=== PATIENT | female | born 1985 | race Caucasian/White ===

== ENCOUNTER 2020-05-19 10:01 | Emergency (ER) | payer MEDICAID ==
[2020-05-19 10:39] LABS: BILIRUBIN,URINE NEGATIVE (NEGATIVE); GLUCOSE, URINE (UA) NEGATIVE (NEGATIVE); KETONES,URINE (UA) NEGATIVE (NEGATIVE); LEUKOCYTE ESTERASE, URINE NEGATIVE (NEGATIVE); NITRITE,URINE NEGATIVE (NEGATIVE); OCCULT BLOOD,URINE NEGATIVE (NEGATIVE); PROTEIN,URINE NEGATIVE (NEGATIVE); UROBILINOGEN,URINE 0.2 (NORMAL) E.U./dL (NORMAL)
[2020-05-19 10:45] LABS: CLARITY,URINE CLEAR (CLEAR); HCG UR QUAL NEGATIVE
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
[2020-05-19] MEDS ORDERED: SODIUM CHLORIDE 0.9% 1,000 ML IV STA (11:08)
[2020-05-19] MEDS ORDERED: KETOROLAC 30 MG/ML VIAL IVP STA (11:08)
[2020-05-19] MEDS ORDERED: ONDANSETRON 4 MG/2 ML VIAL IVP STA (11:08)
[2020-05-19 11:27] LABS: BASOPHILS # (AUTO) 0.1 10^3/uL (0.0-0.1); BASOPHILS % (AUTO) 0.6 %; EOSINOPHILS # (AUTO) 0.3 10^3/uL (0.0-0.7); EOSINOPHILS % (AUTO) 3.5 %; HGB - HEMOGLOBIN 14.4 g/dL (12.0-16.0); LYMPHOCYTES # (AUTO) 2.1 10^3/uL (1.5-3.5); LYMPHOCYTES % (AUTO) 24.6 %; MEAN CORPUSCULAR HGB CONC 34.2 g/dL (32.0-36.0); MEAN CORPUSCULAR VOLUME 93.6 fL (81.0-99.0); MEAN PLATELET VOLUME 9.4 fL (7.9-10.8); MONOCYTES # (AUTO) 0.5 10^3/uL (0.0-1.0); MONOCYTES % (AUTO) 5.8 %; NEUTROPHILS # (AUTO) 5.7 10^3/uL (1.5-6.6); NEUTROPHILS % (AUTO) 65.2 %; PLT - PLATELET COUNT 277 10^3/uL (130-450); RED CELL DISTRIBUTION WIDTH 12.6 % (12.0-15.0); WHITE BLOOD COUNT 8.7 x10^3/uL (4.8-10.8)
--- NOTE | 2020-05-19 11:51 | CT Report ---
PROCEDURE: Abdomen/Pelvis WO INDICATIONS: R flank pain TECHNIQUE: Noncontrast 5 mm thick sections acquired from the diaphragms to the symphysis. 5 mm coronal and sagi ttal reformats were then performed. For radiation dose reduction, the following was used: automated exposure control, adjustment of mA and/or kV according to patient size. COMPARISON: None. FINDINGS: Image quality: Excellent. ABDOMEN: Lung bases: Lung bases are clear. Heart size is normal. Urinary tract: There is no renal, ureteral, or bladder calculus. No hydroureteronephrosis or perineph juliette fat stranding. Normal size and unenhanced CT appearance of both kidneys. Remaining solid abdominal viscera: Diffuse moderate to severe hepatic steatosis. Borderline hepatomeg elsa. No focal hepatic mass. The spleen is normal in size and appearance. Surgically absent gallbladde r. The pancreas and adrenal glands are unremarkable. Peritoneum and bowel: Unenhanced bowel loops demonstrate normal wall thickness and caliber. No free fluid or air. Nodes and vessels: No retroperitoneal or mesenteric adenopathy by size criteria. Aorta and inferior vena cava are normal in caliber. Miscellaneous: No ventral hernias. PELVIS: Genitourinary: Bladder wall thickness is normal. Miscellaneous: No inguinal hernias or adenopathy. Bones: No suspicious bony lesions. No vertebral body compression fractures. IMPRESSION: No renal calculus or hydroureteronephrosis to explain flank pain. Moderate to severe hepatic steatosis with borderline hepatomegaly. In the appropriate clinical contex t this could explain right-sided abdominal pain. Correlate clinically for steatohepatitis. Reviewed by: Turner Herzog MD on 05/19/2020 11:49 AM PST Approved by: Turner Herzog MD on 05/19/2020 11:49 AM PST Station ID: [id number]
[2020-05-19 12:34] LABS: ALBUMIN 4.1 g/dL (3.2-5.5); ALBUMIN/GLOBULIN RATIO 1.6 (1.0-2.2); BILIRUBIN,TOTAL 0.5 mg/dL (0.2-1.0); CALCIUM 8.9 mg/dL (8.5-10.3); CREATININE 0.6 mg/dL (0.4-1.0); TOTAL PROTEIN 6.6 g/dL (6.7-8.2)
[2020-05-19 13:29] VITALS: BP 105/70
== END 2020-05-19 13:30 | disposition home or self-care (01) ==
LOC: ED 10:01
DX: R10.31 Right lower quadrant pain (principal); R11.2 Nausea with vomiting, unspecified; K76.0 Fatty (change of) liver, not elsewhere classified; F17.200 Nicotine dependence, unspecified, uncomplicated
CPT/HCPCS: 36415; 80053; 81001; 81003; 81025; 83690; 85025; 87086; 96374; 96375; 99284

== ENCOUNTER 2020-09-04 10:49 | Emergency (ER) | payer MEDICAID ==
--- OUTSIDE RECORDS SUMMARY | 2020-09-04 10:53 | EXTERNAL MEDICAL SUMMARY RPT | Continuity of Care Document ---
:1985 Demographics Phone Unavailable Preferred Language Israeli Marital Status Unknown Latter-Day Affiliation Unknown Race Unknown Ethnic Group Unknown Author Organization [place] Address [address] [phone] Phone Care Team Providers Name Role Phone Miscellaneous Unavailable Unavailable PA-C Unavailable Unavailable Allergies Encounters Medications date description facility 20200823 BENZONATATE All 20200823 BENZONATATE All 20200610 Cyclobenzaprine hydrochloride 10 MG Ora l Tablet [facility] 20200610 meloxicam 7.5 MG Oral Tablet [facility] spital Problems date description facility 20200823 Total score? All 20200823 Tobacco smoking status NHIS All 20200823 Details of drug misuse behavior All 20200823 Current every day smoker All 20200823 Cough All 20200823 Alcohol use All 20200610 Strain of muscle, fascia and tendon of lower back, [facility] initial e Procedures date description facility 20200823 Med Administration (PO-SL-IN-SD) All 20200823 Dexamethasone Sodium Phosphate Inj 10mg /1mL All 20200610 General Physician [facility] 20200610 [facility] 20200610 Diagnosis [facility] Results Vital Signs date measurement value source 20200610 weight_standard 220.99 lb 20200610 weight_metric 100.24 kg 20200610 temperature_standard 98.4 F 20200610 temperature_metric 36.89 C 20200610 respiration_rate 18 /min 20200610 height_standard 61 in 20200610 height_metric 154.94 cm 20200610 heart_rate 100 /min 20200610 BP_systolic 104 mm[Hg] 20200610 BP_diastolic 82 mm[Hg] 20200610 BMI 41.7 kg/m2 20200823 weight_standard 225 lb 20200823 weight_metric 102.06 kg 20200823 temperature_standard 98.3 F 20200823 temperature_metric 36.83 C 20200823 respiration_rate 141 /min 20200823 height_standard 61 in 20200823 height_metric 154.94 cm 20200823 heart_rate 96 /min 20200823 BP_systolic 111 mm[Hg] 20200823 BP_diastolic 80 mm[Hg] 20200823 BMI 42.67 kg/m2
[2020-09-04] MEDS ORDERED: KETOROLAC 30 MG/ML VIAL IVP STA (11:22)
[2020-09-04] MEDS ORDERED: IOVERSOL 320 100 ML VIAL IVP ONE ×2 (11:37→12:26)
[2020-09-04 11:43] LABS: BILIRUBIN,URINE NEGATIVE (NEGATIVE); GLUCOSE, URINE (UA) NEGATIVE (NEGATIVE); KETONES,URINE (UA) NEGATIVE (NEGATIVE); LEUKOCYTE ESTERASE, URINE NEGATIVE (NEGATIVE); NITRITE,URINE NEGATIVE (NEGATIVE); OCCULT BLOOD,URINE MODERATE (NEGATIVE); PROTEIN,URINE NEGATIVE (NEGATIVE); UROBILINOGEN,URINE 0.2 (NORMAL) E.U./dL (NORMAL)
[2020-09-04 11:45] LABS: CLARITY,URINE CLEAR (CLEAR); HCG UR QUAL NEGATIVE
[2020-09-04 11:50] LABS: BASOPHILS % (AUTO) 0.3 %; EOSINOPHILS # (AUTO) 0.3 10^3/uL (0.0-0.7); EOSINOPHILS % (AUTO) 3.6 %; HCT - HEMATOCRIT 42.1 % (37.0-47.0); HGB - HEMOGLOBIN 14.7 g/dL (12.0-16.0); LYMPHOCYTES # (AUTO) 2.5 10^3/uL (1.5-3.5); LYMPHOCYTES % (AUTO) 27.5 %; MEAN CORPUSCULAR HEMOGLOBIN 32.4 pg (27.0-31.0); MEAN CORPUSCULAR HGB CONC 34.9 g/dL (32.0-36.0); MEAN CORPUSCULAR VOLUME 92.7 fL (81.0-99.0); MEAN PLATELET VOLUME 9.2 fL (7.9-10.8); MONOCYTES # (AUTO) 0.4 10^3/uL (0.0-1.0); MONOCYTES % (AUTO) 4.9 %; NEUTROPHILS # (AUTO) 5.7 10^3/uL (1.5-6.6); NEUTROPHILS % (AUTO) 63.1 %; PLT - PLATELET COUNT 276 10^3/uL (130-450); RED BLOOD COUNT 4.54 10^6/uL (4.20-5.40); RED CELL DISTRIBUTION WIDTH 12.7 % (12.0-15.0)
--- NOTE | 2020-09-04 11:50 | ED Physician Documentation ---
History of Present Illness - Stated complaint Stated Complaint: FEMALE - Chief complaint Chief Complaint: Abd Pain - History obtained from History obtained from: Patient - History of Present Illness Timing: Today Pain level max: 7 Pain level now: 5 - Additonal information Additional information: Patient is a 35-year-old female who presents to the emergency department the right-sided pelvic pain/right lower quadrant abdominal pain. She has had vaginal spotting for the past 8 days. LMP was 1 month ago. She states negative test this morning. Nothing makes this better or worse. Rates the pain as a 7 out of 10 max, currently 5 out of 10. Has not taken anything for the pain. No vaginal discharge. No STD exposure. 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 - Present Medications Home Medications: Ambulatory Orders Medication Instructions Recorded Confirmed HYDROcod/ACETAM 5/325 [Heartwell 5/325] 1 - 2 ea PO Q6H PRN #14 tablet 09/04/20 - Allergies Allergies/Adverse Reactions: Allergies Allergy/AdvReac Type Severity Reaction Status Date / Time No Known Drug Allergies Allergy Verified 09/04/20 11:00 - Social History Does the pt smoke?: Yes Smoking Status: Current every day smoker Does the pt drink ETOH?: No Does the pt have substance abuse?: No - Immunizations Immunizations are current?: Yes - POLST Patient has POLST: No PD ED PE NORMAL - Vitals Vital signs reviewed: Yes - General General: Alert and oriented X 3, No acute distress - HEENT HEENT: PERRL, Moist mucous membranes - Neck Neck: Supple, no meningeal sign - Cardiac Cardiac: RRR, Strong equal pulses - Respiratory Respiratory: No respiratory distress, Clear bilaterally - Abdomen Abdomen: Soft, Non distended, Other (Tender to palpation right pelvic/right lower quadrant. No peritoneal signs.) - Back Back: No CVA TTP, No spinal TTP - Derm Derm: Warm and dry - Extremities Extremities: No edema, No calf tenderness / cord - Neuro Neuro: Alert and oriented X 3 - Psych Psych: Normal mood, Normal affect Results - Vitals Vitals: Vital Signs - 24 hr 09/04/20 09/04/20 09/04/20 11:02 13:07 14:12 Temperature 36.9 C Heart Rate 102 H 92 78 Respiratory 18 19 18 Rate Blood Pressure 127/88 H 118/77 130/69 O2 Saturation 97 98 100 Oxygen O2 Source Room air - Labs Labs: Laboratory Tests 09/04/20 09/04/20 09/04/20 11:20 11:27 11:38 WBC 9.0 RBC 4.54 Hgb 14.7 Hct 42.1 MCV 92.7 MCH 32.4 H MCHC 34.9 RDW 12.7 Plt Count 276 MPV 9.2 Neut # (Auto) 5.7 Lymph # (Auto) 2.5 [place] # (Auto) 0.4 Eos # (Auto) 0.3 Baso # (Auto) 0.0 Absolute Nucleated RBC 0.00 Nucleated RBC % 0.0 Sodium 137 Potassium 3.6 Chloride 101 Carbon Dioxide 23 Anion Gap 13.0 BUN 9 Creatinine 0.7 Estimated GFR (MDRD) 96 Glucose 226 H Calcium 9.1 Total Bilirubin 0.6 AST 29 ALT 39 Alkaline Phosphatase 56 Total Protein 7.0 Albumin 4.2 Globulin 2.8 Albumin/Globulin Ratio 1.5 Lipase 48 Urine Color YELLOW Urine Clarity CLEAR Urine pH 6.0 Ur Specific [place] 1.020 Urine Protein NEGATIVE Urine Glucose (UA) NEGATIVE Urine Ketones NEGATIVE Urine Occult Blood MODERATE H Urine Nitrite NEGATIVE Urine Bilirubin NEGATIVE Urine Urobilinogen 0.2 (NORMAL) Ur Leukocyte Esterase NEGATIVE Urine RBC 0-5 Urine WBC 0-3 Ur Squamous Epith Cells MANY Squamous H Urine Bacteria Few Ur Microscopic Review INDICATED Urine Culture Comments NOT INDICATED Urine HCG, Qual NEGATIVE - Rads (name of study) CT abdomen pelvis Radiology: Prelim report reviewed, EMP read contemporaneously, See rad report Pelvic ultrasound Radiology: Prelim report reviewed, EMP read contemporaneously, See rad report (unremarkable) PD MEDICAL DECISION MAKING - ED course Complexity details: reviewed results, re-evaluated patient, considered differential, d/w patient ED course: No acute findings on CT of the abdomen pelvis or pelvic ultrasound. Pain well controlled in the emergency department. Patient denies any vaginal bleeding, itching, discharge. She refuses a pelvic examination here. We will trial her on pain medication for home. Recommend that she follow-up with gynecology if her symptoms do not improve. She should also follow-up with her PCP if her symptoms fail to improve. Patient is well-appearing, nontoxic. Afebrile. Tolerating p.o. without difficulty. Patient counseled regarding signs and symptoms for which I believe and urgent re-evaluation would be necessary. Patient with good understanding of and agreement to plan and is comfortable going home at this time This document was made in part using voice recognition software. While efforts are made to proofread this document, sound alike and grammatical errors may occur. IMPRESSION: 1. Mild hepatomegaly, diffuse hepatic steatosis. 2. Remote cholecystectomy. 3. No evidence of acute abdominal process. No findings which correlate with right lower quadrant pain complaints. Departure - Departure Disposition: Home, Self Care Clinical Impression: Abdominal pain Qualifiers: Abdominal location: unspecified location Qualified Code(s): R10.9 - Unspecified abdominal pain Condition: Good Instructions: ED Abdominal Pain Unkn Cause Follow-Up: your,doctor in 2- 3days [Other] [facility] [Provider Group] Prescriptions: HYDROcod/ACETAM 5/325 [Heartwell 5/325] 1 - 2 ea PO Q6H PRN #14 tablet PRN Reason: Pain Comments: The cause of your symptoms is unclear today. It is recommended that you follow- up closely with your doctor for further evaluation. We did discuss a pelvic examination, but you have declined this today. I would recommend that if your symptoms continue you follow-up with the women's clinic to have this performed. Your CT scan and ultrasound did not show any acute abnormalities today nor does your blood work. Do not drink alcohol or drive while on narcotic pain medicine. Note that many narcotic pain relievers also contain tylenol/acetaminophen. Please ensure that your total dose of acetaminophen from all sources does not exceed 3 grams (3000mg) per day. You may constipated on this medication, take a stool softener such as "Colace" twice a day while you are on it. Also recommend a edgo-rbf-zqhrhzv laxative such as senna or MiraLAX any day that you do not have a bowel movement. If you received narcotic pain medication in the emergency department, do not drive or operate machinery for the next 24 hours. Forms: Activity restrictions Discharge Date/Time: 09/04/20 14:11
--- OUTSIDE RECORDS SUMMARY | 2020-09-04 11:53 | EXTERNAL MEDICAL SUMMARY RPT | Continuity of Care Document ---
:1985 Demographics Phone Unavailable Preferred Language Bulgarian Marital Status Unknown Moravian Affiliation Unknown Race Unknown Ethnic Group Unknown Author Organization [place] Address [address] [phone] Phone Care Team Providers Name Role Phone Miscellaneous Unavailable Unavailable PA-C Unavailable Unavailable Allergies Encounters Medications date description facility 20200823 BENZONATATE All 20200823 BENZONATATE All 20200610 Cyclobenzaprine hydrochloride 10 MG Ora l Tablet [facility] 20200610 meloxicam 7.5 MG Oral Tablet [facility] spital Problems date description facility 20200823 Total score? All 20200823 Tobacco smoking status NHIS All 20200823 Details of drug misuse behavior All 20200823 Current every day smoker All 20200823 Cough All 20200823 Alcohol use All 20200610 Strain of muscle, fascia and tendon of lower back, [facility] initial e Procedures date description facility 20200823 Med Administration (PO-SL-IN-MA) All 20200823 Dexamethasone Sodium Phosphate Inj 10mg /1mL All 20200610 General Physician [facility] 20200610 [facility] 20200610 Diagnosis [facility] Results Vital Signs date measurement [...]
[2020-09-04 12:03] LABS: ALBUMIN 4.2 g/dL (3.2-5.5); ALBUMIN/GLOBULIN RATIO 1.5 (1.0-2.2); BILIRUBIN,TOTAL 0.6 mg/dL (0.2-1.0); CALCIUM 9.1 mg/dL (8.5-10.3); CREATININE 0.7 mg/dL (0.4-1.0); POTASSIUM 3.6 mmol/L (3.5-5.0)
[2020-09-04 12:10] LABS: BACTERIA,URINE Few /HPF (None Seen); RBC,URINE 0-5 /HPF (0-5); SQUAMOUS EPITHELIAL CELL,UR MANY Squamous (<= Few); WBC,URINE 0-3 /HPF (0-5)
[2020-09-04] MEDS ORDERED: MORPHINE 2 MG/ML CARPUJECT IVP STA (12:38)
--- NOTE | 2020-09-04 12:53 | CT Report ---
PROCEDURE: Abdomen/Pelvis W INDICATIONS: RLQ abd pain. CONTRAST: IV CONTRAST: Optiray 320 ml: 100 PO CONTRAST: *NO PO CONTRAST TECHNIQUE: After the administration of intravenous contrast, 5 mm thick sections acquired from the diaphragms to the symphysis. 5 mm thick coronal and sagittal reformats were acquired. For radiation dose reducti on, the following was used: automated exposure control, adjustment of mA and/or kV according to elijah ent size. COMPARISON: CT abdomen and pelvis without contrast dated 05/19/2020 FINDINGS: Image quality: Excellent. ABDOMEN: Lung bases: Lung bases are clear. Heart size is normal. Solid organs: Diffuse hepatic steatosis. Mild hepatomegaly. Spleen is normal in size and enhancement. Gallbladder is unremarkable. Biliary system is non dilated. Pancreas enhances normally. No adrena l nodules. Kidneys demonstrate normal size and enhancement, without hydronephrosis. Peritoneum and bowel: Bowel loops demonstrate normal wall thickness and caliber. No free fluid or a ir. Nodes and vessels: No retroperitoneal or mesenteric adenopathy by size criteria. Aorta and inferior vena cava are normal in size. Miscellaneous: No ventral hernias. PELVIS: Genitourinary: Bladder wall thickness is normal. Miscellaneous: No inguinal hernias or adenopathy. Bones: No suspicious bony lesions. No vertebral body compression fractures. IMPRESSION: 1. Mild hepatomegaly, diffuse hepatic steatosis. 2. Remote cholecystectomy. 3. No evidence of acute abdominal process. No findings which correlate with right lower quadrant pain complaints. Reviewed by: Ricardo Bryant MD on 09/04/2020 12:52 PM PDT Approved by: Ricardo Bryant MD on 09/04/2020 12:52 PM PDT Station ID: [id number]
--- NOTE | 2020-09-04 13:36 | Ultrasound Report ---
PROCEDURE: Pelvic w/Transvag+Doppler Comp INDICATIONS: pelvic pain, R TECHNIQUE: Real-time scanning was performed of the pelvic organs, with image documentation. Additional endovagi nal scanning was necessary due to incomplete visualization of the adnexal and endometrial structures by transabdominal scanning. COMPARISON: Concurrent CT abdomen and pelvis FINDINGS: No pathologic free abdominal or pelvic fluid. Uterus: Uterus is normal in size at 7.6 x 3.3 x 5.0 cm. The endometrium measures 4.5 mm in combined thickness. Ovaries: Both ovaries appropriate in size, echotexture and vascularity without evidence of torsion. IMPRESSION: Unremarkable ultrasound of the pelvis without evidence of ovarian torsion or free fluid Reviewed by: Hiram Hawkins MD on 09/04/2020 12:34 PM CARITO Approved by: Hiram Hawkins MD on 09/04/2020 12:34 PM CARITO Station ID: [id number]
[2020-09-04 14:14] VITALS: BP 130/69
== END 2020-09-04 14:11 | disposition home or self-care (01) ==
LOC: ED 10:49
DX: R10.2 Pelvic and perineal pain (principal); R10.31 Right lower quadrant pain; F17.200 Nicotine dependence, unspecified, uncomplicated
CPT/HCPCS: 36415; 74177; 76830; 76856; 80053; 81001; 81025; 83690; 85025; 93975; 96374; 96375; 99284; Q9967; 81003; 87086

== ENCOUNTER 2020-10-15 09:51 | Emergency (ER) | payer MEDICAID ==
[2020-10-15 10:20] VITALS: BP 149/110
[2020-10-15 10:46] LABS: BASOPHILS # (AUTO) 0.1 10^3/uL (0.0-0.1); BASOPHILS % (AUTO) 0.7 %; EOSINOPHILS # (AUTO) 0.3 10^3/uL (0.0-0.7); EOSINOPHILS % (AUTO) 3.3 %; HCT - HEMATOCRIT 43.8 % (37.0-47.0); HGB - HEMOGLOBIN 15.2 g/dL (12.0-16.0); LYMPHOCYTES # (AUTO) 2.4 10^3/uL (1.5-3.5); LYMPHOCYTES % (AUTO) 27.6 %; MEAN CORPUSCULAR HEMOGLOBIN 32.1 pg (27.0-31.0); MEAN CORPUSCULAR HGB CONC 34.7 g/dL (32.0-36.0); MEAN CORPUSCULAR VOLUME 92.4 fL (81.0-99.0); MEAN PLATELET VOLUME 9.2 fL (7.9-10.8); MONOCYTES # (AUTO) 0.6 10^3/uL (0.0-1.0); MONOCYTES % (AUTO) 6.4 %; NEUTROPHILS # (AUTO) 5.4 10^3/uL (1.5-6.6); NEUTROPHILS % (AUTO) 61.7 %; PLT - PLATELET COUNT 280 10^3/uL (130-450); RED BLOOD COUNT 4.74 10^6/uL (4.20-5.40); RED CELL DISTRIBUTION WIDTH 12.2 % (12.0-15.0); WHITE BLOOD COUNT 8.8 x10^3/uL (4.8-10.8)
[2020-10-15 11:00] LABS: ALBUMIN 4.6 g/dL (3.2-5.5); ALBUMIN/GLOBULIN RATIO 1.5 (1.0-2.2); BILIRUBIN,TOTAL 0.2 mg/dL (0.2-1.0); CALCIUM 9.6 mg/dL (8.5-10.3); CREATININE 0.7 mg/dL (0.4-1.0); POTASSIUM 4.3 mmol/L (3.5-5.0); TOTAL PROTEIN 7.6 g/dL (6.7-8.2)
== END 2020-10-15 11:58 | disposition left against medical advice (07) ==
LOC: ED 09:51
DX: Z53.21 Procedure and treatment not carried out due to patient leaving prior to being seen by health care provider (principal)
CPT/HCPCS: 36415; 80053; 83690; 85025

== ENCOUNTER 2020-10-25 10:09 | Emergency (ER) | payer MEDICAID ==
[2020-10-25] MEDS ORDERED: HYDROmorphone 1 MG/ML CARPUJECT IM STA (12:13)
[2020-10-25] MEDS ORDERED: KETOROLAC 15 MG/ML VIAL IM STA (12:13)
--- NOTE | 2020-10-25 13:21 | ED Physician Documentation ---
PD HPI ABD PAIN - Stated complaint Stated Complaint: ABD PX/NAUSEA - Chief complaint Chief Complaint: Abd Pain - History obtained from History obtained from: Patient, Family - Additional information Additional information: Patient comes emergency department for chief complaint of Left pelvic pain for the last several days. She has been seen at [facility] twice and has had ultrasound imaging both times which has showed an increasing late sized ovarian cyst. Patient states that the pain has steadily worsened but has not suddenly worsened. She states she is only had ibuprofen and Tylenol at home and she feels like she needs something stronger. No fevers or chills. No dysuria. No vaginal symptoms other than some bleeding initially. states they are going to make an appointment in primary care after this the patient gets seen in follow-up. 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 No other complaints at this time. Review of Systems Ten Systems: 10 systems reviewed and negative Constitutional: reports: Reviewed and negative Eyes: reports: Reviewed and negative Ears: reports: Reviewed and negative Nose: reports: Reviewed and negative Throat: reports: Reviewed and negative Cardiac: reports: Reviewed and negative Respiratory: reports: Reviewed and negative GI: reports: Abdominal Pain : reports: Reviewed and negative Skin: reports: Reviewed and negative Musculoskeletal: reports: Reviewed and negative Neurologic: reports: Reviewed and negative Psychiatric: reports: Reviewed and negative Endocrine: reports: Reviewed and negative Immunocompromised: reports: Reviewed and negative PD PAST MEDICAL HISTORY - Past Medical History Psych: Depression, Anxiety - Past Surgical History Past Surgical History: Yes 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: Yes - POLST Patient has POLST: No PD ED PE NORMAL - Vitals Vital signs reviewed: Yes - General General: Alert and oriented X 3, Well developed/nourished, Other (Patient appears uncomfortable and is crying, but is not in distress otherwise) - HEENT HEENT: Atraumatic, PERRL, EOMI, Moist mucous membranes - Neck Neck: Supple, no meningeal sign - Cardiac Cardiac: RRR, No murmur - Respiratory Respiratory: No respiratory distress, Clear bilaterally - Abdomen Abdomen: Soft, Non distended, Other (Suprapubic and left pelvic tenderness, no rebound or guarding.) - Derm Derm: Warm and dry - Extremities Extremities: No deformity - Neuro Neuro: Alert and oriented X 3 - Psych Psych: Normal mood, Normal affect Results - Vitals Vitals: Vital Signs - 24 hr 10/25/20 10/25/20 10:20 13:38 Temperature 36.0 C L Heart Rate 89 74 Respiratory 16 17 Rate Blood Pressure 125/88 H 138/64 H O2 Saturation 99 99 Oxygen O2 Source Room air PD MEDICAL DECISION MAKING - ED course Complexity details: considered differential, d/w patient, d/w family ED course: Patient had already been imaged for this problem twice with demonstration of ovarian cyst and had not experienced any sudden worsening of the pain since. As such, I did not feel she needed to be imaged yet again. Patient was treated symptomatically here in the emergency department, After which she was found to be feeling much better. We have discussed home management and symptoms and the need for gynecology follow-up, should patient fail to experience significant improvement over the next couple of weeks. We discussed the usual indications for return. Departure - Departure Disposition: 01 Home, Self Care Clinical Impression: Pelvic pain Ovarian cyst Qualifiers: Laterality: left Qualified Code(s): N83.202 - Unspecified ovarian cyst, left side Condition: Stable Instructions: ED Cyst Ovarian, ED Pelvic Pain [facility] Follow-Up: Ze Moody MD [Provider Admit Priv/Credential] - Ashley Lew MD [Provider Admit Priv/Credential] - Prescriptions: HYDROcod/ACETAM 5/325 [[place] 5/325] 1 - 2 tablet PO Q6H PRN #14 tablet PRN Reason: Pain Ondansetron Odt [Zofran] 4 mg TL Q6H PRN #10 tablet PRN Reason: Nausea / Vomiting Discharge Date/Time: 10/25/20 13:38
[2020-10-25 13:39] VITALS: BP 138/64
== END 2020-10-25 13:38 | disposition home or self-care (01) ==
LOC: ED 10:09
DX: R10.2 Pelvic and perineal pain (principal); N83.202 Unspecified ovarian cyst, left side; F17.200 Nicotine dependence, unspecified, uncomplicated
CPT/HCPCS: 96372; 99283; 99284; J1170; 80053; 83690; 85025

== ENCOUNTER 2020-11-08 08:00 | Outpatient (CLI) | payer MEDICAID ==
[2020-11-08 12:30] LABS: BASOPHILS # (AUTO) 0.1 10^3/uL (0.0-0.1); BASOPHILS % (AUTO) 0.7 %; EOSINOPHILS # (AUTO) 0.3 10^3/uL (0.0-0.7); EOSINOPHILS % (AUTO) 3.3 %; HCT - HEMATOCRIT 43.1 % (37.0-47.0); HGB - HEMOGLOBIN 14.4 g/dL (12.0-16.0); LYMPHOCYTES # (AUTO) 2.2 10^3/uL (1.5-3.5); LYMPHOCYTES % (AUTO) 28.7 %; MEAN CORPUSCULAR HEMOGLOBIN 31.4 pg (27.0-31.0); MEAN CORPUSCULAR HGB CONC 33.4 g/dL (32.0-36.0); MEAN CORPUSCULAR VOLUME 93.9 fL (81.0-99.0); MEAN PLATELET VOLUME 10.2 fL (7.9-10.8); MONOCYTES # (AUTO) 0.5 10^3/uL (0.0-1.0); MONOCYTES % (AUTO) 6.5 %; NEUTROPHILS # (AUTO) 4.6 10^3/uL (1.5-6.6); NEUTROPHILS % (AUTO) 60.4 %; PLT - PLATELET COUNT 303 10^3/uL (130-450); RED BLOOD COUNT 4.59 10^6/uL (4.20-5.40); RED CELL DISTRIBUTION WIDTH 12.7 % (12.0-15.0); WHITE BLOOD COUNT 7.6 x10^3/uL (4.8-10.8)
[2020-11-08 12:50] LABS: ALBUMIN 4.4 g/dL (3.2-5.5); ALBUMIN/GLOBULIN RATIO 1.5 (1.0-2.2); BILIRUBIN,TOTAL 0.5 mg/dL (0.2-1.0); CALCIUM 9.2 mg/dL (8.5-10.3); CREATININE 0.6 mg/dL (0.4-1.0); TOTAL PROTEIN 7.4 g/dL (6.7-8.2)
== END 2020-11-08 23:59 | disposition home or self-care (01) ==
LOC: LAB.N 08:00
PROVIDERS: ATTEND Nurse Practitioner
DX: R25.2 Cramp and spasm (principal)
CPT/HCPCS: 36415; 80053; 85025; 85379

== ENCOUNTER 2021-01-23 17:00 | Outpatient (CLI) | payer MEDICAID ==
[2021-01-24 00:27] LABS: BACTERIAL VAGINOSIS DNA POSITIVE (NEGATIVE); CANDIDA GLABRATA DNA NEGATIVE (NEGATIVE); CANDIDA GROUP DNA NEGATIVE (NEGATIVE); CANDIDA KRUSEI DNA NEGATIVE (NEGATIVE); TRICHOMONAS VAGINALIS DNA NEGATIVE (NEGATIVE)
[2021-01-24 02:13] LABS: CHLAMYDIA TRACHOMATIS DNA NEGATIVE (NEGATIVE); NEISSERIA GONORRHOEAE DNA NEGATIVE (NEGATIVE); TRICHOMONAS VAGINALIS DNA NEGATIVE (NEGATIVE)
== END 2021-01-23 23:59 | disposition home or self-care (01) ==
LOC: LAB.N 17:00
PROVIDERS: ATTEND Family Medicine
DX: N89.9 Noninflammatory disorder of vagina, unspecified (principal)
CPT/HCPCS: 87086; 87491; 87591; 87661; 87801

== ENCOUNTER 2021-02-02 13:01 | Outpatient (CLI) | payer MEDICAID ==
[2021-02-02 18:00] LABS: BASOPHILS # (AUTO) 0.1 10^3/uL (0.0-0.1); BASOPHILS % (AUTO) 0.6 %; EOSINOPHILS # (AUTO) 0.4 10^3/uL (0.0-0.7); EOSINOPHILS % (AUTO) 4.4 %; HCT - HEMATOCRIT 45.8 % (37.0-47.0); HGB - HEMOGLOBIN 15.4 g/dL (12.0-16.0); LYMPHOCYTES # (AUTO) 2.2 10^3/uL (1.5-3.5); MEAN CORPUSCULAR HEMOGLOBIN 32.2 pg (27.0-31.0); MEAN CORPUSCULAR HGB CONC 33.6 g/dL (32.0-36.0); MEAN CORPUSCULAR VOLUME 95.8 fL (81.0-99.0); MEAN PLATELET VOLUME 10.6 fL (7.9-10.8); MONOCYTES # (AUTO) 0.5 10^3/uL (0.0-1.0); MONOCYTES % (AUTO) 5.5 %; NEUTROPHILS # (AUTO) 5.3 10^3/uL (1.5-6.6); NEUTROPHILS % (AUTO) 63.1 %; PLT - PLATELET COUNT 330 10^3/uL (130-450); RED BLOOD COUNT 4.78 10^6/uL (4.20-5.40); RED CELL DISTRIBUTION WIDTH 12.8 % (12.0-15.0); WHITE BLOOD COUNT 8.4 x10^3/uL (4.8-10.8)
[2021-02-02 18:17] LABS: ALBUMIN 4.5 g/dL (3.2-5.5); ALBUMIN/GLOBULIN RATIO 1.4 (1.0-2.2); BILIRUBIN,TOTAL 0.3 mg/dL (0.2-1.0); CALCIUM 9.2 mg/dL (8.5-10.3); CREATININE 0.7 mg/dL (0.4-1.0); POTASSIUM 4.1 mmol/L (3.5-5.0); TOTAL PROTEIN 7.7 g/dL (6.7-8.2)
== END 2021-02-02 23:59 | disposition home or self-care (01) ==
LOC: LAB.N 13:01
PROVIDERS: ATTEND Nurse Practitioner
DX: Z76.0 Encounter for issue of repeat prescription (principal)
CPT/HCPCS: 36415; 80053; 85025

== ENCOUNTER 2021-04-02 10:33 | Emergency (ER) | payer MEDICAID ==
[2021-04-02 10:43] VITALS: BP 149/89
[2021-04-02 18:59] LABS: CLARITY,URINE CLEAR (CLEAR); LEUKOCYTE ESTERASE, URINE NEGATIVE (NEGATIVE); NITRITE,URINE NEGATIVE (NEGATIVE)
[2021-04-02 19:00] LABS: BILIRUBIN,URINE NEGATIVE (NEGATIVE); GLUCOSE, URINE (UA) 500 mg/dL (NEGATIVE); HCG UR QUAL NEGATIVE; KETONES,URINE (UA) NEGATIVE (NEGATIVE); OCCULT BLOOD,URINE NEGATIVE (NEGATIVE); PH,URINE 5.5 PH (5.0-7.5); PROTEIN,URINE NEGATIVE (NEGATIVE); UROBILINOGEN,URINE 0.2 (NORMAL) E.U./dL (NORMAL)
== END 2021-04-02 10:55 | disposition home or self-care (01) ==
LOC: ED 10:33
DX: Z53.21 Procedure and treatment not carried out due to patient leaving prior to being seen by health care provider (principal)
CPT/HCPCS: 80053; 81001; 81003; 81025; 83690; 85025; 87086

== ENCOUNTER 2021-08-03 16:27 | Emergency (ER) | payer MEDICAID ==
[2021-08-03 16:44] VITALS: BP 130/75
--- OUTSIDE RECORDS SUMMARY | 2021-08-03 16:53 | EXTERNAL MEDICAL SUMMARY RPT | Continuity of Care Document ---
:1985 Author Organization [place] Address [address] [place] [address] Phone Care Team Providers Name Role Phone AMUSEMENT PARK RIDE MECHANIC-C Unavailable Unavailable Allergies No information. Encounters No information. Medications date description facility [id number] buspirone All Problems Results No information.
[2021-08-03 17:16] LABS: BASOPHILS % (AUTO) 0.6 %; EOSINOPHILS # (AUTO) 0.7 10^3/uL (0.0-0.7); EOSINOPHILS % (AUTO) 10.4 %; HCT - HEMATOCRIT 43.8 % (37.0-47.0); HGB - HEMOGLOBIN 15.3 g/dL (12.0-16.0); LYMPHOCYTES # (AUTO) 1.9 10^3/uL (1.5-3.5); LYMPHOCYTES % (AUTO) 29.9 %; MEAN CORPUSCULAR HEMOGLOBIN 32.2 pg (27.0-31.0); MEAN CORPUSCULAR HGB CONC 34.9 g/dL (32.0-36.0); MEAN CORPUSCULAR VOLUME 92.2 fL (81.0-99.0); MEAN PLATELET VOLUME 9.7 fL (7.9-10.8); MONOCYTES # (AUTO) 0.6 10^3/uL (0.0-1.0); MONOCYTES % (AUTO) 10.1 %; NEUTROPHILS % (AUTO) 48.7 %; PLT - PLATELET COUNT 251 10^3/uL (130-450); RED BLOOD COUNT 4.75 10^6/uL (4.20-5.40); RED CELL DISTRIBUTION WIDTH 12.5 % (12.0-15.0); WHITE BLOOD COUNT 6.2 x10^3/uL (4.8-10.8)
[2021-08-03 17:32] LABS: ALBUMIN 4.4 g/dL (3.2-5.5); ALBUMIN/GLOBULIN RATIO 1.4 (1.0-2.2); BILIRUBIN,TOTAL 0.4 mg/dL (0.2-1.0); CALCIUM 9.4 mg/dL (8.5-10.3); CREATININE 0.6 mg/dL (0.4-1.0); TOTAL PROTEIN 7.6 g/dL (6.7-8.2)
[2021-08-03] MEDS ORDERED: HYDROmorphone 1 MG/ML CARPUJECT IVP STA (18:01)
[2021-08-03] MEDS ORDERED: SODIUM CHLORIDE 0.9% 1,000 ML IV STA (18:01)
[2021-08-03] MEDS ORDERED: ONDANSETRON 4 MG/2 ML VIAL IVP STA (18:01)
--- NOTE | 2021-08-03 18:01 | ED Physician Documentation ---
PD HPI ABD PAIN - Stated complaint Stated Complaint: R SIDE PX - Chief complaint Chief Complaint: Abd Pain - History obtained from History obtained from: Patient - Additional information Additional information: 36-year-old woman with history of cholecystectomy and remote presents with right-sided abdominal pain of 2 days duration. Not worse with eating. She is nauseous but has not vomited. She is had profuse diarrhea. No fevers. No sick contacts. 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 - Present Medications Home Medications: Ambulatory Orders Medication Instructions Recorded Confirmed HYDROcod/ACETAM 5/325 [[place] 5/325] 1 - 2 tablet PO Q6H PRN #14 tablet 10/25/20 Ondansetron Odt [Zofran] 4 mg TL Q6H PRN #10 tablet 10/25/20 - Allergies Allergies/Adverse Reactions: Allergies Allergy/AdvReac Type Severity Reaction Status Date / Time No Known Drug Allergies Allergy Verified 08/03/21 16:44 - Social History Does the pt smoke?: Yes Smoking Status: Current every day smoker Does the pt drink ETOH?: No Does the pt have substance abuse?: No - Immunizations Immunizations are current?: Yes - POLST Patient has POLST: No PD ED PE NORMAL - Vitals Vital signs reviewed: Yes - General General: Alert and oriented X 3, Other (She appears uncomfortable) - HEENT HEENT: PERRL, EOMI, Pharynx benign - Neck Neck: Supple, no meningeal sign, No bony TTP - Cardiac Cardiac: RRR, No murmur - Respiratory Respiratory: No respiratory distress, Clear bilaterally - Abdomen Abdomen: Normal bowel sounds, Soft, Other (Tender in the Right lower more than right upper quadrant, No surgical signs) - Back Back: No CVA TTP, No spinal TTP - Derm Derm: Normal color, Warm and dry - Extremities Extremities: No edema, No calf tenderness / cord - Neuro Neuro: Alert and oriented X 3, Normal speech Results - Vitals Vitals: Vital Signs - 24 hr 08/03/21 08/03/21 08/03/21 16:42 17:51 19:31 Temperature 36.5 C Heart Rate 104 H 84 Respiratory 16 20 18 Rate Blood Pressure 130/75 O2 Saturation 97 98 Oxygen O2 Source Room air - Labs Labs: Laboratory Tests 08/03/21 08/03/21 08/03/21 17:09 17:09 17:09 WBC 6.2 RBC 4.75 Hgb 15.3 Hct 43.8 MCV 92.2 MCH 32.2 H MCHC 34.9 RDW 12.5 Plt Count 251 MPV 9.7 Neut # (Auto) 3.0 Lymph # (Auto) 1.9 [place] # (Auto) 0.6 Eos # (Auto) 0.7 Baso # (Auto) 0.0 Absolute Nucleated RBC 0.00 Nucleated RBC % 0.0 Sodium 137 Potassium 4.0 Chloride 104 Carbon Dioxide 23 Anion Gap 10.0 BUN 8 Creatinine 0.6 Estimated GFR (MDRD) 114 Glucose 157 H Calcium 9.4 Total Bilirubin 0.4 AST 48 H ALT 66 H Alkaline Phosphatase 54 Total Protein 7.6 Albumin 4.4 Globulin 3.2 Albumin/Globulin Ratio 1.4 Lipase 46 HCG, Quant < 0.60 Urine Color Urine Clarity Urine pH Ur Specific [place] Urine Protein Urine Glucose (UA) Urine Ketones Urine Occult Blood Urine Nitrite Urine Bilirubin Urine Urobilinogen Ur Leukocyte Esterase Ur Microscopic Review Urine Culture Comments Urine HCG, Qual Blood Type 08/03/21 08/03/21 17:09 20:00 WBC RBC Hgb Hct MCV MCH MCHC RDW Plt Count MPV Neut # (Auto) Lymph # (Auto) [place] # (Auto) Eos # (Auto) Baso # (Auto) Absolute Nucleated RBC Nucleated RBC % Sodium Potassium Chloride Carbon Dioxide Anion Gap BUN Creatinine Estimated GFR (MDRD) Glucose Calcium Total Bilirubin AST ALT Alkaline Phosphatase Total Protein Albumin Globulin Albumin/Globulin Ratio Lipase HCG, Quant Urine Color YELLOW Urine Clarity CLEAR Urine pH 6.0 Ur Specific [place] 1.015 Urine Protein NEGATIVE Urine Glucose (UA) NEGATIVE Urine Ketones NEGATIVE Urine Occult Blood NEGATIVE Urine Nitrite NEGATIVE Urine Bilirubin NEGATIVE Urine Urobilinogen 0.2 (NORMAL) Ur Leukocyte Esterase NEGATIVE Ur Microscopic Review NOT INDICATED Urine Culture Comments NOT INDICATED Urine HCG, Qual NEGATIVE Blood Type O POSITIVE PD MEDICAL DECISION MAKING - ED course ED course: 36-year-old woman presents for the evaluation of right-sided abdominal pain. Labs show modest elevation in liver enzymes. No evidence of . Urine normal. CT shows a fatty liver, no other findings. She was unable to produce a stool sample while here, given the lack of leukocytosis I think that is inconsequential. She was given close return precautions and for Vicodin to go. She was pain-free on reevaluation prior to discharge. Departure - Departure Disposition: Home, Self Care Clinical Impression: Abdominal pain Qualifiers: Abdominal location: right lower quadrant Qualified Code(s): R10.31 - Right lower quadrant pain Diarrhea Qualifiers: Diarrhea type: unspecified type Qualified Code(s): R19.7 - Diarrhea, unspecified Condition: Good Record reviewed to determine appropriate education?: Yes Instructions: ED Abdominal Pain Female Non-Specific Abdominal Pain Comments: Return in 24 hours if not better, anytime if worse or new symptoms develop. Follow-up with your doctor next week for recheck.
[2021-08-03] MEDS ORDERED: IOPAMIDOL-300 100 ML VIAL ONE (18:24)
[2021-08-03] MEDS ORDERED: IOPAMIDOL-300 100 ML VIAL IVP ONE (19:50)
[2021-08-03 20:07] LABS: BILIRUBIN,URINE NEGATIVE (NEGATIVE); GLUCOSE, URINE (UA) NEGATIVE (NEGATIVE); KETONES,URINE (UA) NEGATIVE (NEGATIVE); LEUKOCYTE ESTERASE, URINE NEGATIVE (NEGATIVE); NITRITE,URINE NEGATIVE (NEGATIVE); OCCULT BLOOD,URINE NEGATIVE (NEGATIVE); PROTEIN,URINE NEGATIVE (NEGATIVE); UROBILINOGEN,URINE 0.2 (NORMAL) E.U./dL (NORMAL)
[2021-08-03 20:21] LABS: CLARITY,URINE CLEAR (CLEAR); HCG UR QUAL NEGATIVE
--- NOTE | 2021-08-03 20:32 | CT Report ---
PROCEDURE: Abdomen/Pelvis W INDICATIONS: RLQ pain CONTRAST: IV CONTRAST: Isovue 300 ml: 100 PO CONTRAST: *NO PO CONTRAST TECHNIQUE: After the administration of intravenous contrast, 5 mm thick sections acquired from the diaphragms to the symphysis. 5 mm thick coronal and sagittal reformats were acquired. For radiation dose reducti on, the following was used: automated exposure control, adjustment of mA and/or kV according to elijah ent size. COMPARISON: CT abdomen pelvis 09/04/2020. FINDINGS: Image quality: Excellent. ABDOMEN: Lung bases: Lung bases are clear. Heart size is normal. Solid organs: There is heterogeneous diffuse hypoattenuation of the liver consistent with fatty infil tration. The gallbladder is surgically absent. Biliary system is non dilated. The spleen is normal i n size. Pancreas enhances normally without peripancreatic fat stranding or fluid collections. No adr enal nodules. Kidneys demonstrate no hydronephrosis. Peritoneum and bowel: Bowel loops demonstrate normal wall thickness and caliber. The appendix is nor mal in appearance. No free fluid or air. Nodes and vessels: No retroperitoneal or mesenteric adenopathy by size criteria. Aorta and inferior vena cava are normal in size. Miscellaneous: No ventral hernias. PELVIS: Genitourinary: Bladder wall thickness is normal. The uterus and ovaries appear within normal size li mits. Miscellaneous: No inguinal hernias or adenopathy. Bones: No suspicious bony lesions. No vertebral body compression fractures. IMPRESSION: 1. No acute intra-abdominal abnormality. Specifically, no evidence of acute appendicitis. 2. Hepatic steatosis Reviewed by: Altaf Nolan MD on 08/03/2021 8:31 PM PDT Approved by: Altaf Nolan MD on 08/03/2021 8:31 PM PDT Station ID: [id number]
[2021-08-03] MEDS ORDERED: HYDROcod/ACET 5/325 Prepack 4 PO STA (20:38)
== END 2021-08-03 21:05 | disposition home or self-care (01) ==
LOC: ED 16:27
DX: R10.31 Right lower quadrant pain (principal); R19.7 Diarrhea, unspecified; F17.200 Nicotine dependence, unspecified, uncomplicated
CPT/HCPCS: 36415; 74177; 80053; 81003; 81025; 83690; 84702; 85025; 86900; 86901; 96374; 99282; 99284; J1170; Q9967; 81001; 87086

== ENCOUNTER 2021-08-13 05:48 | Emergency (ER) | payer MEDICAID ==
--- OUTSIDE RECORDS SUMMARY | 2021-08-13 05:54 | EXTERNAL MEDICAL SUMMARY RPT | Continuity of Care Document ---
:1985 Author Organization [place] Address [address] [place] [address] Phone Care Team Providers Name Role Phone RAIL CAR REPAIR CARMAN-C Unavailable Unavailable Allergies No information. Encounters No information. Medications date description facility [id number] buspirone All Problems Results No information.
[2021-08-13 06:20] LABS: BASOPHILS # (AUTO) 0.1 10^3/uL (0.0-0.1); BASOPHILS % (AUTO) 0.7 %; EOSINOPHILS # (AUTO) 0.6 10^3/uL (0.0-0.7); EOSINOPHILS % (AUTO) 7.3 %; HCT - HEMATOCRIT 43.9 % (37.0-47.0); HGB - HEMOGLOBIN 15.2 g/dL (12.0-16.0); LYMPHOCYTES # (AUTO) 2.4 10^3/uL (1.5-3.5); LYMPHOCYTES % (AUTO) 26.7 %; MEAN CORPUSCULAR HEMOGLOBIN 31.9 pg (27.0-31.0); MEAN CORPUSCULAR HGB CONC 34.6 g/dL (32.0-36.0); MEAN PLATELET VOLUME 9.7 fL (7.9-10.8); MONOCYTES # (AUTO) 0.5 10^3/uL (0.0-1.0); MONOCYTES % (AUTO) 6.1 %; NEUTROPHILS # (AUTO) 5.2 10^3/uL (1.5-6.6); NEUTROPHILS % (AUTO) 58.7 %; PLT - PLATELET COUNT 272 10^3/uL (130-450); RED BLOOD COUNT 4.77 10^6/uL (4.20-5.40); RED CELL DISTRIBUTION WIDTH 12.6 % (12.0-15.0); WHITE BLOOD COUNT 8.8 x10^3/uL (4.8-10.8)
[2021-08-13 06:20] LABS: BILIRUBIN,URINE NEGATIVE (NEGATIVE); CLARITY,URINE CLEAR (CLEAR); GLUCOSE, URINE (UA) NEGATIVE (NEGATIVE); HCG UR QUAL NEGATIVE; KETONES,URINE (UA) NEGATIVE (NEGATIVE); LEUKOCYTE ESTERASE, URINE NEGATIVE (NEGATIVE); NITRITE,URINE NEGATIVE (NEGATIVE); OCCULT BLOOD,URINE NEGATIVE (NEGATIVE); PH,URINE 5.5 PH (5.0-7.5); PROTEIN,URINE NEGATIVE (NEGATIVE); UROBILINOGEN,URINE 0.2 (NORMAL) E.U./dL (NORMAL)
[2021-08-13] MEDS ORDERED: ONDANSETRON 4 MG/2 ML VIAL IVP STA ×2 (06:22→07:35)
[2021-08-13] MEDS ORDERED: SODIUM CHLORIDE 0.9% 1,000 ML IV STA (06:22)
[2021-08-13] MEDS ORDERED: MORPHINE 2 MG/ML CARPUJECT IVP STA (06:22)
--- NOTE | 2021-08-13 06:27 | ED Physician Documentation ---
PD HPI ABD PAIN - Stated complaint Stated Complaint: ABD PX - Chief complaint Chief Complaint: Abd Pain - History obtained from History obtained from: Patient - Additional information Additional information: She is a 36-year-old female with a history of previous cholecystectomy and C- section presenting for evaluation of right-sided abdominal pain that started at 330 this morning and woke her up from her sleep. The pain is sharp. It is primarily to the right side of her abdomen. She has associated nausea. No emesis. Her last bowel movement was yesterday and normal for her. No blood In stools.Nothing makes the pain better or worse. No fever, chest pain, difficulty breathing, dysuria, concern for . Patient had similar pain 10 days ago and was seen in the emergency department. She had labs and imaging which were unrevealing And reports the pain went away on its own.Patient states the pain today feels similar to previous episode. Review of Systems Constitutional: denies: Fever Nose: denies: Congestion Cardiac: denies: Chest pain / pressure, Palpitations Respiratory: denies: Dyspnea, Cough GI: reports: Abdominal Pain, Nausea. 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 - Present Medications Home Medications: Ambulatory Orders Medication Instructions Recorded Confirmed Buspirone HCl 10 mg PO DAILY 08/13/21 08/13/21 Escitalopram Oxalate 20 mg PO DAILY 08/13/21 08/13/21 Ondansetron Odt [Zofran] 4 mg TL Q6H PRN #10 tablet 08/13/21 Oxycodone HCl/Acetaminophen 1 each PO Q6H PRN #14 tablet 08/13/21 [Percocet 5-325 mg Tablet] - Allergies Allergies/Adverse Reactions: Allergies Allergy/AdvReac Type Severity Reaction Status Date / Time No Known Drug Allergies Allergy Verified 08/13/21 06:15 - Social History Does the pt smoke?: Yes Smoking Status: Current every day smoker Does the pt drink ETOH?: No Does the pt have substance abuse?: No - Immunizations Immunizations are current?: Yes - POLST Patient has POLST: No PD ED PE NORMAL - General General: Alert and oriented X 3, No acute distress, Well developed/nourished - HEENT HEENT: Atraumatic, Moist mucous membranes - Neck Neck: Supple, no meningeal sign - Cardiac Cardiac: RRR, No murmur, Strong equal pulses - Respiratory Respiratory: No respiratory distress, Clear bilaterally - Abdomen Abdomen: Normal bowel sounds, Soft, Non distended, Other (Right upper and lower quadrant tenderness to palpation, no rebound, no guarding, no mass or hernia palpated) - Back Back: No CVA TTP - Derm Derm: Warm and dry - Extremities Extremities: No edema - Neuro Neuro: Normal speech - Psych Psych: Normal mood Results - Vitals Vitals: Vital Signs - 24 hr 08/13/21 08/13/21 08/13/21 06:00 06:20 06:47 Temperature 36.7 C Heart Rate 84 85 81 Respiratory 18 18 16 Rate Blood Pressure 139/65 H 132/93 H 129/99 H O2 Saturation 98 98 99 08/13/21 08:07 Temperature 36.8 C Heart Rate 80 Respiratory 18 Rate Blood Pressure 125/75 O2 Saturation 100 Oxygen O2 Source Room air - Labs Labs: Laboratory Tests 08/13/21 08/13/21 08/13/21 05:46 05:46 06:10 WBC 8.8 RBC 4.77 Hgb 15.2 Hct 43.9 MCV 92.0 MCH 31.9 H MCHC 34.6 RDW 12.6 Plt Count 272 MPV 9.7 Neut # (Auto) 5.2 Lymph # (Auto) 2.4 [place] # (Auto) 0.5 Eos # (Auto) 0.6 Baso # (Auto) 0.1 Absolute Nucleated RBC 0.00 Nucleated RBC % 0.0 Sodium Potassium Chloride Carbon Dioxide Anion Gap BUN Creatinine Estimated GFR (MDRD) Glucose Calcium Total Bilirubin AST ALT Alkaline Phosphatase Total Protein Albumin Globulin Albumin/Globulin Ratio Lipase Urine Color YELLOW Urine Clarity CLEAR Urine pH 5.5 Ur Specific [place] >=1.030 H Urine Protein NEGATIVE Urine Glucose (UA) NEGATIVE Urine Ketones NEGATIVE Urine Occult Blood NEGATIVE Urine Nitrite NEGATIVE Urine Bilirubin NEGATIVE Urine Urobilinogen 0.2 (NORMAL) Ur Leukocyte Esterase NEGATIVE Ur Microscopic Review NOT INDICATED Urine Culture Comments NOT INDICATED Urine HCG, Qual NEGATIVE 08/13/21 06:10 WBC RBC Hgb Hct MCV MCH MCHC RDW Plt Count MPV Neut # (Auto) Lymph # (Auto) [place] # (Auto) Eos # (Auto) Baso # (Auto) Absolute Nucleated RBC Nucleated RBC % Sodium 133 L Potassium 3.9 Chloride 104 Carbon Dioxide 19 L Anion Gap 10.0 BUN 11 Creatinine 0.6 Estimated GFR (MDRD) 114 Glucose 166 H Calcium 8.8 Total Bilirubin 0.5 AST 33 ALT 47 Alkaline Phosphatase 49 Total Protein 7.4 Albumin 4.2 Globulin 3.2 Albumin/Globulin Ratio 1.3 Lipase 44 Urine Color Urine Clarity Urine pH Ur Specific [place] Urine Protein Urine Glucose (UA) Urine Ketones Urine Occult Blood Urine Nitrite Urine Bilirubin Urine Urobilinogen Ur Leukocyte Esterase Ur Microscopic Review Urine Culture Comments Urine HCG, Qual PD MEDICAL DECISION MAKING - ED course Complexity details: reviewed results, re-evaluated patient, d/w patient ED course: Patient is a 36-year-old male presenting for evaluation of right-sided abdominal pain. Had similar episode 10 days ago with unremarkable work-up. Vitals and repeat labs are unremarkable. CT scan read by Overnight radiologist suggest possible area of inflammation suggesting inflammatory bowel disease. Discussed these findings with patient. Recommend close follow-up with her primary care doctor and need for GI follow-up. Patient is aware of return precautions.Pain is primarily to the mid and upper portion of the right side of her abdomen. Do not think her pain is related to a pelvic etiology. Departure - Departure Disposition: 01 Home, Self Care Clinical Impression: Right sided abdominal pain Condition: Stable Instructions: ED Abdominal Pain Female Non-Specific Abdominal Pain Prescriptions: Oxycodone HCl/Acetaminophen [Percocet 5-325 mg Tablet] 1 each PO Q6H PRN #14 tablet PRN Reason: pain Ondansetron Odt [Zofran] 4 mg TL Q6H PRN #10 tablet PRN Reason: Nausea / Vomiting Comments: Renate - You were evaluated for pain to the right side of your abdomen. Your labs today did not demonstrate any significant abnormalities. You had a CT scan of the abdomen and pelvis.This showed a small area of bowel that had signs of inflammation. This could be a sign of inflammatory bowel disease. You need to have follow-up with your primary care doctor who will likely need to refer you to a department chairperson. In the meanwhile, I have sent prescriptions for pain medication and nausea medications to [facility] in [place]. Please use this medication as needed. If you develop worsening symptoms such as increased pain, continued vomiting, fevers or have new symptoms please consider returning to the emergency department for another evaluation. I am prescribing a short course of narcotic pain medication for you. These are potentially dangerous and addictive medications that should be used carefully. These medications may constipate you. Take an [id number] stool softener (docusate) twice daily with plenty of water while taking these medications. If you go 24 hours without a bowel movement, take [id number] miralax, per package instructions. Do not drink or drive while taking these medications. If you received narcotic or sedating medications while in the emergency department, do not drive for 24 hours. Store this medication in a safe, secure place and out of reach of children. It is a violation of federal law to give or sell this medication to another person or to use in a manner other than prescribed. The ED will not refill narcotic prescriptions, including prescriptions lost or stolen. To dispose of unwanted medications: 1. [facility] at [address] in [place] has a medication drop box. They accept prescription medications (in pill form) Friday through Friday 9:00 a.m. to 5:00 p.m. 2. The [facility] accepts prescription medications (in pill form only) for disposal year round. Call for more information. 3. Contact the [facility] for the next [facility] sponsored prescription drug collection event. , [phone], or [phone]; Note that many narcotic pain relievers also contain Tylenol/acetaminophen. Please ensure that your total dose of acetaminophen from all sources does not exceed 3 g (3000 mg) per day. Forms: Activity restrictions Discharge Date/Time: 08/13/21 08:08
[2021-08-13 06:29] LABS: ALBUMIN 4.2 g/dL (3.2-5.5); ALBUMIN/GLOBULIN RATIO 1.3 (1.0-2.2); BILIRUBIN,TOTAL 0.5 mg/dL (0.2-1.0); CALCIUM 8.8 mg/dL (8.5-10.3); CREATININE 0.6 mg/dL (0.4-1.0); POTASSIUM 3.9 mmol/L (3.5-5.0); TOTAL PROTEIN 7.4 g/dL (6.7-8.2)
[2021-08-13] MEDS ORDERED: IOVERSOL 320 50 ML VIAL ONE (06:58)
[2021-08-13] MEDS ORDERED: IOVERSOL 320 50 ML VIAL IV ONE (07:25)
[2021-08-13] MEDS ORDERED: HYDROmorphone 1 MG/ML CARPUJECT IVP STA (07:35)
--- NOTE | 2021-08-13 08:00 | CT Report ---
PROCEDURE: Abdomen/Pelvis W INDICATIONS: R sided abd pain/history of csection and olga CONTRAST: IV CONTRAST: Isovue 300 ml: 100 PO CONTRAST: *NO PO CONTRAST TECHNIQUE: After the administration of intravenous contrast, 5 mm thick sections acquired from the diaphragms to the symphysis. 5 mm thick coronal and sagittal reformats were acquired. For radiation dose reducti on, the following was used: automated exposure control, adjustment of mA and/or kV according to elijah ent size. COMPARISON: CT abdomen/pelvis 09/17/2021 FINDINGS: Image quality: Excellent. ABDOMEN: Lung bases: Lung bases are clear. Heart size is normal. Solid organs: The liver is markedly decreased in attenuation, consistent with diffuse severe fatty in filtration. The liver measures approximately 20 cm in craniocaudal dimension. Gallbladder is surgical ly absent. Biliary system is non dilated. Pancreas enhances normally. Spleen is normal in size. No adrenal nodules. Kidneys demonstrate normal size and enhancement, without hydronephrosis. Peritoneum and bowel: There is fluid within the cecum with suspected trace pericolonic fat stranding. The visualized portion of the appendix appears normal. No free fluid or air. Nodes and vessels: No retroperitoneal or mesenteric adenopathy by size criteria. Aorta and inferior vena cava are normal in size. Miscellaneous: No ventral hernias. PELVIS: Genitourinary: Bladder wall thickness is normal. An enhancing right corpus luteal cyst is new when c ompared to the CT from 08/03/2021. The ovaries are symmetric in size. The uterus is unremarkable. Miscellaneous: No inguinal hernias or adenopathy. Bones: No suspicious bony lesions. No vertebral body compression fractures. IMPRESSION: 1.Small amount of fluid in the cecum and trace surrounding pericholecystic fluid are suspicious for a nonspecific colitis. Normal appendix. 2.Right ovarian corpus luteal cyst. 3.Diffuse severe hepatic steatosis. Reviewed by: Bari Veloz MD on 08/13/2021 7:58 AM PDT Approved by: Bari Veloz MD on 08/13/2021 7:58 AM PDT Station ID: [id number]
[2021-08-13 08:09] VITALS: BP 125/75
== END 2021-08-13 08:08 | disposition home or self-care (01) ==
LOC: ED 05:48
DX: R10.11 Right upper quadrant pain (principal); R10.31 Right lower quadrant pain; F17.200 Nicotine dependence, unspecified, uncomplicated
CPT/HCPCS: 36415; 74177; 80053; 81003; 81025; 83690; 85025; 96374; 96375; 96376; 99282; 99284; J1170; 81001; 87086

== ENCOUNTER 2022-01-31 15:00 | Outpatient (CLI) | payer MEDICAID ==
[2022-02-01 14:02] LABS: BILIRUBIN,URINE NEGATIVE (NEGATIVE); GLUCOSE, URINE (UA) 100 mg/dL (NEGATIVE); KETONES,URINE (UA) NEGATIVE (NEGATIVE); LEUKOCYTE ESTERASE, URINE NEGATIVE (NEGATIVE); NITRITE,URINE NEGATIVE (NEGATIVE); OCCULT BLOOD,URINE NEGATIVE (NEGATIVE); PROTEIN,URINE NEGATIVE (NEGATIVE); UROBILINOGEN,URINE 0.2 (NORMAL) E.U./dL (NORMAL)
[2022-02-01 14:05] LABS: CLARITY,URINE CLOUDY (CLEAR)
[2022-02-01 14:25] LABS: AMORPHOUS SEDIMENT,UR Marked /LPF; BACTERIA,URINE Few /HPF (None Seen); CRYSTALS,URINE 26-50 Ca Oxalate /LPF; MUCUS,URINE Few Strands; RBC,URINE 0-5 /HPF (0-5); SQUAMOUS EPITHELIAL CELL,UR MANY Squamous (<= Few); WBC,URINE 0-3 /HPF (0-5)
[2022-02-01 23:39] LABS: CHLAMYDIA TRACHOMATIS DNA NEGATIVE (NEGATIVE); NEISSERIA GONORRHOEAE DNA NEGATIVE (NEGATIVE); TRICHOMONAS VAGINALIS DNA NEGATIVE (NEGATIVE)
== END 2022-01-31 15:01 | disposition home or self-care (01) ==
LOC: LAB.WC 15:00
PROVIDERS: ATTEND Nurse Practitioner
DX: R10.31 Right lower quadrant pain (principal); Z11.3 Encounter for screening for infections with a predominantly sexual mode of transmission
CPT/HCPCS: 81001; 87086; 87491; 87591; 87661

== ENCOUNTER 2022-02-01 10:17 | Outpatient (CLI) | payer MEDICAID ==
[2022-02-01 13:00] LABS: BASOPHILS # (AUTO) 0.1 10^3/uL (0.0-0.1); BASOPHILS % (AUTO) 0.7 %; EOSINOPHILS # (AUTO) 0.3 10^3/uL (0.0-0.7); EOSINOPHILS % (AUTO) 3.4 %; HCT - HEMATOCRIT 42.2 % (37.0-47.0); HGB - HEMOGLOBIN 14.5 g/dL (12.0-16.0); LYMPHOCYTES # (AUTO) 2.2 10^3/uL (1.5-3.5); LYMPHOCYTES % (AUTO) 24.9 %; MEAN CORPUSCULAR HEMOGLOBIN 31.8 pg (27.0-31.0); MEAN CORPUSCULAR HGB CONC 34.4 g/dL (32.0-36.0); MEAN CORPUSCULAR VOLUME 92.5 fL (81.0-99.0); MEAN PLATELET VOLUME 10.5 fL (7.9-10.8); MONOCYTES # (AUTO) 0.6 10^3/uL (0.0-1.0); MONOCYTES % (AUTO) 6.6 %; NEUTROPHILS # (AUTO) 5.5 10^3/uL (1.5-6.6); NEUTROPHILS % (AUTO) 63.9 %; PLT - PLATELET COUNT 296 10^3/uL (130-450); RED BLOOD COUNT 4.56 10^6/uL (4.20-5.40); WHITE BLOOD COUNT 8.6 x10^3/uL (4.8-10.8)
[2022-02-02 05:09] LABS: HBsAG SCREEN Negative (Negative); HCV AB <0.1 s/co ratio (0.0-0.9); HIV SCREEN 4TH GENERATION Non Reactive (Non Reactive)
[2022-02-02 07:09] LABS: RPR Non Reactive (Non Reactive)
[2022-02-02 11:10] LABS: VARICELLA-ZOSTER AB IGG 3592 index (Immune >165)
[2022-02-02 15:17] LABS: ALBUMIN 4.2 g/dL (3.2-5.5); ALBUMIN/GLOBULIN RATIO 1.6 (1.0-2.2); BILIRUBIN,TOTAL 0.5 mg/dL (0.2-1.0); CALCIUM 9.2 mg/dL (8.5-10.3); CREATININE 0.6 mg/dL (0.4-1.0); POTASSIUM 3.9 mmol/L (3.5-5.0); TOTAL PROTEIN 6.8 g/dL (6.7-8.2)
== END 2022-02-01 10:18 | disposition home or self-care (01) ==
LOC: LAB.N 10:17 → LAB.WC 10:18
PROVIDERS: ATTEND Nurse Practitioner
DX: O99.891 Other specified diseases and conditions complicating pregnancy (principal); R10.31 Right lower quadrant pain
CPT/HCPCS: 36415; 80053; 85025; 86592; 86762; 86787; 86803; 86850; 86900; 86901; 87340; 87389

== ENCOUNTER 2022-03-04 13:30 | Outpatient (CLI) | payer MEDICAID ==
[2022-03-05 12:17] LABS: BILIRUBIN,URINE NEGATIVE (NEGATIVE); GLUCOSE, URINE (UA) 500 mg/dL (NEGATIVE); KETONES,URINE (UA) TRACE mg/dL (NEGATIVE); LEUKOCYTE ESTERASE, URINE NEGATIVE (NEGATIVE); NITRITE,URINE NEGATIVE (NEGATIVE); OCCULT BLOOD,URINE NEGATIVE (NEGATIVE); PROTEIN,URINE NEGATIVE (NEGATIVE); UROBILINOGEN,URINE 0.2 (NORMAL) E.U./dL (NORMAL)
[2022-03-05 12:21] LABS: CLARITY,URINE CLOUDY (CLEAR)
[2022-03-05 12:33] LABS: AMORPHOUS SEDIMENT,UR Marked /LPF; BACTERIA,URINE Few /HPF (None Seen); CRYSTALS,URINE 0-2 Calcium Oxalate /LPF; RBC,URINE None Seen /HPF (0-5); SQUAMOUS EPITHELIAL CELL,UR FEW Squamous (<= Few); WBC,URINE 0-3 /HPF (0-5)
[2022-03-05 22:57] LABS: BACTERIAL VAGINOSIS DNA POSITIVE (NEGATIVE); CANDIDA GLABRATA DNA NEGATIVE (NEGATIVE); CANDIDA GROUP DNA NEGATIVE (NEGATIVE); CANDIDA KRUSEI DNA NEGATIVE (NEGATIVE); TRICHOMONAS VAGINALIS DNA NEGATIVE (NEGATIVE)
[2022-03-05 23:48] LABS: CHLAMYDIA TRACHOMATIS DNA NEGATIVE (NEGATIVE); NEISSERIA GONORRHOEAE DNA NEGATIVE (NEGATIVE)
== END 2022-03-04 23:59 | disposition home or self-care (01) ==
LOC: LAB.WC 13:30
PROVIDERS: ATTEND Nurse Practitioner
DX: R30.0 Dysuria (principal); N89.8 Other specified noninflammatory disorders of vagina; Z11.3 Encounter for screening for infections with a predominantly sexual mode of transmission
CPT/HCPCS: 81001; 81514; 87086; 87491; 87591; 87661

== ENCOUNTER 2022-03-11 13:04 | Outpatient (CLI) | payer MEDICAID ==
[2022-03-11 18:39] LABS: THYROID STIMULATING HORMONE 1.62 uIU/mL (0.34-5.60)
[2022-03-11 18:41] LABS: FREE T4 (FREE THYROXINE) 0.53 ng/dL (0.58-1.64)
[2022-03-11 18:45] LABS: FERRITIN 124.7 ng/mL (11.0-306.8)
[2022-03-11 21:18] LABS: ESTIMATED AVERAGE GLUCOSE 131 mg/dL (70-100); HEMOGLOBIN A1c% 6.2 % (4.27-6.07)
== END 2022-03-11 13:05 | disposition home or self-care (01) ==
LOC: LAB.N 13:04
PROVIDERS: ATTEND Nurse Practitioner
DX: I10 Essential (primary) hypertension (principal); Z13.1 Encounter for screening for diabetes mellitus; Z87.19 Personal history of other diseases of the digestive system; R63.5 Abnormal weight gain; R94.5 Abnormal results of liver function studies
CPT/HCPCS: 36415; 82728; 82950; 83036; 84439; 84443; 84550

== ENCOUNTER 2022-03-21 16:31 | Outpatient (CLI) | payer MEDICAID ==
--- NOTE | 2022-03-22 09:25 | Ultrasound Report ---
PROCEDURE: OB First Trimester INDICATIONS: SUPERVISION OF OUTSIDE/PRIOR DATING DATA: Last menstrual period (LMP): 12/20/2021. LMP-based estimated date of delivery (JONE): 09/26/2022. First dating scan (date and location): 02/14/2022. Estimated date of delivery (JONE) from first dating scan: 10/03/2022. TECHNIQUE: Real-time scanning was performed of the fetus and maternal pelvic organs, with image documentation. COMPARISON: 02/14/2022 FINDINGS: Embryo: Single living intrauterine gestation with estimated sonographic gestational age of approxima tely 12 weeks and 2 days based off crown-rump length measurement of approximately 5.73 cm. This corre lates with estimated date of delivery of approximately 10/01/2022. By initial ultrasound, estimated ges tational age is approximately 12 weeks and 0 days. Expected interval growth has occurred. Heart rate: 160 Measurement variability in dating: +/- 4 weeks by LMP, +/- 7 days by mean sac diameter (use before 6 weeks gestation if crown-rump length not able to be measured), +/- 5 days by crown-rump length (6-12 weeks gestation). Maternal organs: Ovaries appear unremarkable. Maternal cervix appears long and closed. IMPRESSION: Single living intrauterine gestation with estimated sonographic gestational age of approximately 12 w eeks 2 days and estimated date of delivery of approximately 10/01/2022. Expected interval growth has oc curred. Recommend routine second trimester anatomy screening survey. Reviewed by: Fei Mckay MD on 03/22/2022 9:24 AM PST Approved by: Fei Mcaky MD on 03/22/2022 9:24 AM PST Station ID: [id number]
== END 2022-03-21 16:32 | disposition home or self-care (01) ==
LOC: DI 16:31
PROVIDERS: ATTEND Nurse Practitioner
DX: Z34.91 Encounter for supervision of normal pregnancy, unspecified, first trimester (principal)

== ENCOUNTER 2022-04-10 18:55 | Emergency (ER) | payer MEDICAID ==
[2022-04-10 19:17] LABS: BASOPHILS # (AUTO) 0.1 10^3/uL (0.0-0.1); BASOPHILS % (AUTO) 0.4 %; EOSINOPHILS # (AUTO) 0.3 10^3/uL (0.0-0.7); EOSINOPHILS % (AUTO) 2.6 %; HCT - HEMATOCRIT 40.1 % (37.0-47.0); HGB - HEMOGLOBIN 13.7 g/dL (12.0-16.0); LYMPHOCYTES # (AUTO) 2.9 10^3/uL (1.5-3.5); LYMPHOCYTES % (AUTO) 24.2 %; MEAN CORPUSCULAR HEMOGLOBIN 31.5 pg (27.0-31.0); MEAN CORPUSCULAR HGB CONC 34.2 g/dL (32.0-36.0); MEAN CORPUSCULAR VOLUME 92.2 fL (81.0-99.0); MEAN PLATELET VOLUME 9.1 fL (7.9-10.8); MONOCYTES # (AUTO) 0.7 10^3/uL (0.0-1.0); MONOCYTES % (AUTO) 5.7 %; NEUTROPHILS # (AUTO) 7.9 10^3/uL (1.5-6.6); NEUTROPHILS % (AUTO) 66.5 %; PLT - PLATELET COUNT 279 10^3/uL (130-450); RED BLOOD COUNT 4.35 10^6/uL (4.20-5.40); WHITE BLOOD COUNT 11.9 x10^3/uL (4.8-10.8)
[2022-04-10 19:30] LABS: ALBUMIN 3.4 g/dL (3.2-5.5); ALBUMIN/GLOBULIN RATIO 0.9 (1.0-2.2); BILIRUBIN,TOTAL 0.4 mg/dL (0.2-1.0); CALCIUM 9.9 mg/dL (8.5-10.3); CREATININE 0.6 mg/dL (0.4-1.0); POTASSIUM 3.3 mmol/L (3.5-5.0); TOTAL PROTEIN 7.1 g/dL (6.7-8.2)
[2022-04-10] MEDS ORDERED: METOCLOPRAMIDE 10 MG/2 ML VIAL IVP STA (19:30)
[2022-04-10] MEDS ORDERED: HYDROmorphone 1 MG/ML CARPUJECT IVP STA (19:30)
--- NOTE | 2022-04-10 19:34 | ED Physician Documentation ---
PD HPI ABD PAIN - Stated complaint Stated Complaint: R SIDE PX/SAMUELS/NAUSEA - Chief complaint Chief Complaint: Abd Pain - History obtained from History obtained from: Patient - Additional information Additional information: 37 YO with hx Gestational hypertension and gestational diabetes as well as chronic recurrent unexplained right upper quadrant pain. She developed her usual right upper quadrant pain starting yesterday which is quite severe but not different than her usual. Then she developed a severe progressive global headache earlier today that is the worst headache of her life. It is not associated with neck stiffness or fevers. 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: Yes - POLST Patient has POLST: No PD ED PE NORMAL - Vitals Vital signs reviewed: Yes - General General: Alert and oriented X 3, No acute distress - HEENT HEENT: PERRL, EOMI - Neck Neck: Supple, no meningeal sign, No bony TTP - Abdomen Abdomen: Normal bowel sounds, Soft, Non tender - Female Female : Other (Bedside sono single live IUP FHR 148) - Derm Derm: Normal color, Warm and dry - Extremities Extremities: No edema, No calf tenderness / cord - Neuro Neuro: Alert and oriented X 3, sports analyst 2-12 intact, No motor deficit, No sensory deficit, Normal speech Eye Opening: Spontaneous Motor: Obeys Commands Verbal: Oriented GCS Score: 15 - Psych Psych: Normal mood Results - Vitals Vitals: Vital Signs - 24 hr 04/10/22 19:00 Temperature 36.6 C Heart Rate 103 H Respiratory 18 Rate Blood Pressure 127/78 O2 Saturation 98 Oxygen O2 Source Room air - Labs Labs: Laboratory Tests 04/10/22 04/10/22 19:12 19:12 WBC 11.9 H RBC 4.35 Hgb 13.7 Hct 40.1 MCV 92.2 MCH 31.5 H MCHC 34.2 RDW 13.0 Plt Count 279 MPV 9.1 Neut # (Auto) 7.9 H Lymph # (Auto) 2.9 [place] # (Auto) 0.7 Eos # (Auto) 0.3 Baso # (Auto) 0.1 Absolute Nucleated RBC 0.00 Nucleated RBC % 0.0 Sodium 137 Potassium 3.3 L Chloride 102 Carbon Dioxide 25 Anion Gap 10.0 BUN 11 Creatinine 0.6 Estimated GFR (MDRD) 114 Glucose 201 H Calcium 9.9 Total Bilirubin 0.4 AST 32 ALT 36 Alkaline Phosphatase 44 Total Protein 7.1 Albumin 3.4 Globulin 3.7 Albumin/Globulin Ratio 0.9 L Lipase 44 PD Medical Decision Making - ED course ED course: 37-year-old woman with chronic recurrent abdominal pain now with headache. We discussed CT imaging on initial evaluation noting that she is but it is the worst headache of her life and she declined. She was administered Dilaudid and Reglan with resolution of all her symptoms, but she did develop an akathisia with the Reglan and requested discharge. Departure - Departure Disposition: 01 Home, Self Care Clinical Impression: Fatty liver, Hyperglycemia Qualifiers: Weeks of gestation: 15 weeks Qualified Code(s): Z3A.15 - 15 weeks gestation of Condition: Good Record reviewed to determine appropriate education?: Yes Instructions: ED Abdominal Pain Female Non-Specific Abdominal Pain Comments: It was the Reglan/metoclopramide that gave you the anxiety reaction. Reasonable to avoid that in the future. Return if any of your symptoms especially the headache were to recur. Follow-up with your OB, next available appointment.
[2022-04-10 20:49] VITALS: BP 114/79
== END 2022-04-10 20:50 | disposition home or self-care (01) ==
LOC: ED 18:55
DX: O24.419 Gestational diabetes mellitus in pregnancy, unspecified control (principal); O13.2 Gestational [pregnancy-induced] hypertension without significant proteinuria, second trimester; O99.891 Other specified diseases and conditions complicating pregnancy; K76.0 Fatty (change of) liver, not elsewhere classified; O99.332 Smoking (tobacco) complicating pregnancy, second trimester; F17.200 Nicotine dependence, unspecified, uncomplicated; O9A.212 Injury, poisoning and certain other consequences of external causes complicating pregnancy, second trimester; F41.9 Anxiety disorder, unspecified; T45.0X5A Adverse effect of antiallergic and antiemetic drugs, initial encounter; Z3A.15 15 weeks gestation of pregnancy
CPT/HCPCS: 36415; 80053; 83690; 85025; 96374; 96375; 99283; J1170; J2765

== ENCOUNTER 2022-05-21 12:40 | Outpatient (CLI) | payer MEDICAID ==
--- NOTE | 2022-05-21 14:45 | Ultrasound Report ---
PROCEDURE: OB Detailed Eval INDICATIONS: SUPERVISION OF PREGNACY OUTSIDE/PRIOR DATING DATA: Last menstrual period (LMP): 12/20/2021. LMP-based estimated date of delivery (JONE): 09/26/2022. First dating scan (date and location): 02/14/2022. Estimated date of delivery (JONE) from first dating scan: 10/03/2022. The below data below was generated using the ultrasound JONE of 10/03/2022 TECHNIQUE: Real-time scanning was performed of the fetus, with image documentation and biometric measurements. Endovaginal scanning: Not performed COMPARISON: 03/21/2022 FINDINGS: General: A single living intrauterine gestation is present. Presentation: Vertex Placenta: Placental position is anterior, without previa. Amniotic fluid index: 15.3 cm, within normal limits for gestational age. heart rate: 153 beats per minute. Maternal cervical canal: 4.25 cm long; normal length is 2.5 cm or more. biometrics: Biparietal diameter: 4.82 cm, 20 weeks 4 days Head circumference: 18.23 cm, 20 weeks 4 days Abdominal circumference: 16.39 cm, 21 weeks 3 days Femur length: 3.58 cm, 21 weeks 2 days Estimated gestational age from initial scan: 20 weeks 5 days Composite gestational age from present scan: 20 weeks 5 days Estimated weight and percentile: 412.9 g, 76.3 percentile Measurement variability in biometric dating: +/- 10 days from 12-20 weeks gestation, +/- 2 weeks from 20-30 weeks gestation, +/- 3 weeks at 30 weeks gestation or later. Anatomic survey: Neuro: Ventricles are normal at less than 10 mm. There are bilateral choroid plexus cysts noted. Ci sterna magna is normal at 3-11 mm. Cerebellum is normal in size and morphology. Nuchal skin fold: Normal at less than 6 mm between 14 and 20 weeks gestational age. Face: Nose and lips, facial profile are normal. Spine: No evidence for spina bifida. Heart: 4-chambered heart is present, with normal ventricular outflow tracts. Diaphragm: Diaphragm is intact. Stomach: Left-sided stomach is present. Kidneys: No hydronephrosis. Normal is less than 5 mm in 2nd trimester, less than 7 mm in 3rd trimester. Cord: 3 vessel cord has orthotopic insertion. Bladder: Normal in size. Extremities: All 4 extremities are visualized. IMPRESSION: 1. Living second trimester intrauterine . Current ultrasound age is the same as clinical age based on initial first trimester ultrasound. 2. Bilateral choroid plexus cysts are noted. 3. Otherwise unremarkable second trimester screening obstetrical ultrasound. All other structures see n, within normal limits. Reviewed by: Ricardo Bryant MD on 05/21/2022 2:44 PM PST Approved by: Ricardo Bryant MD on 05/21/2022 2:44 PM PST Station ID: [id number]
== END 2022-05-21 12:41 | disposition home or self-care (01) ==
LOC: DI 12:40
PROVIDERS: ATTEND Nurse Practitioner
DX: O09.92 Supervision of high risk pregnancy, unspecified, second trimester (principal); O35.03X0 Maternal care for (suspected) central nervous system malformation or damage in fetus, choroid plexus cysts, not applicable or unspecified; Z3A.20 20 weeks gestation of pregnancy

== ENCOUNTER 2022-05-31 08:00 | Outpatient (CLI) | payer MEDICAID | END 2022-05-31 23:59 | disposition home or self-care (01) | LOC: LAB 08:00 | PROVIDERS: ATTEND Obstetrics & Gynecology | DX: O09.522 Supervision of elderly multigravida, second trimester (principal); O09.892 Supervision of other high risk pregnancies, second trimester; O99.351 Diseases of the nervous system complicating pregnancy, first trimester; G93.0 Cerebral cysts | CPT/HCPCS: 81599; 82105 ==

== ENCOUNTER 2022-07-03 18:51 | Emergency (ER) | payer MEDICAID ==
[2022-07-03] MEDS ORDERED: ONDANSETRON 4 MG/2 ML VIAL IVP STA (19:23)
[2022-07-03] MEDS ORDERED: SODIUM CHLORIDE 0.9% 1,000 ML IV STA ×2 (19:23→21:00)
[2022-07-03 19:39] LABS: BASOPHILS % (AUTO) 0.2 %; EOSINOPHILS # (AUTO) 0.2 10^3/uL (0.0-0.7); EOSINOPHILS % (AUTO) 1.1 %; HCT - HEMATOCRIT 41.5 % (37.0-47.0); HGB - HEMOGLOBIN 13.8 g/dL (12.0-16.0); LYMPHOCYTES # (AUTO) 0.7 10^3/uL (1.5-3.5); LYMPHOCYTES % (AUTO) 5.4 %; MEAN CORPUSCULAR HEMOGLOBIN 31.1 pg (27.0-31.0); MEAN CORPUSCULAR HGB CONC 33.3 g/dL (32.0-36.0); MEAN CORPUSCULAR VOLUME 93.5 fL (81.0-99.0); MEAN PLATELET VOLUME 9.5 fL (7.9-10.8); MONOCYTES # (AUTO) 0.8 10^3/uL (0.0-1.0); MONOCYTES % (AUTO) 5.7 %; NEUTROPHILS # (AUTO) 11.7 10^3/uL (1.5-6.6); NEUTROPHILS % (AUTO) 86.9 %; PLT - PLATELET COUNT 236 10^3/uL (130-450); RED BLOOD COUNT 4.44 10^6/uL (4.20-5.40); RED CELL DISTRIBUTION WIDTH 13.6 % (12.0-15.0); WHITE BLOOD COUNT 13.5 x10^3/uL (4.8-10.8)
[2022-07-03] MEDS ORDERED: FAMOTIDINE 20 MG/2 ML VIAL IVP STA (19:41)
[2022-07-03] MEDS ORDERED: ACETAMINOPHEN 325 MG TABLET PO STA (19:54)
[2022-07-03 19:59] LABS: ALBUMIN 3.3 g/dL (3.2-5.5); ALBUMIN/GLOBULIN RATIO 0.9 (1.0-2.2); BILIRUBIN,TOTAL 0.5 mg/dL (0.2-1.0); CALCIUM 8.6 mg/dL (8.5-10.3); CREATININE 0.5 mg/dL (0.4-1.0); POTASSIUM 3.6 mmol/L (3.5-5.0); TOTAL PROTEIN 6.8 g/dL (6.7-8.2)
[2022-07-03 20:06] LABS: BILIRUBIN,URINE NEGATIVE (NEGATIVE); GLUCOSE, URINE (UA) NEGATIVE (NEGATIVE); KETONES,URINE (UA) >=80 mg/dL (NEGATIVE); LEUKOCYTE ESTERASE, URINE NEGATIVE (NEGATIVE); NITRITE,URINE NEGATIVE (NEGATIVE); OCCULT BLOOD,URINE NEGATIVE (NEGATIVE); PROTEIN,URINE NEGATIVE (NEGATIVE); UROBILINOGEN,URINE 0.2 (NORMAL) E.U./dL (NORMAL)
[2022-07-03 20:10] LABS: CLARITY,URINE HAZY (CLEAR)
[2022-07-03 20:16] LABS: BACTERIA,URINE Moderate /HPF (None Seen); RBC,URINE None Seen /HPF (0-5); SQUAMOUS EPITHELIAL CELL,UR MANY Squamous (<= Few); WBC,URINE 0-3 /HPF (0-5)
[2022-07-03] MEDS ORDERED: MORPHINE 2 MG/ML CARPUJECT IVP STA (20:23)
[2022-07-03] MEDS ORDERED: METOCLOPRAMIDE 10 MG/2 ML VIAL IVP STA (20:23)
[2022-07-03] MEDS ORDERED: PROMETHAZINE INJ 25 MG in SODIUM CHLORIDE 0.9% 50 ML IV STA (20:59)
[2022-07-03] MEDS ORDERED: PROMETHAZINE 25 MG/1 ML VIAL ONE (21:10)
--- NOTE | 2022-07-03 21:17 | ED Physician Documentation ---
PD HPI NVD - Stated complaint Stated Complaint: VOMITING - Chief complaint Chief Complaint: Abd Pain - History obtained from History obtained from: Patient - Additonal information Additional information: Patient is a 37-year-old female G2, P1 who is approximately 26 weeks presenting for evaluation of nausea and vomiting since this afternoon. Her significant other and another family member have also been recently ill with a stomach bug that they have recovered from.She reports a burning discomfort in her upper abdomen. She has had prior cholecystectomy. She is feeling her baby move. She denies lower abdominal pain, back pain, Diarrhea. She denies hematemesis.She denies radiation to her chest. She does report ongoing anxiety. She does have gestational diabetes and has been using Phenergan at home for nausea through this . 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 - Present Medications Home Medications: Ambulatory Orders Medication Instructions Recorded Confirmed Escitalopram Oxalate [Lexapro] 20 mg PO DAILY 02/14/22 02/14/22 Vit No.180/Iron/Folic 1 tab PO DAILY 02/14/22 02/14/22 [ Plus Vitamin-Mineral] Promethazine Supp [Phenergan Supp] 25 mg AR Q6HR PRN #12 supp 07/03/22 cephALEXin [Keflex] 500 mg PO BID #14 cap 07/03/22 - Allergies Allergies/Adverse Reactions: Allergies Allergy/AdvReac Type Severity Reaction Status Date / Time No Known Drug Allergies Allergy Verified 07/03/22 19:01 - Social History Does the pt smoke?: Yes Smoking Status: Current every day smoker Does the pt drink ETOH?: No Does the pt have substance abuse?: No - Immunizations Immunizations are current?: Yes - POLST Patient has POLST: No PD ED PE NORMAL - General General: Alert and oriented X 3, Well developed/nourished, Other (Somewhat anxious) - HEENT HEENT: Atraumatic - Neck Neck: Supple, no meningeal sign - Cardiac Cardiac: Other (Tachycardic, regular rhythm) - Respiratory Respiratory: No respiratory distress, Clear bilaterally - Abdomen Abdomen: Normal bowel sounds, Soft, Other (Gravid abdomen consistent with 27 week gestation, mild epigastric tenderness to palpation no right upper quadrant or left upper quadrant tenderness,) - Derm Derm: Warm and dry - Neuro Neuro: Normal speech Results - Vitals Vitals: Vital Signs - 24 hr 07/03/22 07/03/22 07/03/22 18:57 21:17 21:50 Temperature 37.1 C Heart Rate 133 H 112 H 106 H Respiratory 19 20 18 Rate Blood Pressure 126/74 129/72 O2 Saturation 98 96 100 Oxygen O2 Source Room air - Labs Labs: Laboratory Tests 07/03/22 07/03/22 07/03/22 18:50 19:33 19:33 WBC 13.5 H RBC 4.44 Hgb 13.8 Hct 41.5 MCV 93.5 MCH 31.1 H MCHC 33.3 RDW 13.6 Plt Count 236 MPV 9.5 Neut # (Auto) 11.7 H Lymph # (Auto) 0.7 L [place] # (Auto) 0.8 Eos # (Auto) 0.2 Baso # (Auto) 0.0 Absolute Nucleated RBC 0.00 Nucleated RBC % 0.0 Sodium 135 Potassium 3.6 Chloride 103 Carbon Dioxide 20 L Anion Gap 12.0 BUN 9 Creatinine 0.5 Estimated GFR (MDRD) 140 Glucose 147 H Calcium 8.6 Total Bilirubin 0.5 AST 30 ALT 23 Alkaline Phosphatase 68 Total Protein 6.8 Albumin 3.3 Globulin 3.5 Albumin/Globulin Ratio 0.9 L Lipase 37 Urine Color YELLOW Urine Clarity HAZY Urine pH 6.0 Ur Specific [place] >=1.030 H Urine Protein NEGATIVE Urine Glucose (UA) NEGATIVE Urine Ketones >=80 H Urine Occult Blood NEGATIVE Urine Nitrite NEGATIVE Urine Bilirubin NEGATIVE Urine Urobilinogen 0.2 (NORMAL) Ur Leukocyte Esterase NEGATIVE Urine RBC None Seen Urine WBC 0-3 Ur Squamous Epith Cells MANY Squamous H Urine Bacteria Moderate H Ur Microscopic Review INDICATED Urine Culture Comments NOT INDICATED PD Medical Decision Making - ED course Complexity details: reviewed results, re-evaluated patient ED course: Pt is a 37 yo approx 27 weeks presenting with epigastric pain and N/V. She has had N/V through the requiring phenergan twice a day. Her family members have been recently ill with a GI bug. She is feeling baby move, denies vaginal bleeding/discharge, lower abdominal pain. OB was contacted by autotransfusionist who stated pt was appropriate for ED. FHT normal. Pt is tachycardic, has gestational diabetes. Has mild epigastric tenderness on exam and very nauseous. Labs reviewed. WBC 13.5. Pt has had prior cholecystectomy. Electrolytes okay. Does not appear to be in DKA. Pt was very upset through her initial ED course, crying, yelling at staff, refusing medications to help with her symptoms. She did consent to IV pain medicine and was given 1 dose of IV morphine as she had refused pepcid and acetaminophen. She also did not want reglan and wanted IV phenergan. She is feeling better with meds, HR improved, repeat abdominal exam is benign. Her U/S shows many squamous epithelial cells and moderate bacteria. No UTI symptoms but will treat for asymptomatic bacteriuria as she is . She was able to tolerate PO antibiotic here. Pt understands need for close follow up with OB. She is advised on strict return precautions. Departure - Departure Disposition: 01 Home, Self Care Clinical Impression: Nausea/vomiting in , Epigastric pain, Asymptomatic bacteriuria during Condition: Stable Instructions: ED Nausea Vomiting Prescriptions: Promethazine Supp [Phenergan Supp] 25 mg AR Q6HR PRN #12 supp PRN Reason: Nausea / Vomiting cephALEXin [Keflex] 500 mg PO BID #14 cap Comments: Your symptoms are likely related to the stomach bug that is been going through your house. I am hoping that your symptoms resolve quickly in the next 24 hours.It is important to stay hydrated especially in . I have also sent a prescription for Phenergan suppositories to [facility] in [place] which you can use if you are not able to tolerate the Phenergan that you normally take. Please return to the emergency department if you develop any worsening symptoms such as increased pain, continued vomiting, feeling baby move last, vaginal bleeding or discharge, lower abdominal cramping Or have any concerns. Your urine also has bacteria in it. At this could be from the specimen not being a clean-catch sample. However in we do have a lower threshold to treat if there is bacteria in the urine. I have also sent a prescription for an antibiotic to [facility]. Discharge Date/Time: 07/03/22 22:07
[2022-07-03] MEDS ORDERED: cephALEXin 250 MG CAPSULE PO STA (21:48)
[2022-07-03 21:51] VITALS: BP 129/72
== END 2022-07-03 22:07 | disposition home or self-care (01) ==
LOC: ED 18:51
DX: O21.8 Other vomiting complicating pregnancy (principal); O99.332 Smoking (tobacco) complicating pregnancy, second trimester; F17.200 Nicotine dependence, unspecified, uncomplicated; Z3A.26 26 weeks gestation of pregnancy; O26.899 Other specified pregnancy related conditions, unspecified trimester; O21.9 Vomiting of pregnancy, unspecified; R10.13 Epigastric pain
CPT/HCPCS: 36415; 80053; 81001; 83690; 85025; 96361; 96374; 96375; 99284; A9270; J7040; 81003; 87086

== ENCOUNTER 2022-07-06 13:45 | Outpatient (CLI) | payer MEDICAID | END 2022-07-06 13:46 | disposition critical access hospital (66) | LOC: EMS 13:45 | DX: O26.92 Pregnancy related conditions, unspecified, second trimester (principal); R10.9 Unspecified abdominal pain | CPT/HCPCS: A0425; A0429; A0999 ==

== ENCOUNTER 2022-07-06 14:10 | Outpatient (CLI) | payer MEDICAID ==
[2022-07-06] MEDS ORDERED: LACTATED RINGERS 500 ML IV ONE (14:13)
[2022-07-06] MEDS ORDERED: LACTATED RINGERS 1,000 ML ONE (14:18)
[2022-07-06] MEDS ORDERED: LACTATED RINGERS 1,000 ML IV ONE (14:26)
[2022-07-06] MEDS ORDERED: fentaNYL 100 MCG/2 ML VIAL IVP PRN (14:31)
[2022-07-06] MEDS ORDERED: ACETAMINOPHEN 1,000 MG/100 ML 1,000 MG/100 ML BAG IV ONE (14:31)
[2022-07-06 14:50] LABS: BASOPHILS % (AUTO) 0.2 %; EOSINOPHILS # (AUTO) 0.2 10^3/uL (0.0-0.7); EOSINOPHILS % (AUTO) 2.6 %; HCT - HEMATOCRIT 36.4 % (37.0-47.0); HGB - HEMOGLOBIN 12.2 g/dL (12.0-16.0); LYMPHOCYTES # (AUTO) 2.2 10^3/uL (1.5-3.5); LYMPHOCYTES % (AUTO) 26.2 %; MEAN CORPUSCULAR HEMOGLOBIN 31.2 pg (27.0-31.0); MEAN CORPUSCULAR HGB CONC 33.5 g/dL (32.0-36.0); MEAN CORPUSCULAR VOLUME 93.1 fL (81.0-99.0); MEAN PLATELET VOLUME 9.6 fL (7.9-10.8); MONOCYTES # (AUTO) 0.6 10^3/uL (0.0-1.0); NEUTROPHILS # (AUTO) 5.2 10^3/uL (1.5-6.6); NEUTROPHILS % (AUTO) 63.4 %; PLT - PLATELET COUNT 237 10^3/uL (130-450); RED BLOOD COUNT 3.91 10^6/uL (4.20-5.40); RED CELL DISTRIBUTION WIDTH 13.9 % (12.0-15.0); WHITE BLOOD COUNT 8.2 x10^3/uL (4.8-10.8)
[2022-07-06 15:01] LABS: ALBUMIN 2.9 g/dL (3.2-5.5); ALBUMIN/GLOBULIN RATIO 0.9 (1.0-2.2); ALKALINE PHOSPHATASE 60 IU/L (42-121); ALT ALANINE AMINOTRANSFERASE 29 IU/L (10-60); AST ASPARTATE AMINOTRANSFERASE 26 IU/L (10-42); BILIRUBIN,TOTAL < 0.2 mg/dL (0.2-1.0); BUN - BLOOD UREA NITROGEN < 5 mg/dL (6-20); CALCIUM 8.3 mg/dL (8.5-10.3); CARBON DIOXIDE - CO2 20 mmol/L (21-32); CHLORIDE 109 mmol/L (101-111); CREATININE 0.4 mg/dL (0.4-1.0); GFR - MDRD 182 (>89); GLUCOSE 140 mg/dL (70-100); POTASSIUM 3.2 mmol/L (3.5-5.0); SODIUM 137 mmol/L (135-145); TOTAL PROTEIN 6.1 g/dL (6.7-8.2)
[2022-07-06] MEDS ORDERED: fentaNYL 100 MCG/2 ML VIAL IVP ONE (16:00)
--- NOTE | 2022-07-06 17:39 | PROVIDER PROGRESS NOTE ---
- HPI Chief Complaint: Pain, non-labor Current : Vital Signs Temperature 96.5 F L 07/06/22 14:17 Temperature 96.5 F L 07/06/22 14:17 Heart Rate Respiratory Rate Blood Pressure O2 Saturation If not protocol: Oxygen Flow, liters/minute - Procedures OB Procedure Performed: NST Diagnosis/Indication for NST: Gestational Diabetes NST Procedure: reactive NST Service Date of procedure: 07/06/22 - Plan Plan: This 37-year-old 2 para 1 at 28 weeks presented to the unit with a chief complaint of pain all over her body, nausea and vomiting. She states that she could not sleep during the night and she feels miserable and she was a cry and shouting. She brought by the ambulance. Her chart was reviewed and she was a seen on June 27 at the clinic and the same issue was discussed then and MFM referral was discussed and [place]. She was emotionally very upset and she was crying and she demanded to have strong pain medication. We did a CBC with differentials and CMP and results were not remarkable except elevated random blood sugar. IV hydration was given with lactated Ringer's solution and she wanted to stop after 800 cc infusion. Phenergan was given for nausea vomiting and fentanyl 25 mg twice were given for the pain relief and she did respond but she wanted to have a more strong pain medication. We had a long discussion and her father was involved in helping to communicate better and she and her father agreed to see MFM as a referral. She did have past history of migraine headache and fibromyalgia and she took the medication for that. Last visit she was given lidocaine 5% ointment with instruction to apply 3 times a day, but she said that it did not help her at all. She has multiple risk factors that needs to be dealt with. Risk factors as below 1, Insulin-dependent preexisting diabetes ( Not well controlled ) 2, Chronic hip/low back pain bilaterally 3. Obesity affecting 4, Advanced age multi gravity 5, Previous section 6,Chronic Hypertension managed by Procardia 7,Past history of fatty liver 8,Status postcholecystectomy 9,Past history of anxiety and depression Since she agreed to see MFM soon I read to give her her limited number of Percocet at and this was sent to her pharmacy. She and her familyfamily left in emotionally upset statues because of my comment on her poor diet that she was about to consumes. Her partner brought her hamburger with [place] fries from the fast restaurant and I explained to them that is not really good diet for an individual with insulin dependent diabetes and she did not appreciate the comment Following documents are from last clinic visit on 06-27 and she came back to ER on 07-03-22 "Patient very frustrated with care and that she is too high risk for care with Dyana, our LOG CHIPPER. We again discussed that she is in many ways too high risk for our usual care, but [place]. She has been doing very well with weight and blood pressure. Glucose Fasting 10/11 and postprandial 50 with dinners being the most abnormal. Will increase insulin to 42N/18R, 20R, 16N. Discussed dietary choices and limited portion size of carbohydrates. Patient is having ongoing hip/ low back pain bilaterally. No discreet areas of pain. Has upcoming PT appointment and is upset I will not refill her opioids. She received a short course for acute pain, but as this has persisted, will likely persists through . encouraged to stay active, try lidocaine, warm baths, heading pads on back, but avoiding belly. Patient is undestanding, but irritated." Problems: Chronic hypertension: BP controlled with nifedipine XR. Continue aspirin (Started 04/04/2022). A2GDM vs Early diagnosed preexisting DM: Currently managed with NPH and R, 06/13/22 insulin adjustments: AM: 42NPH/18 Regular PM: 20 Regular Night: 18 NPH "Should visit with M again, but needs to have open mind. Patient declined saying [place] Discussed that she is high risk and this would be in her interest to get subspecialty care. Currently declines. Fatty liver: Intermittent elevated transamminases. She can continue with doing stairs up and down extra times for exercise. Discussed starting walks 3 times a week after dinner. Can increase frequency, intensity, or duration as she gets used to this. We also recommended doing portion size diet and experimenting with new vegetables. Will also help with diabetes control. Anxiety, PTSD: Improved with increased dose of lexapro. Will continue to monitor symptoms".
[2022-07-06 18:00] VITALS: BP 133/71
== END 2022-07-06 17:27 | disposition home or self-care (01) ==
LOC: WFO 14:10 → FBP 14:11 → WFO 17:27
PROVIDERS: ATTEND Obstetrics & Gynecology
DX: O24.112 Pre-existing type 2 diabetes mellitus, in pregnancy, second trimester (principal); O99.891 Other specified diseases and conditions complicating pregnancy; R11.2 Nausea with vomiting, unspecified; O16.2 Unspecified maternal hypertension, second trimester; Z3A.27 27 weeks gestation of pregnancy; O99.212 Obesity complicating pregnancy, second trimester; M54.50 Low back pain, unspecified; O99.342 Other mental disorders complicating pregnancy, second trimester; F41.9 Anxiety disorder, unspecified; F43.10 Post-traumatic stress disorder, unspecified; Z79.4 Long term (current) use of insulin; O26.612 Liver and biliary tract disorders in pregnancy, second trimester; K76.0 Fatty (change of) liver, not elsewhere classified; M25.551 Pain in right hip; M25.552 Pain in left hip
CPT/HCPCS: 36415; 80053; 85025; 96365; 96375; 96376; 99215; J0131; J7120

== ENCOUNTER 2022-07-30 11:44 | Outpatient (CLI) | payer MEDICAID ==
--- NOTE | 2022-07-30 14:30 | Ultrasound Report ---
PROCEDURE: OB F/U or Repeat INDICATIONS: GESTATIONAL DIABETES OUTSIDE/PRIOR DATING DATA: Last menstrual period (LMP): 12/20/2021. LMP-based estimated date of delivery (JONE): 09/26/2022. First dating scan (date and location): 02/14/2022. Estimated date of delivery (JONE) from first dating scan: 10/03/2022. The below data below was generated using the ultrasound JONE of 10/03/2022 TECHNIQUE: Real-time scanning was performed of the fetus, with image documentation and biometric measurements. Endovaginal scanning: Not performed COMPARISON: None. FINDINGS: General: A single living intrauterine gestation is present. Presentation: Transverse Placenta: Placental position is anterior, without previa. Amniotic fluid index: 17.9 cm, normal for gestational age. heart rate: 144 beats per minute. Maternal cervical canal: 4.1 cm long; normal length is 2.5 cm or more. biometrics: Biparietal diameter: 7.85 cm, 31 weeks 4 days Head circumference: 29.6 cm, 32 weeks 5 days Abdominal circumference: 28.45 cm, 32 weeks 3 days Femur length: 6.04 cm, 31 weeks 3 days Estimated gestational age from initial scan: not applicable. Composite gestational age from present scan: 32 weeks 0 days Estimated weight and percentile: 1902 g, 83rd percentile Measurement variability in biometric dating: +/- 10 days from 12-20 weeks gestation, +/- 2 weeks from 20-30 weeks gestation, +/- 3 weeks at 30 weeks gestation or more. Anatomic survey: Neuro: Not well seen. Face: Nose and lips, facial profile are normal. Diaphragm: Diaphragm is intact. Stomach: Left-sided stomach is present. Kidneys: No hydronephrosis. Normal is less than 5 mm in 2nd trimester, less than 7 mm in 3rd trimester. Bladder: Normal in size. IMPRESSION: Single living intrauterine at 30 weeks 5 days, JONE of 10/03/2022. Bilateral choroid cysts not visualized. Estimated weight of 1902 g, 83rd percentile. Reviewed by: Bennie Jha on 07/30/2022 2:29 PM PDT Approved by: Bennie Jha on 07/30/2022 2:29 PM PDT Station ID: [id number]
== END 2022-07-30 11:45 | disposition home or self-care (01) ==
LOC: DI 11:44
PROVIDERS: ATTEND Obstetrics & Gynecology
DX: O24.414 Gestational diabetes mellitus in pregnancy, insulin controlled (principal); O99.891 Other specified diseases and conditions complicating pregnancy; G93.0 Cerebral cysts; Z3A.32 32 weeks gestation of pregnancy

== ENCOUNTER 2022-08-22 10:34 | Outpatient (CLI) | payer MEDICAID ==
[2022-08-22 11:20] VITALS: BP 111/76
--- NOTE | 2022-08-22 23:14 | PROCEDURE REPORT ---
- HPI Diagnosis/Indication for NST: Gestational Diabetes Current EDU 10/03/22 Gestation 34 Weeks and 0 Days 2 Para 1 Vital Signs Temperature 98.2 F 08/22/22 10:54 Heart Rate 114 H 08/22/22 10:54 Respiratory Rate 18 08/22/22 10:54 Blood Pressure 111/76 08/22/22 10:54 - NST Procedure NST Procedure Start Date 08/22/22 Start Time 10:44 Stop Time 11:27 Vibroacoustic Stimulation Used No Patient States Movement Yes - Results and Plan Plan: Patient is a 37-year-old -0-0-1 at 34 weeks 0 days gestation here for scheduled NST. NST Performed 08/22/2022 NST Read 08/22/2022 FHT: 145 bpm baseline, moderate variability, accelerations present, no decelerations. Reactive NST Gillespie: Quiescent Diagnosis 34 weeks gestation Gestational diabetes Continue with twice weekly NST.
== END 2022-08-22 11:45 | disposition home or self-care (01) ==
LOC: FBP 10:34 → WFO 10:34
PROVIDERS: ATTEND Obstetrics & Gynecology
DX: O24.419 Gestational diabetes mellitus in pregnancy, unspecified control (principal); Z3A.34 34 weeks gestation of pregnancy
CPT/HCPCS: 59025

== ENCOUNTER 2022-08-29 10:29 | Outpatient (CLI) | payer MEDICAID ==
[2022-08-29 10:52] LABS: BILIRUBIN,URINE NEGATIVE (NEGATIVE); GLUCOSE, URINE (UA) 250 mg/dL (NEGATIVE); KETONES,URINE (UA) 15 mg/dL (NEGATIVE); LEUKOCYTE ESTERASE, URINE NEGATIVE (NEGATIVE); NITRITE,URINE NEGATIVE (NEGATIVE); OCCULT BLOOD,URINE NEGATIVE (NEGATIVE); PH,URINE 5.5 PH (5.0-7.5); PROTEIN,URINE TRACE mg/dL (NEGATIVE); UROBILINOGEN,URINE 0.2 (NORMAL) E.U./dL (NORMAL)
[2022-08-29 10:53] VITALS: BP 114/76
[2022-08-29 10:53] LABS: CLARITY,URINE CLEAR (CLEAR)
[2022-08-29 10:58] LABS: BASOPHILS % (AUTO) 0.4 %; EOSINOPHILS # (AUTO) 0.3 10^3/uL (0.0-0.7); EOSINOPHILS % (AUTO) 2.8 %; HGB - HEMOGLOBIN 13.8 g/dL (12.0-16.0); LYMPHOCYTES # (AUTO) 1.9 10^3/uL (1.5-3.5); LYMPHOCYTES % (AUTO) 19.9 %; MEAN CORPUSCULAR HEMOGLOBIN 30.9 pg (27.0-31.0); MEAN CORPUSCULAR HGB CONC 33.7 g/dL (32.0-36.0); MEAN CORPUSCULAR VOLUME 91.7 fL (81.0-99.0); MEAN PLATELET VOLUME 10.1 fL (7.9-10.8); MONOCYTES # (AUTO) 0.7 10^3/uL (0.0-1.0); MONOCYTES % (AUTO) 6.7 %; NEUTROPHILS # (AUTO) 6.7 10^3/uL (1.5-6.6); NEUTROPHILS % (AUTO) 69.8 %; PLT - PLATELET COUNT 281 10^3/uL (130-450); RED BLOOD COUNT 4.47 10^6/uL (4.20-5.40); RED CELL DISTRIBUTION WIDTH 14.2 % (12.0-15.0); WHITE BLOOD COUNT 9.6 x10^3/uL (4.8-10.8)
[2022-08-29 11:03] LABS: RBC,URINE 0-5 /HPF (0-5); WBC,URINE 0-3 /HPF (0-5)
[2022-08-29 11:04] LABS: BACTERIA,URINE Many /HPF (None Seen); CRYSTALS,URINE 0-2 Calcium Oxalate /LPF; SQUAMOUS EPITHELIAL CELL,UR MANY Squamous (<= Few)
[2022-08-29 11:07] LABS: ALBUMIN 3.1 g/dL (3.2-5.5); ALBUMIN/GLOBULIN RATIO 0.8 (1.0-2.2); BILIRUBIN,TOTAL 0.3 mg/dL (0.2-1.0); CALCIUM 9.1 mg/dL (8.5-10.3); CREATININE 0.5 mg/dL (0.4-1.0); POTASSIUM 3.8 mmol/L (3.5-5.0); TOTAL PROTEIN 6.8 g/dL (6.7-8.2)
[2022-08-29 11:13] LABS: CREATININE,URINE 219.4 mg/dL; PROTEIN/CREATININE RATIO,URINE 0.2 (<=0.2)
--- NOTE | 2022-08-29 11:42 | PROVIDER PROGRESS NOTE ---
- HPI Chief Complaint: Headache Current : Vital Signs Temperature 97.7 F 08/29/22 10:42 Heart Rate 120 H 08/29/22 10:42 Respiratory Rate 20 08/29/22 10:42 Blood Pressure 114/76 08/29/22 10:42 Temperature 97.7 F 08/29/22 10:42 Heart Rate 120 H 08/29/22 10:42 Respiratory Rate 20 08/29/22 10:42 Blood Pressure 114/76 08/29/22 10:42 O2 Saturation If not protocol: Oxygen Flow, liters/minute - Procedures OB Procedure Performed: NST Diagnosis/Indication for NST: Gestational Diabetes NST Procedure: NST Procedure Start Time 10:44 Stop Time 11:27 - Plan Plan: Patient is a 37-year-old G2, P1 presenting to triage for scheduled NST, however she also complains of a headache and feeling generally unwell.. She has good movement, no leaking, no vaginal bleeding. is complicated by gestational diabetes, chronic hypertension, obesity. Physical Exam Constitutional: alert, well hydrated, well developed, well nourished, appropriate dress. Appears tired and uncomfortable Cardiovascular: Regular rate and rhythm. Respiratory: no respiratory distress. Abdomen: nondistended, nontender, no guarding. Psych: affect and mood appropriate, normal interaction, good eye contact. FHT: 135 bpm baseline, moderate variability, accelerations present, no decelerations. Reactive NST [place]: Quiescent Labs: Platelets, AST/ALT, urine protein creatinine ratio within normal limits. UA: Many bacteria, many squamous cells. Culture not indicated. Specific gravity greater than 1.030. Assessment and plan 37-year-old -0-0-1 at 35 weeks gestation Headache: Does not feel like taking anything. Patient is somewhat dehydrated based on urine specific gravity. Encouraged her to drink fluids, but patient refuses. She says she only wants to go home and go to bed. Gestational diabetes -Reactive NST. Plan for continuation of twice weekly NST and weekly BPP's. 35 weeks gestation
[2022-08-29 13:55] LABS: BILIRUBIN,URINE NEGATIVE (NEGATIVE); GLUCOSE, URINE (UA) NEGATIVE (NEGATIVE); KETONES,URINE (UA) 15 mg/dL (NEGATIVE); LEUKOCYTE ESTERASE, URINE NEGATIVE (NEGATIVE); NITRITE,URINE NEGATIVE (NEGATIVE); OCCULT BLOOD,URINE NEGATIVE (NEGATIVE); PH,URINE 6.5 PH (5.0-7.5); PROTEIN,URINE TRACE mg/dL (NEGATIVE); UROBILINOGEN,URINE 0.2 (NORMAL) E.U./dL (NORMAL)
[2022-08-29 13:56] LABS: CLARITY,URINE CLEAR (CLEAR)
[2022-08-29 14:06] LABS: BACTERIA,URINE Moderate /HPF (None Seen); CRYSTALS,URINE 3-5 Calcium Oxalate /LPF; RBC,URINE 0-5 /HPF (0-5); SQUAMOUS EPITHELIAL CELL,UR MOD Squamous (<= Few); WBC,URINE 0-3 /HPF (0-5)
== END 2022-08-29 11:40 | disposition home or self-care (01) ==
LOC: WFO 10:29 → FBP 10:31 → WFO 11:40
PROVIDERS: ATTEND Obstetrics & Gynecology
DX: O24.414 Gestational diabetes mellitus in pregnancy, insulin controlled (principal); O16.3 Unspecified maternal hypertension, third trimester; O99.213 Obesity complicating pregnancy, third trimester; Z3A.35 35 weeks gestation of pregnancy; O99.283 Endocrine, nutritional and metabolic diseases complicating pregnancy, third trimester; E86.0 Dehydration
CPT/HCPCS: 36415; 59025; 80053; 81001; 82570; 84156; 85025; 87086; 99213

== ENCOUNTER 2022-08-31 14:37 | Outpatient (CLI) | payer MEDICAID ==
[2022-08-31 15:16] LABS: BILIRUBIN,URINE NEGATIVE (NEGATIVE); GLUCOSE, URINE (UA) 500 mg/dL (NEGATIVE); KETONES,URINE (UA) 15 mg/dL (NEGATIVE); LEUKOCYTE ESTERASE, URINE NEGATIVE (NEGATIVE); NITRITE,URINE NEGATIVE (NEGATIVE); OCCULT BLOOD,URINE NEGATIVE (NEGATIVE); PROTEIN,URINE NEGATIVE (NEGATIVE); UROBILINOGEN,URINE 0.2 (NORMAL) E.U./dL (NORMAL)
[2022-08-31 15:19] LABS: CLARITY,URINE HAZY (CLEAR)
[2022-08-31 15:33] LABS: BACTERIA,URINE Moderate /HPF (None Seen); CRYSTALS,URINE 26-50 Ca Oxalate /LPF; RBC,URINE 0-5 /HPF (0-5); SQUAMOUS EPITHELIAL CELL,UR MANY Squamous (<= Few); WBC,URINE 0-3 /HPF (0-5)
[2022-08-31 15:52] LABS: MUDS CUTOFF CONCENTRATIONS CUTOFF CONC BELOW:
[2022-08-31] MEDS ORDERED: SODIUM CHLORIDE 0.9% 1,000 ML IV ONE (16:06)
[2022-08-31 16:08] LABS: AMPHETAMINE SCREEN,URINE NEGATIVE (NEGATIVE); BARBITURATE SCREEN,UR NEGATIVE (NEGATIVE); BENZODIAZEPINES SCREEN, URINE NEGATIVE (NEGATIVE); COCAINE SCREEN URINE NEGATIVE (NEGATIVE); METHADONE SCREEN, URINE NEGATIVE (NEGATIVE); METHAMPHETAMINES SCREEN, URINE NEGATIVE (NEGATIVE); OPIATE SCREEN, URINE NEGATIVE (NEGATIVE); OXYCODONE SCREEN, URINE NEGATIVE (NEGATIVE); PROPOXYPHENE SCREEN, URINE NEGATIVE (NEGATIVE); THC CANNABINOID SCREEN, URINE NEGATIVE (NEGATIVE); TRICYCLIC ANTIDEPRESSANT,URINE NEGATIVE (NEGATIVE)
[2022-08-31 16:12] LABS: ALBUMIN 2.8 g/dL (3.2-5.5); ALBUMIN/GLOBULIN RATIO 0.8 (1.0-2.2); BILIRUBIN,TOTAL 0.4 mg/dL (0.2-1.0); CALCIUM 8.7 mg/dL (8.5-10.3); CREATININE 0.4 mg/dL (0.4-1.0); POTASSIUM 3.5 mmol/L (3.5-5.0); TOTAL PROTEIN 6.3 g/dL (6.7-8.2); URIC ACID 4.3 mg/dL (2.6-7.2)
[2022-08-31 16:14] LABS: CREATININE,URINE 104.2 mg/dL; PROTEIN/CREATININE RATIO,URINE 0.1 (<=0.2)
[2022-08-31] MEDS ORDERED: SODIUM CHLORIDE 0.9% 500 ML IV ONE (16:15)
--- NOTE | 2022-08-31 16:15 | PROVIDER PROGRESS NOTE ---
- HPI Chief Complaint: Other (Significant abd pain and low abd pressure. called me on the phone, c/o significant pain and pressure. took over an hour to come in. upon presentation still very agitated and obviously in pain/discomfort. seems to come in spasms, but also is uncomfortable all the time. bm this am and normal.) Current : Vital Signs Temperature 98.1 F 08/31/22 15:19 Heart Rate 103 H 08/31/22 15:19 Respiratory Rate 20 08/31/22 15:19 Blood Pressure 131/77 H 08/31/22 15:19 Temperature 98.1 F 08/31/22 15:19 Heart Rate 103 H 08/31/22 15:19 Respiratory Rate 20 08/31/22 15:19 Blood Pressure 131/77 H 08/31/22 15:19 O2 Saturation If not protocol: Oxygen Flow, liters/minute - Exam unable to get comfortable in bed. agitated. able to drink water and a drink. abdomen is soft, not tender. mild right CVA tenderness. low pelvic discomfort bilaterlly. RN check of cervix, closed and long. not labored. extremities are puffy and she is quite obese. - Procedures OB Procedure Performed: NST Diagnosis/Indication for NST: Gestational Hypertension (NST baseline 130, acels more than 15x15, no decels. no contractions. moderate variability. = reactive nst.) NST Procedure: NST Procedure Start Time 10:44 Stop Time 11:27 Findings: very agitiated pateint at 35 weeks ga. sugar 111 but high in urine with some ketones. does say she is eating and drinking although not alot. exam with no signs of labor but is c/w kidney stones. does have crystals in her urine but no blood. - Plan Plan: IVF 500 cc bolus normal saline. morphine iv for pain management. labs. urine drug screen is negative.
[2022-08-31] MEDS ORDERED: MORPHINE 2 MG/ML CARPUJECT IVP PRN (16:20)
[2022-08-31] MEDS ORDERED: MORPHINE 2 MG/ML CARPUJECT IVP STA (16:49)
[2022-08-31 17:58] VITALS: BP 111/73
[2022-08-31 21:25] LABS: ESTIMATED AVERAGE GLUCOSE 114 mg/dL (70-100); HEMOGLOBIN A1c% 5.6 % (4.27-6.07)
== END 2022-08-31 17:27 | disposition home or self-care (01) ==
LOC: WFO 14:37 → FBP 14:39 → WFO 17:27
PROVIDERS: ATTEND Obstetrics & Gynecology
DX: O99.891 Other specified diseases and conditions complicating pregnancy (principal); R10.9 Unspecified abdominal pain; O13.3 Gestational [pregnancy-induced] hypertension without significant proteinuria, third trimester; Z3A.35 35 weeks gestation of pregnancy
CPT/HCPCS: 36415; 59025; 80053; 80306; 81001; 82570; 83036; 84156; 84550; 87086; 99214

== ENCOUNTER 2022-08-31 19:42 | Inpatient (IN) | payer MEDICAID ==
[2022-08-31] MEDS ORDERED: MORPHINE PCA 50 MG IV PRN (20:27)
[2022-08-31] MEDS ORDERED: PROMETHAZINE INJ 25 MG in SODIUM CHLORIDE 0.9% 50 ML IV PRN (20:45)
--- NOTE | 2022-08-31 20:51 | HISTORY & PHYSICAL EXAMINATION ---
Admit History - Visit Reason Visit Reason: Other (pain from kidney stone. 35 weeks . IDDM.) - : 2 Parity: 1 Care: positive: [facility] Risk/History: positive: High risk Complications This : positive: Other (diabetes from beginning of . on insulin now. obese. smoking. lots of stress - mom with terminal cancer.). negative: Rh sensitization Smoking Status: Current every day smoker - Mother's Labs Rubella Status: positive: Immune Meds/Allgy - Home Medications Home Medications: Ambulatory Orders Medication Instructions Recorded Confirmed Escitalopram Oxalate [Lexapro] 20 mg PO DAILY 02/14/22 02/14/22 Vit No.180/Iron/Folic 1 tab PO DAILY 02/14/22 02/14/22 [ Plus Vitamin-Mineral] Promethazine Supp [Phenergan Supp] 25 mg FL Q6HR PRN #12 supp 07/03/22 Insulin Aspart [NovoLOG] 12 units SQ TID 08/31/22 08/31/22 Insulin Glargine [Lantus Solostar] 48 units SQ QPM 08/31/22 08/31/22 - Allergies Allergies/Adverse Reactions: Allergies Allergy/AdvReac Type Severity Reaction Status Date / Time metoclopramide [From Reglan] AdvReac Anxiety Verified 07/06/22 14:24 Review of Systems - Gastrointestinal Gastrointestinal: denies: Constipation, Diarrhea, Vomiting, Poor appetite - Genitourinary Genitourinary: reports: Urgency. denies: Dysuria, Hematuria - Neurological Neurological: denies: Headache - Other Findings Other Findings: lots of pressure and discomfort beginning last evening. overall she is in pain all the time and always uncomfortable. baby moves so much she can't sleep. bm this am. no change in her pain. no vaginal bleeding. no fluid leaking. no unusual discharge. Physical - Abdominal Exam Contraction Frequency (min/apart): none Uterine Resting Tone: positive: Soft - Monitoring Strip Review: positive: Category I - Vaginal Exam Membranes: positive: Membranes intact Dilation (in cm): 0 - Speculum Exam Speculum Exam Performed: positive: No Plan for Labor - Plan For Labor I expect patient to be DC'd or transferred within 96 hours.: Yes Plan for Labor: Patient seems to have a kidney stone. very painful. better with some morphine when she was here this afternoon in triage but once that wore off she was miserable again and had to come back as the pharmacy was closed and there was not way to get any pain medication. I recommend that she come back to get iv fluids and so we could manage her sugars better. she really did not want to but felt there were no other options for her pain control. She asked when she could go home and I told her when she felt better. she is worried about her daughter as FOB will have to work tomorrow. 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 flomax. manage insulin, but will be eating better in the hospital. If she in hospital on Friday, will order an ultrasound as last was one month ago. will order in case tech will be there tomorrow.
[2022-08-31] MEDS ORDERED: MORPHINE 10 MG/ML VIAL ONE (21:56)
[2022-08-31] MEDS ORDERED: SODIUM CHLORIDE 0.9% 50 ML IV ONE (21:56)
[2022-08-31] MEDS: ACETAMINOPHEN 325 MG TABLET PO PRN (22:01)
[2022-08-31] MEDS: SODIUM CHLORIDE 0.9% 1,000 ML IV SCH (22:03)
[2022-08-31] MEDS: MORPHINE PCA 50 MG IV PRN (22:30)
[2022-08-31] MEDS: INSULIN LISPRO 300 UNIT/3 ML PEN SUBQ SCH (22:45)
[2022-08-31] MEDS: INSULIN GLARGINE-YFGN 300 UNIT/3 ML PEN SUBQ SCH (22:46)
[2022-08-31] MEDS: TAMSULOSIN 0.4 MG CAPSULE PO SCH (22:51)
[2022-09-01] MEDS: ACETAMINOPHEN 325 MG TABLET PO PRN ×4 (02:26→18:05)
[2022-09-01] MEDS: PROMETHAZINE 25 MG TABLET PO PRN ×2 (02:26→13:18)
[2022-09-01] MEDS: SODIUM CHLORIDE 0.9% 1,000 ML IV SCH ×2 (05:15→14:54)
[2022-09-01] MEDS ORDERED: MORPHINE 10 MG/ML VIAL ONE (05:33)
[2022-09-01] MEDS ORDERED: SODIUM CHLORIDE 0.9% 50 ML IV ONE (05:33)
[2022-09-01] MEDS: MORPHINE PCA 50 MG IV PRN ×2 (06:35→23:25)
[2022-09-01] MEDS: diphenhydrAMINE 25 MG CAPSULE PO PRN ×2 (07:06→20:06)
[2022-09-01] MEDS ORDERED: PRENATAL VITAMIN TABLET PO SCH (08:00)
[2022-09-01] MEDS ORDERED: FAMOTIDINE 20 MG/2 ML VIAL IVP PRN (08:10)
[2022-09-01] MEDS: INSULIN LISPRO 300 UNIT/3 ML PEN SUBQ SCH ×6 (08:26→22:51)
[2022-09-01] MEDS ORDERED: [UNRECOGNIZED DRUG - REMARK] PO SCH (09:00)
[2022-09-01] MEDS ORDERED: ESCITALOPRAM 10 MG TABLET PO SCH (09:00)
[2022-09-01] MEDS ORDERED: ESCITALOPRAM OXALATE 20 MG PO SCH (09:00)
--- NOTE | 2022-09-01 10:51 | PROVIDER PROGRESS NOTE ---
Subjective - Prog Note Date Prog Note Date: 09/01/22 Prog Note Time: 10:00 - Subjective Pt reports feeling: Improved (feeling better. but still not good. now with more irritative voiding sx like she is not emptying her bladd.) Objective - Vital Signs/Intake & Output Reviewed Vital Signs: Yes Vital Signs: Vital Signs x48h Temp Pulse Resp BP Pulse Ox 09/01/22 09:00 16 09/01/22 08:00 98.4 F 105 H 16 136/85 H 97 09/01/22 07:00 16 09/01/22 06:30 16 09/01/22 05:00 16 09/01/22 04:00 18 09/01/22 03:00 16 Intake & Output: Intake & Output 08/29/22 08/30/22 08/31/22 09/01/22 23:59 23:59 23:59 23:59 Intake Total 365 1385.000 Output Total 150 650 Balance 215 735.000 - Objective General Appearance: positive: No acute distress Extremities: positive: Non-tender, Pedal edema (1+) Neurologic/Psychiatric: positive: Oriented x3 - Other Results/Comments Other Results/Comments: bladder scan for 50 cc. ABX Reporting Has patient been on IV antibiotics over the past 48 hours?: No Assessment/Plan - Problem List (1) Kidney stone complicating Impression: talia is working for her pain. but now is itching. benadryl helped that but made her sleepy. did rest here last night. will give some detrol to help with irritative bladder symptoms. can discharge when she can get off morphine and feel better. Qualifiers: Trimester: third trimester Qualified Code(s): O26.833 - related renal disease, third trimester; N20.0 - Calculus of kidney (2) Diabetes mellitus affecting in third trimester Impression: sugar control is going pretty well. Lantus 48 units last night and now 14 units Novalog before meals. sliding scale as needed, only 1 unit last night. on carb controlled diet and has CGM. US ordered for growth and fluid tomorrow. (3) Hypertension affecting in third trimester Impression: nifedipine XL takes at 1800. bps stable today.
[2022-09-01] MEDS ORDERED: SOLIFENACIN SUCCINATE 5 MG TABLET PO SCH (11:00)
[2022-09-01 11:16] LABS: BILIRUBIN,URINE NEGATIVE (NEGATIVE); GLUCOSE, URINE (UA) NEGATIVE (NEGATIVE); KETONES,URINE (UA) NEGATIVE (NEGATIVE); LEUKOCYTE ESTERASE, URINE NEGATIVE (NEGATIVE); NITRITE,URINE NEGATIVE (NEGATIVE); OCCULT BLOOD,URINE NEGATIVE (NEGATIVE); PH,URINE 5.5 PH (5.0-7.5); PROTEIN,URINE NEGATIVE (NEGATIVE); UROBILINOGEN,URINE 0.2 (NORMAL) E.U./dL (NORMAL)
[2022-09-01 11:24] LABS: BACTERIA,URINE Rare /HPF (None Seen); CLARITY,URINE CLEAR (CLEAR); RBC,URINE 0-5 /HPF (0-5); SQUAMOUS EPITHELIAL CELL,UR FEW Squamous (<= Few); WBC,URINE 0-3 /HPF (0-5)
[2022-09-01 11:25] LABS: CRYSTALS,URINE 3-5 Calcium Oxalate /LPF
[2022-09-01] MEDS ORDERED: NIFEdipine ER 30 MG TABLET PO SCH (18:00)
[2022-09-01] MEDS ORDERED: NALOXONE HCL NASAL SPRAY KIT NAS STA (21:05)
[2022-09-01] MEDS ORDERED: ASPIRIN CHEW 81 MG TABLET PO SCH (21:06)
--- NOTE | 2022-09-01 21:10 | PROVIDER PROGRESS NOTE ---
Subjective - Subjective Subjective: Patient feeling a bit better. getting swollen from iv fluid but want to flush her kidney stones. maybe will need some lasix tomorrow am. CHANDNI hose put on for sleep. not sure how long she will be able to keep them on as the constriction bothers her with her PTSD. OK to take them off if needed. struggling some to void but squirt bottle helps. itchy stretch bass. hydrocortisone ordered. does not want to wear pulse ox overnight per protocol with morphine rn pool. will do the best she can. NST on now. baseline 135. reactive. acels and no decels. Objective - Vital Signs/Intake & Output Vital Signs: Vital Signs x48h Temp Pulse Resp BP Pulse Ox 09/01/22 20:27 18 09/01/22 18:07 112 H 18 143/81 H 98 09/01/22 18:00 18 09/01/22 17:00 16 09/01/22 16:10 98.8 F 113 H 16 142/91 H 97 09/01/22 16:00 18 09/01/22 14:54 16 09/01/22 14:00 16 Intake & Output: Intake & Output 08/29/22 08/30/22 08/31/22 09/01/22 23:59 23:59 23:59 23:59 Intake Total 365 3835.000 Output Total 150 1000 Balance 215 2835.000 - Lab Results Other Labs: Lab Results x24hrs 09/01/22 Range/Units 11:10 Urine Color YELLOW Urine Clarity CLEAR (CLEAR) Urine pH 5.5 (5.0-7.5) PH Ur Specific [place] 1.025 (1.002-1.030) Urine Protein NEGATIVE (NEGATIVE) mg/dL Urine Glucose (UA) NEGATIVE (NEGATIVE) mg/dL Urine Ketones NEGATIVE (NEGATIVE) mg/dL Urine Occult Blood NEGATIVE (NEGATIVE) Urine Nitrite NEGATIVE (NEGATIVE) Urine Bilirubin NEGATIVE (NEGATIVE) Urine Urobilinogen 0.2 (NORMAL) (NORMAL) E.U./dL Ur Leukocyte Esterase NEGATIVE (NEGATIVE) Urine RBC 0-5 (0-5) /HPF Urine WBC 0-3 (0-5) /HPF Ur Squamous Epith Cells FEW Squamous (<= Few) Urine Crystals 3-5 Calcium Oxalate /LPF Urine Bacteria Rare (None Seen) /HPF Urine Culture Comments NOT INDICATED Assessment/Plan - Problem List (1) Kidney stone complicating Qualifiers: Trimester: third trimester Qualified Code(s): O26.833 - related renal disease, third trimester; N20.0 - Calculus of kidney
[2022-09-01] MEDS: INSULIN GLARGINE-YFGN 300 UNIT/3 ML PEN SUBQ SCH (21:12)
[2022-09-01] MEDS: TAMSULOSIN 0.4 MG CAPSULE PO SCH (21:17)
[2022-09-01] MEDS ORDERED: HYDROCORTISONE 1% CREAM 28 GM TUBE TOP SCH (22:00)
[2022-09-02] MEDS: ACETAMINOPHEN 325 MG TABLET PO PRN ×2 (01:17→05:18)
[2022-09-02] MEDS: SODIUM CHLORIDE 0.9% 1,000 ML IV SCH ×2 (04:31→05:15)
[2022-09-02] MEDS: PROMETHAZINE 25 MG TABLET PO PRN (04:44)
[2022-09-02] MEDS: INSULIN LISPRO 300 UNIT/3 ML PEN SUBQ SCH ×2 (07:53→07:57)
--- NOTE | 2022-09-02 09:18 | Ultrasound Report ---
PROCEDURE: OB F/U or Repeat INDICATIONS: diabetic, due for growth scan. check growth.fluid OUTSIDE/PRIOR DATING DATA: Last menstrual period (LMP): 12/20/2021. LMP-based estimated date of delivery (JONE): 09/26/2022. First dating scan (date and location): 02/14/2022. Estimated date of delivery (JONE) from first dating scan: 10/03/2022 (working JONE). TECHNIQUE: Real-time scanning was performed of the fetus, with image documentation and biometric measurements. COMPARISON: July 30, 2022, multiple priors FINDINGS: General: A single living intrauterine gestation is present. Presentation: Cephalic Placenta: Placental position is anterior, without previa. Amniotic fluid index: 11.8 heart rate: 123 beats per minute. biometrics: Biparietal diameter: 8.9 cm, 36 weeks Head circumference: 33.2 cm, 37 weeks and 6 days Abdominal circumference: 34.8 cm, 38 weeks and 5 days Femur length: 7 cm, 35 weeks and 5 days Estimated gestational age from initial scan: 35 weeks and 4 days Composite gestational age from present scan: 37 weeks and 1 day Estimated weight and percentile: 94th percentile, 3248 g Other: No choroid plexus cysts are seen. IMPRESSION: Fetus is mildly large for gestational age, with EFW at the 94th percentile. Abdominal ci rcumference in particular measures ahead of clinical dates. Normal NORA. No choroid plexus cysts are seen on today's study. Reviewed by: Joni Villalobos MD on 09/02/2022 9:17 AM PDT Approved by: Joni Villalobos MD on 09/02/2022 9:17 AM PDT Station ID: [id number]
--- NOTE | 2022-09-02 10:08 | Discharge Plan ---
Discharge Plan Problem Reviewed?: Yes Disposition: Home, Self Care Condition: Good Diet: Regular Activity Restrictions: No Restrictions Shower Restrictions: No Driving Restrictions: Yes (No driving with narcotics) Instruction Topics: Kidney Stones No Smoking: If you smoke, Please STOP! Call for help. Follow-up with: Crispin Montesinos MD [Provider Admit Priv/Credential] -
[2022-09-02 10:13] VITALS: BP 105/43
--- NOTE | 2022-09-02 10:13 | Ultrasound Report ---
PROCEDURE: Retroperitoneal INDICATIONS: persistant right flank pain TECHNIQUE: Real-time scanning was performed of the retroperitoneal organs, with image documentation. COMPARISON: None. FINDINGS: Kidneys: Kidneys are normal in size. Right kidney measures 10.9 cm long; left kidney measures 11.3 cm long. Right renal cortical thickness is 1.1 cm; left renal cortical thickness is 1.6 cm. No bradford d masses or hydronephrosis. There is a possible 6 mm stone in the upper pole of the left kidney. Bladder: Decompressed, not able to evaluate. Miscellaneous: No free abdominal fluid. IMPRESSION: 1. Question 6 mm nonobstructing left renal stone. 2. Otherwise unremarkable kidneys. No hydronephrosis. Reviewed by: Ricardo Bryant MD on 09/02/2022 10:12 AM PDT Approved by: Ricardo Bryant MD on 09/02/2022 10:12 AM PDT Station ID: [id number]
--- NOTE | 2022-09-02 21:18 | DISCHARGE SUMMARY ---
Discharge Summary Admit Date: 08/31/22 Discharge Date: 09/02/22 Discharging Provider: Alejandra Andrade DO Code Status: Attempt Resuscitation Condition at Discharge: Good Discharge Disposition: 01 Home, Self Care Discharge Facility Name: [facility] - DIAGNOSES Admission Diagnoses: Kidney stone complicated third trimester GDMA2 Chronic hypertension - HPI History of Present Illness: 37yo admitted at 35.2w with concern for kidney stone due to back, abdominal pain. - HOSPITAL COURSE Hospital Course: 37yo admitted at 35.2w with concern for kidney stone due to back, abdominal pain. She was given IVF, morphine for her pain, Flomax. Insulin given for her GDMA2. Discomfort improved during her stay. She did not pass a stone. OB US EFW 94% consistent with her uncontrolled GDMA2. She is scheduled for a RCD. Renal US shows possible left 6mm nonobstructing renal stone. status reassuring. She feels comfortable going home at this point, on HD#3. Toelrating PO. No stone noted in urine but she will continue to monitor. Discharge precautions. Prescr iptions for Percocet and Flomax given. Follow up next appt and NST 3d. - ALLERGIES Allergies/Adverse Reactions: Allergies Allergy/AdvReac Type Severity Reaction Status Date / Time metoclopramide [From Reglan] AdvReac Anxiety Verified 07/06/22 14:24 - MEDICATIONS Home Medications: Ambulatory Orders Medication Instructions Recorded Confirmed Escitalopram Oxalate [Lexapro] 20 mg PO DAILY 02/14/22 02/14/22 Vit No.180/Iron/Folic 1 tab PO DAILY 02/14/22 02/14/22 [ Plus Vitamin-Mineral] Promethazine Supp [Phenergan Supp] 25 mg IN Q6HR PRN #12 supp 07/03/22 Insulin Aspart [NovoLOG] 12 units SQ TID 08/31/22 08/31/22 Insulin Glargine [Lantus Solostar] 48 units SQ QPM 08/31/22 08/31/22 - PHYSICAL EXAM AT DISCHARGE General Appearance: positive: No acute distress Eyes Bilateral: positive: EOMI Respiratory: positive: No respiratory distress Abdomen: positive: Non-tender Back: positive: Other (Mild discomfort back) Skin: positive: Color nml Extremities: positive: Pedal edema Neurologic/Psychiatric: positive: Oriented x3 - DIAGNOSTIC IMAGING Diagnostic Imaging Results: Final report reviewed - FOLLOW UP Follow Up: 3d NST - TIME SPENT Time Spent in Discharge (Minutes): 25
== END 2022-09-02 10:25 | disposition home or self-care (01) | DRG 832 ==
LOC: FBP 19:42 → OBSVTOIN 09-01 17:22
PROVIDERS: ADMIT Obstetrics & Gynecology; ATTEND Obstetrics & Gynecology
DX: O26.833 Pregnancy related renal disease, third trimester (principal); O16.3 Unspecified maternal hypertension, third trimester; N20.0 Calculus of kidney; O24.414 Gestational diabetes mellitus in pregnancy, insulin controlled; O99.333 Smoking (tobacco) complicating pregnancy, third trimester; O99.213 Obesity complicating pregnancy, third trimester; Z3A.35 35 weeks gestation of pregnancy; Z79.4 Long term (current) use of insulin
CPT/HCPCS: 36415; 59025; 76770; 76816; 80053; 80306; 81001; 82570; 83036; 84156; 84550; 99214; A9270; J1815; J7040; Q0169; 87086

== ENCOUNTER 2022-09-05 17:15 | Outpatient (CLI) | payer MEDICAID ==
[2022-09-05] MEDS ORDERED: polyethylene glycoL 3350 17 GM PACKET PO PRN (17:45)
--- NOTE | 2022-09-05 17:45 | PROVIDER PROGRESS NOTE ---
- HPI Chief Complaint: Pain, non-labor - Procedures OB Procedure Performed: NST Diagnosis/Indication for NST: Gestational Diabetes NST Procedure: NST Procedure Start Time 20:39 Stop Time 21:08 - Plan Plan: Patient is a 37-year-old G2, P1 at 36 weeks 0 days gestation here for abdominal pain. She did have a scheduled NST today, but came in for pain instead. He did have a several days of pain. She was admitted recently for presumed kidney stone, but no diagnostic certainty of this. She did receive opioids, and has had some problems with constipation since. She does say she had a small bowel movement, but otherwise it has been several days. She has colicky pain that comes in waves in various parts of her abdomen and back. There is one episode of intense pain approximate every 10 to 20 minutes. She also complains of possible bladder spasms and feeling she cannot. Physical Exam Constitutional: alert, no acute distress, well hydrated, well developed, well nourished, intermittently crying. Cardiovascular: Regular rate and rhythm. Respiratory: no respiratory distress. Abdomen: Gravid. No guarding or rebound. She has intermittent moderate pain, but lessens without an acute episode. Psych: Good eye contact. Intermittent crying, relieved when talking and distracted. : Bladder scan shows minimal amount of urine in the bladder. No suprapubic tenderness NST Performed 09/05/2022 NST Read 09/05/2022 FHT: 145 bpm baseline, moderate variability, accelerations present, no de celerations. Reactive NST [place]: Quiescent Diagnosis 37-year-old G2, P1 at 36 weeks 0 days gestation with opioid-induced constipation 1. Constipation: Encouraged continued fluid hydration, small meals, stool softener, and gave 1 dose of MiraLAX. Can continue this at home. She did start stool softeners previously, they have not had much of an effect. Declined aggressive intervention, but does not feel like there is an infectious or traumatic issue given her relief in between episodes. Patient agrees she feels safe to return home with working on constipation, and will be in close contact if her situation worsens. 36 weeks gestation Continue with twice-weekly NST. Gestational diabetes Discussed insulin changes. We will go up on mealtimes if you continue to rise. Chronic hypertension Blood pressure well controlled
[2022-09-05] MEDS ORDERED: PHENAZOPYRIDINE 100 MG TABLET PO SCH ×2 (17:56→22:00)
[2022-09-05 18:06] VITALS: BP 121/80
== END 2022-09-05 19:15 | disposition home or self-care (01) ==
LOC: WFO 17:15 → FBP 17:16 → WFO 19:15
PROVIDERS: ATTEND Obstetrics & Gynecology
DX: O99.613 Diseases of the digestive system complicating pregnancy, third trimester (principal); K59.00 Constipation, unspecified; O24.414 Gestational diabetes mellitus in pregnancy, insulin controlled; O16.3 Unspecified maternal hypertension, third trimester; Z3A.36 36 weeks gestation of pregnancy
CPT/HCPCS: 59025; 99215; A9270

== ENCOUNTER 2022-09-12 08:00 | Outpatient (CLI) | payer MEDICAID | END 2022-09-12 23:59 | disposition home or self-care (01) | LOC: LAB.WC 08:00 | PROVIDERS: ATTEND Obstetrics & Gynecology | DX: Z36.85 Encounter for antenatal screening for Streptococcus B (principal) | CPT/HCPCS: 87797 ==

== ENCOUNTER 2022-09-12 08:51 | Outpatient (CLI) | payer MEDICAID ==
--- NOTE | 2022-09-12 14:04 | Ultrasound Report ---
PROCEDURE: OB Biophysical Profile INDICATIONS: GESTATIONAL DIABETES OUTSIDE/PRIOR DATING DATA: Last menstrual period (LMP): 12/20/2021. LMP-based estimated date of delivery (JONE): 09/26/2022. First dating scan (date and location): 02/14/2022. Estimated date of delivery (JONE) from first dating scan: 10/03/2022. The below data below was generated using the ultrasound JONE of 10/03/2022 TECHNIQUE: Real-time scanning was performed of the fetus, with image documentation. Biophysical pro file was also obtained. Endovaginal scanning: Not performed COMPARISON: OB ultrasound 09/02/2022 FINDINGS: General: A single living intrauterine gestation is present. Presentation: Cephalic Placenta: Placental position is anterior, without previa. Amniotic fluid index: 16.8 cm, 69th percentile for gestational age. heart rate: 167 beats per minute. Maternal cervical canal: Not well visualized. Estimated gestational age from initial scan: 37 weeks 0 days Biophysical profile: Tone: 2 points. Movement: 2 points. Respiration: 2 points. Largest pocket of fluid: 2 points. Umbilical artery Doppler: Systolic/diastolic ratios 2.1, 2.3, and 2.2 IMPRESSION: 1.Single live intrauterine . 2.Biophysical profile score is 8 of 8. 3.Normal umbilical artery Doppler with preserved diastolic flow. 4.Amniotic fluid index normal at 16.8 cm. Reviewed by: Bari Veloz MD on 09/12/2022 2:03 PM PDT Approved by: Bari Veloz MD on 09/12/2022 2:03 PM PDT Station ID: [id number]
== END 2022-09-12 08:52 | disposition home or self-care (01) ==
LOC: DI 08:51
PROVIDERS: ATTEND Obstetrics & Gynecology
DX: O24.419 Gestational diabetes mellitus in pregnancy, unspecified control (principal); O10.913 Unspecified pre-existing hypertension complicating pregnancy, third trimester; Z3A.37 37 weeks gestation of pregnancy

== ENCOUNTER 2022-09-12 10:53 | Outpatient (CLI) | payer MEDICAID ==
[2022-09-12 12:04] VITALS: BP 124/84
--- NOTE | 2022-09-12 16:22 | PROCEDURE REPORT ---
- HPI Diagnosis/Indication for NST: Gestational Diabetes Current EDU 10/03/22 Gestation 37 Weeks and 0 Days 2 Para 1 Vital Signs Temperature 98.1 F 09/12/22 11:20 Heart Rate 96 09/12/22 11:20 Respiratory Rate 17 09/12/22 11:20 Blood Pressure 124/84 H 09/12/22 11:20 O2 Saturation 99 09/12/22 11:20 Temperature 98.1 F 09/12/22 11:20 Heart Rate 96 09/12/22 11:20 Respiratory Rate 17 09/12/22 11:20 Blood Pressure 124/84 H 09/12/22 11:20 O2 Saturation 99 09/12/22 11:20 If not protocol: Oxygen Flow, liters/minute - NST Procedure NST Procedure Start Date 09/12/22 Start Time 11:00 Stop Time 11:25 Vibroacoustic Stimulation Used No Patient States Movement Yes - Results and Plan Plan: Patient is a 37-year-old -0-0-1 at 37 weeks 0 days gestation here for scheduled NST. NST Performed 09/12/2022 NST Read 09/12/2022 FHT: 125 bpm baseline, moderate variability, accelerations present, no decelerations. Reactive NST [place]: Quiescent Diagnosis 35 weeks gestation Gestational diabetes Chronic hypertension Continue with twice weekly NST.
== END 2022-09-12 11:30 | disposition home or self-care (01) ==
LOC: WFO 10:53 → FBP 10:57 → WFO 11:30
PROVIDERS: ATTEND Obstetrics & Gynecology
DX: O24.414 Gestational diabetes mellitus in pregnancy, insulin controlled (principal); O10.913 Unspecified pre-existing hypertension complicating pregnancy, third trimester; Z3A.37 37 weeks gestation of pregnancy; Z36.85 Encounter for antenatal screening for Streptococcus B
CPT/HCPCS: 59025; 87797

== ENCOUNTER 2022-09-15 18:20 | Inpatient (IN) | payer MEDICAID ==
--- NOTE | 2022-09-15 18:25 | HISTORY & PHYSICAL EXAMINATION ---
Admit History - : 2 Parity: 1 Risk/History: positive: Gestational diabetes Complications This : positive: Gestational diabetes, Chronic HTN Smoking Status: Current every day smoker - Other Maternal History Other Maternal History: HPI: Patient is a 37-year-old G2, P1 at 37 weeks 3 days gestation admitted for glucose control prior to scheduled section tomorrow. She has good movement. Denies loss of fluid. No SAMUELS/BV or RUQP. No vaginal bleeding. Denies nausea and vomiting. Denies urinary urgency or dysuria. All other symptoms reviewed and were negative except per HPI. Course Problems: Section x1 Chronic hypertension: BP controlled with nifedipine XR. Continue aspirin (Started 04/04/2022). A2GDM vs Early diagnosed preexisting DM: PM Lantus: 48 units Breakfast: 12 units. Lunch: 12 units Dinner: 12 units Weight gain goal 11-20 pounds Continue yoga, walking. Increase exercise as able. EFW on 07/30/2022: 1902 g, 83rd percentile. EFW on 09/02/2022: 3248 g, 94th percentile NST/BPP weekly High Risk Pregancy: Has again decided she does not want to pursue MFM. Anxiety, PTSD: Improved with increased dose of lexapro. Subacute pain: Hips are biggest issue, but multiple pains. Did start THC balm which has helped immensely. Previously discussed risks and unknown effects on fetus. Patient says she cannot tolerate the pain and will continue this regardless. Choroid plexus cyst: Not seen on most recent ultrasound. LMP: 12/20/2021 JONE by LMP: 09/27/2022 Initial U/S: 02/14/22 @ 7w0d JONE 10/03/2022 Final JONE: 09/27/2022 Pre- weight: 245 BMI: 46.55 Blood type: O+ Rh: positive Antibody: negative CBC: PLT- 296 HCT-42.2 HGB-14.5 RUB: immune VZV: immune HBsAg: negative HepC: negative RPR/AB-EIA: non-reactive HIV: negative PAP: 03/04/22 normal GC/CT: negative HSV: denies in self and partner Genetic testing: [id number] & AFP- negative Covid: Flu: January 19 ([facility]) FAS: Placenta: anterior without previa Cord: 3VC NORA: 15.3 EFW: 412g (76%) Bilateral choroid plexus cysts are noted. Resolved on subsequent ultrasound. 50gm OGCT: early 1 hr gtt ordered 03/04-declined A1c 6.2 TDAP:07/09/2022 Breast pump: Antibody screen: GBS:collected 37.0 09/13 Delivery plan: [facility] PP contraception: Undecided. PMH Gestational versus pre-existing diabetes Chronic hypertension Anxiety with depression Tobacco abuse Subacute back pain PTSD Obesity PSH section Cholecystectomy OB History G2, P1 1. 01/16/2021, 40 weeks, section SH Tobacco: 1/2 pack/day. Denies alcohol use. THC balm. No edibles or inhaled. Family History Father: Myocardial infarction, 50s Allergies No known drug allergies Medications Insulin, glargine and aspart Hydroxyzine 25 mg 3 times a day Physical exam: General: Alert, oriented, no acute distress Head: Normal cephalic atraumatic Eyes: PERRLA, extraocular motions intact. Respiratory: Normal rate of respiration. No accessory muscle use, normal respiratory effort. Cardiovascular: Regular rate and rhythm Abdomen: Gravid, nontender, nondistended Extremities: Normal range of motion Neuro: Oriented x3. Normal movements Psych: Appropriate mood and affect. Normal judgment and insight 140 beats per minute baseline, moderate variability, accelerations present, no decelerations. Reactive NST [place]: Quiescent Plan 37-year-old -0-0-1 at 37 weeks 3 days gestation admitted for repeat low- transverse section 1. Maternal care for previous scar -Plan for repeat section in the morning. -3 g cefazolin for preoperative medication 2. 37 weeks gestation 3. Gestational diabetes -Possible pre-existing diabetes -Plan for insulin drip overnight in preparation for delivery. -Suboptimal control with subcutaneous insulin. Will start insulin drip per protocol. -Hypoglycemia protocol ordered 4. Chronic hypertension -CBC, CMP, Urine protein to creatinine ratio -Nifedipine 30 mg extended release p.o. nightly. Patient already took her dose today. 5. Anxiety with depression Hydroxyzine 25 mg as needed Meds/Allgy - Home Medications Home Medications: Ambulatory Orders Medication Instructions Recorded Confirmed Escitalopram Oxalate [Lexapro] 20 mg PO DAILY 02/14/22 02/14/22 Vit No.180/Iron/Folic 1 tab PO DAILY 02/14/22 02/14/22 [ Plus Vitamin-Mineral] Promethazine Supp [Phenergan Supp] 25 mg AK Q6HR PRN #12 supp 07/03/22 Insulin Aspart [NovoLOG] 12 units SQ TID 08/31/22 08/31/22 Insulin Glargine [Lantus Solostar] 48 units SQ QPM 08/31/22 08/31/22 Phenazopyridine HCl [Pyridium] 100 mg PO TID #9 tablet 09/05/22 - Allergies Allergies/Adverse Reactions: Allergies Allergy/AdvReac Type Severity Reaction Status Date / Time metoclopramide [From Reglan] AdvReac Anxiety Verified 07/06/22 14:24
[2022-09-15] MEDS ORDERED: NIFEdipine 10 MG CAPSULE PO PRN (18:42)
[2022-09-15] MEDS ORDERED: TRANEXAMIC ACID IN NACL 1,000 MG/100 ML BAG IV PRN (18:42)
[2022-09-15] MEDS ORDERED: SODIUM CHLORIDE FLUSH 0.9% 10 ML SYRINGE IVP PRN (18:42)
[2022-09-15] MEDS ORDERED: OXYTOCIN/SODIUM CHLORIDE 500 ML IV PRN (18:42)
[2022-09-15] MEDS ORDERED: CARBOPROST TROMETHAMINE 250 MCG/ML AMP IM PRN (18:42)
[2022-09-15] MEDS ORDERED: TERBUTALINE 1 MG/ML VIAL SUBQ PRN (18:42)
[2022-09-15] MEDS ORDERED: LABETALOL 20 MG/4 ML SYRINGE IVP PRN ×3 (18:42)
[2022-09-15] MEDS ORDERED: miSOPROStoL 200 MCG TABLET BC PRN (18:42)
[2022-09-15] MEDS ORDERED: hydrALAZINE INJ 20 MG/ML VIAL IVP PRN ×2 (18:42)
[2022-09-15] MEDS ORDERED: lidocaine 1% 20 ML MDV ID PRN (18:42)
[2022-09-15] MEDS ORDERED: METHYLERGONOVINE 0.2 MG/ML VIAL IM PRN (18:42)
[2022-09-15] MEDS ORDERED: miSOPROStoL 200 MCG TABLET PR PRN (18:42)
[2022-09-15] MEDS ORDERED: OXYTOCIN 10 UNIT/ML VIAL IM PRN (18:42)
[2022-09-15] MEDS ORDERED: INSULIN REGULAR HUMAN 100 UNIT in SODIUM CHLORIDE 0.9% 100ML 99 ML IV SCH (19:00)
[2022-09-15 19:11] LABS: BASOPHILS % (AUTO) 0.3 %; EOSINOPHILS # (AUTO) 0.5 10^3/uL (0.0-0.7); EOSINOPHILS % (AUTO) 4.5 %; HCT - HEMATOCRIT 40.9 % (37.0-47.0); LYMPHOCYTES # (AUTO) 2.4 10^3/uL (1.5-3.5); LYMPHOCYTES % (AUTO) 22.7 %; MEAN CORPUSCULAR HEMOGLOBIN 31.3 pg (27.0-31.0); MEAN CORPUSCULAR HGB CONC 34.2 g/dL (32.0-36.0); MEAN CORPUSCULAR VOLUME 91.5 fL (81.0-99.0); MEAN PLATELET VOLUME 10.9 fL (7.9-10.8); MONOCYTES # (AUTO) 0.8 10^3/uL (0.0-1.0); MONOCYTES % (AUTO) 7.2 %; NEUTROPHILS # (AUTO) 6.7 10^3/uL (1.5-6.6); NEUTROPHILS % (AUTO) 64.8 %; PLT - PLATELET COUNT 295 10^3/uL (130-450); RED BLOOD COUNT 4.47 10^6/uL (4.20-5.40); RED CELL DISTRIBUTION WIDTH 14.3 % (12.0-15.0); WHITE BLOOD COUNT 10.4 x10^3/uL (4.8-10.8)
[2022-09-15 19:20] LABS: ALBUMIN 2.8 g/dL (3.2-5.5); ALBUMIN/GLOBULIN RATIO 0.7 (1.0-2.2); BILIRUBIN,TOTAL 0.4 mg/dL (0.2-1.0); CALCIUM 9.2 mg/dL (8.5-10.3); CREATININE 0.7 mg/dL (0.4-1.0); POTASSIUM 3.5 mmol/L (3.5-5.0); TOTAL PROTEIN 6.7 g/dL (6.7-8.2)
[2022-09-15] MEDS ORDERED: INSULIN REGULAR IN 0.9 % NS 100 UNIT/100 ML BAG IV ONE (19:52)
[2022-09-15] MEDS ORDERED: INSULIN REGULAR IN 0.9 % NS 100 UNIT/100 ML BAG IV SCH (20:00)
[2022-09-15] MEDS ORDERED: DEXTROSE 40% GEL 37.5 GM TUBE PO PRN (20:02)
[2022-09-15] MEDS: DEXTROSE 5%-LACTATED RINGERS 1,000 ML IV SCH (20:10)
[2022-09-15] MEDS: LACTATED RINGERS 1,000 ML IV SCH (20:26)
[2022-09-15] MEDS: SODIUM CHLORIDE FLUSH 0.9% 10 ML SYRINGE IVP SCH (20:26)
[2022-09-15 21:35] LABS: PROTEIN/CREATININE RATIO,URINE 0.1 (<=0.2)
[2022-09-16] MEDS: hydrOXYzine PAMOATE 25 MG CAPSULE PO PRN ×2 (02:20→21:48)
[2022-09-16] MEDS: PHENAZOPYRIDINE 100 MG TABLET PO PRN ×2 (02:32→17:42)
[2022-09-16] MEDS: LACTATED RINGERS 1,000 ML IV SCH ×3 (03:13→17:48)
[2022-09-16] MEDS: SODIUM CHLORIDE FLUSH 0.9% 10 ML SYRINGE IVP SCH ×2 (03:13→15:07)
[2022-09-16] MEDS: DEXTROSE 5%-LACTATED RINGERS 1,000 ML IV SCH (03:41)
[2022-09-16] MEDS ORDERED: miSOPROStoL 200 MCG TABLET ONE (07:09)
[2022-09-16] MEDS ORDERED: METHYLERGONOVINE 0.2 MG/ML VIAL ONE (07:10)
[2022-09-16] MEDS ORDERED: CARBOPROST TROMETHAMINE 250 MCG/ML AMP IM ONE (07:10)
--- NOTE | 2022-09-16 07:29 | ANESTHESIA ---
Pre-Anesthesia VS, & Labs - Diagnosis previous low transverse scar - Procedure Vital Signs: Temp Pulse Resp BP Pulse Ox O2 Flow Rate 36.5 C 91 16 108/61 09/16/22 00:11 09/16/22 00:11 09/16/22 00:11 09/16/22 00:11 Height: 5 ft 1 in Weight (kg): 118.206 kg Body Mass Index: 49.2 BMI Classification: Morbidly Obese - NPO >8 hours - Is Patient ?: Yes - Lab Results Current Lab Results: Laboratory Tests 09/16/22 07:07: POC Whole Bld Glucose 119 H 09/16/22 06:03: POC Whole Bld Glucose 107 H 09/16/22 05:09: POC Whole Bld Glucose 115 H 09/16/22 04:10: POC Whole Bld Glucose 131 H 09/16/22 03:04: POC Whole Bld Glucose 120 H 09/16/22 02:06: POC Whole Bld Glucose 111 H 09/16/22 01:05: POC Whole Bld Glucose 119 H 09/16/22 00:08: POC Whole Bld Glucose 107 H 09/15/22 23:00: POC Whole Bld Glucose 104 H 09/15/22 22:09: POC Whole Bld Glucose 96 09/15/22 21:07: POC Whole Bld Glucose 117 H 09/15/22 20:08: POC Whole Bld Glucose 139 H 09/15/22 18:40: Sodium 137, Potassium 3.5, Chloride 110, Carbon Dioxide 18 L, Anion Gap 9.0, BUN 7, Creatinine 0.7, Estimated GFR (MDRD) 95, Glucose 175 H, Calcium 9.2, Total Bilirubin 0.4, AST 51 H, ALT 53, Alkaline Phosphatase 183 H, Total Protein 6.7, Albumin 2.8 L, Globulin 3.9, Albumin/Globulin Ratio 0.7 L 09/15/22 18:40: WBC 10.4, RBC 4.47, Hgb 14.0, Hct 40.9, MCV 91.5, MCH 31.3 H, MCHC 34.2, RDW 14.3, Plt Count 295, MPV 10.9 H, Neut # (Auto) 6.7 H, Lymph # (Auto) 2.4, [place] # (Auto) 0.8, Eos # (Auto) 0.5, Baso # (Auto) 0.0, Absolute Nucleated RBC 0.00, Nucleated RBC % 0.0 09/15/22 18:40: Blood Type O POSITIVE, Antibody Screen NEGATIVE Lab results reviewed: Yes Fish Bones: 09/15/22 18:40 09/15/22 18:40 Home Medications and Allergies Active Medications Carboprost Tromethamine (Carboprost Tromethamine 250 Mcg/Ml Amp) 250 mcg IM .ONCE PRN PRN Reason: Hemorrhage Escitalopram Oxalate (Escitalopram 10 Mg Tablet) 30 mg PO DAILY FRANCOISE Glucose (Dextrose 40% Gel 37.5 Gm Tube) 37.5 gm PO ONCE PRN PRN Reason: Hypoglycemia Stop: 09/16/22 23:59 Hydralazine HCl (Hydralazine Inj 20 Mg/Ml Vial) 10 mg IVP .ONCE PRN; Protocol PRN Reason: SBP> or= 160 OR DBP> or= 110 Hydralazine HCl (Hydralazine Inj 20 Mg/Ml Vial) 5 - 10 mg IVP Q20M PRN; Protocol PRN Reason: SBP> or= 160 OR DBP> or= 110 Hydroxyzine Pamoate (Hydroxyzine Pamoate 25 Mg Capsule) 50 mg PO QPM PRN PRN Reason: Insomnia Last Admin: 09/16/22 02:20 Dose: 50 mg Oxytocin/Sodium Chloride (Pitocin/Sodium Chloride) 500 mls @ 999 mls/hr IV PRN PRN; Protocol PRN Reason: POST- HEMORR PREVENTION Tranexamic Acid (Tranexamic 1,000 Mg/100ml-Nacl) 1,000 mg in 100 mls @ 600 mls/hr IV Q30M PRN PRN Reason: EBL >1200mL and within 3hr Lactated Ringer's (Lr) 1,000 mls @ 125 mls/hr IV .Q8H FRANCOISE Last Admin: 09/16/22 03:13 Dose: Not Given Dextrose/Lactated Ringer's (D5lr) 1,000 mls @ 125 mls/hr IV .Q8H FRANCOISE Last Admin: 09/16/22 03:41 Dose: 125 mls/hr Insulin Human Regular (Myxredlin 100 Unit/100 Ml Bag) 100 unit in 100 mls @ 1 mls/hr IV .Q72H FRANCOISE; Protocol Last Titration: 09/16/22 07:10 Dose: 3 unit/hr, 3 mls/hr Labetalol HCl (Labetalol 20 Mg/4 Ml Syringe) 20 mg IVP .ONCE PRN; Protocol PRN Reason: SBP> or= 160 OR DBP> or= 110 Labetalol HCl (Labetalol 20 Mg/4 Ml Syringe) 20 - 80 mg IVP Q10M PRN; Protocol PRN Reason: SBP> or= 160 OR DBP> or= 110 Labetalol HCl (Labetalol 20 Mg/4 Ml Syringe) 20 - 40 mg IVP Q10M PRN; Protocol PRN Reason: SBP> or= 160 OR DBP> or= 110 Lidocaine HCl (Lidocaine 1% 20 Ml Mdv) 20 ml ID .ONCE PRN PRN Reason: PERINEAL REPAIR Stop: 09/18/22 18:42 Methylergonovine Maleate (Methylergonovine 0.2 Mg/Ml Vial) 0.2 mg IM .ONCE PRN PRN Reason: Hemorrhage Misoprostol (Misoprostol 200 Mcg Tablet) 600 mcg BC .ONCE PRN PRN Reason: Hemorrhage Misoprostol (Misoprostol 200 Mcg Tablet) 800 mcg [place] .ONCE PRN PRN Reason: Hemorrhage Nicotine (Nicotine 14 Mg Patch) 1 patch TOP DAILY PRN PRN Reason: Tobacco Craving Nifedipine (Nifedipine 10 Mg Capsule) 10 - 20 mg PO Q20M PRN; Protocol PRN Reason: SBP> or= 160 OR DBP> or= 110 Oxytocin (Oxytocin 10 Unit/Ml Vial) 10 unit IM .ONCE PRN PRN Reason: Step One if no IV access. Phenazopyridine HCl (Phenazopyridine 100 Mg Tablet) 100 mg PO TID PRN PRN Reason: Bladder Spasms Last Admin: 09/16/22 02:32 Dose: 100 mg Sodium Chloride (Sodium Chloride Flush 0.9% 10 Ml Syringe) 10 ml IVP Q8H [facility] Last Admin: 09/16/22 03:13 Dose: Not Given Sodium Chloride (Sodium Chloride Flush 0.9% 10 Ml Syringe) 10 ml IVP PRN PRN PRN Reason: NEEDED PER PROVIDER ORDERS Terbutaline Sulfate (Terbutaline 1 Mg/Ml Vial) 0.25 mg SUBQ .ONCE PRN PRN Reason: Tachystole Escitalopram Oxalate [Lexapro] 20 mg PO DAILY 02/14/22 Vit No.180/Iron/Folic [ Plus Vitamin-Mineral] 1 tab PO DAILY 02/14/22 Insulin Aspart [NovoLOG] 12 units SQ TID 08/31/22 Insulin Glargine [Lantus Solostar] 48 units SQ QPM 08/31/22 Allergies/Adverse Reactions: Allergies Allergy/AdvReac Type Severity Reaction Status Date / Time metoclopramide [From Reglan] AdvReac Anxiety Verified 07/06/22 14:24 Anes History & Medical History - Anesthetic History Anesthesia Complications: reports: No previous complications Family history of Anesthesia Complications: Denies Family history of Malignant Hyperthermia: Denies - Medical History Cardiovascular: reports: Hypertension Pulmonary: reports: None Gastrointestinal: reports: None Urinary: reports: Kidney stones Neuro: reports: None Musculoskeletal: reports: None Endocrine/Autoimmune: reports: Type 2 diabetes Blood Disorders: reports: None Skin: reports: None Smoking Status: Current every day smoker - Surgical History General: reports: Cholecystectomy Gynecologic: reports: section - Obstetrical History : 2 Parity: 1 Events: reports: Gestational diabetes Complications: reports: Gestational diabetes, Chronic HTN Exam General: Alert, Oriented x3, Cooperative Dental: WNL Mouth Openin Fingerbreadth Neck Mobility: Normal Mallampati classification: II Thyromental Distance: 4-6 cm Respiratory: Lungs clear Cardiovascular: Regular rate Plan Anesthesia Type: Spinal Consent for Procedure(s) Verified and Reviewed: Yes Code Status: Attempt Resuscitation ASA classification: 3-Severe systemic disease Is this case an emergency?: No
[2022-09-16] MEDS ORDERED: fentaNYL 100 MCG/2 ML VIAL ONE ×2 (09:17→09:23)
[2022-09-16] MEDS ORDERED: ePHEDrine 50 MG/ML VIAL IVP ONE (09:26)
[2022-09-16] MEDS ORDERED: ceFAZolin 1 GM VIAL ONE (09:26)
[2022-09-16] MEDS ORDERED: OXYTOCIN 10 UNIT/ML VIAL ONE ×2 (09:26)
[2022-09-16] MEDS ORDERED: ONDANSETRON 4 MG/2 ML VIAL ONE (09:26)
[2022-09-16] MEDS ORDERED: KETOROLAC 30 MG/ML VIAL ONE (09:26)
[2022-09-16] MEDS ORDERED: SODIUM CHLORIDE 0.9% 10 ML VIAL IVP ONE ×2 (09:33)
[2022-09-16] MEDS ORDERED: ROPIVACAINE 0.5% PF 20 ML VIAL ONE (09:35)
[2022-09-16] MEDS ORDERED: SIMETHICONE CHEW 80 MG TABLET PO PRN (09:57)
[2022-09-16] MEDS ORDERED: CALCIUM CARBONATE CHEW 500 MG TABLET PO PRN (09:57)
[2022-09-16] MEDS ORDERED: LABETALOL 20 MG/4 ML SYRINGE IVP PRN ×3 (09:57)
[2022-09-16] MEDS ORDERED: WITCH HAZEL/GLYCERIN 1 PAD TOP PRN (09:57)
[2022-09-16] MEDS ORDERED: hydrALAZINE INJ 20 MG/ML VIAL IVP PRN ×2 (09:57)
[2022-09-16] MEDS ORDERED: NALOXONE 0.4 MG/ML VIAL IVP PRN ×2 (09:57→10:14)
[2022-09-16] MEDS ORDERED: HYDROCORTISONE 1% CREAM 28 GM TUBE TOP PRN (09:57)
[2022-09-16] MEDS ORDERED: NIFEdipine 10 MG CAPSULE PO PRN (09:57)
[2022-09-16] MEDS ORDERED: OXYTOCIN/SODIUM CHLORIDE 500 ML IV PRN (09:57)
[2022-09-16] MEDS ORDERED: LACTATED RINGERS 1,000 ML IV ONE ×2 (10:04→18:43)
--- NOTE | 2022-09-16 10:09 | DELIVERY NOTE ---
Delivery Note - Infant Delivery Method Infant Delivery Method: positive: Repeat - Presentation Presentation: positive: Vertex - Nuchal Cord Nuchal Cord: positive: None - Anesthetic Anesthetic Type: - Amniotic Fluid Description Amniotic Fluid Description: positive: Bloody (Clear, but then bloody as placenta was incised upon hysterotomy) - Vacuum Use Indication for Vacuum Use: positive: Other (Difficult extraction at repeat cesaerean section) Type of Vacuum Cup: positive: Cup: Rigid Vacuum Extraction: positive: Successful Number of pop-offs: 0 - Delivery Outcome Delivery Outcome: positive: Livebirth - [place] : positive: Bulb syringe, Stimulated, Warmed, Toutle used, Warmer used - Cord Cord: positive: 3 vessels - Placenta Placenta: positive: Intact, Manual removal - Estimated Blood Loss Estimated Blood Loss (in cc): 800 - Delivery Comments (Free Text/Narrative) Delivery Comments (Free Text/Narrative): See operative report.
--- NOTE | 2022-09-16 10:13 | OPERATIVE REPORT ---
Operative Report - General Admit Date: 09/15/22 Procedure Date: 09/16/22 Planned Procedure: Repeat section Pre-Op Diagnosis: 37yo 37.4,BMI 50,CD x1,desires RCD,CHTN,GDMA2-insulin uncontrolled Procedure Performed: Repeat section Post Op Diagnosis: 37yo 37.4,BMI 50,CD x1,desires RCD,CHTN,GDMA2-insulin uncontrolled - Procedure Note Primary Surgeon: Alejandra Andrade DO Secondary Surgeon: Madonna Caballero CNM; assistance required for retraction, safe completion Anesthesia Provider: PEARL Manriquez Anesthesia Technique: Spinal Pathology: None IV Fluids (mL): 2,000 Estimated Blood Loss (mL): 800 Indications: 37yo 37.4,BMI 50,CD x1,desires RCD,CHTN,GDMA2-insulin uncontrolled Findings: Viable Normal appearing uterus, oviducts, ovaries Complications: None - Other Other Information/Narrative: Under spinal anaesthetic with a Saez catheter inserted, the patient was prepped and draped in the usual sterile fashion in the supine position with a leftward tilt. A Pfannensteil incision was made through the patients previous incision. The incision was carried down to the fascia with sharp dissection and cautery. The fascia was incised transversely and dissected off the rectus muscle using blunt and sharp dissection. Electrocautery was used for hemostasis. The peritoneum was opened taking care not to injure the bladder. The vesicouterine peritoneum was dissected off the lower uterine segment. The lower segment was assessed and a low transverse incision was made. The uterine incision was extended bluntly. Placenta was anterior and this was noted at hysterotomy. The fetus was presenting as a vertex but was not well engaged and was floating in copious fluid. Head was brought up to incision. Kiwi vacuum assistance required for delivery. Vacuum applied to flexion point and guided to incision. The head was delivered and the rest of the body followed easily. Cord clamped twice and cut and the baby transferred to the warmer, awaiting the nursing and pediatric staff. Cord segment collected for gases. The placenta was then delivered manually. The uterus was explored and was empty of all tissue. The uterus was exteriorized for better visualization. The uterine incision was then closed in two layers with 0-Monocryl suture. The first layer was locking and the second was imbricating. One [id number] sutures was required for good hemostasis. Tubes and ovaries were examined and appeared normal. The fascia was closed with 0-Vicryl in a running unlocked fashion. Subcutaneous layer reapproximated with 2-0 Chromic. The skin was then reapproximated with 4-0 Monocryl. At the end of the procedure all sponges, instruments, and sharps were counted and correct. Estimated blood loss was 800cc. The patient was taken to the recovery in stable condition.
[2022-09-16] MEDS ORDERED: HYDROmorphone 0.5 MG/0.5 ML SYRINGE IVP PRN (10:14)
[2022-09-16] MEDS ORDERED: ePHEDrine 50 MG/ML VIAL IVP PRN (10:14)
[2022-09-16] MEDS ORDERED: ONDANSETRON 4 MG/2 ML VIAL IVP PRN (10:14)
[2022-09-16] MEDS ORDERED: ATROPINE ABBOJECT 1 MG/10 ML SYRINGE IVP PRN (10:14)
[2022-09-16] MEDS ORDERED: fentaNYL 100 MCG/2 ML VIAL IVP PRN (10:14)
[2022-09-16] MEDS ORDERED: LACTATED RINGERS 1,000 ML IV SCH (11:00)
[2022-09-16] MEDS: ACETAMINOPHEN 500 MG TABLET PO SCH ×2 (12:02→20:02)
[2022-09-16] MEDS: oxyCODONE 5 MG TABLET PO PRN ×3 (12:03→18:37)
[2022-09-16] MEDS ORDERED: HYDROmorphone 1 MG/ML CARPUJECT IVP ONE (13:00)
[2022-09-16] MEDS: ONDANSETRON 4 MG/2 ML VIAL IVP PRN (13:28)
[2022-09-16] MEDS: NICOTINE 14 MG PATCH TOP PRN (13:35)
[2022-09-16] MEDS: KETOROLAC 30 MG/ML VIAL IVP SCH ×2 (15:38→22:18)
[2022-09-16] MEDS ORDERED: oxyCODONE 5 MG TABLET PO PRN (18:42)
[2022-09-16] MEDS: DOCUSATE SODIUM 100 MG CAPSULE PO SCH (20:02)
[2022-09-16] MEDS ORDERED: LIDOCAINE JELLY 2% 6 ML JEL.PF.APP TOP ONE (21:17)
--- NOTE | 2022-09-16 21:17 | PROVIDER PROGRESS NOTE ---
Subjective - Prog Note Date Prog Note Date: 09/16/22 Prog Note Time: 21:15 - Subjective Subjective: Patient reporting severe pain Objective - Vital Signs/Intake & Output Vital Signs: Vital Signs x48h Temp Pulse Resp BP Pulse Ox 09/16/22 17:00 98.4 F 88 20 118/69 99 Intake & Output: Intake & Output 09/13/22 09/14/22 09/15/22 09/16/22 23:59 23:59 23:59 23:59 Intake Total 337.866 7819.667 Output Total 475 Balance 061.114 5790.667 - Objective General Appearance: positive: No acute distress Abdomen: positive: Tenderness (non-distended, appropriately tender. Bandage in place and dry) - Lab Results Fish Bones: 09/15/22 18:40 09/15/22 18:40 Other Labs: Lab Results x24hrs 09/16/22 09/16/22 09/16/22 Range/Units 08:35 07:07 06:03 POC Whole Bld Glucose 113 H 119 H 107 H (70 - 100) mg/dL Urine Creatinine mg/dL Ur Total Protein Timed mg/dL Protein/Creatinin Ratio (<=0.2) 09/16/22 09/16/22 09/16/22 Range/Units 05:09 04:10 03:04 POC Whole Bld Glucose 115 H 131 H 120 H (70 - 100) mg/dL Urine Creatinine mg/dL Ur Total Protein Timed mg/dL Protein/Creatinin Ratio (<=0.2) 09/16/22 09/16/22 09/16/22 Range/Units 02:06 01:05 00:08 POC Whole Bld Glucose 111 H 119 H 107 H (70 - 100) mg/dL Urine Creatinine mg/dL Ur Total Protein Timed mg/dL Protein/Creatinin Ratio (<=0.2) 09/15/22 09/15/22 09/15/22 Range/Units 23:00 22:09 21:00 POC Whole Bld Glucose 104 H 96 (70 - 100) mg/dL Urine Creatinine 167.0 mg/dL Ur Total Protein Timed 24 mg/dL Protein/Creatinin Ratio 0.1 (<=0.2) Assessment/Plan - Problem List (1) Delivery by section Impression: We discussed pain management option. With discontinue PO oxycodone overnight and switch to morphine ONCOLOGY SPECIALIST Plan of care discussed and all questions answered.
[2022-09-16] MEDS: ESCITALOPRAM 10 MG TABLET PO SCH (21:49)
[2022-09-16] MEDS ORDERED: MORPHINE 10 MG/ML VIAL ONE (22:26)
[2022-09-16] MEDS: MORPHINE PCA 50 MG IV PRN (22:47)
[2022-09-17] MEDS: PHENAZOPYRIDINE 100 MG TABLET PO PRN ×2 (02:54→11:19)
[2022-09-17] MEDS: KETOROLAC 30 MG/ML VIAL IVP SCH (04:00)
[2022-09-17] MEDS: ACETAMINOPHEN 500 MG TABLET PO SCH ×3 (04:00→19:52)
[2022-09-17 05:46] LABS: HCT - HEMATOCRIT 30.9 % (37.0-47.0); HGB - HEMOGLOBIN 10.4 g/dL (12.0-16.0); MEAN CORPUSCULAR HEMOGLOBIN 31.4 pg (27.0-31.0); MEAN CORPUSCULAR HGB CONC 33.7 g/dL (32.0-36.0); MEAN CORPUSCULAR VOLUME 93.4 fL (81.0-99.0); MEAN PLATELET VOLUME 10.5 fL (7.9-10.8); RED BLOOD COUNT 3.31 10^6/uL (4.20-5.40); RED CELL DISTRIBUTION WIDTH 14.5 % (12.0-15.0); WHITE BLOOD COUNT 11.2 x10^3/uL (4.8-10.8)
[2022-09-17] MEDS: MORPHINE PCA 50 MG IV PRN (05:47)
[2022-09-17 05:58] LABS: ALBUMIN 2.4 g/dL (3.2-5.5); ALBUMIN/GLOBULIN RATIO 0.9 (1.0-2.2); BILIRUBIN,TOTAL 0.3 mg/dL (0.2-1.0); CALCIUM 8.2 mg/dL (8.5-10.3); CREATININE 0.6 mg/dL (0.4-1.0); POTASSIUM 3.9 mmol/L (3.5-5.0); TOTAL PROTEIN 5.2 g/dL (6.7-8.2)
[2022-09-17] MEDS: LACTATED RINGERS 1,000 ML IV SCH (07:40)
--- NOTE | 2022-09-17 10:05 | PROVIDER PROGRESS NOTE ---
Subjective - Prog Note Date Prog Note Date: 09/17/22 Prog Note Time: 10:03 - Subjective Subjective: Patient is POD#1 s/p RCS complicated by GDM, HTN and morbid obesity. Patient was comfortable overnight with morphine RESIDENTIAL ELECTRICIAN, is having more pain this morning. Ambulating, tolerating regular diet. Denies chest pain and shortness of breath. Objective - Vital Signs/Intake & Output Reviewed Vital Signs: Yes Vital Signs: Vital Signs x48h Temp Pulse Resp BP Pulse Ox 09/17/22 08:35 97.7 F 98 16 114/65 96 09/17/22 07:31 16 09/17/22 05:00 97.9 F 107 H 18 125/81 H 98 09/17/22 04:00 18 Intake & Output: Intake & Output 09/14/22 09/15/22 09/16/22 09/17/22 23:59 23:59 23:59 23:59 Intake Total 575.492 1450.667 1500 Output Total 650 475 Balance 163.393 2329.667 1025 - Objective General Appearance: positive: No acute distress Respiratory: positive: Breath sounds nml Cardiovascular: positive: Regular rate & rhythm Abdomen: positive: Non-tender (appropriately tender. declined abdominal exam) Extremities: positive: Non-tender, Pedal edema (2+) Neurologic/Psychiatric: positive: Oriented x3 - Lab Results Fish Bones: 09/17/22 05:37 09/17/22 05:37 Other Labs: Lab Results x24hrs 09/17/22 09/17/22 09/17/22 Range/Units 06:35 05:37 05:37 WBC 11.2 H (4.8-10.8) x10^3/uL RBC 3.31 L (4.20-5.40) 10^6/uL Hgb 10.4 L (12.0-16.0) g/dL Hct 30.9 L (37.0-47.0) % MCV 93.4 (81.0-99.0) fL MCH 31.4 H (27.0-31.0) pg MCHC 33.7 (32.0-36.0) g/dL RDW 14.5 (12.0-15.0) % Plt Count 241 (130-450) 10^3/uL MPV 10.5 (7.9-10.8) fL Sodium 134 L (135-145) mmol/L Potassium 3.9 (3.5-5.0) mmol/L Chloride 105 (101-111) mmol/L Carbon Dioxide 22 (21-32) mmol/L Anion Gap 7.0 (6-13) BUN 8 (6-20) mg/dL Creatinine 0.6 (0.4-1.0) mg/dL Estimated GFR (MDRD) 114 (>89) Glucose 152 H (70-100) mg/dL POC Whole Bld Glucose 135 H (70 - 100) mg/dL Calcium 8.2 L (8.5-10.3) mg/dL Total Bilirubin 0.3 (0.2-1.0) mg/dL AST 32 (10-42) IU/L ALT 37 (10-60) IU/L Alkaline Phosphatase 126 H (42-121) IU/L Total Protein 5.2 L (6.7-8.2) g/dL Albumin 2.4 L (3.2-5.5) g/dL Globulin 2.8 (2.1-4.2) g/dL Albumin/Globulin Ratio 0.9 L (1.0-2.2) Assessment/Plan - Problem List (1) Delivery by section Impression: uncomplicated postoperative course. Discussed weaning off morphine RESIDENTIAL ELECTRICIAN. encouraged ambulation.
[2022-09-17] MEDS: IBUPROFEN 800 MG TABLET PO SCH ×3 (11:19→22:48)
[2022-09-17] MEDS: DOCUSATE SODIUM 100 MG CAPSULE PO SCH ×2 (11:19→19:52)
[2022-09-17] MEDS: ONDANSETRON 4 MG/2 ML VIAL IVP PRN (11:20)
[2022-09-17] MEDS: NICOTINE 14 MG PATCH TOP PRN (11:40)
[2022-09-17] MEDS ORDERED: LIDOCAINE PATCH 5% TOP PRN (17:53)
--- NOTE | 2022-09-17 17:53 | PROVIDER PROGRESS NOTE ---
Subjective - Prog Note Date Prog Note Date: 09/17/22 Prog Note Time: 17:51 - Subjective Subjective: Patient complaining of incisional pain Objective - Vital Signs/Intake & Output Vital Signs: Vital Signs x48h Temp Pulse Resp BP Pulse Ox 09/17/22 17:21 97.9 F 106 H 18 124/79 09/17/22 14:08 14 09/17/22 12:37 98.8 F 105 H 18 111/66 96 Intake & Output: Intake & Output 09/14/22 09/15/22 09/16/22 09/17/22 23:59 23:59 23:59 23:59 Intake Total 714.752 2454.667 1555.925 Output Total 650 475 Balance 438.131 5735.667 1080.925 - Objective Abdomen: positive: Tenderness (patient has superficial wound vac in place. She has tenderness on superior aspect of dressing. No drainage or area of erythema) - Lab Results Fish Bones: 09/17/22 05:37 09/17/22 05:37 Other Labs: Lab Results x24hrs 09/17/22 09/17/22 09/17/22 Range/Units 06:35 05:37 05:37 WBC 11.2 H (4.8-10.8) x10^3/uL RBC 3.31 L (4.20-5.40) 10^6/uL Hgb 10.4 L (12.0-16.0) g/dL Hct 30.9 L (37.0-47.0) % MCV 93.4 (81.0-99.0) fL MCH 31.4 H (27.0-31.0) pg MCHC 33.7 (32.0-36.0) g/dL RDW 14.5 (12.0-15.0) % Plt Count 241 (130-450) 10^3/uL MPV 10.5 (7.9-10.8) fL Sodium 134 L (135-145) mmol/L Potassium 3.9 (3.5-5.0) mmol/L Chloride 105 (101-111) mmol/L Carbon Dioxide 22 (21-32) mmol/L Anion Gap 7.0 (6-13) BUN 8 (6-20) mg/dL Creatinine 0.6 (0.4-1.0) mg/dL Estimated GFR (MDRD) 114 (>89) Glucose 152 H (70-100) mg/dL POC Whole Bld Glucose 135 H (70 - 100) mg/dL Calcium 8.2 L (8.5-10.3) mg/dL Total Bilirubin 0.3 (0.2-1.0) mg/dL AST 32 (10-42) IU/L ALT 37 (10-60) IU/L Alkaline Phosphatase 126 H (42-121) IU/L Total Protein 5.2 L (6.7-8.2) g/dL Albumin 2.4 L (3.2-5.5) g/dL Globulin 2.8 (2.1-4.2) g/dL Albumin/Globulin Ratio 0.9 L (1.0-2.2) Assessment/Plan - Problem List (1) Delivery by section Impression: I discussed weaning off CONFIDENTIAL INVESTIGATOR overnight and that it would be discontinued by tomorrow with transition to PO pain medications. Patient has done a good job ambulating today.
[2022-09-17] MEDS ORDERED: NICOTINE 21 MG PATCH TOP SCH (19:00)
[2022-09-17] MEDS: oxyCODONE 5 MG TABLET PO PRN ×2 (19:51→23:46)
[2022-09-17] MEDS: hydrOXYzine PAMOATE 25 MG CAPSULE PO PRN (20:21)
--- NOTE | 2022-09-17 20:47 | PROVIDER PROGRESS NOTE ---
Subjective - Subjective Subjective: Discussed with patient and staff. Patient did express apologies for escalating the situation earlier. She felt very controlled and not listened to. The situation escalated when she was "threatened with CPS" and felt like it was too much for wanting to go have a cigarette. Discussed coping strategies with patient. 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 Patient agrees and has switched to oral pain medicines and IV was removed during the escalation. We discussed discharge criteria including adequate pain control on oral pain medications and she will make this her goal for the night. Patient said she will stay in the hospital after this last cigarette break. I believe this is a good compromise even after surgery as she is likely to be discharged in approximately 12 hours and will likely be going outside for smoke breaks at that time. We did discuss the recommendation to stop smoking and how it can affect her children. While I feel like this is not completely unusual behavior for as she has had several outburst throughout pre gnancy, she is generally well-intentioned but does not handle stress well. I do not believe she poses an imminent harm to her child. I do believe she will cope much better after discharge when in her own environment and able to control her environment better. Objective - Vital Signs/Intake & Output Vital Signs: Vital Signs x48h Temp Pulse Resp BP 09/17/22 17:21 97.9 F 106 H 18 124/79 09/17/22 14:08 14 Intake & Output: Intake & Output 09/14/22 09/15/22 09/16/22 09/17/22 23:59 23:59 23:59 23:59 Intake Total 377.724 9938.667 1555.925 Output Total 650 475 Balance 896.926 9131.667 1080.925 - Lab Results Fish Bones: 09/17/22 05:37 09/17/22 05:37 Other Labs: Lab Results x24hrs 09/17/22 09/17/22 09/17/22 Range/Units 06:35 05:37 05:37 WBC 11.2 H (4.8-10.8) x10^3/uL RBC 3.31 L (4.20-5.40) 10^6/uL Hgb 10.4 L (12.0-16.0) g/dL Hct 30.9 L (37.0-47.0) % MCV 93.4 (81.0-99.0) fL MCH 31.4 H (27.0-31.0) pg MCHC 33.7 (32.0-36.0) g/dL RDW 14.5 (12.0-15.0) % Plt Count 241 (130-450) 10^3/uL MPV 10.5 (7.9-10.8) fL Sodium 134 L (135-145) mmol/L Potassium 3.9 (3.5-5.0) mmol/L Chloride 105 (101-111) mmol/L Carbon Dioxide 22 (21-32) mmol/L Anion Gap 7.0 (6-13) BUN 8 (6-20) mg/dL Creatinine 0.6 (0.4-1.0) mg/dL Estimated GFR (MDRD) 114 (>89) Glucose 152 H (70-100) mg/dL POC Whole Bld Glucose 135 H (70 - 100) mg/dL Calcium 8.2 L (8.5-10.3) mg/dL Total Bilirubin 0.3 (0.2-1.0) mg/dL AST 32 (10-42) IU/L ALT 37 (10-60) IU/L Alkaline Phosphatase 126 H (42-121) IU/L Total Protein 5.2 L (6.7-8.2) g/dL Albumin 2.4 L (3.2-5.5) g/dL Globulin 2.8 (2.1-4.2) g/dL Albumin/Globulin Ratio 0.9 L (1.0-2.2)
[2022-09-18] MEDS: oxyCODONE 5 MG TABLET PO PRN ×5 (03:35→20:32)
[2022-09-18] MEDS: ACETAMINOPHEN 500 MG TABLET PO SCH ×3 (03:35→19:26)
[2022-09-18] MEDS: IBUPROFEN 800 MG TABLET PO SCH ×4 (04:36→16:50)
[2022-09-18] MEDS: DOCUSATE SODIUM 100 MG CAPSULE PO SCH ×2 (10:42→19:27)
--- NOTE | 2022-09-18 10:47 | PROVIDER PROGRESS NOTE ---
Subjective - Prog Note Date Prog Note Date: 09/18/22 Prog Note Time: 10:47 - Subjective Subjective: Subjective Patient had a rough night including several outbursts since nurses and providers. Struggling with pain control mixed with anxiety. Discussed coping mechanisms. 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 Lochia appropriate. Denies heavy bleeding. Ambulating without problem. Tolerating oral intake. Diet: Regular. Voiding without difficulty. Passing flatus. Denies BM. Patient is bonding with baby in room Bottlefeeding with pumping. Denies feeling lightheaded, dizzy or excessively fatigued. Control: Undecided Objective General: Alert, oriented, no apparent distress. Intermittent tearfulness when talking about her struggles. Cardiovascular: Regular rate. Regular rhythm. Lungs: No increased work of breathing. Abdomen: Uterus firm. Below umbilicus. No guarding or rebound. Extremities: No pain on palpation. No cords palpated. Distal pulses intact. Incision: Wound VAC in place Assessment and Plan day 2. -Routine care -Anticipate discharge today or tomorrow A2 GDM -Possibly pre-existing diabetes -Declining glucose checks. -Patient snacks throughout the nights, so not true fasting, however elevated. -Discussed complications of wound infection delayed healing due to this. -Wound VAC can remain in place Chronic hypertension -blood pressure well controlled Obesity Tobacco abuse -advised cessation. -Currently using nicotine gum but taking small breaks. -Had a patch until she started smoking again Poor coping mechanisms -Patient struggling with feeling trapped on labor and delivery as well as being told what to do. Has struggled with providers and staff. Have talked multiple times about behavior and coping with stress. -Patient should try to maintain a calm demeanor. Her stress and anxiety as not helping her pain. She does not get worked up and escalate the situation. Objective - Vital Signs/Intake & Output Vital Signs: Vital Signs x48h Temp Pulse Resp BP Pulse Ox 09/18/22 03:44 98.7 F 84 16 109/72 97 Intake & Output: Intake & Output 09/15/22 09/16/22 09/17/22 09/18/22 23:59 23:59 23:59 23:59 Intake Total 820.848 0310.667 1555.925 Output Total 650 475 Balance 905.849 4306.667 1080.925 - Lab Results Fish Bones: 09/17/22 05:37 09/17/22 05:37 Other Labs: Lab Results x24hrs 09/18/22 Range/Units 06:52 POC Whole Bld Glucose 178 H (70 - 100) mg/dL
[2022-09-18] MEDS: GABAPENTIN 300 MG CAPSULE PO SCH ×2 (11:28→19:39)
--- NOTE | 2022-09-18 12:29 | PROVIDER PROGRESS NOTE ---
Subjective - Subjective Subjective: I assisted the OB information and data architect analyst in the section for this patient. My responsibilities included retracting and suctioning, providing fundal pressure during delivery and following with suture during closure. Please see the OB's note for details of the surgery. Objective - Vital Signs/Intake & Output Intake & Output: Intake & Output 09/15/22 09/16/22 09/17/22 09/18/22 23:59 23:59 23:59 23:59 Intake Total 831.617 5240.667 1555.925 Output Total 650 475 Balance 150.496 0501.667 1080.925 - Lab Results Fish Bones: 09/17/22 05:37 09/17/22 05:37 Other Labs: Lab Results x24hrs 09/18/22 Range/Units 06:52 POC Whole Bld Glucose 178 H (70 - 100) mg/dL
--- NOTE | 2022-09-18 16:28 | Discharge Plan ---
Discharge Plan Problem Reviewed?: Yes Disposition: Home, Self Care Condition: Good Diet: Diabetic Shower Restrictions: No Driving Restrictions: Yes Instruction Topics: C Section Dc, Depression No Smoking: If you smoke, Please STOP! Call for help. Follow-up with: Crispin Montesinos MD [Provider Admit Priv/Credential] -
[2022-09-18] MEDS: ESCITALOPRAM 10 MG TABLET PO SCH (19:28)
--- NOTE | 2022-09-18 21:07 | DISCHARGE SUMMARY ---
Discharge Summary Admit Date: 09/15/22 Discharge Date: 09/18/22 Discharging Provider: Crispin Montesinos MD Code Status: Attempt Resuscitation Condition at Discharge: Good Discharge Disposition: 01 Home, Self Care - DIAGNOSES Admission Diagnoses: 37 weeks gestation Gestational diabetes, A2 managed with insulin Chronic hypertension Obesity Previous low-transverse section x1 Discharge Diagnoses with Status of Each Condition: 37 weeks gestation Gestational diabetes, A2 managed with insulin Chronic hypertension Obesity Previous low-transverse section x1 Status post repeat low-transverse section Delivery of live miller - HPI History of Present Illness: Subjective Doing much better this afternoon. Still in pain, much better controlled. Bonding with baby. Breast-feeding without issue. Feels ready to go home. Objective General: Alert, oriented, no apparent distress. Cardiovascular: Regular rate. Regular rhythm. Lungs: No increased work of breathing. Abdomen: Uterus firm. Below umbilicus. No guarding or rebound. Extremities: No pain on palpation. No cords palpated. Distal pulses intact. Incision: Wound VAC remains in place. - HOSPITAL COURSE Hospital Course: Patient is admitted at 37 weeks gestation for glucose control prior to section. She was on an insulin infusion overnight. section resulted in vacuum extraction. course was complicated by difficult to control pain, but was ready for discharge on day 2 with her . - ALLERGIES Allergies/Adverse Reactions: Allergies Allergy/AdvReac Type Severity Reaction Status Date / Time metoclopramide [From Reglan] AdvReac Anxiety Verified 07/06/22 14:24 - MEDICATIONS Home Medications: Ambulatory Orders Medication Instructions Recorded Confirmed Escitalopram Oxalate [Lexapro] 20 mg PO DAILY 02/14/22 02/14/22 Vit No.180/Iron/Folic 1 tab PO DAILY 02/14/22 02/14/22 [ Plus Vitamin-Mineral] Promethazine Supp [Phenergan Supp] 25 mg MS Q6HR PRN #12 supp 07/03/22 Insulin Aspart [NovoLOG] 12 units SQ TID 08/31/22 08/31/22 Insulin Glargine [Lantus Solostar] 48 units SQ QPM 08/31/22 08/31/22 Phenazopyridine HCl [Pyridium] 100 mg PO TID #9 tablet 09/05/22 Acetaminophen [Acetaminophen Extra 1,000 mg PO Q8H PRN #60 tablet 06/21/23 Strength] Gabapentin [Neurontin] 300 mg PO TID 14 Days #42 cap 09/18/22 Ibuprofen [Motrin] 600 mg PO Q6H PRN #30 tab 09/18/22 oxyCODONE [Roxicodone] 10 mg PO Q6H PRN 5 Days #40 tablet 09/18/22 - LABS Result Diagrams: 09/17/22 05:37 09/17/22 05:37 - FOLLOW UP Follow Up: With Crispin Montesinos MD in 1 week - TIME SPENT Time Spent in Discharge (Minutes): 45
[2022-09-18 21:11] VITALS: BP 119/68
--- NOTE | 2022-09-23 10:07 | ANESTHESIA POST OP EVALUATION ---
Anesthesia Post Eval - Post Anesthesia Eval Vitals: Last Vital Signs Temp 37.1 C 09/18/22 20:20 Pulse 95 09/18/22 20:20 Resp 20 09/18/22 20:20 BP 119/68 09/18/22 20:20 Pulse Ox 98 09/18/22 20:20 O2 Flow Rate 0 09/17/22 21:20 CV Function Including HR & BP: Stable Pain Control: Satisfactory Nausea & Vomiting: Negative Mental Status: Baseline Respiratory Status: Airway Patent Hydration Status: Satisfactory Anesthesia Complications: None
== END 2022-09-18 20:46 | disposition home or self-care (01) | DRG 787 ==
LOC: FBP 18:20
PROVIDERS: ADMIT Obstetrics & Gynecology; ATTEND Obstetrics & Gynecology
PROC: 10D00Z1 Extraction of Products of Conception, Low, Open Approach (ICD-10-PCS; principal; 2022-09-16 07:30)
DX: O24.424 Gestational diabetes mellitus in childbirth, insulin controlled (principal); O10.92 Unspecified pre-existing hypertension complicating childbirth; O34.211 Maternal care for low transverse scar from previous cesarean delivery; Z3A.37 37 weeks gestation of pregnancy; Z37.0 Single live birth; O99.334 Smoking (tobacco) complicating childbirth; F17.210 Nicotine dependence, cigarettes, uncomplicated; O99.344 Other mental disorders complicating childbirth; F41.9 Anxiety disorder, unspecified; F43.10 Post-traumatic stress disorder, unspecified; F32.A Depression, unspecified; O99.214 Obesity complicating childbirth; E66.01 Morbid (severe) obesity due to excess calories
CPT/HCPCS: 36415; 80053; 82570; 84156; 85025; 85027; 86850; 86900; 86901; A9270; J1170; J2210; J2795; J7120

== ENCOUNTER 2022-11-15 11:02 | Emergency (ER) | payer MEDICAID ==
[2022-11-15 11:28] VITALS: BP 124/78; O2SAT 98
[2022-11-15] MEDS ORDERED: KETOROLAC 30 MG/ML VIAL IM STA (11:34)
--- NOTE | 2022-11-15 11:34 | ED Physician Documentation ---
History of Present Illness - Stated complaint Stated Complaint: RT LEG PX/SWELLING - Chief complaint Chief Complaint: Ext Problem - Additonal information Additional information: 37-year-old female presents emergency department for evaluation of right foot/heel pain that now radiates up to her calf. Symptoms have been present for about 1 month. She describes the pain as excruciating not alleviated by Tylenol or Motrin. Denies any falls or trauma. She is 2 months . She has had no fevers. No erythema. No red streaking. No history of DVT or cancer. Review of Systems Constitutional: denies: Fever Cardiac: reports: Reviewed and negative Respiratory: reports: Reviewed and negative GI: reports: Reviewed and negative : reports: Reviewed and negative Skin: denies: Rash, Lesions Musculoskeletal: reports: Extremity pain. 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 - Present Medications Home Medications: Ambulatory Orders Medication Instructions Recorded Confirmed Escitalopram Oxalate [Lexapro] 20 mg PO DAILY 02/14/22 02/14/22 Vit No.180/Iron/Folic 1 tab PO DAILY 02/14/22 02/14/22 [ Plus Vitamin-Mineral] Promethazine Supp [Phenergan Supp] 25 mg VT Q6HR PRN #12 supp 07/03/22 Insulin Aspart [NovoLOG] 12 units SQ TID 08/31/22 08/31/22 Insulin Glargine [Lantus Solostar] 48 units SQ QPM 08/31/22 08/31/22 Phenazopyridine HCl [Pyridium] 100 mg PO TID #9 tablet 09/05/22 Acetaminophen [Acetaminophen Extra 1,000 mg PO Q8H PRN #60 tablet 09/18/22 Strength] Gabapentin [Neurontin] 300 mg PO TID 14 Days #42 cap 09/18/22 Ibuprofen [Motrin] 600 mg PO Q6H PRN #30 tab 09/18/22 oxyCODONE [Roxicodone] 10 mg PO Q6H PRN 5 Days #40 tablet 09/18/22 HYDROcod/ACETAM 5/325 [Oakley 5/325] 1 tablet PO BID PRN #10 tablet 11/15/22 - Allergies Allergies/Adverse Reactions: Allergies Allergy/AdvReac Type Severity Reaction Status Date / Time metoclopramide [From Reglan] AdvReac Anxiety Verified 07/06/22 14:24 - Social History Does the pt smoke?: Yes Smoking Status: Current every day smoker Does the pt drink ETOH?: No Does the pt have substance abuse?: No - Immunizations Immunizations are current?: Yes - POLST Patient has POLST: No PD ED PE EXPANDED - General General: Alert, No acute distress - Cardiac Cardiac: Regular Rate - Respiratory Respiratory: Clear to ausultation zac - Extremities Extremities: Right leg (No obvious swelling or erythema. Pain with palpation of the right posterior calf. No deformity.), Right foot (No deformity. Normal sensation. Normal flexion extension inversion eversion of the foot and ankle. Tenderness is elicited with palpation of the posterior heel. No evidence of Achilles tendon tear.) Results - Vitals Vitals: Vital Signs - 24 hr 11/15/22 11:13 Temperature 36.1 C L Heart Rate 80 Respiratory 18 Rate Blood Pressure 124/78 O2 Saturation 98 Oxygen O2 Source Room air - Labs Labs: Laboratory Tests 11/15/22 11:48 Sodium 137 Potassium 4.0 Chloride 106 Carbon Dioxide 25 Anion Gap 6.0 BUN 10 Creatinine 0.6 Estimated GFR (MDRD) 114 Glucose 88 Calcium 9.4 - Rads (name of study) right foot xr Relevant Findings:: EMP independent interpretation of test PD Medical Decision Making - ED course Complexity details: reviewed results, re-evaluated patient, d/w patient ED course: 37-year-old female who is 2 months presents emergency department for evaluation of 1 month acute right foot heel and calf pain. She reports that the [place] pain is constant throbbing and burning in nature. She has difficulty bearing weight on the foot. She reports the foot is being swollen though this is an subjective finding only. On evaluation the foot is not swollen or red. Most of the tenderness was elicited with palpation of the medial joint lines. She had full active and passive range of motion of the ankle. Some tenderness also extended up into the posterior calf region again without swelling or erythema. Subsequently an x-ray of the foot was obtained and as interpreted by the radiologist showed no acute findings. Given the status and ultrasound DVT was obtained to rule out thrombus and was ultimately negative. I did give patient injection of Toradol which she found to be unhelpful in controlling her symptoms. I suspect patient may have a plantar fasciitis. There is no history of trauma to suggest a foot or ankle sprain. Subsequently I did place an Александр wrap on the foot advised patient to wear well supporting shoes. Recommended scheduled doses of Tylenol and Motrin [id number]. Limited prescription Oakley was sent to the pharmacy. Feel the patient would benefit from follow-up with machine assistant for longer-term evaluation of this now subacute right foot and ankle pain. The usual emergent return precautions for worsening symptoms was discussed. Departure - Departure Disposition: 01 Home, Self Care Clinical Impression: Right foot pain Condition: Stable Record reviewed to determine appropriate education?: Yes Instructions: Plantar Fasciitis Prescriptions: HYDROcod/ACETAM 5/325 [Oakley 5/325] 1 tablet PO BID PRN #10 tablet PRN Reason: Pain Comments: As discussed at the bedside your labs today were normal. The x-ray of your foot also did not show any obvious abnormalities with the bones. The ultrasound of the leg and foot did not show any findings of a blood clot. Clinically you do not appear to have any type of infection. This time I am not certain what is causing the pain in your foot and ankle though it may be a form of [place]ter fasciitis where the large tendon sheath on the bottom of the foot becomes inflamed. I would recommend that you wear well supporting sports shoes even when indoors. You can attempt to try use of the Александр wrap for the next several days to see if that improves. Continue to take Ty lenol and ibuprofen and scheduled doses for discomfort. For more severe pain a limited amount of Oakley has been sent to the [facility] pharmacy. Without an obvious cause for your foot discomfort I would recommend that you follow closely with a machine assistant. Altagracia Weeks is a local machine assistant just across street from this hospital and she may be able to see you in consultation. Return immediately to the ER if you develop any chest pain, have sudden severe shortness of air, have fevers, redness or significant swelling of this foot. I am prescribing a short course of narcotic pain medication for you. These are potentially dangerous and addictive medications that should be used carefully. These medications may constipate you. Take an [id number] stool softener (docusate) twice daily with plenty of water while taking these medications. If you go 24 hours without a bowel movement, take [id number] miralax, per package instructions. Do not drink or drive while taking these medications. If you received narcotic or sedating medications while in the emergency department, do not drive for 24 hours. Store this medication in a safe, secure place and out of reach of children. It is a violation of federal law to give or sell this medication to another person or to use in a manner other than prescribed. The ED will not refill narcotic prescriptions, including prescriptions lost or stolen. To dispose of unwanted medications: 1. [facility] at [address] in [place] has a medication drop box. They accept prescription medications (in pill form) Friday through Friday 9:00 a.m. to 5:00 p.m. 2. The [facility] [place] [employer] accepts prescription medications (in pill form only) for disposal year round. Call for more information. 3. Contact the [facility] for the next [facility] sponsored prescription drug collection event. , [phone], or [phone]; Note that many narcotic pain relievers also contain Tylenol/acetaminophen. Please ensure that your total dose of acetaminophen from all sources does not exceed 3 g (3000 mg) per day. Forms: PCP List
--- NOTE | 2022-11-15 12:03 | XRAY Report ---
PROCEDURE: Foot 3 View RT INDICATIONS: heel pain TECHNIQUE: 3 views of the foot were acquired. COMPARISON: None. FINDINGS: Bones: No fractures or dislocations. No suspicious bony lesions. Soft tissues: No suspicious soft tissue calcifications or masses. IMPRESSION: No acute abnormality of the right foot Reviewed by: Hira Marshall on 11/15/2022 12:01 PM PDT Approved by: Hira Marshall on 11/15/2022 12:01 PM PDT Station ID: [id number]
[2022-11-15 12:09] LABS: CALCIUM 9.4 mg/dL (8.5-10.3); CREATININE 0.6 mg/dL (0.6-1.3)
--- NOTE | 2022-11-15 12:34 | Ultrasound Report ---
PROCEDURE: Duplex Ext Veins Right INDICATIONS: foot and calf pain after delivery TECHNIQUE: Real-time imaging, as well as color and pulse Doppler interrogation, were performed of the lower extr emity deep veins from the inguinal ligament to the popliteal fossa. Attempted visualization of the ca lf veins was performed. COMPARISON: None. FINDINGS: The deep veins are normally compressible, and free of intraluminal thrombus. Color and pu lse Doppler demonstrate normal phasic intraluminal flow. There is normal augmentation response to di stal compression maneuver. Mild subcutaneous edema of the region of pain. IMPRESSION: No deep venous thrombosis of the visualized lower extremity. Reviewed by: Bennie Jha on 11/15/2022 12:32 PM PDT Approved by: Bennie Jha on 11/15/2022 12:32 PM PDT Station ID: [id number]
== END 2022-11-15 12:35 | disposition home or self-care (01) ==
LOC: ED 11:02
DX: M79.671 Pain in right foot (principal); F17.200 Nicotine dependence, unspecified, uncomplicated
CPT/HCPCS: 36415; 80048; 96372; 99283; 99284

== ENCOUNTER 2023-04-28 19:42 | Outpatient (CLI) | payer MEDICAID | END 2023-04-28 19:43 | disposition short-term general hospital (02) | LOC: EMS 19:42 | DX: R10.31 Right lower quadrant pain (principal) | CPT/HCPCS: A0425; A0427; A0999 ==

== ENCOUNTER 2023-06-20 09:00 | Outpatient (CLI) | payer MEDICAID ==
[2023-06-20 16:35] LABS: CHLAMYDIA TRACHOMATIS DNA NEGATIVE (NEGATIVE); NEISSERIA GONORRHOEAE DNA NEGATIVE (NEGATIVE)
[2023-06-20 23:06] LABS: BACTERIAL VAGINOSIS DNA NEGATIVE (NEGATIVE); CANDIDA GLABRATA DNA NEGATIVE (NEGATIVE); CANDIDA GROUP DNA POSITIVE (NEGATIVE); CANDIDA KRUSEI DNA NEGATIVE (NEGATIVE); TRICHOMONAS VAGINALIS DNA NEGATIVE (NEGATIVE)
== END 2023-06-20 09:15 | disposition home or self-care (01) ==
LOC: LAB.N 09:00
PROVIDERS: ATTEND Physician Assistant Medical
DX: N89.8 Other specified noninflammatory disorders of vagina (principal)
CPT/HCPCS: 81514; 87491; 87591; 87661

== ENCOUNTER 2023-08-04 10:23 | Outpatient (CLI) | payer MEDICAID ==
[2023-08-04 10:40] LABS: BASOPHILS % (AUTO) 0.4 %; EOSINOPHILS # (AUTO) 0.2 10^3/uL (0.0-0.7); EOSINOPHILS % (AUTO) 3.1 %; HCT - HEMATOCRIT 40.5 % (37.0-47.0); HGB - HEMOGLOBIN 13.3 g/dL (12.0-16.0); LYMPHOCYTES # (AUTO) 2.3 10^3/uL (1.5-3.5); LYMPHOCYTES % (AUTO) 29.3 %; MEAN CORPUSCULAR HEMOGLOBIN 30.8 pg (27.0-31.0); MEAN CORPUSCULAR HGB CONC 32.8 g/dL (32.0-36.0); MEAN CORPUSCULAR VOLUME 93.8 fL (81.0-99.0); MEAN PLATELET VOLUME 9.4 fL (7.9-10.8); MONOCYTES # (AUTO) 0.4 10^3/uL (0.0-1.0); MONOCYTES % (AUTO) 5.7 %; NEUTROPHILS # (AUTO) 4.7 10^3/uL (1.5-6.6); NEUTROPHILS % (AUTO) 61.2 %; PLT - PLATELET COUNT 279 10^3/uL (130-450); RED BLOOD COUNT 4.32 10^6/uL (4.20-5.40); RED CELL DISTRIBUTION WIDTH 12.8 % (12.0-15.0); WHITE BLOOD COUNT 7.7 x10^3/uL (4.8-10.8)
[2023-08-04 10:58] LABS: ALBUMIN 4.2 g/dL (3.2-5.5); ALBUMIN/GLOBULIN RATIO 1.5 (1.0-2.2); ALKALINE PHOSPHATASE 57 IU/L (42-121); ALT ALANINE AMINOTRANSFERASE 46 IU/L (10-60); AST ASPARTATE AMINOTRANSFERASE 39 IU/L (10-42); BILIRUBIN,TOTAL 0.2 mg/dL (0.2-1.0); BUN - BLOOD UREA NITROGEN 8 mg/dL (6-20); CALCIUM 9.3 mg/dL (8.5-10.3); CARBON DIOXIDE - CO2 23 mmol/L (21-32); CHLORIDE 105 mmol/L (101-111); CHOL/HDL RATIO 3.3 (<4.4); CHOLESTEROL 179 mg/dL; CREATININE 0.6 mg/dL (0.6-1.3); GFR - MDRD 113 (>89); GLUCOSE 98 mg/dL (74-104); HDL CHOLESTEROL 54 mg/dL; LDL CHOLESTEROL,CALCULATED 92 mg/dL; LDL/HDL RATIO 1.7 (<4.4); SODIUM 138 mmol/L (135-145); TRIGLYCERIDES 166 mg/dL (48-352); VLDL CHOLESTEROL 33 mg/dL
[2023-08-04 11:10] LABS: THYROID STIMULATING HORMONE 2.84 uIU/mL (0.34-5.60)
[2023-08-04 12:57] LABS: ESTIMATED AVERAGE GLUCOSE 126 mg/dL (70-100)
== END 2023-08-04 10:24 | disposition home or self-care (01) ==
LOC: LAB 10:23
PROVIDERS: ATTEND Nurse Practitioner Family
DX: R53.83 Other fatigue (principal); E66.01 Morbid (severe) obesity due to excess calories; Z68.41 Body mass index [BMI] 40.0-44.9, adult
CPT/HCPCS: 36415; 80053; 80061; 83036; 83721; 84443; 85025

== ENCOUNTER 2023-12-04 10:15 | Outpatient (CLI) | payer MEDICAID ==
[2023-12-04 23:24] LABS: ESTIMATED AVERAGE GLUCOSE 128 mg/dL (70-100); HEMOGLOBIN A1c% 6.1 % (4.27-6.07)
== END 2023-12-04 10:30 | disposition home or self-care (01) ==
LOC: LAB.N 10:15
PROVIDERS: ATTEND Physician Assistant Medical
DX: R63.1 Polydipsia (principal); R11.0 Nausea
CPT/HCPCS: 36415; 83036; 84702

== ENCOUNTER 2023-12-14 07:22 | Emergency (ER) | payer MEDICAID ==
--- NOTE | 2023-12-14 07:36 | ED Physician Documentation ---
PD HPI ABD PAIN - Stated complaint Stated Complaint: BACK/R SIDE PX - Chief complaint Chief Complaint: Abd Pain - History obtained from History obtained from: Patient - History of Present Illness Timing - onset: How many hours ago (1-2) Timing - details: Abrupt onset, Still present Quality: Sharp, Pain Location: RLQ Radiation: Right flank Worsened by: No: Moving, Breathing Associated symptoms: Nausea, Vomiting. 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 - Present Medications Home Medications: Ambulatory Orders Medication Instructions Recorded Confirmed Escitalopram Oxalate [Lexapro] 20 mg PO DAILY 02/14/22 02/14/22 Vit No.180/Iron/Folic 1 tab PO DAILY 02/14/22 02/14/22 [ Plus Vitamin-Mineral] Promethazine Supp [Phenergan Supp] 25 mg MN Q6HR PRN #12 supp 07/03/22 Insulin Aspart [NovoLOG] 12 units SQ TID 08/31/22 08/31/22 Insulin Glargine [Lantus Solostar] 48 units SQ QPM 08/31/22 08/31/22 Phenazopyridine HCl [Pyridium] 100 mg PO TID #9 tablet 09/05/22 Acetaminophen [Acetaminophen Extra 1,000 mg PO Q8H PRN #60 tablet 09/18/22 Strength] Gabapentin [Neurontin] 300 mg PO TID 14 Days #42 cap 09/18/22 Ibuprofen [Motrin] 600 mg PO Q6H PRN #30 tab 09/18/22 oxyCODONE [Roxicodone] 10 mg PO Q6H PRN 5 Days #40 tablet 09/18/22 HYDROcod/ACETAM 5/325 [[place] 5/325] 1 tablet PO BID PRN #10 tablet 11/15/22 HYDROcod/ACETAM 5/325 [[place] 5/325] 1 ea PO Q6H PRN #18 tablet 12/14/23 Naproxen 500 mg PO BID #20 tab 12/14/23 Ondansetron Odt [Zofran] 4 mg TL Q6H PRN #10 tablet 12/14/23 Tamsulosin [Flomax] 0.4 mg PO DAILY #3 cap 12/14/23 - Allergies Allergies/Adverse Reactions: Allergies Allergy/AdvReac Type Severity Reaction Status Date / Time metoclopramide [From Reglan] AdvReac Anxiety Verified 12/14/23 07:39 - Social History Does the pt smoke?: Yes Smoking Status: Current every day smoker Does the pt drink ETOH?: No Does the pt have substance abuse?: No - Immunizations Immunizations are current?: Yes - POLST Patient has POLST: No PD ED PE NORMAL - Vitals Vital signs reviewed: Yes - General General: Alert and oriented X 3, Well developed/nourished, Other (appears markedly uncomfortable. Standing and leaning over resting trunk on bed. Holding emesis bag. ) - Cardiac Cardiac: RRR, No murmur - Respiratory Respiratory: No respiratory distress, Clear bilaterally - Abdomen Abdomen: Soft, Non distended, No organomegaly, Other (some tender but not in proportion to pain in right mid abd. Marked right CVA tenderness to percussion. ) Results - Vitals Vitals: Oxygen O2 Source Room air - Labs Labs: Laboratory Tests 12/14/23 12/14/23 12/14/23 07:55 07:55 08:02 WBC 8.5 RBC 4.76 Hgb 14.9 Hct 44.3 MCV 93.1 MCH 31.3 H MCHC 33.6 RDW 12.7 Plt Count 308 MPV 10.2 Neut # (Auto) 5.1 Lymph # (Auto) 2.4 Hood # (Auto) 0.5 Eos # (Auto) 0.4 Baso # (Auto) 0.1 Absolute Nucleated RBC 0.00 Nucleated RBC % 0.0 Sodium 136 Potassium 4.0 Chloride 104 Carbon Dioxide 21 Anion Gap 11.0 BUN 7 Creatinine 0.6 Estimated GFR (MDRD) 113 Glucose 161 H Calcium 9.4 Total Bilirubin 0.4 AST 70 H ALT 85 H Alkaline Phosphatase 52 Total Protein 7.2 Albumin 4.6 Globulin 2.6 Albumin/Globulin Ratio 1.8 Lipase 64 Urine Color Urine Clarity Urine pH Ur Specific [place] Urine Protein Urine Glucose (UA) Urine Ketones Urine Occult Blood Urine Nitrite Urine Bilirubin Urine Urobilinogen Ur Leukocyte Esterase Ur Microscopic Review Urine Culture Comments Urine HCG, Qual NEGATIVE 12/14/23 08:07 WBC RBC Hgb Hct MCV MCH MCHC RDW Plt Count MPV Neut # (Auto) Lymph # (Auto) Hood # (Auto) Eos # (Auto) Baso # (Auto) Absolute Nucleated RBC Nucleated RBC % Sodium Potassium Chloride Carbon Dioxide Anion Gap BUN Creatinine Estimated GFR (MDRD) Glucose Calcium Total Bilirubin AST ALT Alkaline Phosphatase Total Protein Albumin Globulin Albumin/Globulin Ratio Lipase Urine Color YELLOW Urine Clarity CLEAR Urine pH 6.0 Ur Specific [place] 1.015 Urine Protein NEGATIVE Urine Glucose (UA) NEGATIVE Urine Ketones NEGATIVE Urine Occult Blood NEGATIVE Urine Nitrite NEGATIVE Urine Bilirubin NEGATIVE Urine Urobilinogen 0.2 (NORMAL) Ur Leukocyte Esterase NEGATIVE Ur Microscopic Review NOT INDICATED Urine Culture Comments NOT INDICATED Urine HCG, Qual - Rads (name of study) abd/pelvic CT Relevant Findings:: Prelim report reviewed (punctate calcification distal right ureter without hydronephrosis may represent stone. No other acute process seen. ) PD Medical Decision Making - ED course Complexity details: reviewed results (CT report noting likely small calcification distal right ureter. Nohydronephrosis. Otherwise normal CT. ), re- evaluated patient (improved pain but not resolved with IV pain meds of dilaudid and toradol. No other apparent cause for pain so presume is small stone with spasms or passed stone with the small calcifaction residual. Could be still urteral spasms. UA without blood, so likely not clot obstructing. ), considered differential (abrupt pain without effect from movement, palpation, position, along with the location of it and abd not really tender would suggest kidney stone. Can get imaging to eval for that and other causes such as ruptured cyst, torsion, obstruction, infarcts, etc. ), d/w patient Departure - Departure Disposition: 01 Home, Self Care Clinical Impression: Right sided abdominal pain, Ureterolithiasis Condition: Stable Instructions: ED Stone Renal W Colic Prescriptions: Tamsulosin [Flomax] 0.4 mg PO DAILY #3 cap Naproxen 500 mg PO BID #20 tab HYDROcod/ACETAM 5/325 [[place] 5/325] 1 ea PO Q6H PRN #18 tablet PRN Reason: Pain Ondansetron Odt [Zofran] 4 mg TL Q6H PRN #10 tablet PRN Reason: Nausea / Vomiting Comments: The CT scan report was stating a likely very small stone at the lower ureter almost into the bladder. The size of the stone is not big and should be able to pass on its own. I presume the majority of your symptoms were relating to spasming of the ureter and irritation. This would typically be treated with some anti-inflammatory and an antispasmodic for the ureter and continue that even for 2 or 3 more days as the irritation continues even after the stone passes. I would anticipate the stone to pass in the next day or 2. Stay well-hydrated otherwise. Ondansetron if needed for nausea. Add Tylenol or ibuprofen or naproxen for pain as a baseline and add hydrocodone if needed. I sent your prescriptions to your stated pharmacy. Recheck if not improved well or adequately controlled symptoms over the next day or 2. Return if worse. The CT scan did not show any other obvious cause for the symptoms. Forms: PCP List Discharge Date/Time: 12/14/23 10:15
[2023-12-14] MEDS: ONDANSETRON 4 MG/2 ML VIAL IVP STA (07:59)
[2023-12-14] MEDS: KETOROLAC 15 MG/ML VIAL IVP STA (07:59)
[2023-12-14] MEDS: SODIUM CHLORIDE 0.9% 1,000 ML IV STA (08:00)
[2023-12-14] MEDS: HYDROmorphone 1 MG/ML CARPUJECT IVP STA ×3 (08:00→10:23)
[2023-12-14 08:01] LABS: BASOPHILS # (AUTO) 0.1 10^3/uL (0.0-0.1); BASOPHILS % (AUTO) 0.7 %; EOSINOPHILS # (AUTO) 0.4 10^3/uL (0.0-0.7); EOSINOPHILS % (AUTO) 4.5 %; HCT - HEMATOCRIT 44.3 % (37.0-47.0); HGB - HEMOGLOBIN 14.9 g/dL (12.0-16.0); LYMPHOCYTES # (AUTO) 2.4 10^3/uL (1.5-3.5); LYMPHOCYTES % (AUTO) 28.3 %; MEAN CORPUSCULAR HEMOGLOBIN 31.3 pg (27.0-31.0); MEAN CORPUSCULAR HGB CONC 33.6 g/dL (32.0-36.0); MEAN CORPUSCULAR VOLUME 93.1 fL (81.0-99.0); MEAN PLATELET VOLUME 10.2 fL (7.9-10.8); MONOCYTES # (AUTO) 0.5 10^3/uL (0.0-1.0); MONOCYTES % (AUTO) 6.3 %; NEUTROPHILS # (AUTO) 5.1 10^3/uL (1.5-6.6); NEUTROPHILS % (AUTO) 59.8 %; PLT - PLATELET COUNT 308 10^3/uL (130-450); RED BLOOD COUNT 4.76 10^6/uL (4.20-5.40); RED CELL DISTRIBUTION WIDTH 12.7 % (12.0-15.0); WHITE BLOOD COUNT 8.5 x10^3/uL (4.8-10.8)
[2023-12-14 08:18] LABS: BILIRUBIN,URINE NEGATIVE (NEGATIVE); GLUCOSE, URINE (UA) NEGATIVE (NEGATIVE); KETONES,URINE (UA) NEGATIVE (NEGATIVE); LEUKOCYTE ESTERASE, URINE NEGATIVE (NEGATIVE); NITRITE,URINE NEGATIVE (NEGATIVE); OCCULT BLOOD,URINE NEGATIVE (NEGATIVE); PROTEIN,URINE NEGATIVE (NEGATIVE); UROBILINOGEN,URINE 0.2 (NORMAL) E.U./dL (NORMAL)
[2023-12-14 08:20] LABS: CLARITY,URINE CLEAR (CLEAR)
[2023-12-14 08:33] LABS: ALBUMIN 4.6 g/dL (3.2-5.5); ALBUMIN/GLOBULIN RATIO 1.8 (1.0-2.2); BILIRUBIN,TOTAL 0.4 mg/dL (0.2-1.0); CALCIUM 9.4 mg/dL (8.5-10.3); CREATININE 0.6 mg/dL (0.6-1.3); TOTAL PROTEIN 7.2 g/dL (6.4-8.9)
[2023-12-14 08:33] LABS: HCG UR QUAL NEGATIVE
[2023-12-14] MEDS ORDERED: iohexoL-300 100 ML VIAL ONE (08:40)
--- NOTE | 2023-12-14 09:33 | CT Report ---
PROCEDURE: Abdomen/Pelvis W INDICATIONS: right flank to abd pain abruptly this AM CONTRAST: omni, 100 TECHNIQUE: After the administration of intravenous contrast, a CT scan of the abdomen and pelvis was performed. Images were recorded and evaluated at appropriate window settings. Reformats: coronal and sagittal. F or radiation dose reduction, the following was used: automated exposure control, adjustment of mA and /or kV according to patient size. COMPARISON: 11/10/2021. FINDINGS: Image quality: Diagnostic. Lower chest: Unremarkable. Liver: Hepatic steatosis. Hepatomegaly Gallbladder: Surgically absent. Biliary tree: No intrahepatic or extrahepatic dilation, accounting for age. Spleen: No splenomegaly. Pancreas: No pancreatic ductal dilation. Adrenals: No adrenal nodule. Kidneys and ureters: No hydronephrosis. No renal cystic lesion which requires follow up. No solid mas s. There is a tiny punctate density slightly less dense compared to other definite calcifications in the abdomen/pelvis visualized within the distal right ureter (128/series 2). No associated hydrourete r or significant periureteral or perinephric stranding. This may represent a tiny nonobstructing righ t renal stone. Stomach, bowel and peritoneum: No gastric or small bowel dilation. No abnormal wall thickening. No pa thologic free fluid. Normal appendix. Lymph nodes: No central or retroperitoneal adenopathy. Vessels: No infrarenal aortic aneurysm. Patent portal vein. PELVIS Reproductive organs: Unremarkable. Bladder: No abnormal wall thickening, accounting for underdistention. Pelvic lymph nodes: No pelvic adenopathy by size criteria. Bones: No aggressive osseous abnormality. Other: No significant ventral or inguinal hernia. IMPRESSION: Tiny punctate density in the distal right ureter without associated hydroureteronephrosis or perineph juliette or periureteral stranding which may represent a tiny nonobstructing nephrolith. Otherwise, no acu te abnormalities identified in the abdomen or pelvis. The appendix is normal. Hepatomegaly with hepatic steatosis. Status post cholecystectomy. Reviewed by: Fei Mckay MD on 12/14/2023 8:31 AM CARITO Approved by: Fei Mckay MD on 12/14/2023 8:31 AM CARITO Station ID: [id number]
[2023-12-14] MEDS: DROPERIDOL 5 MG/2 ML VIAL IVP STA (09:59)
[2023-12-14 10:19] VITALS: BP 137/82; O2SAT 99
[2023-12-14] MEDS: iohexoL-300 100 ML VIAL IVP ONE (18:08)
== END 2023-12-14 10:15 | disposition home or self-care (01) ==
LOC: ED 07:22
DX: N20.1 Calculus of ureter (principal); K76.0 Fatty (change of) liver, not elsewhere classified; I10 Essential (primary) hypertension; E11.9 Type 2 diabetes mellitus without complications; Z79.4 Long term (current) use of insulin; Z79.899 Other long term (current) drug therapy; F17.200 Nicotine dependence, unspecified, uncomplicated; Z90.49 Acquired absence of other specified parts of digestive tract
CPT/HCPCS: 36415; 74177; 80053; 81003; 81025; 83690; 85025; 96374; 96375; 99283; 99284; J1170; Q9967; 81001; 87086

== ENCOUNTER 2024-08-08 21:05 | Inpatient (IN) ==
--- NOTE | 2024-08-08 21:15 | ED Physician Documentation ---
PD HPI OVERDOSE Stated complaint Stated Complaint: OD Chief complaint Chief Complaint: Neuro History obtained from History obtained from: Patient, Family (father, who states pt told him she had overdosed on "an antidepressant and a muscle relaxant". ) and EMS History of Present Illness Timing - onset: Today Subtance(s) ingested: Multiple (Patient brought to the hospital by EMS with altered mentation. Very somnolent and tachycardic. Patient's father states she had talked to him earlier NSAID she was taking a muscle relaxant and an antidepressant extra medicines. They are trying to talk to her and academic coach her over the phone. Then EMS) Associated symptoms: Decreased responsiveness, Altered mental status and Agitated Contributing factors: Depresssed (Parents state history of depression.); No Substance abuse Similar symptoms before: Has not had sx before Meds/Allgy Home Medications Ambulatory Orders Medication Instructions Recorded Confirmed gabapentin 100 mg capsule 200 mg (2 x 100 mg) PO TID # 90 caps 06/01/24 07/27/24 metformin 500 mg tablet,extended 500 mg PO BID #60 tab s 06/01/24 07/27/24 release 24 hr (Glucophage XR) norethindrone (contraceptive) 0.35 0.35 mg PO QDAY #84 tabs 06/14/24 07/27/24 mg tablet (Kym) spironolactone 50 mg tablet 50 mg PO QDAY #90 tabs 07/27/24 nystatin-triamcinolone 100,000 See Rx Instructions .Ro [place] 06/19/24 07/27/24 unit/g-0.1 % topical cream .COMPLEX #30 grams blood sugar diagnostic #100 ea 07/19/24 07/27/24 blood-glucose meter #1 ea 07/19/24 07/27/24 cyclobenzaprine 5 mg tablet 5 mg PO BID #60 tabs 07/1907/27/24 escitalopram oxalate 20 mg tablet 20 mg PO QDAY #90 ta bs 07/19/24 07/27/24 (Lexapro) lancets #100 ea 07/19/24 07/27/24 ondansetron 4 mg disintegrating 4 mg PO Q6H #30 tabs 0 07/27/24 07/27/24 tablet Allergies Allergies Allergy/AdvReac Type Severity Reaction Status Date / Time metoclopramide (From Reglan) AdvReac Anxiety Verified 08/08/24 21:19 PFSH Active Problems All Active Problems (Updated 08/09/24 @ 00:16 by Alberto Baez MD) Overdose by ingestion (Acute) Polysubstance overdose (Acute) AMS (altered mental status) (Acute) Nausea (Acute) Polycystic ovarian syndrome (Acute) Kidney stones (Acute) Elevated liver enzymes (Acute) Neck muscle spasm (Acute) Encounter for screening for infections with predominantly sexual mode of transmission (Acute) Pelvic pain in female (Acute) Oral contraception initiation (Acute) PTSD (post-traumatic stress disorder) (Acute) Screening for cervical cancer (Acute) Rash (Acute) Hirsutism (Acute) Prediabetes (Acute) Lumbago with sciatica, right side (Acute) URI (upper respiratory infection) (Acute) Fever (Acute) Elevated blood pressure reading (Acute) Anxiety (Acute) Tobacco abuse (Acute) Chronic hypertension (Acute) Obesity (Acute) GDM, class A2 (Acute) Delivery by section (Acute) Hypertension affecting in third trimester (Acute) Diabetes mellitus affecting in third trimester (Acute) Kidney stone complicating (Acute) Medical History Medical History (Updated 08/09/24 @ 00:16 by Alberto Baez MD) History of kidney stones Surgical History Surgical History (Updated 06/14/24 @ 13:59 by Marla Villarreal MA) H/O: Social History Social History (Updated 03/18/24 @ 14:52 by Sven Pascal RN) Smoking Status: Current every day smoker Number of Years Smoked: 20 How many cigarettes a day do you smoke? (20 cigarettes=1 Pk): 10 Do you dip or chew tobacco?: No Patient requests smoking cessation consult: No Initiate information on smoking cessation: No Relationship: Parent Level: Independent Do you feel safe in your home environment?: Yes (unobtainable) Suffered physical, verbal, emotional, or financial abuse?: No (unobtainable) History of Abuse: No ETOH Use: None Substance Use: denies use Are you sexually active?: No POLST Patient has POLST: No Exam Exam Vital Signs: Vital Signs x48h Temp Pulse Resp BP Pulse Ox O2 Flow Rate 08/09/24 00:00 97 18 105/78 97 2 08/08/24 23:30 99 18 133/89 H 97 08/08/24 23:15 89 19 129/89 99 2 08/08/24 23:00 64 16 101/54 L 99 2 08/08/24 22:45 107 H 17 117/81 99 2 08/08/24 22:30 110 H 17 118/78 99 2 08/08/24 22:15 102 H 19 103/79 94 3 08/08/24 22:04 17 128/81 99 2 08/08/24 21:49 110 H 16 136/86 H 99 2 08/08/24 21:34 78 22 128/67 99 2 08/08/24 21:19 37.5 C 78 22 129/87 99 08/08/24 21:05 37.1 C 135 H 38 H 128/97 H 95 4 Constitutional normal general appearance and average body habitus HENMT head/scalp atraumatic and oral mucous membranes abnormal (dry) gag reflex present in oropharynx. Eyes PERRL (not constricted) Neck/C-Spine supple and no meningeal signs Lymph no lymphadenopathy noted Respiratory breath sounds equal bilaterally, abnormal respiratory effort (shallow breathing) (but good CO2 waveform and oxygenation.), no wheezes and no rales Cardiovascular heart rate abnormal (tachycardic), regular rhythm noted and no edema Gastrointestinal abdomen soft to palpation, nontender to palpation (mild epigastric without guarding) and nondistended Neurology no focal motor deficit noted and deep tendon reflexes 2+ bilaterally some shaking of left leg Psychiatry mental status abnormal (somnolent) and psychomotor abnormality noted (slow) and (restless) some shaking of left leg, but dampens when I hold her leg gently, and she squeezes my hands to command, though weakly. Does not appear seizure. Skin skin color normal Results Vitals Vitals: Vital Signs - 24 hr 08/08/24 21:05 08/08/24 21:19 08/08/24 21:29 Temperature 37.1 C 37.5 C Temperature Source Temporal Artery Scan Tympanic Pulse Rate 135 H 78 Respiratory Rate 38 H 22 Blood Pressure 128/97 H 129/87 O2 Saturation 95 99 Oxygen Delivery Method Nasal Cannula O2 Source Nasal cannula Room air Oxygen Flow Rate 2 If not protocol: Oxygen Flow, liters/minute 4 Pain Intensity 0 08/08/24 21:34 08/08/24 21:49 08/08/24 22:04 Temperature Temperature Source Pulse Rate 78 110 H Respiratory Rate 22 16 17 Blood Pressure 128/67 136/86 H 128/81 O2 Saturation 99 99 99 Oxygen Delivery Method O2 Source Nasal cannula Nasal cannula Nasal cannula Oxygen Flow Rate If not protocol: Oxygen Flow, liters/minute 2 2 2 Pain Intensity 08/08/24 22:15 08/08/24 22:30 08/08/24 22:45 Temperature Temperature Source Pulse Rate 102 H 110 H 107 H Respiratory Rate 19 17 17 Blood Pressure 103/79 118/78 117/81 O2 Saturation 94 99 99 Oxygen Delivery Method O2 Source Nasal cannula Nasal cannula Nasal cannula Oxygen Flow Rate If not protocol: Oxygen Flow, liters/minute 3 2 2 Pain Intensity 08/08/24 23:00 08/08/24 23:15 08/08/24 23:30 Temperature Temperature Source Pulse Rate 64 89 99 Respiratory Rate 16 19 18 Blood Pressure 101/54 L 129/89 133/89 H O2 Saturation 99 99 97 Oxygen Delivery Method O2 Source Nasal cannula Nasal cannula Nasal cannula Oxygen Flow Rate If not protocol: Oxygen Flow, liters/minute 2 2 Pain Intensity 08/09/24 00:00 Temperature Temperature Source Pulse Rate 97 Respiratory Rate 18 Blood Pressure 105/78 O2 Saturation 97 Oxygen Delivery Method O2 Source Nasal cannula Oxygen Flow Rate If not protocol: Oxygen Flow, liters/minute 2 Pain Intensity Oxygen O2 Source Nasal cannula Oxygen Flow Rate 2 EKG (time done) 21:20: EKG releavant findings:: EKG personally interpreted by author of this note. Relevant findings are: Rate: Rate (enter#) (119) Rhythm: Sinus tachycardia [place]: Normal Intervals: Normal IA and Prolonged QT (borderline) QRS: QRS normal; No Wide QRS Ischemia: Normal ST segments; No ST elevation c/w ischemia Labs Labs: Laboratory Tests 08/08/24 08/08/24 08/08/24 21:27 21:27 23:05 WBC 9.1 RBC 4.26 Hgb 13.8 Hct 40.1 MCV 94.1 MCH 32.4 H MCHC 34.4 RDW 12.5 Plt Count 247 MPV 9.6 Neut # (Auto) 6.1 Lymph # (Auto) 2.3 [place] # (Auto) 0.5 Eos # (Auto) 0.2 Baso # (Auto) 0.0 Absolute Nucleated RBC 0.00 Nucleated RBC % 0.0 VBG pH 7.397 VBG pCO2 27.3 L VBG pO2 86.7 H VBG HCO3 16.9 L VBG Total CO2 17.8 L VBG O2 Saturation 99.0 H VBG Base Excess -8.1 L Sodium 136 Potassium 3.7 Chloride 105 Carbon Dioxide 19 L Anion Gap 12.0 BUN 8 Creatinine 0.7 Estimated GFR (MDRD) 94 Glucose 158 H Calcium 8.8 Magnesium 1.5 L 1.6 L Total Bilirubin 0.3 AST 50 H ALT 49 Alkaline Phosphatase 43 Total Creatine Kinase 45 Total Protein 6.8 Albumin 4.2 Globulin 2.6 Albumin/Globulin Ratio 1.6 Lipase 53 TSH 5.77 H Urine Color Urine Clarity Urine pH Ur Specific Solomon Urine Protein Urine Glucose (UA) Urine Ketones Urine Occult Blood Urine Nitrite Urine Bilirubin Urine Urobilinogen Ur Leukocyte Esterase Urine RBC Urine WBC Ur Squamous Epith Cells Urine Bacteria Ur Microscopic Review Urine Culture Comments Urine HCG, Qual Salicylates < 1.5 Urine Opiates Screen Ur Buprenorphine Scrn Ur Oxycodone Screen Urine Methadone Screen Acetaminophen < 0.1 Ur Barbiturates Screen Ur Tricyclics Screen Ur Phencyclidine Scrn Ur Amphetamine Screen U Methamphetamines Scrn U Benzodiazepines Scrn Urine Cocaine Screen U Cannabinoids Screen Ur Drug Screen Comment Ethyl Alcohol < 10.0 SARS-CoV-2 (PCR) NOT DETECTED 08/08/24 23:32 WBC RBC Hgb Hct MCV MCH MCHC RDW Plt Count MPV Neut # (Auto) Lymph # (Auto) [place] # (Auto) Eos # (Auto) Baso # (Auto) Absolute Nucleated RBC Nucleated RBC % VBG pH VBG pCO2 VBG pO2 VBG HCO3 VBG Total CO2 VBG O2 Saturation VBG Base Excess Sodium Potassium Chloride Carbon Dioxide Anion Gap BUN Creatinine Estimated GFR (MDRD) Glucose Calcium Magnesium Total Bilirubin AST ALT Alkaline Phosphatase Total Creatine Kinase Total Protein Albumin Globulin Albumin/Globulin Ratio Lipase TSH Urine Color YELLOW Urine Clarity CLEAR Urine pH 6.0 Ur Specific Solomon 1.025 Urine Protein NEGATIVE Urine Glucose (UA) NEGATIVE Urine Ketones TRACE Urine Occult Blood LARGE H Urine Nitrite POSITIVE H Urine Bilirubin NEGATIVE Urine Urobilinogen 0.2 (NORMAL) Ur Leukocyte Esterase NEGATIVE Urine RBC 0-5 Urine WBC 4-5 Ur Squamous Epith Cells RARE Squamous Urine Bacteria Many H Ur Microscopic Review INDICATED Urine Culture Comments INDICATED Urine HCG, Qual NEGATIVE Salicylates Urine Opiates Screen NEGATIVE Ur Buprenorphine Scrn NEGATIVE Ur Oxycodone Screen NEGATIVE Urine Methadone Screen NEGATIVE Acetaminophen Ur Barbiturates Screen NEGATIVE Ur Tricyclics Screen POSITIVE H Ur Phencyclidine Scrn NEGATIVE Ur Amphetamine Screen NEGATIVE U Methamphetamines Scrn NEGATIVE U Benzodiazepines Scrn NEGATIVE Urine Cocaine Screen NEGATIVE U Cannabinoids Screen NEGATIVE Ur Drug Screen Comment CUTOFF CONC BELOW: Ethyl Alcohol SARS-CoV-2 (PCR) PD Medical Decision Making ED course ED course: The patient was brought by EMS with altered mentation and agitation. Oxygenation and respiratory effort seemed adequate. She was poorly interactive though. The patient does have history of depression. Apparently she had talked with her father or texted him earlier and said she had taken some extra muscle relaxants and antidepressants. However they were trying to connect with her by phone as she was reaching out for help in that sense. However they are unable to contact her so called EMS. The medics found the patient as noted above with bottle for cyclobenzaprine and another gabapentin near her though she has multiple other medicine bottles at home. The cyclobenzaprine was empty. The gabapentin had only a few in it. She also takes SSRI medication such as escitalopram. The mother subsequently brings in on the back of all the prescription bottles in her bathroom. There are multiple redundancies of medicines with many empty ones so unclear which ones were new or old or recent refills. No report of alcohol on the scene. The patient does not have reported use of recreational medications or drugs. The patient was tachycardic here. She did have some tremoring of her left leg but was able to open her eyes and mobile ui designer my hands to command. It did not appear seizure-like. The initial medication extra were at least a few hours ago and unclear if any more recently but given the duration of that and her altered mentation, I did not feel safe to give charcoal. The patient was given IV fluids. Concern with the tachycardia and altered mentation with etc. cyclic medication such as cyclobenzaprine, was concerning to me. Her rhythm appeared normal though tachycardic and her EKG did not show any conduction abnormalities. However given the potential large amount of medications, I did initiate a bicarb drip for at least a few hours since already with altered metnation, tachycardia and borderline QT. The QRS was normal though. Contact with poison control suggested a least 8-hour observation, cardiac monitoring, and repeated ECG every 4hours at least. The patient was monitored closely in the ER and had continued good oxygenation and PCO2 monitoring without any hypoventilation or desaturations. I personally looped into the room every 15 or 20 minutes for the first couple of hours to reevaluate airway and heart rate and monitor. Her heart rate actually came down with IV fluid boluses and is now just around to 100, improved from 140s. Repeat EKG did not show any conduction abnormalities. Blood pressure is normotensive. At this point I feel after 3 hours here she is stable with regard to not going to need intubation and is not having severe effects of the overdose. However she still needs prolonged observation of vital signs etc. I will contact the hospitalist service for placing her in the ICU. Critical Care Critical Care Provided: Yes Time(min): 65 Time Includes: Direct patient care, Reassess patient (multiple times in first 2 hours regarding airway competency.), Document care, Coordinate care and Medical consult Data interpretation: Labs and Pulse ox Procedures excluded from critical care time: EKG Discharge Plan Discharge Patient Disposition: 66 [facility] DC/Xfer Condition: Stable Clinical Impression: AMS (altered mental status), Polysubstance overdose, Overdose by ingestion Interventions: ED Admission Assessment Last Done: 08/09/24 01:53
[2024-08-08 21:30] LABS: BASOPHILS % (AUTO) 0.4 %; EOSINOPHILS # (AUTO) 0.2 10^3/uL (0.0-0.7); EOSINOPHILS % (AUTO) 2.2 %; HCT - HEMATOCRIT 40.1 % (37.0-47.0); HGB - HEMOGLOBIN 13.8 g/dL (12.0-16.0); LYMPHOCYTES # (AUTO) 2.3 10^3/uL (1.5-3.5); LYMPHOCYTES % (AUTO) 25.5 %; MEAN CORPUSCULAR HEMOGLOBIN 32.4 pg (27.0-31.0); MEAN CORPUSCULAR HGB CONC 34.4 g/dL (32.0-36.0); MEAN CORPUSCULAR VOLUME 94.1 fL (81.0-99.0); MEAN PLATELET VOLUME 9.6 fL (7.9-10.8); MONOCYTES # (AUTO) 0.5 10^3/uL (0.0-1.0); MONOCYTES % (AUTO) 5.3 %; NEUTROPHILS # (AUTO) 6.1 10^3/uL (1.5-6.6); NEUTROPHILS % (AUTO) 66.4 %; PLT - PLATELET COUNT 247 10^3/uL (130-450); RED BLOOD COUNT 4.26 10^6/uL (4.20-5.40); RED CELL DISTRIBUTION WIDTH 12.5 % (12.0-15.0); WHITE BLOOD COUNT 9.1 x10^3/uL (4.8-10.8)
[2024-08-08 21:34] LABS: VBG BASE EXCESS -8.1 mmol/L (-2 - +2); VBG PCO2 27.3 mmHg (41-51); VBG PH 7.397 (7.31-7.41); VBG PO2 86.7 mmHg (25-47); VBG TOTAL CO2 17.8 mmol/L (24-29)
[2024-08-08 21:45] LABS: MAGNESIUM 1.5 mg/dL (1.7-2.3)
[2024-08-08 21:52] LABS: ALBUMIN 4.2 g/dL (3.2-5.5); ALBUMIN/GLOBULIN RATIO 1.6 (1.0-2.2); ALKALINE PHOSPHATASE 43 IU/L (42-121); ALT ALANINE AMINOTRANSFERASE 49 IU/L (10-60); AST ASPARTATE AMINOTRANSFERASE 50 IU/L (10-42); BILIRUBIN,TOTAL 0.3 mg/dL (0.2-1.0); BUN - BLOOD UREA NITROGEN 8 mg/dL (6-20); CALCIUM 8.8 mg/dL (8.5-10.3); CARBON DIOXIDE - CO2 19 mmol/L (21-32); CHLORIDE 105 mmol/L (101-111); CK- CREATINE KINASE 45 IU/L (30-223); CREATININE 0.7 mg/dL (0.6-1.3); ETOH - ETHANOL < 10.0 mg/dL; GFR - MDRD 94 (>89); GLUCOSE 158 mg/dL (74-104); LIPASE 53 U/L (11-82); POTASSIUM 3.7 mmol/L (3.5-4.5); SODIUM 136 mmol/L (135-145); TOTAL PROTEIN 6.8 g/dL (6.4-8.9)
[2024-08-08 21:55] LABS: ACETAMINOPHEN < 0.1 ug/mL; SALICYLATE < 1.5 mg/dL
[2024-08-08] MEDS ORDERED: SODIUM BICARBONATE 8.4% 50 MEQ/50 ML VIAL ONE (21:59)
[2024-08-08 22:00] LABS: THYROID STIMULATING HORMONE 5.77 uIU/mL (0.34-5.60)
[2024-08-08] MEDS: SODIUM BICARBONATE 150 MEQ in DEXTROSE 5% 1,000 ML IV STA (22:00)
[2024-08-08] MEDS: SODIUM CHLORIDE 0.9% 1,000 ML IV STA (22:00)
[2024-08-08] MEDS ORDERED: DEXTROSE 5% 1,000 ML IV ONE (22:04)
[2024-08-08] MEDS: MAGNESIUM SULFATE 2 GRAM 2 GM/50 ML BAG IV ONE (22:11)
--- OUTSIDE RECORDS SUMMARY | 2024-08-08 22:34 | EXTERNAL MEDICAL SUMMARY RPT | Continuity of Care Document ---
Author Organization [place] Address [address] [address] Phone Problems date description facility 2024-05-24 08:54 Lumbago with sciatica, right [facility] 2024-06-11 07:58 Lumbago with sciatica, right [facility] 2024-06-15 13:26 Other chronic pain [facility] 2024-06-15 13:26 Lumbago with sciatica, right si de [facility] 2024-06-15 13:26 Strain of muscle, fa scia and tendon [facility] lower [facility]-19 15:56 Obesity, unspecified [facility] 2024-07-19 15:56 Other muscle spasm [facility] 2024-07-19 15:56 [facility] 2024-07-22 10:29 Type 2 diabetes mellitus with h [facility]perglycemia [facility] 2024-07-22 10:29 Obesity, unspecified [facility] 2024-07-22 10:29 [facility] 2024-07-23 00:04 Type 2 diabetes mellitus with h [facility]perglycemia [facility] 2024-07-23 00:04 Obesity, unspecified [facility] 2024-07-23 00:04 [facility] 2024-07-23 14:21 Type 2 diabetes mellitus with h [facility]perglycemia [facility] 2024-07-23 14:21 Obesity, unspecified [facility] 2024-07-27 16:38 Abnormal levels of other serum enzymes [facility] Results/Labs test date facility value unit notes Result panel 1 BILIRUBIN,TOTAL 2024-07-22 10:42 [facility] 0.3 mg /dl As of September 2022 testing method has changed, this may include reference ranges. CREATININE 2024-07-22 10:42 [facility] 0.6 mg/dl As of September 2022 testing method has changed, this may include reference ranges. ALBUMIN/GLOBULIN RATIO 2024-07-22 10:42 [facility] [place] 1.6 (missing) (missing) ANION GAP 2024-07-22 10:42 [facility] [place] 10.0 (missing ) (missing) GLUCOSE 2024-07-22 10:42 [facility] [place] 103 mg/dl As of September 2022 testing method has changed, this may include reference ranges. CHLORIDE 2024-07-22 10:42 [facility] [place] 105 mmol/l As of September 2022 testing method has changed, this may include reference ranges. GFR - MDRD 2024-07-22 10:42 [facility] 112 (bernard watts) Social History date description facility
[2024-08-08 23:41] LABS: BILIRUBIN,URINE NEGATIVE (NEGATIVE); GLUCOSE, URINE (UA) NEGATIVE (NEGATIVE); KETONES,URINE (UA) TRACE mg/dL (NEGATIVE); LEUKOCYTE ESTERASE, URINE NEGATIVE (NEGATIVE); NITRITE,URINE POSITIVE (NEGATIVE); OCCULT BLOOD,URINE LARGE (NEGATIVE); PROTEIN,URINE NEGATIVE (NEGATIVE); UROBILINOGEN,URINE 0.2 (NORMAL) E.U./dL (NORMAL)
[2024-08-08 23:43] LABS: CLARITY,URINE CLEAR (CLEAR); HCG UR QUAL NEGATIVE
[2024-08-08 23:52] LABS: BACTERIA,URINE Many /HPF (None Seen); RBC,URINE 0-5 /HPF (0-5); SQUAMOUS EPITHELIAL CELL,UR RARE Squamous (<= Few)
[2024-08-08 23:53] LABS: AMPHETAMINE SCREEN,URINE NEGATIVE (NEGATIVE); BARBITURATE SCREEN,UR NEGATIVE (NEGATIVE); BENZODIAZEPINES SCREEN, URINE NEGATIVE (NEGATIVE); BUPRENORPHINE SCREEN, URINE NEGATIVE (NEGATIVE); COCAINE SCREEN URINE NEGATIVE (NEGATIVE); METHADONE SCREEN, URINE NEGATIVE (NEGATIVE); METHAMPHETAMINES SCREEN, URINE NEGATIVE (NEGATIVE); OPIATE SCREEN, URINE NEGATIVE (NEGATIVE); OXYCODONE SCREEN, URINE NEGATIVE (NEGATIVE); THC CANNABINOID SCREEN, URINE NEGATIVE (NEGATIVE); TRICYCLIC ANTIDEPRESSANT,URINE POSITIVE (NEGATIVE)
[2024-08-09] MEDS ORDERED: PROCHLORPERAZINE 10 MG/2 ML VIAL IVP PRN (00:52)
[2024-08-09] MEDS ORDERED: ACETAMINOPHEN 325 MG TABLET PO PRN (00:52)
[2024-08-09] MEDS ORDERED: SODIUM CHLORIDE FLUSH 0.9% 10 ML SYRINGE IVP PRN (00:52)
--- OUTSIDE RECORDS SUMMARY | 2024-08-09 01:25 | EXTERNAL MEDICAL SUMMARY RPT | Continuity of Care Document ---
Author Organization [place] Address [address] [address] Phone Problems date description facility 2024-05-24 08:54 Lumbago with sciatica, right [facility] 2024-06-11 07:58 Lumbago with sciatica, right [facility] 2024-06-15 13:26 Other chronic pain [facility] 2024-06-15 13:26 Lumbago with sciatica, right si de [facility] 2024-06-15 13:26 Strain of muscle, fa scia and [facility] lower [facility] 2024-07-19 15:56 Obesity, unspecified [facility] 2024-07-19 15:56 Other muscle spasm [facility] 2024-07-19 15:56 [facility] 2024-07-22 10:29 Type 2 diabetes mellitus [facility] 2024-07-22 10:29 Obesity, unspecified [facility] 2024-07-22 10:29 [facility] 2024-07-23 00:04 Type 2 diabetes mellitus with [facility] 2024-07-23 00:04 Obesity, unspecified [facility] 2024-07-23 00:04 [facility] 2024-07-23 14:21 Type 2 diabetes mellitus with h [facility]glycemia [facility] 2024-07-23 14:21 Obesity, unspecified [facility] 2024-07-27 16:38 Abnormal levels of other serum enzymes [facility] Results/Labs test date facility value unit notes Result panel 1 BILIRUBIN,TOTAL 2024-07-22 10:42 [facility] 0.3 mg /dl As of September 2022 testing method has changed, this may include reference ranges. CREATININE 2024-07-22 10:42 [facility] 0.6 mg/dl As of September 2022 testing method has changed, this may include reference ranges. ALBUMIN/GLOBULIN RATIO 2024-07-22 10:42 [facility] 1.6 (missing) (missing) ANION GAP 2024-07-22 10:42 [facility] 10.0 (missing ) (missing) GLUCOSE 2024-07-22 10:42 [facility] 103 mg/dl As of September 2022 testing method has changed, this may include reference ranges. CHLORIDE 2024-07-22 10:42 [facility] 105 mmol/l As of September 2022 testing method has changed, this may include reference ranges. GFR - MDRD 2024-07-22 10:42 [facility] 112 (bernard watts) Social History date description facility
[2024-08-09] MEDS: SODIUM CHLORIDE FLUSH 0.9% 10 ML SYRINGE IVP SCH (01:54)
--- NOTE | 2024-08-09 02:07 | HISTORY & PHYSICAL EXAMINATION ---
Chief Complaint Chief Complaint Chief Complaint: AMS History of Present Illness Admitted From Admitted From:: ER History Obtained From Records Reviewed: Yes History obtained from: Staff, chart Exam Limitations: Pt condition, virtual exam History of Present Illness HPI Comment/Other: H&P was conducted via video remotely, using [employer]. Patient is in [place]. Physician is in [place]. Pt's personal OUT PATIENT THERAPIST at bedside. Unable to obtain history from pt d/t pt's clinical condition. History obtained from staff, chart. 39 yo F with PMH of PTSD, Obesity, Prediabetes presented to the ER via EMS for AMS. Pt is somnolent, not responding to questions Per ER staff, pt had overdosed on medications, though not clear exactly which medications and how many of each. Pt had bottles of Flexeril, Gabapentin, Lexapro at residence. Pt still awake when EMS arrived and did not want to go to the ER until she had trouble standing. In the ER, she became drowsy, then somnolent. Pt has not had prior overdose. In the ER, HR 135, Mg 1.6, UDS neg Pt was given IVF and MagSO4 IV in the ER. ER Provider Contacted with poison control who suggested a least 8-hour observation and serial EKGs. Review of Systems Status of ROS: unobtainable due to mental status PFSH Active Problems All Active Problems (Updated 08/09/24 @ 00:16 by Alberto Baez MD) Overdose by ingestion (Acute) Polysubstance overdose (Acute) AMS (altered mental status) (Acute) Nausea (Acute) Polycystic ovarian syndrome (Acute) Kidney stones (Acute) Elevated liver enzymes (Acute) Neck muscle spasm (Acute) Encounter for screening for infections with predominantly sexual mode of transmission (Acute) Pelvic pain in female (Acute) Oral contraception initiation (Acute) PTSD (post-traumatic stress disorder) (Acute) Screening for cervical cancer (Acute) Rash (Acute) Hirsutism (Acute) Prediabetes (Acute) Lumbago with sciatica, right side (Acute) URI (upper respiratory infection) (Acute) Fever (Acute) Elevated blood pressure reading (Acute) Anxiety (Acute) Tobacco abuse (Acute) Chronic hypertension (Acute) Obesity (Acute) GDM, class A2 (Acute) Delivery by section (Acute) Hypertension affecting in third trimester (Acute) Diabetes mellitus affecting in third trimester (Acute) Kidney stone complicating (Acute) Medical History Medical History (Updated 08/09/24 @ 00:16 by Alberto Baez MD) History of kidney stones Surgical History Surgical History (Updated 06/14/24 @ 13:59 by Marla Villarreal MA) H/O: Social History Social History (Updated 03/18/24 @ 14:52 by Sven Pascal RN) Smoking Status: Current every day smoker Number of Years Smoked: 20 How many cigarettes a day do you smoke? (20 cigarettes=1 Pk): 10 Do you dip or chew tobacco?: No Patient requests smoking cessation consult: No Initiate information on smoking cessation: No Relationship: Parent Level: Independent Do you feel safe in your home environment?: Yes (unobtainable) Suffered physical, verbal, emotional, or financial abuse?: No (unobtainable) History of Abuse: No ETOH Use: None Substance Use: denies use Are you sexually active?: No POLST Patient has POLST: No Meds/Allgy Home Medications Ambulatory Orders Medication Instructions Recorded Confirmed gabapentin 100 mg capsule 200 mg (2 x 100 mg) PO TID # 90 caps 06/01/24 07/27/24 metformin 500 mg tablet,extended 500 mg PO BID #60 tab s 06/01/24 07/27/24 release 24 hr (Glucophage XR) norethindrone (contraceptive) 0.35 0.35 mg PO QDAY #84 tabs 06/14/24 07/27/24 mg tablet (Kym) spironolactone 50 mg tablet 50 mg PO QDAY #90 tabs 07/27/24 nystatin-triamcinolone 100,000 See Rx Instructions .Ro [place] 06/19/24 07/27/24 unit/g-0.1 % topical cream .COMPLEX #30 grams blood sugar diagnostic #100 ea 07/19/24 07/27/24 blood-glucose meter #1 ea 07/19/24 07/27/24 cyclobenzaprine 5 mg tablet 5 mg PO BID #60 tabs 07/1907/27/24 escitalopram oxalate 20 mg tablet 20 mg PO QDAY #90 ta bs 07/19/24 07/27/24 (Lexapro) lancets #100 ea 07/19/24 07/27/24 ondansetron 4 mg disintegrating 4 mg PO Q6H #30 tabs 0 07/27/24 07/27/24 tablet Allergies Allergies Allergy/AdvReac Type Severity Reaction Status Date / Time metoclopramide (From Reglan) AdvReac Anxiety Verified 08/08/24 21:19 Exam Exam Vital Signs: Vital Signs x48h Temp Pulse Resp BP Pulse Ox O2 Flow Rate 08/09/24 00:45 78 15 110/78 99 08/09/24 00:00 97 18 105/78 97 2 08/08/24 23:30 99 18 133/89 H 97 08/08/24 23:15 89 19 129/89 99 2 08/08/24 23:00 64 16 101/54 L 99 2 08/08/24 22:45 107 H 17 117/81 99 2 08/08/24 22:30 110 H 17 118/78 99 2 08/08/24 22:15 102 H 19 103/79 94 3 08/08/24 22:04 17 128/81 99 2 08/08/24 21:49 110 H 16 136/86 H 99 2 08/08/24 21:34 78 22 128/67 99 2 08/08/24 21:19 37.5 C 78 22 129/87 99 08/08/24 21:05 37.1 C 135 H 38 H 128/97 H 95 4 Constitutional normal general appearance Somnolent HENMT normocephalic Eyes no scleral icterus Respiratory cart stethoscope not working; per ER Provider: CTA B/L Cardiovascular cart stethoscope not working; per ER Provider: RRR, no murmurs Gastrointestinal per ER Provider: non-distended, NT, Soft Extremities per ER Provider: moves all extrem, no edema Neurology Somnolent, not responding to questions, opens eyes with tactile stimulation, not following commands Conclusion/Plan Problem List (1) Overdose by ingestion: Plan Overdose, polysubstance AMS Somnolent Tachycardia -OD possibilities include Flexeril, Gabapentin, Lexapro -HR 135-100, Mg 1.6, UDS neg -Pt was given IVF and MagSO4 IV in the ER. -ER Provider Contacted with poison control who suggested a least 8-hour observation and serial EKGs -admit to ICU -IVF -serial EKGs Low Magnesium -Mg 1.6 -supplement now and PRN PTSD -hold home meds d/t OD VTE Prophylaxis: Hep SQ Code Status: Full Code ~Faby Hook MD Hospitalist . Lab Results Lab results reviewed: Yes 08/08/24 21:27 08/08/24 21:27
[2024-08-09] MEDS: SODIUM CHLORIDE 0.9% 1,000 ML IV SCH (05:01)
[2024-08-09 05:32] LABS: BASOPHILS # (AUTO) 0.1 10^3/uL (0.0-0.1); BASOPHILS % (AUTO) 0.7 %; EOSINOPHILS # (AUTO) 0.2 10^3/uL (0.0-0.7); EOSINOPHILS % (AUTO) 2.2 %; HCT - HEMATOCRIT 38.9 % (37.0-47.0); HGB - HEMOGLOBIN 13.4 g/dL (12.0-16.0); LYMPHOCYTES # (AUTO) 2.5 10^3/uL (1.5-3.5); LYMPHOCYTES % (AUTO) 27.1 %; MEAN CORPUSCULAR HEMOGLOBIN 32.4 pg (27.0-31.0); MEAN CORPUSCULAR HGB CONC 34.4 g/dL (32.0-36.0); MEAN PLATELET VOLUME 9.7 fL (7.9-10.8); MONOCYTES # (AUTO) 0.7 10^3/uL (0.0-1.0); MONOCYTES % (AUTO) 7.2 %; NEUTROPHILS # (AUTO) 5.7 10^3/uL (1.5-6.6); NEUTROPHILS % (AUTO) 62.6 %; PLT - PLATELET COUNT 250 10^3/uL (130-450); RED BLOOD COUNT 4.14 10^6/uL (4.20-5.40); RED CELL DISTRIBUTION WIDTH 12.6 % (12.0-15.0); WHITE BLOOD COUNT 9.2 x10^3/uL (4.8-10.8)
[2024-08-09 05:34] LABS: CALCIUM, IONIZED 1.06 mmol/L (1.09-1.30); VBG PH 7.467 (7.31-7.41)
[2024-08-09 05:50] LABS: ALBUMIN/GLOBULIN RATIO 1.9 (1.0-2.2); BILIRUBIN,TOTAL 0.4 mg/dL (0.2-1.0); CALCIUM 8.1 mg/dL (8.5-10.3); CREATININE 0.6 mg/dL (0.6-1.3); MAGNESIUM 2.1 mg/dL (1.7-2.3); POTASSIUM 3.6 mmol/L (3.5-4.5); TOTAL PROTEIN 6.1 g/dL (6.4-8.9)
[2024-08-09] MEDS: PANTOPRAZOLE 40 MG VIAL IVP SCH (06:44)
[2024-08-09] MEDS: NEUTRA-PHOS 250 MG TABLET PO SCH ×2 (09:15→16:52)
[2024-08-09] MEDS: CALCIUM CARBONATE CHEW 500 MG TABLET PO SCH (09:15)
[2024-08-09] MEDS: POTASSIUM CHLORIDE 20 MEQ TABLET PO ONE ×2 (09:15→16:52)
[2024-08-09] MEDS: HEPARIN 5,000 UNIT/ML VIAL SUBQ SCH (09:16)
--- NOTE | 2024-08-09 09:36 | PHARMACY PROGRESS NOTE ---
Best Possible Medication History Admit Date and Time: 08/09/24 0044 Home Medications Medication Instructions Recorded Confirmed Type gabapentin 100 mg capsule 200 mg (2 x 100 mg) PO TID # 90 caps 06/01/24 08/09/24 Rx metformin 500 mg tablet,extended 500 mg PO BID #60 tab s 06/01/24 08/09/24 Rx release 24 hr (Glucophage XR) norethindrone (contraceptive) 0.35 0.35 mg PO QDAY #84 tabs 06/14/24 08/09/24 Rx mg tablet (Kym) spironolactone 50 mg tablet 50 mg PO QDAY #90 tabs 08/09/24 Rx nystatin-triamcinolone 100,000 See Rx Instructions .Ro [place] 06/19/24 08/09/24 Rx unit/g-0.1 % topical cream .COMPLEX #30 grams blood sugar diagnostic #100 ea 07/19/24 07/27/24 Rx blood-glucose meter #1 ea 07/19/24 07/27/24 Rx cyclobenzaprine 5 mg tablet 5 mg PO BID #60 tabs 07/1908/09/24 Rx escitalopram oxalate 20 mg tablet 20 mg PO QDAY #90 ta bs 07/19/24 08/09/24 Rx (Lexapro) lancets #100 ea 07/19/24 07/27/24 Rx ondansetron 4 mg disintegrating 4 mg PO Q6H #30 tabs 0 07/27/24 08/09/24 Rx tablet Processed by: Pharmacy Medications reviewed in ED?: No Medication History completed: Yes Patient Interview: Completed Secondary Source(s): Other family member and Insurance records [facility] Statement: Per [facility] interview with patient, parent present, and review of [facility] Rx records. As the person ultimately responsible for medication therapy, providers are able to order a medication from an existing home medication list in [facility] via the "Reconcile Routine" prior to Confirmation of that medication by legal support specialist. Such practice is discouraged except when the physician, in their clinical judgment, deems that a medical need exists for a medication without regard to previous use.
[2024-08-09] MEDS: NICOTINE 21 MG PATCH TOP SCH (12:07)
[2024-08-09] MEDS: BENZOCAINE/MENTHOL LOZENGE MM PRN (12:48)
[2024-08-09 16:13] LABS: CALCIUM, IONIZED 1.12 mmol/L (1.09-1.30); VBG PH 7.449 (7.31-7.41)
[2024-08-09 16:20] LABS: POTASSIUM 3.7 mmol/L (3.5-4.5)
[2024-08-09 16:26] LABS: PHOSPHORUS 2.1 mg/dL (2.5-5.0)
[2024-08-09] MEDS: IBUPROFEN 400 MG TABLET PO PRN (20:00)
[2024-08-10 04:52] LABS: CALCIUM, IONIZED 1.14 mmol/L (1.09-1.30); VBG PH 7.414 (7.31-7.41)
[2024-08-10 04:54] LABS: BASOPHILS % (AUTO) 0.7 %; EOSINOPHILS % (AUTO) 3.2 %; HCT - HEMATOCRIT 38.8 % (37.0-47.0); HGB - HEMOGLOBIN 12.7 g/dL (12.0-16.0); LYMPHOCYTES % (AUTO) 39.1 %; MEAN CORPUSCULAR HEMOGLOBIN 31.6 pg (27.0-31.0); MEAN CORPUSCULAR HGB CONC 32.7 g/dL (32.0-36.0); MEAN CORPUSCULAR VOLUME 96.5 fL (81.0-99.0); MEAN PLATELET VOLUME 10.1 fL (7.9-10.8); MONOCYTES % (AUTO) 7.6 %; NEUTROPHILS % (AUTO) 49.1 %; PLT - PLATELET COUNT 234 10^3/uL (130-450); RED BLOOD COUNT 4.02 10^6/uL (4.20-5.40); RED CELL DISTRIBUTION WIDTH 12.5 % (12.0-15.0); WHITE BLOOD COUNT 7.5 x10^3/uL (4.8-10.8)
[2024-08-10 04:59] LABS: ABNORMAL LYMPHS % (MANUAL) 0 %
[2024-08-10 05:08] LABS: ALBUMIN 3.8 g/dL (3.2-5.5); ALBUMIN/GLOBULIN RATIO 1.5 (1.0-2.2); BILIRUBIN,TOTAL 0.2 mg/dL (0.2-1.0); CALCIUM 8.4 mg/dL (8.5-10.3); CREATININE 0.6 mg/dL (0.6-1.3); PHOSPHORUS 2.7 mg/dL (2.5-5.0); TOTAL PROTEIN 6.3 g/dL (6.4-8.9)
[2024-08-10 05:36] LABS: BAND NEUTROPHILS % (MANUAL) 1 %; BASOPHILS # (MANUAL) 0.2 10^3/uL (0-0.1); BASOPHILS % (MANUAL) 2 %; EOSINOPHILS # (MANUAL) 0.3 10^3/uL (0-0.7); LYMPHOCYTES # (MANUAL) 3.9 10^3/uL (1.5-3.5); LYMPHOCYTES % (MANUAL) 47 %; MONOCYTES # (MANUAL) 0.2 10^3/uL (0.0-1.0); NEUTROPHILS # (MANUAL) 2.9 10^3/uL (1.5-6.6); REACTIVE LYMPHS % (MANUAL) 5 %
[2024-08-10 05:37] LABS: DIFFERENTIAL COMMENT MANUAL DIFFERENTIAL; WBC MORPHOLOGY (MULTIPLE) 1+ REACTIVE LYMPHS (NORMAL)
[2024-08-10] MEDS: cefTRIAXone 1 GM VIAL IVP SCH (11:42)
[2024-08-10] MEDS ORDERED: cefTRIAXone 1 GM in SODIUM CHLORIDE 0.9% MINIBAG 100 ML IV SCH (12:00)
[2024-08-10 12:17] VITALS: TEMP 98.8
[2024-08-10] MEDS: TAMSULOSIN 0.4 MG CAPSULE PO ONE (12:41)
[2024-08-10 13:12] VITALS: BP 137/103; O2SAT 93
--- NOTE | 2024-08-10 13:19 | Discharge Summary ---
"Discharge Summary Admit Date: 08/10/24 Discharge Date: 08/10/24 Discharging Provider: Dr Mariano Rocha MD Code Status: Attempt Resuscitation DIAGNOSES Admission Diagnoses: Drug overdose Altered mental status Hypersomnolence Tachycardia Hypomagnesemia PTSD Discharge Diagnoses with Status of Each Condition: Drug overdose - Resolved Altered mental status - Resolved Hypersomnolence - Resolved Tachycardia- Resolved Hypomagnesemia - Improved Depression - improved Suicidal Thoughts - Resolved Acute cystitisstable HPI History of Present Illness: H&P was conducted via video remotely, using [employer]. Patient is in [place]. Physician is in [place]. Pt's personal AH CERAMIC TILE MECHANIC at bedside. Unable to obtain history from pt d/t pt's clinical condition. History obtained from staff, chart. 39 yo F with PMH of PTSD, Obesity, Prediabetes presented to the ER via EMS for AMS. Pt is somnolent, not responding to questions Per ER staff, pt had overdosed on medications, though not clear exactly which medications and how many of each. Pt had bottles of Flexeril, Gabapentin, Lexapro at residence. Pt still awake when EMS arrived and did not want to go to the ER until she had trouble standing. In the ER, she became drowsy, then somnolent. Pt has not had prior overdose. In the ER, HR 135, Mg 1.6, UDS neg Pt was given IVF and MagSO4 IV in the ER. ER Provider Contacted with poison control who suggested a least 8-hour observation and serial EKGs. In addition, the patient was having urinary symptoms suggestive of UTI including bladder spasm, and dysuria with malodorous urine. UA was positive for nitrates and many bacteria. She was given a dose of ceftriaxone IV. Urine culture was somewhat contaminated though she will be treated empirically with Bactrim p.o. CONSULTS | PROCEDURES Consultations: [facility] Hospital Course: Patient was admitted for suicidal attempt with multidrug overdose including Flexeril gabapentin and Lexapro. Poison control was involved and recommended observation. During the overnight observation she improved clinically with a resolution of the hypersomnolence and lethargy and a return to her normal baseline status. During the morning rounds, her suicide attempt was discussed in detail. The patient was tearful and very regretful about her suicide attempt and stated in no uncertain terms that she felt this was a anomalous event that was a brief moment of desperation that she has never contemplated before and does not see herself contemplating again. She stated regret at having traumatized her 13-year-old daughter and was extremely anxious to go back home to her. She states she wants to live and wants to get help and was agreeable to outpatient psychiatric care. She does not want to be transferred to an inpatient psychiatric unit. Medical social work also saw the patient and came to the same conclusion and although she will benefit from further optimizing her depression treatment, it is not felt that she has an current threat of suicidal intent and at this point is not a candidate for transfer to inpatient psychiatric care against her will. She was discharged home safely with recommendations and instructions for outpatient psychiatric follow-up which she has agreed to comply with. ALLERGIES Allergies Allergy/AdvReac Type Severity Reaction Status Date / Time metoclopramide (From Reglan) AdvReac Anxiety Verified 08/08/24 21:19 MEDICATIONS Ambulatory Orders Medication Instructions Recorded Confirmed gabapentin 100 mg capsule 200 mg (2 x 100 mg) PO TID # 90 caps 06/01/24 08/09/24 metformin 500 mg tablet,extended 500 mg PO BID #60 tab s 06/01/24 08/09/24 release 24 hr (Glucophage XR) norethindrone (contraceptive) 0.35 0.35 mg PO QDAY #84 tabs 06/14/24 08/09/24 mg tablet (Kym) spironolactone 50 mg tablet 50 mg PO QDAY #90 tabs 08/09/24 nystatin-triamcinolone 100,000 See Rx Instructions .Ro [place] 06/19/24 08/09/24 unit/g-0.1 % topical cream .COMPLEX #30 grams blood sugar diagnostic #100 ea 07/19/24 07/27/24 blood-glucose meter #1 ea 07/19/24 07/27/24 escitalopram oxalate 20 mg tablet 20 mg PO QDAY #90 ta bs 07/19/24 08/09/24 (Lexapro) lancets #100 ea 07/19/24 07/27/24 ondansetron 4 mg disintegrating 4 mg PO Q6H #30 tabs 0 07/27/24 08/09/24 tablet sulfamethoxazole 400 1 tab PO BID 5 days #10 tabs 08/10/24 mg-trimethoprim 80 mg tablet (Bactrim) PHYSICAL EXAM AT DISCHARGE Vital Signs: Vital Signs x48h Temp Pulse Resp BP Pulse Ox 08/10/24 12:00 37.1 C 98 13 118/79 97 08/10/24 11:00 94 18 137/103 H 96 08/10/24 10:00 79 18 127/89 99 08/10/24 09:00 85 15 166/106 H 98 08/10/24 08:00 37.3 C 105 H 14 157/110 H 94 08/10/24 07:00 74 19 104/65 97 08/10/24 06:00 79 19 122/76 98 General Appearance: positive No acute distress and Alert Respiratory: positive No respiratory distress and Breath sounds nml; negative Wheezes Cardiovascular: positive Regular rate & rhythm, No murmur and No gallop Abdomen: positive Non-tender, No organomegaly, Nml bowel sounds and No distention Skin: positive Color nml Extremities: positive Nml appearance Neurologic/Psychiatric: positive Oriented x3, CN's nml (2-12) and Motor nml LABS 08/10/24 04:38 08/10/24 04:38 DIAGNOSTIC IMAGING Diagnostic Imaging Results: Final report reviewed FOLLOW UP Follow Up: * Follow-up with PCP and psychiatrist as soon as possible TIME SPENT Time Spent in Discharge (Minutes): 45 Discharge Plan Discharge Patient Disposition: 01 Home, Self Care Condition: Stable Medically Cleared Date:: 08/10/24 Prescriptions: New sulfamethoxazole-trimethoprim [Bactrim] 400-80 mg tablet 1 tab PO BID 5 Days Qty: 10 0RF Continued gabapentin 100 mg capsule 200 mg PO TID Qty: 90 3RF Rx Instructions: Increased dose. metformin [Glucophage XR] 500 mg tablet extended release 24 hr 500 mg PO BID Qty: 60 2RF Rx Instructions: take with meals nystatin-triamcinolone 100,000-0.1 unit/g-% cream See Rx Instructions .ROUTE .COMPLEX Qty: 30 0RF Dose Instruction: APPLY CREAM TOPICALLY TWICE DAILY FOR 2 WEEKS UNTIL RASH RESOLVES. Rx Instructions: APPLY CREAM TOPICALLY TWICE DAILY FOR 2 WEEKS UNTIL RASH RESOLVES. spironolactone 50 mg tablet 50 mg PO QDAY Qty: 90 3RF norethindrone (contraceptive) [Kym] 0.35 mg tablet 0.35 mg PO QDAY Qty: 84 4RF escitalopram oxalate [Lexapro] 20 mg tablet 20 mg PO QDAY Qty: 90 3RF (DME) blood-glucose meter Misc See Rx Instructions .MEDSUPPLY Qty: 1 0RF Rx Instructions: As directed - product of patient choice or insurance coverage (DME) blood sugar diagnostic Strip See Rx Instructions .MEDSUPPLY Qty: 100 11RF Rx Instructions: As directed - to match patient blood glucose meter, to check FASTING once daily (DME) lancets Misc See Rx Instructions .MEDSUPPLY Qty: 100 11RF Rx Instructions: As directed ondansetron 4 mg tablet,disintegrating 4 mg PO Q6H Qty: 30 1RF Discontinued cyclobenzaprine 5 mg tablet 5 mg PO BID Qty: 60 1RF Activity Restrictions: No Restrictions Diet: Regular Health Concerns: Renate, you were admitted after an intentional overdose with attempt at self- harm. Very sorry that you experienced this, but I am very happy that you are able to receive the help you needed and have recovered fully from the overdose itself. Medically speaking I do not think you will have any long-term complications related to the medication overdose however from a psychiatric point of view, is very clear that your depression will benefit from more treatment. I am happy to hear that you are regretful about the suicide attempt because this means you are less likely to repeat it. However, depression can be a very debilitating disease that can cause people to do things impulsively that they do not think they otherwise would do. For this reason it is important to have a suicide safety plan that includes loved ones and trusted ones that you can contact should you start to have any other thoughts of suicide similar to what occurred prior to your hospitalization. Of course you can always call 911 if necessary, or the suicide hotline at 988 . I also recommend trying to arrange a plan with somebody can keep custody of your medications including the gabapentin and Flexeril. You could perhaps arrange with somebody to give you your medications 1 week at a time and meet with them every week. You could also use this meeting as a check-in to see how your mental health is doing. By doing this, you will prevent an entire bottle of Flexeril gabapentin being at home should you have any fleeting thoughts of self-harm again, thereby preventing you from a harmful overdose. Either way, please follow-up with your PCP and make the appointment with a psychiatrist so that she can continue to receive the help that you deserve so that your family can enjoy having you around for many years to come! Print Language: Welsh Patient Instructions: Suicide Warning Signs What Do, Suicide Warning Signs Self Stand Alone Forms: PCP List"
[2024-08-11] MEDS ORDERED: PANTOPRAZOLE 40 MG TABLET PO SCH (07:00)
== END 2024-08-10 14:07 | disposition home or self-care (01) | DRG 918 ==
LOC: ED 21:05 → ICU 08-09 00:44
PROVIDERS: ADMIT Internal Medicine; ATTEND Internal Medicine
DX: F17.210 Nicotine dependence, cigarettes, uncomplicated; T42.6X2A Poisoning by other antiepileptic and sedative-hypnotic drugs, intentional self-harm, initial encounter; R41.82 Altered mental status, unspecified; N30.00 Acute cystitis without hematuria; E66.9 Obesity, unspecified; Z68.41 Body mass index [BMI] 40.0-44.9, adult; F43.10 Post-traumatic stress disorder, unspecified; G47.10 Hypersomnia, unspecified; F32.A Depression, unspecified; R45.851 Suicidal ideations; E83.42 Hypomagnesemia; R00.0 Tachycardia, unspecified; R73.03 Prediabetes; T48.1X2A Poisoning by skeletal muscle relaxants [neuromuscular blocking agents], intentional self-harm, initial encounter

== ENCOUNTER 2024-08-17 16:48 | Inpatient (IN) ==
--- NOTE | 2024-08-17 16:58 | ED Physician Documentation ---
History of Present Illness Stated complaint Stated Complaint: OD Chief complaint Chief Complaint: General History obtained from History obtained from: EMS Additonal information Additional information: All the history is from EMS and review of the chart. Reportedly she texted maybe her father with report of potential overdose. EMS presumed gabapentin and Flexeril as that was what was on her med list. She had taken 5 days worth of what of her medications she took. Time of overdose is unclear but best guess would be 4 PM based on timing of texts. She is obtunded on the way here. She was admitted for a very similar presentation just over a week ago. Mcihele Coma Scale Assess Eye opening: Spontaneous Verbal response: None Motor response: None Total score: 6 Meds/Allgy Home Medications Ambulatory Orders Medication Instructions Recorded Confirmed gabapentin 100 mg capsule 200 mg (2 x 100 mg) PO TID # 90 caps 06/01/24 08/13/24 metformin 500 mg tablet,extended 500 mg PO BID #60 tab s 06/01/24 08/13/24 release 24 hr (Glucophage XR) norethindrone (contraceptive) 0.35 0.35 mg PO QDAY #84 tabs 06/14/24 08/13/24 mg tablet (Kym) spironolactone 50 mg tablet 50 mg PO QDAY #90 tabs 08/13/24 nystatin-triamcinolone 100,000 See Rx Instructions .Ro trevin 06/19/24 08/13/24 unit/g-0.1 % topical cream .COMPLEX #30 grams blood sugar diagnostic #100 ea 07/19/24 08/13/24 blood-glucose meter #1 ea 07/19/24 08/13/24 escitalopram oxalate 20 mg tablet 20 mg PO QDAY #90 ta bs 07/19/24 08/13/24 (Lexapro) lancets #100 ea 07/19/24 08/13/24 ondansetron 4 mg disintegrating 4 mg PO Q6H #30 tabs 0 07/27/24 08/13/24 tablet sulfamethoxazole 400 1 tab PO BID 5 days #10 tabs 08/10/24 08/13/24 mg-trimethoprim 80 mg tablet (Bactrim) propranolol 20 mg tablet 20 mg PO BID high bp/tremor #60 08/13/24 08/13/24 tabs Allergies Allergies Allergy/AdvReac Type Severity Reaction Status Date / Time metoclopramide (From Reglan) AdvReac Anxiety Verified 08/17/24 16:52 PFSH Active Problems All Active Problems (Updated 08/17/24 @ 18:34 by Srini Ni MD) Respiratory failure, acute (Acute) Overdose (Acute) Medication management (Acute) Suicidal ideation (Acute) History of drug overdose (Acute) Atrial tachycardia (Acute) Tremor (Acute) Elevated blood pressure reading in office without diagnosis of hypertension (Acute) AMS (altered mental status) (Acute) Nausea (Acute) Polycystic ovarian syndrome (Acute) Kidney stones (Acute) Elevated liver enzymes (Acute) Neck muscle spasm (Acute) Oral contraception initiation (Acute) PTSD (post-traumatic stress disorder) (Acute) Hirsutism (Acute) Prediabetes (Acute) Elevated blood pressure reading (Acute) Anxiety (Acute) Tobacco abuse (Acute) Chronic hypertension (Acute) Obesity (Acute) Kidney stone complicating (Acute) Medical History Medical History (Updated 08/17/24 @ 18:34 by Srini Ni MD) Diabetes mellitus affecting in third trimester Hypertension affecting in third trimester GDM, class A2 Fever URI (upper respiratory infection) Lumbago with sciatica, right side Rash Screening for cervical cancer Pelvic pain in female Encounter for screening for infections with predominantly sexual mode of transmission Acute cystitis History of kidney stones Surgical History Surgical History (Updated 08/13/24 @ 10:34 by DUKE Guzmán) Delivery by section H/O: Social History Social History (Updated 08/13/24 @ 10:21 by BRENNAN DURAN LPN) Smoking Status: Current every day smoker Number of Years Smoked: 20 How many cigarettes a day do you smoke? (20 cigarettes=1 Pk): 10 Do you dip or chew tobacco?: No Do you vape?: No Patient requests smoking cessation consult: Yes Initiate information on smoking cessation: No Living arrangement: At home Marital Status: Single Living Condition: With family Support Person: Yes Relationship: Parent Level: Independent History of Abuse: No ETOH Use: None Substance Use: denies use Substance Use Details: states she use to be a drug addict Are you sexually active?: No POLST Patient has POLST: No Exam Exam Vital Signs: Vital Signs x48h Temp Pulse Resp BP Pulse Ox 08/17/24 18:45 81 16 73/44 L 97 08/17/24 18:30 90 16 80/48 L 97 08/17/24 18:22 88 08/17/24 18:15 96 18 86/59 L 97 08/17/24 18:00 36.5 C 92 16 85/47 L 98 08/17/24 17:45 97 16 99/67 98 08/17/24 17:30 98 16 113/73 98 08/17/24 17:23 106 H 08/17/24 17:15 106 H 16 91/65 97 08/17/24 17:10 101 H 18 137/109 H 100 08/17/24 16:55 86 18 132/90 H 97 08/17/24 16:52 36.8 C 94 18 134/85 H 99 Constitutional She is obtunded with dilated pupils no spontaneous motion. Respiratory breath sounds equal bilaterally, normal respiratory effort and clear to auscultation bilaterally Cardiovascular normal heart rate noted, regular rhythm noted and no murmur Gastrointestinal abdomen soft to palpation and nontender to palpation Neurology GCS calculation - Eye opening: Spontaneous Verbal response: None Motor response: None Michele Coma Scale total score: 6 Results Vitals Vitals: Vital Signs - 24 hr 08/17/24 16:52 08/17/24 16:55 08/17/24 17:10 Temperature 36.8 C Temperature Source Tympanic Pulse Rate 94 86 101 H Respiratory Rate 18 18 18 Blood Pressure 134/85 H 132/90 H 137/109 H O2 Saturation 99 97 100 O2 Source Room air Mechanical ventilator Fraction of Inspired Oxygen (FIO2) FiO2 (%) Pain Intensity 0 08/17/24 17:14 08/17/24 17:15 08/17/24 17:23 Temperature Temperature Source Pulse Rate 106 H 106 H Respiratory Rate 16 Blood Pressure 91/65 O2 Saturation 97 O2 Source Mechanical ventilator Fraction of Inspired Oxygen (FIO2) 100 FiO2 (%) Pain Intensity 0 08/17/24 17:30 08/17/24 17:45 08/17/24 18:00 Temperature 36.5 C Temperature Source Temporal Artery Scan Pulse Rate 98 97 92 Respiratory Rate 16 16 16 Blood Pressure 113/73 99/67 85/47 L O2 Saturation 98 98 98 O2 Source Mechanical ventilator Mechanical ventilator Mechanical ventilator Fraction of Inspired Oxygen (FIO2) FiO2 (%) 100 Pain Intensity 08/17/24 18:01 08/17/24 18:15 08/17/24 18:22 Temperature Temperature Source Pulse Rate 96 88 Respiratory Rate 18 Blood Pressure 86/59 L O2 Saturation 97 O2 Source Mechanical ventilator Fraction of Inspired Oxygen (FIO2) 50 FiO2 (%) 50 Pain Intensity 0 08/17/24 18:30 08/17/24 18:45 Temperature Temperature Source Pulse Rate 90 81 Respiratory Rate 16 16 Blood Pressure 80/48 L 73/44 L O2 Saturation 97 97 O2 Source Mechanical ventilator Fraction of Inspired Oxygen (FIO2) FiO2 (%) 50 Pain Intensity Oxygen O2 Source Mechanical ventilator EKG (time done) 1734: EKG releavant findings:: EKG personally interpreted by author of this note. Relevant findings are: Normal sinus rhythm with rate of 97. No long QTc or other diagnostic abnormalities. 1923: EKG releavant findings:: EKG personally interpreted by author of this note. Relevant findings are: Normal sinus rhythm with rate of 88. No prolonged QT. Labs Labs: Laboratory Tests 08/17/24 08/17/24 08/17/24 16:58 17:00 17:43 WBC 7.4 RBC 4.36 Hgb 14.0 Hct 41.0 MCV 94.0 MCH 32.1 H MCHC 34.1 RDW 12.4 Plt Count 325 MPV 9.6 Neut # (Auto) 4.3 Lymph # (Auto) 2.2 [place] # (Auto) 0.5 Eos # (Auto) 0.3 Baso # (Auto) 0.1 Absolute Nucleated RBC 0.00 Nucleated RBC % 0.0 Sodium 136 Potassium 4.0 Chloride 104 Carbon Dioxide 22 Anion Gap 10.0 BUN 10 Creatinine 0.7 Estimated GFR (MDRD) 94 Glucose 215 H Lactic Acid 3.1 H* Calcium 9.0 Magnesium 1.8 Total Bilirubin 0.3 AST 49 H ALT 43 Alkaline Phosphatase 47 Total Protein 6.5 Albumin 4.2 Globulin 2.3 Albumin/Globulin Ratio 1.8 Lipase 76 TSH 2.82 Urine Color Urine Clarity Urine pH Ur Specific [place] Urine Protein Urine Glucose (UA) Urine Ketones Urine Occult Blood Urine Nitrite Urine Bilirubin Urine Urobilinogen Ur Leukocyte Esterase Ur Microscopic Review Urine Culture Comments Urine HCG, Qual Salicylates < 1.5 Ur Buprenorphine Scrn Ur Morphine Screen Ur Oxycodone Screen Urine Methadone Screen Acetaminophen 8.4 Ur Barbiturates Screen Ur Phencyclidine Scrn Ur Amphetamine Screen U Methamphetamines Scrn Urine MDMA Screen U Benzodiazepines Scrn Urine Cocaine Screen U Cannabinoids Screen Ur Drug Screen Comment Ethyl Alcohol < 10.0 SARS-CoV-2 (PCR) NOT DETECTED 08/17/24 17:47 WBC RBC Hgb Hct MCV MCH MCHC RDW Plt Count MPV Neut # (Auto) Lymph # (Auto) [place] # (Auto) Eos # (Auto) Baso # (Auto) Absolute Nucleated RBC Nucleated RBC % Sodium Potassium Chloride Carbon Dioxide Anion Gap BUN Creatinine Estimated GFR (MDRD) Glucose Lactic Acid Calcium Magnesium Total Bilirubin AST ALT Alkaline Phosphatase Total Protein Albumin Globulin Albumin/Globulin Ratio Lipase TSH Urine Color YELLOW Urine Clarity CLEAR Urine pH 6.0 Ur Specific [place] 1.025 Urine Protein NEGATIVE Urine Glucose (UA) 100 H Urine Ketones TRACE Urine Occult Blood NEGATIVE Urine Nitrite NEGATIVE Urine Bilirubin NEGATIVE Urine Urobilinogen 0.2 (NORMAL) Ur Leukocyte Esterase NEGATIVE Ur Microscopic Review NOT INDICATED Urine Culture Comments NOT INDICATED Urine HCG, Qual NEGATIVE Salicylates Ur Buprenorphine Scrn NEGATIVE Ur Morphine Screen NEGATIVE Ur Oxycodone Screen NEGATIVE Urine Methadone Screen NEGATIVE Acetaminophen Ur Barbiturates Screen NEGATIVE Ur Phencyclidine Scrn NEGATIVE Ur Amphetamine Screen NEGATIVE U Methamphetamines Scrn NEGATIVE Urine MDMA Screen NEGATIVE U Benzodiazepines Scrn NEGATIVE Urine Cocaine Screen NEGATIVE U Cannabinoids Screen NEGATIVE Ur Drug Screen Comment CUTOFF CONC BELOW: Ethyl Alcohol SARS-CoV-2 (PCR) Rads (name of study) Single view chest x-ray demonstrates good positioning of endotracheal and orogastric tube, possible pulmonary vascular congestion: Relevant Findings:: Final report received and EMP independent interpretation of test (Good position of ETT and OG) CT of the head was unremarkable: Relevant Findings:: Final report received and EMP independent interpretation of test (NAD) Procedures Intubation - Major Provider: Emergency physician Medications: Propofol (200mg IVP) and Succinylcholine (200mg IVP) Blade: Glidescope Tube: Size-enter number (7.5) and Cuffed Route: Oral Confirmation: Direct visualization, Bilateral breath sounds, No abdominal breath sound, End tidal CO2 and Chest xray Complications: No compications Central Line - Major Central Line Preparation: Unable to obtain consent, Time out completed, Ultrasound used and Sterile prep and drape Central line location: Right IJ Central line type: Triple lumen Central line aftercare: Chlorhexidine disc placed, Secured, Placement confirmed, No pneumothorax, No complications, Bundle checklist complete and Pt tolerated well PD Medical Decision Making ED course ED course: She presents after an intentional overdose. It seems fairly acute and her initial GCS was 6. Given the timing of the overdose would be concerned that she will get worse before she gets better and decision to intubate was made after my initial evaluation. Shortly after initial arrival the mom arrived and shared with me that she believes her specific overdose was of: 1. 5000 mg metformin 2. 100 mg escitalopram 3. 250 mg spironolactone 4. 200 mg propranolol 5. 8000 mg ibuprofen 6. 5000 mg Tylenol 7. 125 mg of Unisom. Intubation went smoothly but she did have some agitation so was placed in soft restraints with as needed meds and added fentanyl drip to the propofol drip. I wanted to give her vecuronium but we could not override it in the Pyxis so gave her rocuronium instead which we could override. Discussed case with poison control who recommended the followin. The propranolol dose is likely subtoxic 2. The escitalopram dose very well could be toxic, watch for signs of serotonin syndrome, hyperthermia, long QT with EKGs every 2 hours, and seizures 3. For the metformin she recommends a lactate level now and in 6 hours 4. Tylenol level now and at 8 PM Workup in the emergency department demonstrated unremarkable CBC. CMP notable for mild hyperglycemia and she had glucosuria with an otherwise normal urine. Her alcohol and salicylate levels were negative. Acetaminophen barely positive at 8.4. She was sent over for CT of the head but I have low pretest probability for abnormality there and on my independent interpretation, it looks normal. She did develop some hypotension in the range of 80/40 and the propofol was discontinued and she was administered IV fluids with improvement. Spoke with Dr. Vee for admission at 6:30 PM. That said, she did progress to being more hypotensive despite IV fluids and I placed a central line and Levophed was begun. Critical Care Critical Care Provided: Yes Time(min): 40 Time Includes: Direct patient care, Review records, Reassess patient, Document care, Coordinate care, Medical consult and Family consult for tx dec (mom and dad at bedside) Data interpretation: Labs, Pulse ox, ABG and CXR Procedures excluded from critical care time: Central IV, Intubation and EKG Discharge Plan Discharge Patient Disposition: 66 [facility] DC/Xfer Condition: Critical Clinical Impression: Overdose, Respiratory failure, acute
[2024-08-17] MEDS: PROPOFOL 200 MG/20 ML VIAL IVP STA (17:03)
[2024-08-17] MEDS: SUCCINYLCHOLINE 200 MG/10 ML VIAL IVP STA (17:04)
[2024-08-17] MEDS: PROPOFOL 1000 MG/100 ML 1,000 MG/100 ML BOTTLE IV STA (17:05)
[2024-08-17] MEDS: fentaNYL 100 MCG/2 ML VIAL IVP STA (17:14)
[2024-08-17] MEDS: LORazepam 2 MG/ML VIAL IVP STA (17:14)
[2024-08-17] MEDS ORDERED: ROCURONIUM 50 MG/5 ML VIAL ONE (17:15)
[2024-08-17 17:16] LABS: BASOPHILS # (AUTO) 0.1 10^3/uL (0.0-0.1); BASOPHILS % (AUTO) 0.9 %; EOSINOPHILS # (AUTO) 0.3 10^3/uL (0.0-0.7); EOSINOPHILS % (AUTO) 3.5 %; LYMPHOCYTES # (AUTO) 2.2 10^3/uL (1.5-3.5); LYMPHOCYTES % (AUTO) 30.2 %; MEAN CORPUSCULAR HEMOGLOBIN 32.1 pg (27.0-31.0); MEAN CORPUSCULAR HGB CONC 34.1 g/dL (32.0-36.0); MEAN PLATELET VOLUME 9.6 fL (7.9-10.8); MONOCYTES # (AUTO) 0.5 10^3/uL (0.0-1.0); MONOCYTES % (AUTO) 6.4 %; NEUTROPHILS # (AUTO) 4.3 10^3/uL (1.5-6.6); NEUTROPHILS % (AUTO) 58.7 %; PLT - PLATELET COUNT 325 10^3/uL (130-450); RED BLOOD COUNT 4.36 10^6/uL (4.20-5.40); RED CELL DISTRIBUTION WIDTH 12.4 % (12.0-15.0); WHITE BLOOD COUNT 7.4 x10^3/uL (4.8-10.8)
[2024-08-17] MEDS: ROCURONIUM 50 MG/5 ML VIAL IVP STA (17:16)
[2024-08-17 17:31] LABS: ACETAMINOPHEN 8.4 ug/mL; ALBUMIN 4.2 g/dL (3.2-5.5); ALBUMIN/GLOBULIN RATIO 1.8 (1.0-2.2); ALKALINE PHOSPHATASE 47 IU/L (42-121); ALT ALANINE AMINOTRANSFERASE 43 IU/L (10-60); AST ASPARTATE AMINOTRANSFERASE 49 IU/L (10-42); BILIRUBIN,TOTAL 0.3 mg/dL (0.2-1.0); BUN - BLOOD UREA NITROGEN 10 mg/dL (6-20); CARBON DIOXIDE - CO2 22 mmol/L (21-32); CHLORIDE 104 mmol/L (101-111); CREATININE 0.7 mg/dL (0.6-1.3); ETOH - ETHANOL < 10.0 mg/dL; GFR - MDRD 94 (>89); GLUCOSE 215 mg/dL (74-104); LIPASE 76 U/L (11-82); SALICYLATE < 1.5 mg/dL; SODIUM 136 mmol/L (135-145); TOTAL PROTEIN 6.5 g/dL (6.4-8.9)
[2024-08-17] MEDS: fentaNYL 2,500 MCG in SODIUM CHLORIDE 0.9% 200 ML IV STA (17:41)
[2024-08-17 17:44] LABS: THYROID STIMULATING HORMONE 2.82 uIU/mL (0.34-5.60)
[2024-08-17] MEDS: VECURONIUM 10 MG VIAL IVP STA (17:45)
--- NOTE | 2024-08-17 17:49 | XRAY Report ---
PROCEDURE: XR Chest for Line Placement INDICATIONS: intubation TECHNIQUE: One view of the chest was acquired. COMPARISON: 01/29/2024. FINDINGS: Surgical changes and devices: ET tube tip is approximately 2.3 cm above the dong. NG tube tip is below the left hemidiaphragm and is in the expected location of stomach. Lungs and pleura: No pleural effusions or pneumothorax. There is pulmonary vascular congestion. Small bilateral perihilar infiltrates cannot be excluded. Mediastinum: Mediastinal contours appear normal. Heart size is normal. Bones and chest wall: No suspicious bony lesions. Overlying soft tissues appear unremarkable. IMPRESSION: Tube and lines are in satisfactory position. Mild pulmonary vascular congestion, cannot rule out bilateral perihilar infiltrates. No pleural effusion or pneumothorax. Reviewed by: Coleman Krause MD on 08/17/2024 5:48 PM PDT Approved by: Coleman Krause MD on 08/17/2024 5:48 PM PDT Station ID: [id number]
[2024-08-17 18:03] LABS: UDS CUTOFF CONCENTRATIONS CUTOFF CONC BELOW:
[2024-08-17 18:11] LABS: BILIRUBIN,URINE NEGATIVE (NEGATIVE); GLUCOSE, URINE (UA) 100 mg/dL (NEGATIVE); KETONES,URINE (UA) TRACE mg/dL (NEGATIVE); LEUKOCYTE ESTERASE, URINE NEGATIVE (NEGATIVE); NITRITE,URINE NEGATIVE (NEGATIVE); OCCULT BLOOD,URINE NEGATIVE (NEGATIVE); PROTEIN,URINE NEGATIVE (NEGATIVE); UROBILINOGEN,URINE 0.2 (NORMAL) E.U./dL (NORMAL)
[2024-08-17 18:23] LABS: CLARITY,URINE CLEAR (CLEAR); HCG UR QUAL NEGATIVE
[2024-08-17 18:25] LABS: BUPRENORPHINE SCREEN, URINE NEGATIVE (NEGATIVE); COCAINE SCREEN URINE NEGATIVE (NEGATIVE); MDMA SCREEN, URINE NEGATIVE (NEGATIVE); METHADONE SCREEN, URINE NEGATIVE (NEGATIVE); METHAMPHETAMINES SCREEN, URINE NEGATIVE (NEGATIVE); MORPHINE SCREEN, URINE NEGATIVE (NEGATIVE); OXYCODONE SCREEN, URINE NEGATIVE (NEGATIVE)
--- NOTE | 2024-08-17 18:29 | CT Report ---
PROCEDURE: CT Head WO INDICATIONS: ams TECHNIQUE: CT of the head was performed, without intravenous contrast. Reformats: Coronal and sagittal. For radiation dose reduction, the following was used: automated exposure control, adjustment of mA and/or kV according to patient size. COMPARISON: None. FINDINGS: Image quality: Diagnostic. CSF spaces: Basal cisterns are patent. No extra-axial fluid collections. Ventricles are normal in size and shape. Brain: No midline shift. No intracranial mass effect or hemorrhage. [place]- white matter interface is normal. No significant periventricular white matter hypoattenuation or volume loss. Skull and face: Calvarium and visualized facial bones are intact, without suspicious lesions. Sinuses: Visualized sinuses and mastoids are clear. IMPRESSION: No acute intracranial pathology. Reviewed by: Coleman Krause MD on 08/17/2024 6:28 PM PDT Approved by: Coleman Krause MD on 08/17/2024 6:28 PM PDT Station ID: [id number]
[2024-08-17] MEDS: SODIUM CHLORIDE 0.9% 1,000 ML IV STA ×2 (18:31→18:40)
--- OUTSIDE RECORDS SUMMARY | 2024-08-17 18:37 | EXTERNAL MEDICAL SUMMARY RPT | Continuity of Care Document ---
Author Organization [place] Address [address] [address] Phone Problems date description facility 2024-05-24 08:54 Lumbago with sciatica, right si de [facility] 2024-06-11 07:58 Lumbago with sciatica, right si de [facility] 2024-06-15 13:26 Other chronic pain [facility] 2024-06-15 13:26 Lumbago with sciatica, [facility] 2024-06-15 13:26 Strain of muscle, fa scia and tendon of lower back, initial encounter [facility] 2024-07-19 15:56 Obesity, unspecified [facility] 2024-07-19 15:56 Other muscle spasm [facility] 2024-07-19 15:56 Prediabetes [facility] 2024-07-22 10:29 Type 2 diabetes mellitus with h yperglycemia [facility] 2024-07-22 10:29 Obesity, unspecified [facility] 2024-07-22 10:29 Prediabetes [facility] 2024-07-23 00:04 Type 2 diabetes mellitus with h yperglycemia [facility] 2024-07-23 00:04 Obesity, unspecified [facility] 2024-07-23 00:04 Prediabetes [facility] 2024-07-23 14:21 Type 2 diabetes mellitus with h yperglycemia [facility] 2024-07-23 14:21 Obesity, unspecified [facility] 2024-07-27 16:38 Abnormal levels of other serum enzymes [facility] 2024-08-09 01:23 Poisoning by unspeci fied drugs, medicaments and biological substances, accidental (unintentional), [facility] 2024-08-09 01:59 Poisoning by unspeci fied drugs, medicaments and biological substances, accidental (unintentional), initial encounter [facility] 2024-08-09 06:40 Sacrococcygeal disorders, not e lsewhere classified [facility] 2024-08-09 06:40 Low back pain, unspecified [facility] 2024-08-09 06:40 Dorsalgia, unspecified [facility] 2024-08-09 06:40 Calculus of ureter [facility] 2024-08-09 06:40 Gestational diabetes mellitus in , insulin controlled [facility] 2024-08-09 06:40 Chest pain, unspecified [facility] 2024-08-09 06:40 Upper abdominal pain, unspecifi ed [facility] 2024-08-09 06:40 Epigastric pain [facility] 2024-08-09 06:40 Right lower quadrant pain [facility] 2024-08-09 06:40 Unspecified abdominal pain [facility] 2024-08-09 06:40 Vomiting, unspecified [facility] 2024-08-09 06:40 Nausea with vomiting, unspecifi ed [facility] 2024-08-09 06:40 Fever, unspecified [facility] 2024-08-09 06:40 Contusion of lower back and pel vis, initial encounter [facility] 2024-08-09 06:40 Poisoning by unspeci fied drugs, medicaments and biological substances, accidental (unintentional), initial encounter [facility] 2024-08-09 06:40 Unspecified fall, initial encou nter [facility] 2024-08-09 06:45 Sacrococcygeal disorders, not e lsewhere classified [facility] 2024-08-09 06:45 Low back pain, unspecified id [facility] 2024-08-09 06:45 Dorsalgia, unspecified [facility] 2024-08-09 06:45 Calculus of ureter [facility] 2024-08-09 06:45 Gestational diabetes mellitus in , insulin controlled [facility] 2024-08-09 06:45 Chest pain, unspecified [facility] 2024-08-09 06:45 Upper abdominal pain, unspecifi ed [facility] 2024-08-09 06:45 Epigastric pain [facility] 2024-08-09 06:45 Right lower quadrant pain [facility] 2024-08-09 06:45 Unspecified abdominal pain [facility] 2024-08-09 06:45 [facility], [facility]24-[facility] 06:45 Nausea with vomiting, unspecifi ed [facility] 2024-08-09 06:45 Fever, unspecified [facility] 2024-08-09 06:45 Contusion of lower back and pel vis, initial encounter [facility] 2024-08-09 06:45 Poisoning by unspeci fied drugs, medicaments and biological substances, accidental (unintentional), initial encounter [facility] 2024-08-09 06:45 Unspecified fall, initial encou nter [facility] 2024-08-09 08:42 Poisoning by unspeci fied drugs, medicaments and biological substances, accidental (unintentional), initial encounter [facility] 2024-08-09 10:05 Poisoning by unspeci fied drugs, medicaments and biological substances, accidental (unintentional), initial encounter [facility] 2024-08-09 13:09 Poisoning by unspeci fied drugs, medicaments and biological substances, accidental (unintentional), initial encounter [facility] 2024-08-10 13:21 Poisoning by unspeci fied drugs, medicaments and biological substances, accidental (unintentional), initial encounter [facility] 2024-08-10 14:19 Poisoning by unspeci fied drugs, medicaments and biological substances, accidental (unintentional), initial encounter [facility] 2024-08-11 08:34 Poisoning by unspeci fied drugs, medicaments and biological substances, accidental (unintentional), initial encounter [facility] 2024-08-11 09:22 Poisoning by unspeci fied drugs, medicaments and biological substances, accidental (unintentional), initial encounter [facility] 2024-08-11 12:25 Poisoning by unspeci fied drugs, medicaments and biological substances, accidental (unintentional), initial encounter [facility] 2024-08-11 12:25 Poisoning by multipl e unspecified drugs, medicaments and biological substances, intentional self-harm, [facility] [employer] [facility] 2024-08-11 12:26 Poisoning by unspeci fied drugs, medicaments and biological substances, accidental (unintentional), [facility] [employer] [facility] 2024-08-11 12:26 Poisoning by multipl e unspecified drugs, medicaments and biological substances, intentional self-harm, [facility] 2024-08-13 12:50 Anxiety disorder, unspecified [employer] [facility] 2024-08-13 12:50 Post-traumatic stress disorder, unspecified [facility] [employer] [facility] 2024-08-13 12:50 Other supraventricular tachycar edgar [facility] [employer] [facility] 2024-08-13 12:50 Elevated blood-press ure reading, without diagnosis of hypertension [facility] [employer] [facility] 2024-08-13 12:50 Tremor, unspecified [employer] [facility] 2024-08-13 12:50 Suicidal ideations [facility] [employer] [facility] 2024-08-13 12:50 Other intermediate card tender (current) drug therapy [facility] [employer] [facility] 2024-08-13 12:50 Other specified pers onal risk factors, not elsewhere classified [facility] 2024-08-13 12:55 Anxiety disorder, unspecified [employer] [facility] 2024-08-13 12:55 Post-traumatic stress disorder, unspecified [employer] [facility] 2024-08-13 12:55 Other supraventricular tachycar edgar [employer] [facility] 2024-08-13 12:55 Elevated blood-press ure reading, without diagnosis of hypertension [facility] [employer] [facility] 2024-08-13 12:55 Tremor, unspecified [employer] [facility] 2024-08-13 12:55 Suicidal ideations [employer] [facility] 2024-08-13 12:55 Other fci (current) drug therapy [facility] 2024-08-13 12:55 Other specified pers onal risk factors, not elsewhere classified [facility] 2024-08-14 00:01 Anxiety disorder, unspecified [employer] 2024-08-14 00:01 Post-traumatic stress disorder, unspecified [facility] 2024-08-14 00:01 Other supraventricular tachycar edgar [employer] 2024-08-14 00:01 Elevated blood-press ure reading, without diagnosis of hypertension [facility] 2024-08-14 00:01 Tremor, unspecified [employer] [facility] 2024-08-14 00:01 Suicidal ideations [facility] 2024-08-14 00:01 Other intermediate card tender (current) drug therapy [facility] 2024-08-14 00:01 Other specified pers onal risk factors, not elsewhere classified [employer] 2024-08-16 14:00 Poisoning by multipl e unspecified drugs, medicaments and biological substances, accidental (unintentional), initial encounter [employer] Results/Labs test date facility value unit notes Result panel 1 BILIRUBIN,TOTAL 2024-07-22 10:42 [facility] 0.3 mg /dl As of September 2022 testing method has changed, this may include reference ranges. CREATININE 2024-07-22 10:42 [facility] 0.6 mg/dl As of September 2022 testing method has changed, this may include reference ranges. ALBUMIN/GLOBULIN RATIO 2024-07-22 10:42 [facility] 1.6 (missing) (missing) ANION GAP 2024-07-22 10:42 [facility] 10.0 (missing ) (missing) GLUCOSE 2024-07-22 10:42 [facility] 103 mg/dl As of September 2022 testing method has changed, this may include reference ranges. CHLORIDE 2024-07-22 10:42 [facility] 105 mmol/l As of September 2022 testing method has changed, this may include reference ranges. GFR - MDRD 2024-07-22 10:42 [facility] 112 (missin g) Social History date description facility
[2024-08-17] MEDS ORDERED: NOREPINEPHRINE/0.9 % NS 8 MG/250 ML BAG IV ONE (18:54)
[2024-08-17] MEDS: NOREPINEPHRINE/0.9 % NS 8 MG/250 ML BAG IV SCH (19:02)
[2024-08-17] MEDS ORDERED: ATROPINE ABBOJECT 1 MG/10 ML SYRINGE IVP ONE (19:02)
--- OUTSIDE RECORDS SUMMARY | 2024-08-17 19:09 | EXTERNAL MEDICAL SUMMARY RPT | Continuity of Care Document ---
Author Organization [place] Address [address] [address] Phone Problems date description facility 2024-05-24 08:54 Lumbago with sciatica, right si de [facility] 2024-06-11 07:58 Lumbago with sciatica, right si de [facility] 2024-06-15 13:26 Other chronic pain [facility] 2024-06-15 13:26 Lumbago with [facility]atica[facility] 2024-06-15 13:26 Strain of muscle, fa scia and tendon of lower back, initial encounter [facility] 2024-07-19 15:56 Obesity, unspecified [facility] 2024-07-19 15:56 Other muscle spasm [facility] 2024-07-19 15:56 Prediabetes [facility] 2024-07-22 10:29 Type 2 diabetes mellitus with h yperglycemia [facility] 2024-07-22 10:29 Obesity, unspecified [facility] 2024-07-22 10:29 Prediabetes [facility] 2024-07-23 00:04 Type 2 diabetes mellitus with h yperglycemia [facility] 2024-07-23 00:04 Obesity, unspecified [facility] 2024-07-23 00:04 Prediabetes [facility] 2024-07-23 14:21 Type 2 diabetes mellitus with h yperglycemia [facility] 2024-07-23 14:21 Obesity, unspecified [facility] 2024-07-27 16:38 Abnormal levels of other serum enzymes [facility] 2024-08-09 01:23 Poisoning by unspeci fied drugs, medicaments and biological substances, accidental (unintentional), [facility] 2024-08-09 01:59 Poisoning by unspeci fied drugs, medicaments and biological substances, accidental (unintentional), initial encounter [facility] 2024-08-09 06:40 Sacrococcygeal disorders, not e lsewhere classified [facility] 2024-08-09 06:40 Low back pain, unspecified [facility] 2024-08-09 06:40 Dorsalgia, unspecified [facility] 2024-08-09 06:40 Calculus of ureter [facility] 2024-08-09 06:40 Gestational diabetes mellitus in , insulin controlled [facility] 2024-08-09 06:40 Chest pain, unspecified [facility] 2024-08-09 06:40 Upper abdominal pain, unspecifi ed [facility] 2024-08-09 06:40 Epigastric pain [facility] 2024-08-09 06:40 Right lower quadrant pain [facility] 2024-08-09 06:40 Unspecified abdominal pain [facility] 2024-08-09 06:40 Vomiting, unspecified [facility] 2024-08-09 06:40 Nausea with vomiting, unspecifi ed [facility] 2024-08-09 06:40 Fever, unspecified [facility] 2024-08-09 06:40 Contusion of lower back and pel vis, initial encounter [facility] 2024-08-09 06:40 Poisoning by unspeci fied drugs, medicaments and biological substances, accidental (unintentional), initial encounter [facility] 2024-08-09 06:40 Unspecified fall, initial encou nter [facility] 2024-08-09 06:45 Sacrococcygeal disorders, not e lsewhere classified [facility] 2024-08-09 06:45 Low back pain, unspecified id [facility] 2024-08-09 06:45 [facility]algia, [facility] 2024-08-09 06:45 Calculus of ureter [facility] 2024-08-09 06:45 Gestational diabetes mellitus in , insulin controlled [facility] 2024-08-09 06:45 Chest pain, unspecified [facility] 2024-08-09 06:45 Upper abdominal pain, unspecifi ed [facility] 2024-08-09 06:45 Epigastric pain [facility] 2024-08-09 06:45 Right lower quadrant pain [facility] 2024-08-09 06:45 Unspecified abdominal pain [facility] 2024-08-09 06:45 [facility] 06:45 Nausea with vomiting, unspecifi ed [facility] 2024-08-09 06:45 Fever, unspecified [facility] 2024-08-09 06:45 Contusion of lower back and pel vis, initial encounter [facility] 2024-08-09 06:45 Poisoning by unspeci fied drugs, medicaments and biological substances, accidental (unintentional), initial encounter [facility] 2024-08-09 06:45 Unspecified fall, initial encou nter [facility] 2024-08-09 08:42 Poisoning by unspeci fied drugs, medicaments and biological substances, accidental (unintentional), initial encounter [facility] 2024-08-09 10:05 Poisoning by unspeci fied drugs, medicaments and biological substances, accidental (unintentional), initial encounter [facility] 2024-08-09 13:09 Poisoning by unspeci fied drugs, medicaments and biological substances, accidental (unintentional), initial encounter [facility] 2024-08-10 13:21 Poisoning by unspeci fied drugs, medicaments and biological substances, accidental (unintentional), initial encounter [facility] 2024-08-10 14:19 Poisoning by unspeci fied drugs, medicaments and biological substances, accidental (unintentional), initial encounter [facility] 2024-08-11 08:34 Poisoning by unspeci fied drugs, medicaments and biological substances, accidental (unintentional), initial encounter [facility] 2024-08-11 09:22 Poisoning by unspeci fied drugs, medicaments and biological substances, accidental (unintentional), initial encounter [facility] 2024-08-11 12:25 Poisoning by unspeci fied drugs, medicaments and biological substances, accidental (unintentional), initial encounter [facility] 2024-08-11 12:25 Poisoning by multipl e unspecified drugs, medicaments and biological substances, intentional self-harm, [facility] 2024-08-11 12:26 Poisoning by unspeci fied drugs, medicaments and biological substances, accidental (unintentional), [facility] 2024-08-11 12:26 Poisoning by multipl e unspecified drugs, medicaments and biological substances, intentional self-harm, [facility] 2024-[facility]13 12:50 Anxiety disorder, unspecified [facility] 2024-08-13 12:50 Post-traumatic stress disorder, unspecified [facility] 2024-08-13 12:50 Other supraventricular tachycar edgar [facility] 2024-08-13 12:50 Elevated blood-press ure reading, without diagnosis of hypertension [facility] 2024-08-13 12:50 Tremor, unspecified [employer] [facility] 2024-08-13 12:50 Suicidal ideations [facility] 2024-08-13 12:50 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 [facility] 2024-08-13 12:50 Other specified pers onal risk factors, not elsewhere classified [facility] 2024-[facility]-13 12:55 Anxiety disorder, unspecified [facility] 2024-08-13 12:55 Post-traumatic stress disorder, unspecified [employer] [facility] 2024-08-13 12:55 Other supraventricular tachycar edgar [employer] [facility] 2024-08-13 12:55 Elevated blood-press ure reading, without diagnosis of hypertension [facility] 2024-08-13 12:55 Tremor, unspecified [employer] [facility] 2024-08-13 12:55 Suicidal ideations [employer] [facility] 2024-08-13 12:55 Other long-term (current) drug therapy [employer] 2024-08-13 12:55 Other specified pers onal risk factors, not elsewhere classified [employer] 2024-08-14 00:01 Anxiety disorder, unspecified [email or web address] 2024-08-14 00:01 Post-traumatic stress disorder, unspecified [employer] 2024-08-14 00:01 Other supraventricular tachycar edgar [employer] 2024-08-14 00:01 Elevated blood-press ure reading, without diagnosis of hypertension [employer] 2024-08-14 00:01 Tremor, unspecified [employer] [facility] 2024-08-14 00:01 Suicidal ideations [facility] 2024-08-14 00:01 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 CREATININE 2024-07-22 10:42 [employer] 0.6 mg/dl As of September 2022 testing method has changed, this may include reference ranges. ALBUMIN/GLOBULIN RATIO 2024-07-22 10:42 [employer] 1.6 (missing) (missing) ANION GAP 2024-07-22 10:42 [employer] 10.0 (missing ) (missing) GLUCOSE 2024-07-22 10:42 [employer] 103 mg/dl As of September 2022 testing method has changed, this may include reference ranges. CHLORIDE 2024-07-22 10:42 [employer] 105 mmol/l As of September 2022 testing method has changed, this may include reference ranges. GFR - MDRD 2024-07-22 10:42 [employer] 112 (missin g) Social History date description facility
--- NOTE | 2024-08-17 19:49 | HISTORY & PHYSICAL EXAMINATION ---
Chief Complaint Chief Complaint Chief Complaint: OD History of Present Illness Admitted From Admitted From:: Home History Obtained From History obtained from: Chart review History of Present Illness HPI Comment/Other: Patient presents after intentional overdose. Reportedly, she took a bunch of pills and then notified her family that she had done so. It is estimated that she had taken the following drugs: 1. 5000 mg metformin 2. 100 mg escitalopram 3. 250 mg spironolactone 4. 200 mg propranolol 5. 8000 mg ibuprofen 6. 5000 mg Tylenol 7. 125 mg of Unisom. In the ER, her initial GCS was 6, so she was intubated. Poison control was notified, and they made recommendations for management as will be described below. Workup was positive for lactic acid of 3.1, glucose 215, AST 49. UDS was negative, alcohol negative, Tylenol level 8.4. Hospitalist was contacted for admission for intentional overdose requiring intubation Meds/Allgy Home Medications Ambulatory Orders Medication Instructions Recorded Confirmed gabapentin 100 mg capsule 200 mg (2 x 100 mg) PO TID # 90 caps 06/01/24 08/13/24 metformin 500 mg tablet,extended 500 mg PO BID #60 tab s 06/01/24 08/13/24 release 24 hr (Glucophage XR) norethindrone (contraceptive) 0.35 0.35 mg PO QDAY #84 tabs 06/14/24 08/13/24 mg tablet (Kym) spironolactone 50 mg tablet 50 mg PO QDAY #90 tabs 08/13/24 nystatin-triamcinolone 100,000 See Rx Instructions .Ro port graham 06/19/24 08/13/24 unit/g-0.1 % topical cream .COMPLEX #30 grams blood sugar diagnostic #100 ea 07/19/24 08/13/24 blood-glucose meter #1 ea 07/19/24 08/13/24 escitalopram oxalate 20 mg tablet 20 mg PO QDAY #90 ta bs 07/19/24 08/13/24 (Lexapro) lancets #100 ea 07/19/24 08/13/24 ondansetron 4 mg disintegrating 4 mg PO Q6H #30 tabs 0 07/27/24 08/13/24 tablet sulfamethoxazole 400 1 tab PO BID 5 days #10 tabs 08/10/24 08/13/24 mg-trimethoprim 80 mg tablet (Bactrim) propranolol 20 mg tablet 20 mg PO BID high bp/tremor #60 08/13/24 08/13/24 tabs Allergies Allergies Allergy/AdvReac Type Severity Reaction Status Date / Time metoclopramide (From Reglan) AdvReac Anxiety Verified 08/17/24 16:52 PFSH Active Problems All Active Problems (Updated 08/17/24 @ 18:34 by Srini Ni MD) Respiratory failure, acute (Acute) Overdose (Acute) Medication management (Acute) Suicidal ideation (Acute) History of drug overdose (Acute) Atrial tachycardia (Acute) Tremor (Acute) Elevated blood pressure reading in office without diagnosis of hypertension (Acute) AMS (altered mental status) (Acute) Nausea (Acute) Polycystic ovarian syndrome (Acute) Kidney stones (Acute) Elevated liver enzymes (Acute) Neck muscle spasm (Acute) Oral contraception initiation (Acute) PTSD (post-traumatic stress disorder) (Acute) Hirsutism (Acute) Prediabetes (Acute) Elevated blood pressure reading (Acute) Anxiety (Acute) Tobacco abuse (Acute) Chronic hypertension (Acute) Obesity (Acute) Kidney stone complicating (Acute) Medical History Medical History (Updated 08/17/24 @ 18:34 by Srini Ni MD) Diabetes mellitus affecting in third trimester Hypertension affecting in third trimester GDM, class A2 Fever URI (upper respiratory infection) Lumbago with sciatica, right side Rash Screening for cervical cancer Pelvic pain in female Encounter for screening for infections with predominantly sexual mode of transmission Acute cystitis History of kidney stones Surgical History Surgical History (Updated 08/13/24 @ 10:34 by DUKE Guzmán) Delivery by section H/O: Social History Social History (Updated 08/13/24 @ 10:21 by BRENNAN DURAN LPN) Smoking Status: Current every day smoker Number of Years Smoked: 20 How many cigarettes a day do you smoke? (20 cigarettes=1 Pk): 10 Do you dip or chew tobacco?: No Do you vape?: No Patient requests smoking cessation consult: Yes Initiate information on smoking cessation: No Living arrangement: At home Marital Status: Single Living Condition: With family Support Person: Yes Relationship: Parent Level: Independent History of Abuse: No ETOH Use: None Substance Use: denies use Substance Use Details: states she use to be a drug addict Are you sexually active?: No POLST Patient has POLST: No Review of Systems Status of ROS: unobtainable due to endotracheal tube Exam Exam Vital Signs: Vital Signs x48h Temp Pulse Resp BP Pulse Ox 08/17/24 19:30 87 16 112/71 97 08/17/24 19:15 87 16 111/51 L 97 08/17/24 19:00 85 16 56/44 L 98 08/17/24 18:45 81 16 73/44 L 97 08/17/24 18:30 90 16 80/48 L 97 08/17/24 18:22 88 08/17/24 18:15 96 18 86/59 L 97 08/17/24 18:00 36.5 C 92 16 85/47 L 98 08/17/24 17:45 97 16 99/67 98 08/17/24 17:30 98 16 113/73 98 08/17/24 17:23 106 H 08/17/24 17:15 106 H 16 91/65 97 08/17/24 17:10 101 H 18 137/109 H 100 08/17/24 16:55 86 18 132/90 H 97 08/17/24 16:52 36.8 C 94 18 134/85 H 99 Constitutional Obese female, sedated on vent HENMT normocephalic and head/scalp atraumatic Eyes PERRL Neck/C-Spine visual inspection normal Lymph no lymphadenopathy noted Chest inspection of chest normal Respiratory breath sounds equal bilaterally Cardiovascular normal heart rate noted NSR with occasional drops to SB 30s Gastrointestinal abdomen normal to inspection Protuberant Extremities Trace pedal edema Neurology Sedated on vent. Pupils equal. Moves all extremities when sedation is weaned Psychiatry Sedated on vent Conclusion/Plan Problem List (1) Respiratory failure, acute: Plan: She was unable to maintain her airway, so she was intubated in the ER ABG as needed any vent changes Likely extubate in the morning Sedation with fentanyl, propofol VAP bundle (2) Overdose: Plan: Following recommendations from poison control have been ordered: Tylenol level at 8 PM Lactic acid level at midnight EKG every 2 hours They recommend propranolol dose is likely subtoxic low threshold to start epinephrine drip if she continues having episodes of bradycardia ABG, consider bicarb pushes with any decompensation Social work consult, will need DCR eval when she is improved medically (3) Prediabetes: Plan: Last A1c 5.8 on 07/22/2024 SSI every 6 hours Plan Admit inpatient med floor Full code for now Her listed next of kin is Dalia Deleon Lab Results 08/17/24 16:58 08/17/24 16:58 Diagnostic Imaging Results Diagnostic Imaging Results: positive Final report reviewed Diagnostic Imaging Results Comments: CT head no acute abnormality Core Measures Anticipated LOS I expect patient to be DC'd or transferred within 96 hours.: Yes DVT/VTE - Prophylaxis VTE/DVT Prophylaxis med ordered at admit?: Yes
[2024-08-17 20:22] LABS: ABG PCO2 32 mmHg (34-45); ABG PH 7.39 (7.35-7.45); ABG PO2 127 mmHg (83-108)
[2024-08-17 20:23] LABS: ABG BASE EXCESS -5.2 mmol/L (-2.0-3.0); ABG MODE OF VENTILATION SIMV; ABG OXYGEN SATURATION 99 % (95-98); ABG RESPIRATORY RATE 16 b/min; ABG TCO2 20.9 mmol/L (21.0-29.0); ALLEN TEST POSITIVE
[2024-08-17] MEDS: SODIUM CHLORIDE 0.9% 1,000 ML IV SCH (20:27)
[2024-08-17] MEDS: FAMOTIDINE 20 MG/2 ML VIAL IVP SCH (20:52)
[2024-08-17] MEDS: CHLORHEXIDINE GLUCONATE 15 ML UDC PO SCH (21:39)
[2024-08-17] MEDS: SODIUM CHLORIDE FLUSH 0.9% 10 ML SYRINGE IVP PRN (21:57)
[2024-08-17] MEDS: SODIUM CHLORIDE FLUSH 0.9% 10 ML SYRINGE IVP SCH (21:57)
--- NOTE | 2024-08-17 21:57 | XRAY Report ---
PROCEDURE: XR Chest for Line Placement INDICATIONS: RIJ CVC TECHNIQUE: One view of the chest was acquired. COMPARISON: Chest x-ray 08/17/2024 FINDINGS: Surgical changes and devices: Endotracheal tube is approximately 2.4 cm superior to the dong. Nasogastric tube projects below the left hemidiaphragm. Right-sided central venous catheter is present projecting over the mid/distal SVC. Lungs and pleura: Increased appearance of interstitial opacities. Mediastinum: Mediastinal contours appear normal. Heart size is normal. Bones and chest wall: No suspicious bony lesions. Overlying soft tissues appear unremarkable. IMPRESSION: Mild appearance of increased interstitial opacities which could be related to edema versus developing infiltrates. Reviewed by: Joy Ignacio MD on 08/17/2024 9:55 PM PDT Approved by: Joy Ignacio MD on 08/17/2024 9:55 PM PDT Station ID: [id number]
[2024-08-17] MEDS: fentaNYL 2,500 MCG in SODIUM CHLORIDE 0.9% 200 ML IV SCH (22:19)
[2024-08-17 23:52] LABS: CALCIUM 8.2 mg/dL (8.5-10.3); CREATININE 0.7 mg/dL (0.6-1.3); POTASSIUM 5.4 mmol/L (3.5-4.5)
[2024-08-18] MEDS: INSULIN REGULAR, HUMAN 300 UNIT/3 ML PEN SUBQ SCH (00:27)
[2024-08-18 00:45] LABS: ALBUMIN/GLOBULIN RATIO 1.8 (1.0-2.2); BILIRUBIN,TOTAL 0.3 mg/dL (0.2-1.0); CALCIUM 8.1 mg/dL (8.5-10.3); CREATININE 0.7 mg/dL (0.6-1.3); POTASSIUM 4.8 mmol/L (3.5-4.5); TOTAL PROTEIN 6.2 g/dL (6.4-8.9)
[2024-08-18] MEDS: PROPOFOL 1000 MG/100 ML 1,000 MG/100 ML BOTTLE IV SCH (01:50)
[2024-08-18] MEDS ORDERED: SODIUM CHLORIDE 0.9% 250 ML IV ONE ×2 (02:06→02:15)
[2024-08-18 02:59] LABS: INR 1.1 (0.8-1.2); PT - PROTHROMBIN TIME 12.4 secs (9.9-12.6)
[2024-08-18 03:09] LABS: ALBUMIN/GLOBULIN RATIO 1.6 (1.0-2.2); BILIRUBIN,TOTAL 0.3 mg/dL (0.2-1.0); CALCIUM 8.1 mg/dL (8.5-10.3); CREATININE 0.7 mg/dL (0.6-1.3); POTASSIUM 4.5 mmol/L (3.5-4.5); TOTAL PROTEIN 6.5 g/dL (6.4-8.9)
[2024-08-18 04:50] LABS: BASOPHILS # (AUTO) 0.1 10^3/uL (0.0-0.1); BASOPHILS % (AUTO) 0.5 %; EOSINOPHILS # (AUTO) 0.1 10^3/uL (0.0-0.7); EOSINOPHILS % (AUTO) 0.7 %; HCT - HEMATOCRIT 41.8 % (37.0-47.0); HGB - HEMOGLOBIN 13.9 g/dL (12.0-16.0); LYMPHOCYTES # (AUTO) 4.1 10^3/uL (1.5-3.5); LYMPHOCYTES % (AUTO) 26.5 %; MEAN CORPUSCULAR HGB CONC 33.3 g/dL (32.0-36.0); MEAN CORPUSCULAR VOLUME 96.1 fL (81.0-99.0); MEAN PLATELET VOLUME 9.3 fL (7.9-10.8); MONOCYTES # (AUTO) 1.1 10^3/uL (0.0-1.0); MONOCYTES % (AUTO) 7.4 %; NEUTROPHILS # (AUTO) 9.9 10^3/uL (1.5-6.6); NEUTROPHILS % (AUTO) 64.4 %; PLT - PLATELET COUNT 360 10^3/uL (130-450); RED BLOOD COUNT 4.35 10^6/uL (4.20-5.40); RED CELL DISTRIBUTION WIDTH 12.5 % (12.0-15.0); WHITE BLOOD COUNT 15.3 x10^3/uL (4.8-10.8)
[2024-08-18 04:52] LABS: CALCIUM, IONIZED 1.09 mmol/L (1.09-1.30); VBG PH 7.326 (7.31-7.41)
[2024-08-18 05:06] LABS: ALBUMIN 3.8 g/dL (3.2-5.5); ALBUMIN/GLOBULIN RATIO 1.5 (1.0-2.2); BILIRUBIN,TOTAL 0.4 mg/dL (0.2-1.0); CALCIUM 7.9 mg/dL (8.5-10.3); CREATININE 0.6 mg/dL (0.6-1.3); POTASSIUM 4.1 mmol/L (3.5-4.5); TOTAL PROTEIN 6.3 g/dL (6.4-8.9)
[2024-08-18 05:07] LABS: MAGNESIUM 1.7 mg/dL (1.7-2.3); PHOSPHORUS 2.2 mg/dL (2.5-5.0)
[2024-08-18] MEDS: MAGNESIUM SULFATE 2 GRAM 2 GM/50 ML BAG IV ONE (05:44)
[2024-08-18] MEDS: PANTOPRAZOLE 40 MG VIAL IVP SCH (06:13)
[2024-08-18] MEDS: NEUTRA-PHOS 250 MG TABLET PO SCH (06:14)
[2024-08-18] MEDS: CALCIUM GLUC 1,000MG/50ML-NACL 1,000 MG/50 ML BAG IV ONE (06:44)
[2024-08-18] MEDS ORDERED: FENTANYL IV SCH (08:00)
[2024-08-18 08:04] LABS: ABG BASE EXCESS -6.1 mmol/L (-2.0-3.0); ABG HCO3 19.6 mmol/L (22.0-26.0); ABG MODE OF VENTILATION ASSIST/CONTROL; ABG OXYGEN SATURATION 96 % (95-98); ABG PCO2 34 mmHg (34-45); ABG PH 7.36 (7.35-7.45); ABG PO2 78 mmHg (83-108); ABG RESPIRATORY RATE 16 b/min; ABG TCO2 20.6 mmol/L (21.0-29.0); ALLEN TEST POSITIVE
[2024-08-18] MEDS: LACTATED RINGERS 1,000 ML IV ONE (08:34)
[2024-08-18] MEDS: ENOXAPARIN 40 MG/0.4 ML SYRINGE SUBQ SCH (08:44)
--- NOTE | 2024-08-18 08:52 | XRAY Report ---
PROCEDURE: XR Chest 1V INDICATIONS: JENNIFER TECHNIQUE: One view of the chest was acquired. COMPARISON: 08/17/2024. FINDINGS: Surgical changes and devices: Right internal jugular central venous catheter tip is in SVC. Lungs and pleura: No pleural effusions or pneumothorax. There is interval improvement in bilateral lung aeration. Mild bilateral pulmonary vascular congestion is seen. No definite focal infiltrate. Mediastinum: Mediastinal contours appear normal. Heart size is normal. Bones and chest wall: No suspicious bony lesions. Overlying soft tissues appear unremarkable. IMPRESSION: Interval improvement in bilateral lung aeration. Mild pulmonary vascular congestion. No definite focal infiltrate. No pleural effusion or pneumothorax. Reviewed by: Coleman Krause MD on 08/18/2024 8:51 AM PDT Approved by: Coleman Krause MD on 08/18/2024 8:51 AM PDT Station ID: [id number]
[2024-08-18] MEDS: AMPICILLIN/SULBACTAM 3 GM in SODIUM CHLORIDE 0.9% MINIBAG 100 ML IV SCH (09:22)
[2024-08-18] MEDS: fentaNYL 2,500 MCG/250 ML 2,500 MCG/250 ML BAG IV SCH (09:22)
[2024-08-18 10:25] LABS: BILIRUBIN,URINE NEGATIVE (NEGATIVE); GLUCOSE, URINE (UA) NEGATIVE (NEGATIVE); KETONES,URINE (UA) 40 mg/dL (NEGATIVE); LEUKOCYTE ESTERASE, URINE NEGATIVE (NEGATIVE); NITRITE,URINE NEGATIVE (NEGATIVE); OCCULT BLOOD,URINE TRACE-LYSE (NEGATIVE); PROTEIN,URINE NEGATIVE (NEGATIVE); UROBILINOGEN,URINE 0.2 (NORMAL) E.U./dL (NORMAL)
[2024-08-18 10:31] LABS: BACTERIA,URINE Rare /HPF (None Seen); CLARITY,URINE CLEAR (CLEAR); MUCUS,URINE Marked Strands; RBC,URINE 0-5 /HPF (0-5); SQUAMOUS EPITHELIAL CELL,UR MOD Squamous (<= Few); WBC,URINE 0-3 /HPF (0-5)
[2024-08-18 10:55] LABS: CALCIUM, IONIZED 1.13 mmol/L (1.09-1.30); VBG PH 7.299 (7.31-7.41)
[2024-08-18] MEDS: MAGNESIUM OXIDE 400 MG TABLET PO SCH (12:24)
[2024-08-18] MEDS: INSULIN LISPRO 300 UNIT/3 ML PEN SUBQ SCH (12:26)
[2024-08-18] MEDS: NICOTINE 21 MG PATCH TOP SCH (12:27)
--- NOTE | 2024-08-18 12:28 | PROVIDER PROGRESS NOTE ---
Subjective Subjective Subjective: This morning, when patient was intubated. She was fully awake, following commands. As such, we extubated her. She feels very remorseful for her actions. And keeps repeating them sorry. She endorses a mild cough, no shortness of breath. She feels hot and cold at times. She does not feel any chest pain, but does feel like her heart is racing. Current Medications Current Medications Current Medications: Current Medications Generic Name Dose Route Start Last Admin Trade Name Freq PRN Reason Stop Dose Admin Chlorhexidine Gluconate 15 ml 08/17/24 21:00 08/18/24 08:45 Chlorhexidine Gluconate 15 Ml Udc PO Not Given BID FRANCOISE Enoxaparin Sodium 40 mg 08/18/24 09:00 08/18/24 08:44 Enoxaparin 40 Mg/0.4 Ml Syringe SUBQ 40 mg DAILY FRANCOISE Administration Famotidine 20 mg 08/17/24 21:00 08/18/24 08:44 Famotidine 20 Mg/2 Ml Vial IVP 20 mg BID FRANCOISE Administration Norepinephrine/Sodium Chloride 8 mg in 250 mls @ 15 mls/hr 08/17/24 20:00 08/18/24 12:00 Levophed 8 Mg/250-0.9% Nacl IV 8 mcg/min .[id number] FRANCOISE 15 mls/hr Titration Protocol 8 MCG/MIN Sodium Chloride 1,000 mls @ 100 mls/hr 08/17/24 20:00 08/18/24 08:25 Normal Saline 0.9% IV 100 mls/hr .Q10H FRANCOISE Administration Ampicillin Sodium/Sulbactam 100 mls @ 200 mls/hr 08/18/24 09:00 08/18/24 09:53 Sodium 3 gm/ Sodium Chloride IV 08/23/24 08:59 Infused Q6HR FRANCOISE Infusion Lactated Ringer's 1,000 mls @ 75 mls/hr 08/18/24 12:00 Lr IV .[id number] [facility] Insulin Human Lispro 1 - 5 unit 08/18/24 12:00 Insulin Lispro 300 Unit/3 Ml Pen SUBQ 0800,1200,1700,2100 FRANCOISE Protocol Magnesium Oxide 400 mg 08/18/24 12:00 Magnesium Oxide 400 Mg Tablet PO 08/18/24 18:01 Q6H [facility] Protocol Nicotine 1 patch 08/18/24 13:00 Nicotine 21 Mg Patch TOP DAILY FRANCOISE Ondansetron HCl 4 mg 08/17/24 19:29 Ondansetron 4 Mg/2 Ml Vial IVP Q6HR PRN Nausea / Vomiting Pantoprazole Sodium 40 mg 08/18/24 07:00 08/18/24 06:13 Pantoprazole 40 Mg Vial IVP 40 mg QDAC FRANCOISE Administration Sodium Chloride 10 ml 08/18/24 01:00 08/18/24 08:45 Sodium Chloride Flush 0.9% 10 Ml Syringe IVP 10 ml 0100,0900,1700 FRANCOISE Administration Sodium Chloride 10 ml 08/17/24 19:29 08/18/24 08:45 Sodium Chloride Flush 0.9% 10 Ml Syringe IVP 10 ml PRN PRN Administration NEEDED PER PROVIDER ORDERS Objective Vital Signs/Intake & Output Reviewed Vital Signs: Yes Vital Signs: Vital Signs x48h Temp Pulse Pulse Resp BP Pulse Ox O2 Flow Rate 08/18/24 11:00 126 H 17 108/83 94 15 08/18/24 10:00 130 H 90/63 92 08/18/24 09:50 128 H 87/66 L 94 08/18/24 09:40 130 H 97/65 95 10 08/18/24 09:30 131 H 91/69 90 L 6 08/18/24 09:15 130 H 97/71 93 6 08/18/24 09:00 98.7 F 138 H 17 103/73 91 L 08/18/24 08:21 6 08/18/24 08:20 123 H 08/18/24 08:08 99.7 F 127 H 18 115/89 92 6 08/18/24 07:00 101 H 16 95/68 92 08/18/24 06:55 116 H 08/18/24 06:00 99.3 F 82 16 88/53 L 95 08/18/24 05:27 80 08/18/24 05:00 99.9 F 64 16 121/76 95 Intake & Output: Intake & Output 08/15/24 08/16/24 08/17/24 08/18/24 23:59 23:59 23:59 23:59 Intake Total 527 / 527 5629 / 5629 Output Total 570 / 570 1180 / 1180 Balance -43 / -43 4449 / 4449 Weight (kg) 113.398 kg 108.5 kg Objective General Appearance: positive No acute distress and Alert; negative Anxious Eyes Bilateral: positive Normal inspection, PERRL and EOMI ENT: positive ENT inspection nml, Pharynx nml and No signs of dehydration Neck: positive Nml inspection, Thyroid nml, No JVD and Trachea midline Respiratory: positive Chest non-tender and Rales (mild bibasilar); negative Wheezes Cardiovascular: positive Regular rate & rhythm, No murmur, No gallop and Tachycardia Abdomen: positive Non-tender and No distention; negative Guarding, Hepatomegaly, Abnml bowel sounds or Bruit Back: positive Nml inspection; negative CVA tenderness (R) or CVA tenderness (L) Skin: positive Color nml, No rash, Warm and Dry Extremities: positive Non-tender, Full ROM, Nml appearance and No pedal edema Neurologic/Psychiatric: positive Oriented x3, Motor nml and Depressed mood/affect Lab Results 08/18/24 04:40 08/18/24 04:40 Other Labs: Lab Results x24hrs 08/18/24 08/18/24 08/18/24 Range/Units 11:52 10:45 10:10 WBC (4.8-10.8) x10^3/uL RBC (4.20-5.40) 10^6/uL Hgb (12.0-16.0) g/dL Hct (37.0-47.0) % MCV (81.0-99.0) fL MCH (27.0-31.0) pg MCHC (32.0-36.0) g/dL RDW (12.0-15.0) % Plt Count (130-450) 10^3/uL MPV (7.9-10.8) fL Neut # (Auto) (1.5-6.6) 10^3/uL Lymph # (Auto) (1.5-3.5) 10^3/uL Ritchie # (Auto) (0.0-1.0) 10^3/uL Eos # (Auto) (0.0-0.7) 10^3/uL Baso # (Auto) (0.0-0.1) 10^3/uL Absolute Nucleated RBC x10^3/uL Nucleated RBC % /100WBC PT (9.9-12.6) secs INR (0.8-1.2) Bld Gas Analysis Time Sample Site ABG pH (7.35-7.45) ABG pCO2 (34-45) mmHg ABG pO2 (83-108) mmHg ABG HCO3 (22.0-26.0) mmol/L ABG Total CO2 (21.0-29.0) mmol/L ABG O2 Saturation (95-98) % ABG Base Excess (-2.0-3.0) mmol/L Macario Test VBG pH 7.299 L (7.31-7.41) Ionized Calcium 1.13 (1.09-1.30) mmol/L Respiration Rate b/min O2 Delivery Device Vent Mode FiO2 Tidal Volume mL PEEP cmH2O Pressure Support Vent cmH2O Sodium (135-145) mmol/L Potassium (3.5-4.5) mmol/L Chloride (101-111) mmol/L Carbon Dioxide (21-32) mmol/L Anion Gap (6-13) BUN (6-20) mg/dL Creatinine (0.6-1.3) mg/dL Estimated GFR (MDRD) (>89) Glucose (74-104) mg/dL POC Whole Bld Glucose 173 (70-100) mg/dL Lactic Acid (0.5-2.2) mmol/L Calcium (8.5-10.3) mg/dL Phosphorus (2.5-5.0) mg/dL Magnesium 1.8 (1.7-2.3) mg/dL Total Bilirubin (0.2-1.0) mg/dL AST (10-42) IU/L ALT (10-60) IU/L Alkaline Phosphatase (42-121) IU/L Total Protein (6.4-8.9) g/dL Albumin (3.2-5.5) g/dL Globulin (2.1-4.2) g/dL Albumin/Globulin Ratio (1.0-2.2) Lipase (11-82) U/L TSH (0.34-5.60) uIU/mL Urine Color YELLOW Urine Clarity CLEAR (CLEAR) Urine pH 6.0 (5.0-7.5) PH Ur Specific [place] >=1.030 H (1.002-1.030) Urine Protein NEGATIVE (NEGATIVE) mg/dL Urine Glucose (UA) NEGATIVE (NEGATIVE) mg/dL Urine Ketones 40 H (NEGATIVE) mg/dL Urine Occult Blood TRACE-LYSE (NEGATIVE) Urine Nitrite NEGATIVE (NEGATIVE) Urine Bilirubin NEGATIVE (NEGATIVE) Urine Urobilinogen 0.2 (NORMAL) (NORMAL) E.U./dL Ur Leukocyte Esterase NEGATIVE (NEGATIVE) Urine RBC 0-5 (0-5) /HPF Urine WBC 0-3 (0-5) /HPF Ur Squamous Epith Cells MOD Squamous H (<= Few) Urine Bacteria Rare (None Seen) /HPF Urine Mucus Marked Strands Ur Microscopic Review Urine Culture Comments Urine HCG, Qual Nasal Screen MRSA (PCR) (NEGATIVE) Salicylates mg/dL Ur Buprenorphine Scrn (NEGATIVE) Ur Morphine Screen (NEGATIVE) Ur Oxycodone Screen (NEGATIVE) Urine Methadone Screen (NEGATIVE) Acetaminophen ug/mL Ur Barbiturates Screen (NEGATIVE) Ur Phencyclidine Scrn (NEGATIVE) Ur Amphetamine Screen (NEGATIVE) U Methamphetamines Scrn (NEGATIVE) Urine MDMA Screen (NEGATIVE) U Benzodiazepines Scrn (NEGATIVE) Urine Cocaine Screen (NEGATIVE) U Cannabinoids Screen (NEGATIVE) Ur Drug Screen Comment Ethyl Alcohol mg/dL SARS-CoV-2 (PCR) 08/18/24 08/18/24 08/18/24 Range/Units 07:55 05:51 04:40 WBC 15.3 H (4.8-10.8) x10^3/uL RBC 4.35 (4.20-5.40) 10^6/uL Hgb 13.9 (12.0-16.0) g/dL Hct 41.8 (37.0-47.0) % MCV 96.1 (81.0-99.0) fL MCH 32.0 H (27.0-31.0) pg MCHC 33.3 (32.0-36.0) g/dL RDW 12.5 (12.0-15.0) % Plt Count 360 (130-450) 10^3/uL MPV 9.3 (7.9-10.8) fL Neut # (Auto) 9.9 H (1.5-6.6) 10^3/uL Lymph # (Auto) 4.1 H (1.5-3.5) 10^3/uL Ritchie # (Auto) 1.1 H (0.0-1.0) 10^3/uL Eos # (Auto) 0.1 (0.0-0.7) 10^3/uL Baso # (Auto) 0.1 (0.0-0.1) 10^3/uL Absolute Nucleated RBC 0.00 x10^3/uL Nucleated RBC % 0.0 /100WBC PT (9.9-12.6) secs INR (0.8-1.2) Bld Gas Analysis Time 0755 Sample Site RIGHT RADIAL ABG pH 7.36 (7.35-7.45) ABG pCO2 34 (34-45) mmHg ABG pO2 78 L (83-108) mmHg ABG HCO3 19.6 L (22.0-26.0) mmol/L ABG Total CO2 20.6 L (21.0-29.0) mmol/L ABG O2 Saturation 96 (95-98) % ABG Base Excess -6.1 L (-2.0-3.0) mmol/L Macario Test POSITIVE VBG pH 7.326 (7.31-7.41) Ionized Calcium 1.09 (1.09-1.30) mmol/L Respiration Rate 16 b/min O2 Delivery Device VENTILATOR Vent Mode ASSIST/CONTROL FiO2 40.00 Tidal Volume 500 mL PEEP 5 cmH2O Pressure Support Vent cmH2O Sodium 138 (135-145) mmol/L Potassium 4.1 (3.5-4.5) mmol/L Chloride 108 (101-111) mmol/L Carbon Dioxide 21 (21-32) mmol/L Anion Gap 9.0 (6-13) BUN 8 (6-20) mg/dL Creatinine 0.6 (0.6-1.3) mg/dL Estimated GFR (MDRD) 112 (>89) Glucose 182 H (74-104) mg/dL POC Whole Bld Glucose 174 (70-100) mg/dL Lactic Acid 2.0 (0.5-2.2) mmol/L Calcium 7.9 L (8.5-10.3) mg/dL Phosphorus 2.2 L (2.5-5.0) mg/dL Magnesium 1.7 (1.7-2.3) mg/dL Total Bilirubin 0.4 (0.2-1.0) mg/dL AST 68 H (10-42) IU/L ALT 73 H (10-60) IU/L Alkaline Phosphatase 48 (42-121) IU/L Total Protein 6.3 L (6.4-8.9) g/dL Albumin 3.8 (3.2-5.5) g/dL Globulin 2.5 (2.1-4.2) g/dL Albumin/Globulin Ratio 1.5 (1.0-2.2) Lipase (11-82) U/L TSH (0.34-5.60) uIU/mL Urine Color Urine Clarity (CLEAR) Urine pH (5.0-7.5) PH Ur Specific [place] (1.002-1.030) Urine Protein (NEGATIVE) mg/dL Urine Glucose (UA) (NEGATIVE) mg/dL Urine Ketones (NEGATIVE) mg/dL Urine Occult Blood (NEGATIVE) Urine Nitrite (NEGATIVE) Urine Bilirubin (NEGATIVE) Urine Urobilinogen (NORMAL) E.U./dL Ur Leukocyte Esterase (NEGATIVE) Urine RBC (0-5) /HPF Urine WBC (0-5) /HPF Ur Squamous Epith Cells (<= Few) Urine Bacteria (None Seen) /HPF Urine Mucus Ur Microscopic Review Urine Culture Comments Urine HCG, Qual Nasal Screen MRSA (PCR) (NEGATIVE) Salicylates mg/dL Ur Buprenorphine Scrn (NEGATIVE) Ur Morphine Screen (NEGATIVE) Ur Oxycodone Screen (NEGATIVE) Urine Methadone Screen (NEGATIVE) Acetaminophen ug/mL Ur Barbiturates Screen (NEGATIVE) Ur Phencyclidine Scrn (NEGATIVE) Ur Amphetamine Screen (NEGATIVE) U Methamphetamines Scrn (NEGATIVE) Urine MDMA Screen (NEGATIVE) U Benzodiazepines Scrn (NEGATIVE) Urine Cocaine Screen (NEGATIVE) U Cannabinoids Screen (NEGATIVE) Ur Drug Screen Comment Ethyl Alcohol mg/dL SARS-CoV-2 (PCR) 08/18/24 08/18/24 08/17/24 Range/Units 02:45 00:19 22:42 WBC (4.8-10.8) x10^3/uL RBC (4.20-5.40) 10^6/uL Hgb (12.0-16.0) g/dL Hct (37.0-47.0) % MCV (81.0-99.0) fL MCH (27.0-31.0) pg MCHC (32.0-36.0) g/dL RDW (12.0-15.0) % Plt Count (130-450) 10^3/uL MPV (7.9-10.8) fL Neut # (Auto) (1.5-6.6) 10^3/uL Lymph # (Auto) (1.5-3.5) 10^3/uL Ritchie # (Auto) (0.0-1.0) 10^3/uL Eos # (Auto) (0.0-0.7) 10^3/uL Baso # (Auto) (0.0-0.1) 10^3/uL Absolute Nucleated RBC x10^3/uL Nucleated RBC % /100WBC PT 12.4 (9.9-12.6) secs INR 1.1 (0.8-1.2) Bld Gas Analysis Time Sample Site ABG pH (7.35-7.45) ABG pCO2 (34-45) mmHg ABG pO2 (83-108) mmHg ABG HCO3 (22.0-26.0) mmol/L ABG Total CO2 (21.0-29.0) mmol/L ABG O2 Saturation (95-98) % ABG Base Excess (-2.0-3.0) mmol/L Macario Test VBG pH (7.31-7.41) Ionized Calcium (1.09-1.30) mmol/L Respiration Rate b/min O2 Delivery Device Vent Mode FiO2 Tidal Volume mL PEEP cmH2O Pressure Support Vent cmH2O Sodium 139 138 137 (135-145) mmol/L Potassium 4.5 4.8 H 5.4 H (3.5-4.5) mmol/L Chloride 108 108 107 (101-111) mmol/L Carbon Dioxide 21 22 21 (21-32) mmol/L Anion Gap 10.0 8.0 9.0 (6-13) BUN 9 10 11 (6-20) mg/dL Creatinine 0.7 0.7 0.7 (0.6-1.3) mg/dL Estimated GFR (MDRD) 94 94 94 (>89) Glucose 173 H 158 H 180 H (74-104) mg/dL POC Whole Bld Glucose 161 (70-100) mg/dL Lactic Acid 2.3 H 3.0 H* 3.1 H* (0.5-2.2) mmol/L Calcium 8.1 L 8.1 L 8.2 L (8.5-10.3) mg/dL Phosphorus (2.5-5.0) mg/dL Magnesium (1.7-2.3) mg/dL Total Bilirubin 0.3 0.3 (0.2-1.0) mg/dL AST 79 H 87 H (10-42) IU/L ALT 79 H 78 H (10-60) IU/L Alkaline Phosphatase 52 50 (42-121) IU/L Total Protein 6.5 6.2 L (6.4-8.9) g/dL Albumin 4.0 4.0 (3.2-5.5) g/dL Globulin 2.5 2.2 (2.1-4.2) g/dL Albumin/Globulin Ratio 1.6 1.8 (1.0-2.2) Lipase (11-82) U/L TSH (0.34-5.60) uIU/mL Urine Color Urine Clarity (CLEAR) Urine pH (5.0-7.5) PH Ur Specific [place] (1.002-1.030) Urine Protein (NEGATIVE) mg/dL Urine Glucose (UA) (NEGATIVE) mg/dL Urine Ketones (NEGATIVE) mg/dL Urine Occult Blood (NEGATIVE) Urine Nitrite (NEGATIVE) Urine Bilirubin (NEGATIVE) Urine Urobilinogen (NORMAL) E.U./dL Ur Leukocyte Esterase (NEGATIVE) Urine RBC (0-5) /HPF Urine WBC (0-5) /HPF Ur Squamous Epith Cells (<= Few) Urine Bacteria (None Seen) /HPF Urine Mucus Ur Microscopic Review Urine Culture Comments Urine HCG, Qual Nasal Screen MRSA (PCR) (NEGATIVE) Salicylates mg/dL Ur Buprenorphine Scrn (NEGATIVE) Ur Morphine Screen (NEGATIVE) Ur Oxycodone Screen (NEGATIVE) Urine Methadone Screen (NEGATIVE) Acetaminophen ug/mL Ur Barbiturates Screen (NEGATIVE) Ur Phencyclidine Scrn (NEGATIVE) Ur Amphetamine Screen (NEGATIVE) U Methamphetamines Scrn (NEGATIVE) Urine MDMA Screen (NEGATIVE) U Benzodiazepines Scrn (NEGATIVE) Urine Cocaine Screen (NEGATIVE) U Cannabinoids Screen (NEGATIVE) Ur Drug Screen Comment Ethyl Alcohol mg/dL SARS-CoV-2 (PCR) 08/17/24 08/17/24 08/17/24 Range/Units 20:05 20:00 19:25 WBC (4.8-10.8) x10^3/uL RBC (4.20-5.40) 10^6/uL Hgb (12.0-16.0) g/dL Hct (37.0-47.0) % MCV (81.0-99.0) fL MCH (27.0-31.0) pg MCHC (32.0-36.0) g/dL RDW (12.0-15.0) % Plt Count (130-450) 10^3/uL MPV (7.9-10.8) fL Neut # (Auto) (1.5-6.6) 10^3/uL Lymph # (Auto) (1.5-3.5) 10^3/uL Ritchie # (Auto) (0.0-1.0) 10^3/uL Eos # (Auto) (0.0-0.7) 10^3/uL Baso # (Auto) (0.0-0.1) 10^3/uL Absolute Nucleated RBC x10^3/uL Nucleated RBC % /100WBC PT (9.9-12.6) secs INR (0.8-1.2) Bld Gas Analysis Time 1931 Sample Site LEFT RADIAL ABG pH 7.39 (7.35-7.45) ABG pCO2 32 L (34-45) mmHg ABG pO2 127 H (83-108) mmHg ABG HCO3 20.0 L (22.0-26.0) mmol/L ABG Total CO2 20.9 L (21.0-29.0) mmol/L ABG O2 Saturation 99 H (95-98) % ABG Base Excess -5.2 L (-2.0-3.0) mmol/L Macario Test POSITIVE VBG pH (7.31-7.41) Ionized Calcium (1.09-1.30) mmol/L Respiration Rate 16 b/min O2 Delivery Device VENTILATOR Vent Mode SIMV FiO2 50.00 Tidal Volume 500 mL PEEP 5 cmH2O Pressure Support Vent 10 cmH2O Sodium (135-145) mmol/L Potassium (3.5-4.5) mmol/L Chloride (101-111) mmol/L Carbon Dioxide (21-32) mmol/L Anion Gap (6-13) BUN (6-20) mg/dL Creatinine (0.6-1.3) mg/dL Estimated GFR (MDRD) (>89) Glucose (74-104) mg/dL POC Whole Bld Glucose (70-100) mg/dL Lactic Acid (0.5-2.2) mmol/L Calcium (8.5-10.3) mg/dL Phosphorus (2.5-5.0) mg/dL Magnesium (1.7-2.3) mg/dL Total Bilirubin (0.2-1.0) mg/dL AST (10-42) IU/L ALT (10-60) IU/L Alkaline Phosphatase (42-121) IU/L Total Protein (6.4-8.9) g/dL Albumin (3.2-5.5) g/dL Globulin (2.1-4.2) g/dL Albumin/Globulin Ratio (1.0-2.2) Lipase (11-82) U/L TSH (0.34-5.60) uIU/mL Urine Color Urine Clarity (CLEAR) Urine pH (5.0-7.5) PH Ur Specific [place] (1.002-1.030) Urine Protein (NEGATIVE) mg/dL Urine Glucose (UA) (NEGATIVE) mg/dL Urine Ketones (NEGATIVE) mg/dL Urine Occult Blood (NEGATIVE) Urine Nitrite (NEGATIVE) Urine Bilirubin (NEGATIVE) Urine Urobilinogen (NORMAL) E.U./dL Ur Leukocyte Esterase (NEGATIVE) Urine RBC (0-5) /HPF Urine WBC (0-5) /HPF Ur Squamous Epith Cells (<= Few) Urine Bacteria (None Seen) /HPF Urine Mucus Ur Microscopic Review Urine Culture Comments Urine HCG, Qual Nasal Screen MRSA (PCR) NEGATIVE (NEGATIVE) Salicylates mg/dL Ur Buprenorphine Scrn (NEGATIVE) Ur Morphine Screen (NEGATIVE) Ur Oxycodone Screen (NEGATIVE) Urine Methadone Screen (NEGATIVE) Acetaminophen 1.8 ug/mL Ur Barbiturates Screen (NEGATIVE) Ur Phencyclidine Scrn (NEGATIVE) Ur Amphetamine Screen (NEGATIVE) U Methamphetamines Scrn (NEGATIVE) Urine MDMA Screen (NEGATIVE) U Benzodiazepines Scrn (NEGATIVE) Urine Cocaine Screen (NEGATIVE) U Cannabinoids Screen (NEGATIVE) Ur Drug Screen Comment Ethyl Alcohol mg/dL SARS-CoV-2 (PCR) 08/17/24 08/17/24 08/17/24 Range/Units 17:47 17:43 17:00 WBC (4.8-10.8) x10^3/uL RBC (4.20-5.40) 10^6/uL Hgb (12.0-16.0) g/dL Hct (37.0-47.0) % MCV (81.0-99.0) fL MCH (27.0-31.0) pg MCHC (32.0-36.0) g/dL RDW (12.0-15.0) % Plt Count (130-450) 10^3/uL MPV (7.9-10.8) fL Neut # (Auto) (1.5-6.6) 10^3/uL Lymph # (Auto) (1.5-3.5) 10^3/uL Ritchie # (Auto) (0.0-1.0) 10^3/uL Eos # (Auto) (0.0-0.7) 10^3/uL Baso # (Auto) (0.0-0.1) 10^3/uL Absolute Nucleated RBC x10^3/uL Nucleated RBC % /100WBC PT (9.9-12.6) secs INR (0.8-1.2) Bld Gas Analysis Time Sample Site ABG pH (7.35-7.45) ABG pCO2 (34-45) mmHg ABG pO2 (83-108) mmHg ABG HCO3 (22.0-26.0) mmol/L ABG Total CO2 (21.0-29.0) mmol/L ABG O2 Saturation (95-98) % ABG Base Excess (-2.0-3.0) mmol/L Macario Test VBG pH (7.31-7.41) Ionized Calcium (1.09-1.30) mmol/L Respiration Rate b/min O2 Delivery Device Vent Mode FiO2 Tidal Volume mL PEEP cmH2O Pressure Support Vent cmH2O Sodium (135-145) mmol/L Potassium (3.5-4.5) mmol/L Chloride (101-111) mmol/L Carbon Dioxide (21-32) mmol/L Anion Gap (6-13) BUN (6-20) mg/dL Creatinine (0.6-1.3) mg/dL Estimated GFR (MDRD) (>89) Glucose (74-104) mg/dL POC Whole Bld Glucose (70-100) mg/dL Lactic Acid 3.1 H* (0.5-2.2) mmol/L Calcium (8.5-10.3) mg/dL Phosphorus (2.5-5.0) mg/dL Magnesium (1.7-2.3) mg/dL Total Bilirubin (0.2-1.0) mg/dL AST (10-42) IU/L ALT (10-60) IU/L Alkaline Phosphatase (42-121) IU/L Total Protein (6.4-8.9) g/dL Albumin (3.2-5.5) g/dL Globulin (2.1-4.2) g/dL Albumin/Globulin Ratio (1.0-2.2) Lipase (11-82) U/L TSH (0.34-5.60) uIU/mL Urine Color YELLOW Urine Clarity CLEAR (CLEAR) Urine pH 6.0 (5.0-7.5) PH Ur Specific [place] 1.025 (1.002-1.030) Urine Protein NEGATIVE (NEGATIVE) mg/dL Urine Glucose (UA) 100 H (NEGATIVE) mg/dL Urine Ketones TRACE (NEGATIVE) mg/dL Urine Occult Blood NEGATIVE (NEGATIVE) Urine Nitrite NEGATIVE (NEGATIVE) Urine Bilirubin NEGATIVE (NEGATIVE) Urine Urobilinogen 0.2 (NORMAL) (NORMAL) E.U./dL Ur Leukocyte Esterase NEGATIVE (NEGATIVE) Urine RBC (0-5) /HPF Urine WBC (0-5) /HPF Ur Squamous Epith Cells (<= Few) Urine Bacteria (None Seen) /HPF Urine Mucus Ur Microscopic Review NOT INDICATED Urine Culture Comments NOT INDICATED Urine HCG, Qual NEGATIVE Nasal Screen MRSA (PCR) (NEGATIVE) Salicylates mg/dL Ur Buprenorphine Scrn NEGATIVE (NEGATIVE) Ur Morphine Screen NEGATIVE (NEGATIVE) Ur Oxycodone Screen NEGATIVE (NEGATIVE) Urine Methadone Screen NEGATIVE (NEGATIVE) Acetaminophen ug/mL Ur Barbiturates Screen NEGATIVE (NEGATIVE) Ur Phencyclidine Scrn NEGATIVE (NEGATIVE) Ur Amphetamine Screen NEGATIVE (NEGATIVE) U Methamphetamines Scrn NEGATIVE (NEGATIVE) Urine MDMA Screen NEGATIVE (NEGATIVE) U Benzodiazepines Scrn NEGATIVE (NEGATIVE) Urine Cocaine Screen NEGATIVE (NEGATIVE) U Cannabinoids Screen NEGATIVE (NEGATIVE) Ur Drug Screen Comment CUTOFF CONC BELOW: Ethyl Alcohol mg/dL SARS-CoV-2 (PCR) NOT DETECTED 08/17/24 Range/Units 16:58 WBC 7.4 (4.8-10.8) x10^3/uL RBC 4.36 (4.20-5.40) 10^6/uL Hgb 14.0 (12.0-16.0) g/dL Hct 41.0 (37.0-47.0) % MCV 94.0 (81.0-99.0) fL MCH 32.1 H (27.0-31.0) pg MCHC 34.1 (32.0-36.0) g/dL RDW 12.4 (12.0-15.0) % Plt Count 325 (130-450) 10^3/uL MPV 9.6 (7.9-10.8) fL Neut # (Auto) 4.3 (1.5-6.6) 10^3/uL Lymph # (Auto) 2.2 (1.5-3.5) 10^3/uL Ritchie # (Auto) 0.5 (0.0-1.0) 10^3/uL Eos # (Auto) 0.3 (0.0-0.7) 10^3/uL Baso # (Auto) 0.1 (0.0-0.1) 10^3/uL Absolute Nucleated RBC 0.00 x10^3/uL Nucleated RBC % 0.0 /100WBC PT (9.9-12.6) secs INR (0.8-1.2) Bld Gas Analysis Time Sample Site ABG pH (7.35-7.45) ABG pCO2 (34-45) mmHg ABG pO2 (83-108) mmHg ABG HCO3 (22.0-26.0) mmol/L ABG Total CO2 (21.0-29.0) mmol/L ABG O2 Saturation (95-98) % ABG Base Excess (-2.0-3.0) mmol/L Macario Test VBG pH (7.31-7.41) Ionized Calcium (1.09-1.30) mmol/L Respiration Rate b/min O2 Delivery Device Vent Mode FiO2 Tidal Volume mL PEEP cmH2O Pressure Support Vent cmH2O Sodium 136 (135-145) mmol/L Potassium 4.0 (3.5-4.5) mmol/L Chloride 104 (101-111) mmol/L Carbon Dioxide 22 (21-32) mmol/L Anion Gap 10.0 (6-13) BUN 10 (6-20) mg/dL Creatinine 0.7 (0.6-1.3) mg/dL Estimated GFR (MDRD) 94 (>89) Glucose 215 H (74-104) mg/dL POC Whole Bld Glucose (70-100) mg/dL Lactic Acid (0.5-2.2) mmol/L Calcium 9.0 (8.5-10.3) mg/dL Phosphorus (2.5-5.0) mg/dL Magnesium 1.8 (1.7-2.3) mg/dL Total Bilirubin 0.3 (0.2-1.0) mg/dL AST 49 H (10-42) IU/L ALT 43 (10-60) IU/L Alkaline Phosphatase 47 (42-121) IU/L Total Protein 6.5 (6.4-8.9) g/dL Albumin 4.2 (3.2-5.5) g/dL Globulin 2.3 (2.1-4.2) g/dL Albumin/Globulin Ratio 1.8 (1.0-2.2) Lipase 76 (11-82) U/L TSH 2.82 (0.34-5.60) uIU/mL Urine Color Urine Clarity (CLEAR) Urine pH (5.0-7.5) PH Ur Specific [place] (1.002-1.030) Urine Protein (NEGATIVE) mg/dL Urine Glucose (UA) (NEGATIVE) mg/dL Urine Ketones (NEGATIVE) mg/dL Urine Occult Blood (NEGATIVE) Urine Nitrite (NEGATIVE) Urine Bilirubin (NEGATIVE) Urine Urobilinogen (NORMAL) E.U./dL Ur Leukocyte Esterase (NEGATIVE) Urine RBC (0-5) /HPF Urine WBC (0-5) /HPF Ur Squamous Epith Cells (<= Few) Urine Bacteria (None Seen) /HPF Urine Mucus Ur Microscopic Review Urine Culture Comments Urine HCG, Qual Nasal Screen MRSA (PCR) (NEGATIVE) Salicylates < 1.5 mg/dL Ur Buprenorphine Scrn (NEGATIVE) Ur Morphine Screen (NEGATIVE) Ur Oxycodone Screen (NEGATIVE) Urine Methadone Screen (NEGATIVE) Acetaminophen 8.4 ug/mL Ur Barbiturates Screen (NEGATIVE) Ur Phencyclidine Scrn (NEGATIVE) Ur Amphetamine Screen (NEGATIVE) U Methamphetamines Scrn (NEGATIVE) Urine MDMA Screen (NEGATIVE) U Benzodiazepines Scrn (NEGATIVE) Urine Cocaine Screen (NEGATIVE) U Cannabinoids Screen (NEGATIVE) Ur Drug Screen Comment Ethyl Alcohol < 10.0 mg/dL SARS-CoV-2 (PCR) Assessment/Plan Problem List (1) Sepsis: Impression: Patient with increasing oxygen requirements, currently requiring 10 L saturating 95%. Was intubated yesterday due to inability to protect airway. Concern for aspiration event. Also has sepsis, tachycardia. Unasyn started. Blood cultures ordered, no growth to date. Continue gentle IV fluid rehydration. Qualifiers: Sepsis type: sepsis due to unspecified organism Sepsis acute organ dysfunction status: without acute organ dysfunction Qualified Code(s): A41.9 - Sepsis, unspecified organism (2) Respiratory failure, acute: Impression: Yesterday, patient was intubated for airway protection after intentional overdose. Extubated this a.m. Currently requiring 10 L to maintain saturations. Continue to wean oxygen down as tolerated. Treat for aspiration pneumonia as stated above. If patient continues to require high levels of oxygen, will order CTA to rule out pulmonary embolism. Qualifiers: Respiratory failure complication: hypoxia Qualified Code(s): J96.01 - Acute respiratory failure with hypoxia (3) Aspiration pneumonia: Impression: Patient with aspiration pneumonia versus pneumonitis; continue Unasyn. Qualifiers: Aspiration pneumonia type: unspecified Laterality: unspecified laterality Lung location: unspecified part of lung Qualified Code(s): J69.0 - Pneumonitis due to inhalation of food and vomit (4) Overdose: Impression: Patient presented with intentional overdose of the following substances: Propranolol, escitalopram, metformin, Tylenol. Poison control was spoken with by the emergency room, recommended twice daily LFTs for 24 hours, as well as lactic acid trending. Both of these are now within normal limits. NAC was not initiated as Tylenol level decreased. Patient will need further evaluation by psychiatry or medical social work when medically cleared. Qualifiers: Encounter type: subsequent encounter Injury intent: intentional self- harm Qualified Code(s): T50.902D - Poisoning by unspecified drugs, medicaments and biological substances, intentional self-harm, subsequent encounter (5) Prediabetes: Impression: Continue to monitor. Patient currently on a safety diet.
[2024-08-18] MEDS: ONDANSETRON 4 MG/2 ML VIAL IVP PRN (13:18)
[2024-08-18] MEDS: LACTATED RINGERS 1,000 ML IV SCH (13:21)
--- NOTE | 2024-08-18 15:40 | PHARMACY PROGRESS NOTE ---
Best Possible Medication History Admit Date and Time: 08/17/24 1858 Home Medications Medication Instructions Recorded Confirmed Type gabapentin 100 mg capsule 200 mg (2 x 100 mg) PO TID # 90 caps 06/01/24 08/18/24 Rx metformin 500 mg tablet,extended 500 mg PO BID #60 tab s 06/01/24 08/18/24 Rx release 24 hr (Glucophage XR) blood sugar diagnostic #100 ea 07/19/24 08/13/24 Rx blood-glucose meter #1 ea 07/19/24 08/13/24 Rx lancets #100 ea 07/19/24 08/13/24 Rx propranolol 20 mg tablet 20 mg PO BID high bp/tremor #60 08/13/24 08/18/24 Rx tabs cyclobenzaprine 5 mg tablet 5 mg PO BID 08/18/2408/18 History escitalopram oxalate 20 mg tablet 20 mg PO DAILY 08/1808/18/24 History (Lexapro) norethindrone (contraceptive) 0.35 0.35 mg PO DAILY 08/18/24 History mg tablet (Kym) spironolactone 50 mg tablet 50 mg PO DAILY 08/18/24 History Processed by: Pharmacy (Medication reconciliation completed by Information ConsultantJoanne) Medications reviewed in ED?: No Medication History completed: Yes Patient Interview: Completed Secondary Source(s): Insurance records [facility] Statement: As the person ultimately responsible for medication therapy, providers are able to order a medication from an existing home medication list in [facility] via the "Reconcile Routine" prior to Confirmation of that medication by support team member. Such practice is discouraged except when the physician, in their clinical judgment, deems that a medical need exists for a medication without regard to previous use.
[2024-08-18] MEDS: LACTATED RINGERS 500 ML IV ONE (15:44)
[2024-08-18] MEDS: KETOROLAC 15 MG/ML VIAL IVP STA (17:30)
[2024-08-18] MEDS: MAG HYDROX/AL HYDROX/SIMETH 30 ML UDC PO PRN (20:30)
[2024-08-18] MEDS ORDERED: ACETAMINOPHEN 1,000 MG/100 ML 1,000 MG/100 ML BAG IV PRN (21:04)
[2024-08-18 21:21] LABS: ALBUMIN 3.4 g/dL (3.2-5.5); ALBUMIN/GLOBULIN RATIO 1.6 (1.0-2.2); BILIRUBIN,TOTAL 0.3 mg/dL (0.2-1.0); CREATININE 0.5 mg/dL (0.6-1.3); POTASSIUM 3.7 mmol/L (3.5-4.5); TOTAL PROTEIN 5.5 g/dL (6.4-8.9)
[2024-08-18] MEDS: LIDOCAINE VISCOUS 2% 15 ML UDC MM PRN (21:27)
[2024-08-18] MEDS: hydrOXYzine PAMOATE 25 MG CAPSULE PO PRN (21:28)
[2024-08-18] MEDS: traMADol 50 MG TABLET PO PRN (21:28)
[2024-08-19 04:44] LABS: BASOPHILS # (AUTO) 0.1 10^3/uL (0.0-0.1); BASOPHILS % (AUTO) 0.4 %; EOSINOPHILS # (AUTO) 0.2 10^3/uL (0.0-0.7); EOSINOPHILS % (AUTO) 1.4 %; HCT - HEMATOCRIT 36.2 % (37.0-47.0); HGB - HEMOGLOBIN 11.8 g/dL (12.0-16.0); LYMPHOCYTES # (AUTO) 1.5 10^3/uL (1.5-3.5); LYMPHOCYTES % (AUTO) 12.6 %; MEAN CORPUSCULAR HEMOGLOBIN 31.6 pg (27.0-31.0); MEAN CORPUSCULAR HGB CONC 32.6 g/dL (32.0-36.0); MEAN CORPUSCULAR VOLUME 97.1 fL (81.0-99.0); MONOCYTES # (AUTO) 0.8 10^3/uL (0.0-1.0); MONOCYTES % (AUTO) 6.2 %; NEUTROPHILS # (AUTO) 9.6 10^3/uL (1.5-6.6); NEUTROPHILS % (AUTO) 79.1 %; PLT - PLATELET COUNT 236 10^3/uL (130-450); RED BLOOD COUNT 3.73 10^6/uL (4.20-5.40); RED CELL DISTRIBUTION WIDTH 12.6 % (12.0-15.0); WHITE BLOOD COUNT 12.2 x10^3/uL (4.8-10.8)
[2024-08-19 04:48] LABS: CALCIUM, IONIZED 1.12 mmol/L (1.09-1.30); VBG PH 7.376 (7.31-7.41)
[2024-08-19 04:53] LABS: MAGNESIUM 1.8 mg/dL (1.7-2.3)
[2024-08-19 04:59] LABS: CREATININE 0.6 mg/dL (0.6-1.3); PHOSPHORUS 2.2 mg/dL (2.5-5.0); POTASSIUM 3.8 mmol/L (3.5-4.5)
[2024-08-19] MEDS: NEUTRA-PHOS 250 MG TABLET PO SCH ×2 (06:32→22:06)
[2024-08-19] MEDS: MAGNESIUM OXIDE 400 MG TABLET PO ONE (06:33)
[2024-08-19] MEDS: polyethylene glycoL 3350 17 GM PACKET PO SCH (08:16)
[2024-08-19] MEDS: ACETAMINOPHEN 1,000 MG/100 ML 1,000 MG/100 ML BAG IV ONE (08:32)
[2024-08-19 09:28] LABS: ALBUMIN 3.2 g/dL (3.2-5.5); ALBUMIN/GLOBULIN RATIO 1.8 (1.0-2.2); BILIRUBIN,TOTAL 0.3 mg/dL (0.2-1.0); CALCIUM 7.7 mg/dL (8.5-10.3); CREATININE 0.5 mg/dL (0.6-1.3); POTASSIUM 3.4 mmol/L (3.5-4.5)
[2024-08-19] MEDS: POTASSIUM CHLOR 20 MEQ/100 ML 20 MEQ/100 ML BAG IV SCH (10:29)
--- NOTE | 2024-08-19 12:20 | PROVIDER PROGRESS NOTE ---
Subjective Subjective Subjective: Patient states that she has a mild cough. This is improving. She has no shortness of breath. She has no chest pain or palpitations. She does not feel like her heart is racing. She does feel anxious at times. She would like to see her family, including her 2 children. Current Medications Current Medications Current Medications: Current Medications Generic Name Dose Route Start Last Admin Trade Name Freq PRN Reason Stop Dose Admin Al Hydroxide/Mg Hydroxide 30 ml 08/18/24 20:06 08/18/24 20:30 Mag Hydrox/Al Hydrox/Simeth 30 Ml Udc PO 30 ml Q4HR PRN Administration INDIGESTION Chlorhexidine Gluconate 15 ml 08/17/24 21:00 08/19/24 08:15 Chlorhexidine Gluconate 15 Ml Udc PO Not Given BID FRANCOISE Enoxaparin Sodium 40 mg 08/18/24 09:00 08/19/24 08:14 Enoxaparin 40 Mg/0.4 Ml Syringe SUBQ 40 mg DAILY FRANCOISE Administration Famotidine 20 mg 08/17/24 21:00 08/19/24 08:15 Famotidine 20 Mg/2 Ml Vial IVP 20 mg BID FRANCOISE Administration Hydroxyzine Pamoate 25 mg 08/18/24 21:00 08/18/24 21:28 Hydroxyzine Pamoate 25 Mg Capsule PO 25 mg QPM PRN Administration Insomnia Norepinephrine/Sodium Chloride 8 mg in 250 mls @ 15 mls/hr 08/17/24 20:00 08/19/24 07:30 Levophed 8 Mg/250-0.9% Nacl IV 0 mcg/min .[id number] FRANCOISE 0 mls/hr Titration Protocol 8 MCG/MIN Ampicillin Sodium/Sulbactam 100 mls @ 200 mls/hr 08/18/24 09:00 08/19/24 11:49 Sodium 3 gm/ Sodium Chloride IV 08/23/24 08:59 200 mls/hr Q6HR FRANCOISE Administration Lactated Ringer's 1,000 mls @ 75 mls/hr 08/18/24 12:00 08/19/24 08:59 Lr IV 75 mls/hr .[id number] FRANCOISE Administration Potassium Chloride 20 meq in 100 mls @ 100 mls/hr 08/19/24 11:00 08/19/24 11:47 Potassium Chloride IV 08/19/24 12:59 100 mls/hr Q1H FRANCOISE Administration Protocol Insulin Human Lispro 1 - 5 unit 08/18/24 12:00 08/19/24 12:01 Insulin Lispro 300 Unit/3 Ml Pen SUBQ 2 unit 0800,1200,1700,2100 FRANCOISE Administration Protocol Lidocaine HCl 5 ml 08/18/24 20:58 08/18/24 21:27 Lidocaine Viscous 2% 15 Ml Udc MM 5 ml Q4H PRN Administration Mouth Sore Pain Nicotine 1 patch 08/18/24 13:00 08/19/24 08:15 Nicotine 21 Mg Patch TOP 1 patch DAILY FRANCOISE Administration Ondansetron HCl 4 mg 08/17/24 19:29 08/19/24 12:07 Ondansetron 4 Mg/2 Ml Vial IVP 4 mg Q6HR PRN Administration Nausea / Vomiting Pantoprazole Sodium 40 mg 08/18/24 07:00 08/19/24 06:33 Pantoprazole 40 Mg Vial IVP 40 mg QDAC FRANCOISE Administration Polyethylene Glycol 17 gm 08/19/24 09:00 08/19/24 08:16 Polyethylene Glycol 3350 17 Gm Packet PO 17 gm DAILY FRANCOISE Administration Sodium Chloride 10 ml 08/18/24 01:00 08/19/24 08:16 Sodium Chloride Flush 0.9% 10 Ml Syringe IVP 10 ml 0100,0900,1700 FRANCOISE Administration Sodium Chloride 10 ml 08/17/24 19:29 08/19/24 06:33 Sodium Chloride Flush 0.9% 10 Ml Syringe IVP 10 ml PRN PRN Administration NEEDED PER PROVIDER ORDERS Tramadol HCl 50 mg 08/18/24 21:00 08/19/24 08:22 Tramadol 50 Mg Tablet PO 08/19/24 20:59 50 mg Q4HR PRN Administration Moderate Pain (Level 4-6) Objective Vital Signs/Intake & Output Reviewed Vital Signs: Yes Vital Signs: Vital Signs x48h Temp Pulse Resp BP Pulse Ox O2 Flow Rate 08/19/24 12:00 98.8 F 119 H 20 126/92 H 95 2 08/19/24 11:00 120 H 20 93/63 93 3 08/19/24 10:00 116 H 15 102/81 95 3 08/19/24 09:00 118 H 15 86/64 L 93 1 08/19/24 08:00 119 H 14 101/72 93 1 08/19/24 07:45 114 H 12 94/72 92 1 08/19/24 07:33 3 08/19/24 07:00 98 20 115/74 95 3 08/19/24 06:00 108 H 18 110/73 93 3 08/19/24 05:00 113 H 14 114/81 95 3 Intake & Output: Intake & Output 08/16/24 08/17/24 08/18/24 08/19/24 23:59 23:59 23:59 23:59 Intake Total 527 / 527 8329 / 8329 1889 / 1889 Output Total 570 / 570 2744 / 2744 895 / 895 Balance -43 / -43 5585 / 5585 994 / 994 Weight (kg) 113.398 kg 108.5 kg 112 kg Objective General Appearance: positive No acute distress and Alert; negative Anxious Eyes Bilateral: positive Normal inspection, PERRL and EOMI ENT: positive ENT inspection nml, Pharynx nml and No signs of dehydration Neck: positive Nml inspection, Thyroid nml, No JVD and Trachea midline Respiratory: positive Chest non-tender and Rales (mild bibasilar); negative Wheezes Cardiovascular: positive Regular rate & rhythm, No murmur, No gallop and Tachycardia Abdomen: positive Non-tender and No distention; negative Guarding, Hepatomegaly, Abnml bowel sounds or Bruit Back: positive Nml inspection; negative CVA tenderness (R) or CVA tenderness (L) Skin: positive Color nml, No rash, Warm and Dry Extremities: positive Non-tender, Full ROM, Nml appearance and No pedal edema Neurologic/Psychiatric: positive Oriented x3, Motor nml and Depressed mood/affect Lab Results 08/19/24 04:35 08/19/24 13:55 Other Labs: Lab Results x24hrs 08/19/24 08/19/24 08/19/24 Range/Units 12:00 08:57 07:47 WBC (4.8-10.8) x10^3/uL RBC (4.20-5.40) 10^6/uL Hgb (12.0-16.0) g/dL Hct (37.0-47.0) % MCV (81.0-99.0) fL MCH (27.0-31.0) pg MCHC (32.0-36.0) g/dL RDW (12.0-15.0) % Plt Count (130-450) 10^3/uL MPV (7.9-10.8) fL Neut # (Auto) (1.5-6.6) 10^3/uL Lymph # (Auto) (1.5-3.5) 10^3/uL [place] # (Auto) (0.0-1.0) 10^3/uL Eos # (Auto) (0.0-0.7) 10^3/uL Baso # (Auto) (0.0-0.1) 10^3/uL Absolute Nucleated RBC x10^3/uL Nucleated RBC % /100WBC VBG pH (7.31-7.41) Ionized Calcium (1.09-1.30) mmol/L Sodium 138 (135-145) mmol/L Potassium 3.4 L (3.5-4.5) mmol/L Chloride 105 (101-111) mmol/L Carbon Dioxide 27 (21-32) mmol/L Anion Gap 6.0 (6-13) BUN 4 L (6-20) mg/dL Creatinine 0.5 L (0.6-1.3) mg/dL Estimated GFR (MDRD) 139 (>89) Glucose 219 H (74-104) mg/dL POC Whole Bld Glucose 195 177 (70-100) mg/dL Calcium 7.7 L (8.5-10.3) mg/dL Phosphorus (2.5-5.0) mg/dL Magnesium (1.7-2.3) mg/dL Total Bilirubin 0.3 (0.2-1.0) mg/dL AST 23 (10-42) IU/L ALT 36 (10-60) IU/L Alkaline Phosphatase 37 L (42-121) IU/L Total Protein 5.0 L (6.4-8.9) g/dL Albumin 3.2 (3.2-5.5) g/dL Globulin 1.8 L (2.1-4.2) g/dL Albumin/Globulin Ratio 1.8 (1.0-2.2) 08/19/24 08/18/24 08/18/24 Range/Units 04:35 20:56 20:32 WBC 12.2 H (4.8-10.8) x10^3/uL RBC 3.73 L (4.20-5.40) 10^6/uL Hgb 11.8 L (12.0-16.0) g/dL Hct 36.2 L (37.0-47.0) % MCV 97.1 (81.0-99.0) fL MCH 31.6 H (27.0-31.0) pg MCHC 32.6 (32.0-36.0) g/dL RDW 12.6 (12.0-15.0) % Plt Count 236 (130-450) 10^3/uL MPV 9.0 (7.9-10.8) fL Neut # (Auto) 9.6 H (1.5-6.6) 10^3/uL Lymph # (Auto) 1.5 (1.5-3.5) 10^3/uL [place] # (Auto) 0.8 (0.0-1.0) 10^3/uL Eos # (Auto) 0.2 (0.0-0.7) 10^3/uL Baso # (Auto) 0.1 (0.0-0.1) 10^3/uL Absolute Nucleated RBC 0.00 x10^3/uL Nucleated RBC % 0.0 /100WBC VBG pH 7.376 (7.31-7.41) Ionized Calcium 1.12 (1.09-1.30) mmol/L Sodium 136 137 (135-145) mmol/L Potassium 3.8 3.7 (3.5-4.5) mmol/L Chloride 103 106 (101-111) mmol/L Carbon Dioxide 27 25 (21-32) mmol/L Anion Gap 6.0 6.0 (6-13) BUN 5 L 6 (6-20) mg/dL Creatinine 0.6 0.5 L (0.6-1.3) mg/dL Estimated GFR (MDRD) 112 139 (>89) Glucose 210 H 180 H (74-104) mg/dL POC Whole Bld Glucose 200 (70-100) mg/dL Calcium 8.0 L 8.0 L (8.5-10.3) mg/dL Phosphorus 2.2 L (2.5-5.0) mg/dL Magnesium 1.8 (1.7-2.3) mg/dL Total Bilirubin 0.3 (0.2-1.0) mg/dL AST 30 (10-42) IU/L ALT 45 (10-60) IU/L Alkaline Phosphatase 42 (42-121) IU/L Total Protein 5.5 L (6.4-8.9) g/dL Albumin 3.4 (3.2-5.5) g/dL Globulin 2.1 (2.1-4.2) g/dL Albumin/Globulin Ratio 1.6 (1.0-2.2) 08/18/24 Range/Units 16:55 WBC (4.8-10.8) x10^3/uL RBC (4.20-5.40) 10^6/uL Hgb (12.0-16.0) g/dL Hct (37.0-47.0) % MCV (81.0-99.0) fL MCH (27.0-31.0) pg MCHC (32.0-36.0) g/dL RDW (12.0-15.0) % Plt Count (130-450) 10^3/uL MPV (7.9-10.8) fL Neut # (Auto) (1.5-6.6) 10^3/uL Lymph # (Auto) (1.5-3.5) 10^3/uL [place] # (Auto) (0.0-1.0) 10^3/uL Eos # (Auto) (0.0-0.7) 10^3/uL Baso # (Auto) (0.0-0.1) 10^3/uL Absolute Nucleated RBC x10^3/uL Nucleated RBC % /100WBC VBG pH (7.31-7.41) Ionized Calcium (1.09-1.30) mmol/L Sodium (135-145) mmol/L Potassium (3.5-4.5) mmol/L Chloride (101-111) mmol/L Carbon Dioxide (21-32) mmol/L Anion Gap (6-13) BUN (6-20) mg/dL Creatinine (0.6-1.3) mg/dL Estimated GFR (MDRD) (>89) Glucose (74-104) mg/dL POC Whole Bld Glucose 207 (70-100) mg/dL Calcium (8.5-10.3) mg/dL Phosphorus (2.5-5.0) mg/dL Magnesium (1.7-2.3) mg/dL Total Bilirubin (0.2-1.0) mg/dL AST (10-42) IU/L ALT (10-60) IU/L Alkaline Phosphatase (42-121) IU/L Total Protein (6.4-8.9) g/dL Albumin (3.2-5.5) g/dL Globulin (2.1-4.2) g/dL Albumin/Globulin Ratio (1.0-2.2) Assessment/Plan Problem List (1) Sepsis: Impression: Patient with increasing oxygen requirements. Was intubated yesterday due to inability to protect airway. Concern for aspiration event. This morning, she is on 2 L oxygen. Also has sepsis, tachycardia, leukocytosis. Unasyn started. Blood cultures ordered, no growth to date. Continue gentle IV fluid rehydration. Qualifiers: Sepsis acute organ dysfunction status: without acute organ dysfunction Sepsis type: sepsis due to unspecified organism Qualified Code(s): A41.9 - Sepsis, unspecified organism (2) Sinus tachycardia: Impression: Patient with persistent sinus tachycardia. May be attributed to Levophed use, which has been weaned off since this morning. Continue IV fluid rehydration. No active chest pain, no concerns for any ischemic changes on EKG. D-dimer ordered. Wells criteria just 1.5 for heart rate greater than 100. Consider CTA if continues to be hypoxic and tachycardic to rule out pulmonary embolism. (3) Respiratory failure, acute: Impression: On admission patient was intubated for airway protection after intentional overdose. Extubated 08/18, currently requiring 3 L to maintain saturations. Continue to wean oxygen down as tolerated. Treat for aspiration pneumonia as stated above. Qualifiers: Respiratory failure complication: hypoxia Qualified Code(s): J96.01 - Acute respiratory failure with hypoxia (4) Aspiration pneumonia: Impression: Patient with aspiration pneumonia versus pneumonitis; continue Unasyn. Qualifiers: Aspiration pneumonia type: unspecified Laterality: unspecified laterality Lung location: unspecified part of lung Qualified Code(s): J69.0 - Pneumonitis due to inhalation of food and vomit (5) Overdose: Impression: Patient presented with intentional overdose of the following substances: Propranolol, escitalopram, metformin, Tylenol. Poison control was spoken with by the emergency room, recommended twice daily LFTs for 24 hours, as well as lactic acid trending. Both of these are now within normal limits. NAC was not initiated as Tylenol level decreased. Patient will need further evaluation by psychiatry or medical social work when medically cleared. Qualifiers: Encounter type: subsequent encounter Injury intent: intentional self- harm Qualified Code(s): T50.902D - Poisoning by unspecified drugs, medicaments and biological substances, intentional self-harm, subsequent encounter (6) Prediabetes: Impression: Continue to monitor. Patient currently on a safety diet.
--- NOTE | 2024-08-19 12:36 | XRAY Report ---
PROCEDURE: XR Abdomen 1 V INDICATIONS: Abdominal pain TECHNIQUE: One view of the abdomen acquired. COMPARISON: None. FINDINGS: Surgical changes and devices: None. Bowel: Bowel gas pattern is normal. Mild rectal stool. Soft tissues: No suspicious abdominal calcifications. Visualized solid organ contours appear normal in size. Bones: No suspicious bony lesions. IMPRESSION: No acute abdominal pathology. Reviewed by: Bennie Jha MD on 08/19/2024 12:35 PM PDT Approved by: Bennie Jha MD on 08/19/2024 12:35 PM PDT Station ID: [id number]
[2024-08-19 14:49] LABS: MAGNESIUM 1.9 mg/dL (1.7-2.3); POTASSIUM 3.9 mmol/L (3.5-4.5)
[2024-08-19] MEDS: POTASSIUM PHOSPHATE 15 MMOL in SODIUM CHLORIDE 0.9% 250 ML IV ONE (15:23)
[2024-08-19 21:24] LABS: PHOSPHORUS 2.4 mg/dL (2.5-5.0)
[2024-08-20] MEDS: traMADol 50 MG TABLET PO PRN (00:04)
[2024-08-20 04:46] LABS: BASOPHILS % (AUTO) 0.2 %; EOSINOPHILS # (AUTO) 0.2 10^3/uL (0.0-0.7); LYMPHOCYTES # (AUTO) 2.1 10^3/uL (1.5-3.5); LYMPHOCYTES % (AUTO) 32.2 %; MEAN CORPUSCULAR HEMOGLOBIN 31.5 pg (27.0-31.0); MEAN CORPUSCULAR HGB CONC 32.3 g/dL (32.0-36.0); MEAN CORPUSCULAR VOLUME 97.8 fL (81.0-99.0); MEAN PLATELET VOLUME 9.1 fL (7.9-10.8); MONOCYTES # (AUTO) 0.4 10^3/uL (0.0-1.0); MONOCYTES % (AUTO) 6.6 %; NEUTROPHILS # (AUTO) 3.7 10^3/uL (1.5-6.6); NEUTROPHILS % (AUTO) 57.8 %; PLT - PLATELET COUNT 187 10^3/uL (130-450); RED BLOOD COUNT 3.17 10^6/uL (4.20-5.40); RED CELL DISTRIBUTION WIDTH 12.5 % (12.0-15.0); WHITE BLOOD COUNT 6.4 x10^3/uL (4.8-10.8)
[2024-08-20 04:53] LABS: CALCIUM, IONIZED 1.19 mmol/L (1.09-1.30); VBG PH 7.401 (7.31-7.41)
[2024-08-20 05:01] LABS: MAGNESIUM 1.8 mg/dL (1.7-2.3)
[2024-08-20 05:07] LABS: CALCIUM 8.2 mg/dL (8.5-10.3); CREATININE 0.5 mg/dL (0.6-1.3); POTASSIUM 4.1 mmol/L (3.5-4.5)
[2024-08-20] MEDS: MAGNESIUM OXIDE 400 MG TABLET PO ONE (06:11)
[2024-08-20] MEDS: KETOROLAC 15 MG/ML VIAL IVP STA (09:17)
--- NOTE | 2024-08-20 09:34 | PROVIDER PROGRESS NOTE ---
Subjective Subjective Subjective: Patient states that she has a mild cough. This is improving. She has no shortness of breath. She has no chest pain or palpitations. She does not feel like her heart is racing. She does feel anxious at times. She does have a headache which she describes as throbbing. It is located on her right side of her head, radiates down. Current Medications Current Medications Current Medications: Current Medications Generic Name Dose Route Start Last Admin Trade Name Freq PRN Reason Stop Dose Admin Al Hydroxide/Mg Hydroxide 30 ml 08/18/24 20:06 08/18/24 20:30 Mag Hydrox/Al Hydrox/Simeth 30 Ml Udc PO 30 ml Q4HR PRN Administration INDIGESTION Enoxaparin Sodium 40 mg 08/18/24 09:00 08/20/24 08:10 Enoxaparin 40 Mg/0.4 Ml Syringe SUBQ 40 mg DAILY FRANCOISE Administration Famotidine 20 mg 08/17/24 21:00 08/20/24 08:10 Famotidine 20 Mg/2 Ml Vial IVP 20 mg BID FRANCOISE Administration Hydroxyzine Pamoate 25 mg 08/18/24 21:00 08/19/24 22:06 Hydroxyzine Pamoate 25 Mg Capsule PO 25 mg QPM PRN Administration Insomnia Ampicillin Sodium/Sulbactam 100 mls @ 200 mls/hr 08/18/24 09:00 08/20/24 07:00 Sodium 3 gm/ Sodium Chloride IV 08/23/24 08:59 Infused Q6HR FRANCOISE Infusion Lactated Ringer's 1,000 mls @ 75 mls/hr 08/18/24 12:00 08/19/24 22:11 Lr IV 75 mls/hr .[id number] FRANCOISE Administration Insulin Human Lispro 1 - 5 unit 08/18/24 12:00 08/20/24 08:11 Insulin Lispro 300 Unit/3 Ml Pen SUBQ Not Given 0800,1200,1700,2100 FRANCOISE Protocol Lidocaine HCl 5 ml 08/18/24 20:58 08/18/24 21:27 Lidocaine Viscous 2% 15 Ml Udc MM 5 ml Q4H PRN Administration Mouth Sore Pain Nicotine 1 patch 08/18/24 13:00 08/20/24 08:10 Nicotine 21 Mg Patch TOP 1 patch DAILY FRANCOISE Administration Ondansetron HCl 4 mg 08/17/24 19:29 08/20/24 06:54 Ondansetron 4 Mg/2 Ml Vial IVP 4 mg Q6HR PRN Administration Nausea / Vomiting Pantoprazole Sodium 40 mg 08/18/24 07:00 08/20/24 06:11 Pantoprazole 40 Mg Vial IVP 40 mg QDAC FRANCOISE Administration Polyethylene Glycol 17 gm 08/19/24 09:00 08/20/24 08:10 Polyethylene Glycol 3350 17 Gm Packet PO 17 gm DAILY FRANCOISE Administration Sodium Chloride 10 ml 08/18/24 01:00 08/20/24 08:11 Sodium Chloride Flush 0.9% 10 Ml Syringe IVP 10 ml 0100,0900,1700 FRANCOISE Administration Sodium Chloride 10 ml 08/17/24 19:29 08/20/24 06:11 Sodium Chloride Flush 0.9% 10 Ml Syringe IVP 10 ml PRN PRN Administration NEEDED PER PROVIDER ORDERS Tramadol HCl 50 mg 08/19/24 21:22 08/20/24 04:39 Tramadol 50 Mg Tablet PO 50 mg Q4HR PRN Administration Moderate Pain (Level 4-6) Objective Vital Signs/Intake & Output Reviewed Vital Signs: Yes Vital Signs: Vital Signs x48h Temp Pulse Resp BP Pulse Ox O2 Flow Rate 08/20/24 08:00 98.6 F 93 16 128/87 98 1 08/20/24 06:55 92 11 L 130/90 99 2 08/20/24 06:00 96 14 87/70 L 100 2 08/20/24 05:00 89 15 113/70 97 2 08/20/24 04:00 89 14 111/73 98 2 08/20/24 03:00 94 25 H 99/69 97 2 08/20/24 02:00 99 22 124/88 97 2 Intake & Output: Intake & Output 08/17/24 08/18/24 08/19/24 08/20/24 23:59 23:59 23:59 23:59 Intake Total 527 / 527 8329 / 8329 4534 / 4534 200 / 200 Output Total 570 / 570 2744 / 2744 1470 / 1470 1325 / 1325 Balance -43 / -43 5585 / 5585 3064 / 3064 -1125 / -1125 Weight (kg) 113.398 kg 108.5 kg 112 kg 110 kg Objective General Appearance: positive No acute distress and Alert; negative Anxious Eyes Bilateral: positive Normal inspection, PERRL and EOMI ENT: positive ENT inspection nml, Pharynx nml and No signs of dehydration Neck: positive Nml inspection, Thyroid nml, No JVD and Trachea midline Respiratory: positive Chest non-tender and Rales (mild bibasilar); negative Wheezes Cardiovascular: positive Regular rate & rhythm, No murmur, No gallop and Tachycardia Abdomen: positive Non-tender and No distention; negative Guarding, Hepatomegaly, Abnml bowel sounds or Bruit Back: positive Nml inspection; negative CVA tenderness (R) or CVA tenderness (L) Skin: positive Color nml, No rash, Warm and Dry Extremities: positive Non-tender, Full ROM, Nml appearance and No pedal edema Neurologic/Psychiatric: positive Oriented x3, Motor nml and Depressed mood/affect Lab Results 08/20/24 04:36 08/20/24 04:36 Other Labs: Lab Results x24hrs 08/20/24 08/20/24 08/19/24 Range/Units 08:09 04:36 20:57 WBC 6.4 (4.8-10.8) x10^3/uL RBC 3.17 L (4.20-5.40) 10^6/uL Hgb 10.0 L (12.0-16.0) g/dL Hct 31.0 L (37.0-47.0) % MCV 97.8 (81.0-99.0) fL MCH 31.5 H (27.0-31.0) pg MCHC 32.3 (32.0-36.0) g/dL RDW 12.5 (12.0-15.0) % Plt Count 187 (130-450) 10^3/uL MPV 9.1 (7.9-10.8) fL Neut # (Auto) 3.7 (1.5-6.6) 10^3/uL Lymph # (Auto) 2.1 (1.5-3.5) 10^3/uL [place] # (Auto) 0.4 (0.0-1.0) 10^3/uL Eos # (Auto) 0.2 (0.0-0.7) 10^3/uL Baso # (Auto) 0.0 (0.0-0.1) 10^3/uL Absolute Nucleated RBC 0.00 x10^3/uL Nucleated RBC % 0.0 /100WBC D-Dimer (200.0-255.0) ng/mL VBG pH 7.401 (7.31-7.41) Ionized Calcium 1.19 (1.09-1.30) mmol/L Sodium 138 (135-145) mmol/L Potassium 4.1 4.0 (3.5-4.5) mmol/L Chloride 103 (101-111) mmol/L Carbon Dioxide 31 (21-32) mmol/L Anion Gap 4.0 L (6-13) BUN 3 L (6-20) mg/dL Creatinine 0.5 L (0.6-1.3) mg/dL Estimated GFR (MDRD) 139 (>89) Glucose 130 H (74-104) mg/dL POC Whole Bld Glucose 125 (70-100) mg/dL Calcium 8.2 L (8.5-10.3) mg/dL Phosphorus 3.0 2.4 L (2.5-5.0) mg/dL Magnesium 1.8 (1.7-2.3) mg/dL 08/19/24 08/19/24 08/19/24 Range/Units 20:33 16:52 13:55 WBC (4.8-10.8) x10^3/uL RBC (4.20-5.40) 10^6/uL Hgb (12.0-16.0) g/dL Hct (37.0-47.0) % MCV (81.0-99.0) fL MCH (27.0-31.0) pg MCHC (32.0-36.0) g/dL RDW (12.0-15.0) % Plt Count (130-450) 10^3/uL MPV (7.9-10.8) fL Neut # (Auto) (1.5-6.6) 10^3/uL Lymph # (Auto) (1.5-3.5) 10^3/uL [place] # (Auto) (0.0-1.0) 10^3/uL Eos # (Auto) (0.0-0.7) 10^3/uL Baso # (Auto) (0.0-0.1) 10^3/uL Absolute Nucleated RBC x10^3/uL Nucleated RBC % /100WBC D-Dimer (200.0-255.0) ng/mL VBG pH (7.31-7.41) Ionized Calcium (1.09-1.30) mmol/L Sodium (135-145) mmol/L Potassium 3.9 (3.5-4.5) mmol/L Chloride (101-111) mmol/L Carbon Dioxide (21-32) mmol/L Anion Gap (6-13) BUN (6-20) mg/dL Creatinine (0.6-1.3) mg/dL Estimated GFR (MDRD) (>89) Glucose (74-104) mg/dL POC Whole Bld Glucose 162 110 (70-100) mg/dL Calcium (8.5-10.3) mg/dL Phosphorus 2.3 L (2.5-5.0) mg/dL Magnesium 1.9 (1.7-2.3) mg/dL 08/19/24 08/19/24 Range/Units 12:30 12:00 WBC (4.8-10.8) x10^3/uL RBC (4.20-5.40) 10^6/uL Hgb (12.0-16.0) g/dL Hct (37.0-47.0) % MCV (81.0-99.0) fL MCH (27.0-31.0) pg MCHC (32.0-36.0) g/dL RDW (12.0-15.0) % Plt Count (130-450) 10^3/uL MPV (7.9-10.8) fL Neut # (Auto) (1.5-6.6) 10^3/uL Lymph # (Auto) (1.5-3.5) 10^3/uL [place] # (Auto) (0.0-1.0) 10^3/uL Eos # (Auto) (0.0-0.7) 10^3/uL Baso # (Auto) (0.0-0.1) 10^3/uL Absolute Nucleated RBC x10^3/uL Nucleated RBC % /100WBC D-Dimer < 200.0 L (200.0-255.0) ng/mL VBG pH (7.31-7.41) Ionized Calcium (1.09-1.30) mmol/L Sodium (135-145) mmol/L Potassium (3.5-4.5) mmol/L Chloride (101-111) mmol/L Carbon Dioxide (21-32) mmol/L Anion Gap (6-13) BUN (6-20) mg/dL Creatinine (0.6-1.3) mg/dL Estimated GFR (MDRD) (>89) Glucose (74-104) mg/dL POC Whole Bld Glucose 195 (70-100) mg/dL Calcium (8.5-10.3) mg/dL Phosphorus (2.5-5.0) mg/dL Magnesium (1.7-2.3) mg/dL Assessment/Plan Problem List (1) Sepsis: Impression: Likely due to aspiration pneumonia in setting of inability to protect airway. Had fevers, tachycardia, leukocytosis. Continue Unasyn at this time. Only on 1 L oxygen; will continue to wean off by end of the day. Blood cultures ordered, no growth to date. Continue gentle IV fluid rehydration. Qualifiers: Sepsis acute organ dysfunction status: without acute organ dysfunction Sepsis type: sepsis due to unspecified organism Qualified Code(s): A41.9 - Sepsis, unspecified organism (2) Sinus tachycardia: Impression: Resolved. May be attributed to Levophed use, which has been weaned off. Sepsis also contributing, now resolving. Continue IV fluid rehydration. No active chest pain, no concerns for any ischemic changes on EKG. D-dimer ordered, negative. Wells criteria just 1.5 for heart rate greater than 100. (3) Respiratory failure, acute: Impression: On admission patient was intubated for airway protection after intentional overdose. Extubated 08/18, currently requiring 1 L to maintain saturations. Continue to wean oxygen down as tolerated. Treat for aspiration pneumonia as stated above. Qualifiers: Respiratory failure complication: hypoxia Qualified Code(s): J96.01 - Acute respiratory failure with hypoxia (4) Aspiration pneumonia: Impression: Patient with aspiration pneumonia versus pneumonitis; continue Unasyn. Qualifiers: Aspiration pneumonia type: unspecified Laterality: unspecified laterality Lung location: unspecified part of lung Qualified Code(s): J69.0 - Pneumonitis due to inhalation of food and vomit (5) Overdose: Impression: Patient presented with intentional overdose of the following substances: Propranolol, escitalopram, metformin, Tylenol. Poison control was spoken with by the emergency room, recommended twice daily LFTs for 24 hours, as well as lactic acid trending. Both of these are now within normal limits. NAC was not initiated as Tylenol level decreased. Patient will need further evaluation by psychiatry or medical social work when medically cleared. Qualifiers: Encounter type: subsequent encounter Injury intent: intentional self- harm Qualified Code(s): T50.902D - Poisoning by unspecified drugs, medicaments and biological substances, intentional self-harm, subsequent encounter (6) Prediabetes: Impression: Continue to monitor. Patient currently on a safety diet.
--- NOTE | 2024-08-20 19:20 | MISCELLANEOUS PROVIDER NOTE ---
Miscellaneous Provider Note - Note: Patient is on room air and therefore medically cleared for discharge. We are in talks with [facility] regarding placement.
[2024-08-20 20:07] LABS: HCT - HEMATOCRIT 33.5 % (37.0-47.0); MEAN CORPUSCULAR HGB CONC 32.8 g/dL (32.0-36.0); MEAN CORPUSCULAR VOLUME 97.4 fL (81.0-99.0); MEAN PLATELET VOLUME 8.9 fL (7.9-10.8); RED BLOOD COUNT 3.44 10^6/uL (4.20-5.40); RED CELL DISTRIBUTION WIDTH 12.5 % (12.0-15.0)
[2024-08-20 20:22] LABS: ACETAMINOPHEN 0.3 ug/mL; ALBUMIN 3.8 g/dL (3.2-5.5); ALBUMIN/GLOBULIN RATIO 1.7 (1.0-2.2); ALKALINE PHOSPHATASE 45 IU/L (42-121); ALT ALANINE AMINOTRANSFERASE 39 IU/L (10-60); AST ASPARTATE AMINOTRANSFERASE 32 IU/L (10-42); BILIRUBIN,TOTAL 0.2 mg/dL (0.2-1.0); BUN - BLOOD UREA NITROGEN 6 mg/dL (6-20); CALCIUM 8.8 mg/dL (8.5-10.3); CARBON DIOXIDE - CO2 31 mmol/L (21-32); CHLORIDE 102 mmol/L (101-111); CK- CREATINE KINASE 79 IU/L (30-223); CREATININE 0.6 mg/dL (0.6-1.3); ETOH - ETHANOL < 10.0 mg/dL; GFR - MDRD 112 (>89); GLUCOSE 210 mg/dL (74-104); SODIUM 138 mmol/L (135-145); TOTAL PROTEIN 6.1 g/dL (6.4-8.9)
[2024-08-20 20:26] LABS: SALICYLATE < 1.5 mg/dL
[2024-08-20] MEDS: IBUPROFEN 400 MG TABLET PO PRN (21:22)
[2024-08-20 21:31] LABS: BILIRUBIN,URINE NEGATIVE (NEGATIVE); GLUCOSE, URINE (UA) 250 mg/dL (NEGATIVE); KETONES,URINE (UA) NEGATIVE (NEGATIVE); LEUKOCYTE ESTERASE, URINE NEGATIVE (NEGATIVE); NITRITE,URINE NEGATIVE (NEGATIVE); OCCULT BLOOD,URINE NEGATIVE (NEGATIVE); PH,URINE 7.5 PH (5.0-7.5); PROTEIN,URINE NEGATIVE (NEGATIVE); UROBILINOGEN,URINE 0.2 (NORMAL) E.U./dL (NORMAL)
[2024-08-20 21:33] LABS: CLARITY,URINE CLEAR (CLEAR)
[2024-08-21 00:59] LABS: COCAINE SCREEN URINE NEGATIVE (NEGATIVE); HCG UR QUAL NEGATIVE; METHAMPHETAMINES SCREEN, URINE NEGATIVE (NEGATIVE); OPIATE SCREEN, URINE NEGATIVE (NEGATIVE); THC CANNABINOID SCREEN, URINE NEGATIVE (NEGATIVE)
[2024-08-21 01:00] LABS: AMPHETAMINE SCREEN,URINE NEGATIVE (NEGATIVE); BARBITURATE SCREEN,UR NEGATIVE (NEGATIVE); BENZODIAZEPINES SCREEN, URINE NEGATIVE (NEGATIVE); BUPRENORPHINE SCREEN, URINE NEGATIVE (NEGATIVE); METHADONE SCREEN, URINE NEGATIVE (NEGATIVE); OXYCODONE SCREEN, URINE NEGATIVE (NEGATIVE); TRICYCLIC ANTIDEPRESSANT,URINE NEGATIVE (NEGATIVE)
[2024-08-21 06:21] LABS: BASOPHILS % (AUTO) 0.6 %; EOSINOPHILS # (AUTO) 0.2 10^3/uL (0.0-0.7); EOSINOPHILS % (AUTO) 3.8 %; HCT - HEMATOCRIT 32.2 % (37.0-47.0); HGB - HEMOGLOBIN 10.4 g/dL (12.0-16.0); LYMPHOCYTES # (AUTO) 1.9 10^3/uL (1.5-3.5); LYMPHOCYTES % (AUTO) 39.5 %; MEAN CORPUSCULAR HEMOGLOBIN 31.8 pg (27.0-31.0); MEAN CORPUSCULAR HGB CONC 32.3 g/dL (32.0-36.0); MEAN CORPUSCULAR VOLUME 98.5 fL (81.0-99.0); MEAN PLATELET VOLUME 9.7 fL (7.9-10.8); MONOCYTES # (AUTO) 0.3 10^3/uL (0.0-1.0); MONOCYTES % (AUTO) 6.8 %; NEUTROPHILS # (AUTO) 2.3 10^3/uL (1.5-6.6); NEUTROPHILS % (AUTO) 49.1 %; PLT - PLATELET COUNT 240 10^3/uL (130-450); RED BLOOD COUNT 3.27 10^6/uL (4.20-5.40); RED CELL DISTRIBUTION WIDTH 12.4 % (12.0-15.0); WHITE BLOOD COUNT 4.7 x10^3/uL (4.8-10.8)
[2024-08-21 06:40] LABS: CALCIUM 8.6 mg/dL (8.5-10.3); CREATININE 0.5 mg/dL (0.6-1.3); MAGNESIUM 1.8 mg/dL (1.7-2.3); POTASSIUM 3.9 mmol/L (3.5-4.5)
--- NOTE | 2024-08-21 07:37 | Discharge Summary ---
"Discharge Summary Admit Date: 08/17/24 Discharge Date: 08/21/24 Discharging Provider: Dr. Dianne Vee Primary Care Provider: Joie Guadalupe Code Status: Attempt Resuscitation Discharge Facility Name: [facility] - Inpatient Psych DIAGNOSES Admission Diagnoses: Respiratory failure, acute Overdose Prediabetes Discharge Diagnoses with Status of Each Condition: Sepsislikely due to aspiration pneumonia in setting of inability to protect airway. Resolved. Had fevers, tachycardia, leukocytosisall resolved. Received Unasyn for 3 days, continue Augmentin for 2 more days. Weaned off oxygen. Sinus tachycardiaresolved. Acute respiratory failureresolved. Patient was intubated for airway protection, extubated, off oxygen. Aspiration pneumoniareceived Unasyn for 3 days, continue 2 more days of Augmentin. Overdosepatient presented with intentional overdose of propranolol, escitalopram, metformin, Tylenol. Plan for inpatient psych on discharge. Prediabetescontinue safety diet at this time. HPI History of Present Illness: Per Edgardo Chew: Patient presents after intentional overdose. Reportedly, she took a bunch of pills and then notified her family that she had done so. It is estimated that she had taken the following drugs: 1. 5000 mg metformin 2. 100 mg escitalopram 3. 250 mg spironolactone 4. 200 mg propranolol 5. 8000 mg ibuprofen 6. 5000 mg Tylenol 7. 125 mg of Unisom. In the ER, her initial GCS was 6, so she was intubated. Poison control was notified, and they made recommendations for management as will be described below. Workup was positive for lactic acid of 3.1, glucose 215, AST 49. UDS was negative, alcohol negative, Tylenol level 8.4. Hospitalist was contacted for admission for intentional overdose requiring intubation CONSULTS | PROCEDURES Consultations: DCR Procedures: Intubation, extubation, chest x-ray HOSPITAL COURSE Hospital Course: Patient is a 39-year-old female with a history of previous suicide attempt just a few weeks ago who presented after an intentional overdose of metformin, escitalopram, spironolactone, propranolol, ibuprofen, Tylenol, Unisom. She was very lethargic, GCS was below 8 when she first got here, and as such, she was intubated. The next morning she was extubated. She likely aspirated, developed sepsis, as well as an aspiration pneumonia. She was started on IV Unasyn with rapid resolution of this. She was weaned down to room air. Unasyn was switched to oral Augmentin. After medical clearance, DCR evaluated the patient, and recommended transfer to inpatient psych. She was transferred to [facility] for further psychiatric help. ALLERGIES Allergies Allergy/AdvReac Type Severity Reaction Status Date / Time metoclopramide (From Reglan) AdvReac Anxiety Verified 08/17/24 16:52 MEDICATIONS Ambulatory Orders Medication Instructions Recorded Confirmed gabapentin 100 mg capsule 200 mg (2 x 100 mg) PO TID # 90 caps 06/01/24 08/18/24 Held on 08/21/24. Instructions: Resume on 09/04/24. metformin 500 mg tablet,extended 500 mg PO BID #60 tab s 06/01/24 08/18/24 release 24 hr (Glucophage XR) blood sugar diagnostic #100 ea 07/19/24 08/13/24 blood-glucose meter #1 ea 07/19/24 08/13/24 lancets #100 ea 07/19/24 08/13/24 cyclobenzaprine 5 mg tablet 5 mg PO BID 08/18/2408/18 Held on 08/21/24. Instructions: Resume on 09/04/24. escitalopram oxalate 20 mg tablet 20 mg PO DAILY 08/1808/18/24 (Lexapro) Held on 08/21/24. Instructions: Resume on 09/04/24. norethindrone (contraceptive) 0.35 0.35 mg PO DAILY 08/18/24 mg tablet (Kym) amoxicillin 875 mg-potassium 1 tab PO BID #4 tabs 07/30 07/23 clavulanate 125 mg tablet PHYSICAL EXAM AT DISCHARGE Vital Signs: Vital Signs x48h Temp Pulse Resp BP Pulse Ox 08/21/24 08:12 97.9 F 87 16 102/72 96 General Appearance: positive No acute distress, Alert and Anxious Eyes Bilateral: positive Normal inspection, PERRL and EOMI ENT: positive ENT inspection nml, Pharynx nml and No signs of dehydration Neck: positive Nml inspection, Thyroid nml and No JVD Respiratory: positive No respiratory distress and Breath sounds nml; negative Wheezes Cardiovascular: positive Regular rate & rhythm, No murmur and No gallop Abdomen: positive Non-tender, No organomegaly, Nml bowel sounds and No distention Back: positive Nml inspection; negative CVA tenderness (R) or CVA tenderness (L) Skin: positive Color nml, No rash, Warm and Dry Extremities: positive Non-tender, Full ROM and Nml appearance Neurologic/Psychiatric: positive Oriented x3, CN's nml (2-12) and Motor nml LABS 08/21/24 05:51 08/21/24 05:51 DIAGNOSTIC IMAGING Diagnostic Imaging Results: Final report reviewed SEPSIS Current Stage of Sepsis: Resolved FOLLOW UP Follow Up: Follow up with psychiatry. TIME SPENT Time Spent in Discharge (Minutes): 35 Discharge Plan Discharge Patient Disposition: 65 Psych Hosp/Unit DC/Xfer Condition: Fair Prescriptions: New amoxicillin-pot clavulanate 875-125 mg Tablet 1 tab PO BID Qty: 4 0RF Continued metformin [Glucophage XR] 500 mg tablet extended release 24 hr 500 mg PO BID Qty: 60 2RF Rx Instructions: take with meals norethindrone (contraceptive) [Kym] 0.35 mg tablet 0.35 mg PO DAILY (DME) blood-glucose meter Misc See Rx Instructions .MEDSUPPLY Qty: 1 0RF Rx Instructions: As directed - product of patient choice or insurance coverage (DME) blood sugar diagnostic Strip See Rx Instructions .MEDSUPPLY Qty: 100 11RF Rx Instructions: As directed - to match patient blood glucose meter, to check FASTING once daily (DME) lancets Misc See Rx Instructions .MEDSUPPLY Qty: 100 11RF Rx Instructions: As directed Held gabapentin 100 mg capsule 200 mg PO TID Qty: 90 3RF Hold Instructions: Resume on 09/04/24. Rx Instructions: Increased dose. cyclobenzaprine 5 mg tablet 5 mg PO BID Hold Instructions: Resume on 09/04/24. Patient Comments: TAKE 1 TABLET BY MOUTH TWICE DAILY escitalopram oxalate [Lexapro] 20 mg tablet 20 mg PO DAILY Hold Instructions: Resume on 09/04/24. Discontinued spironolactone 50 mg tablet 50 mg PO DAILY propranolol 20 mg tablet 20 mg PO BID Qty: 60 0RF Activity Restrictions: Activity as Tolerated Diet: Regular Print Language: Nepali Stand Alone Forms: PCP List"
[2024-08-21 08:13] VITALS: BP 102/72; TEMP 97.9; O2SAT 96
[2024-08-21] MEDS: FAMOTIDINE 20 MG TABLET PO SCH (08:38)
[2024-08-21] MEDS: AMOX/CLAV 875 MG/125 MG TABLET PO SCH (08:38)
[2024-08-21] MEDS: LORazepam 1 MG TABLET PO STA (08:56)
[2024-08-22] MEDS ORDERED: PANTOPRAZOLE 40 MG TABLET PO SCH (07:00)
== END 2024-08-21 09:26 | DRG 208 ==
LOC: ED 16:48 → ICU 18:58 → MS2 08-20 15:19
PROVIDERS: ADMIT Nurse Practitioner Acute Care; ATTEND Nurse Practitioner Acute Care